=== PATIENT | female | born 1960 | race Caucasian/White ===

== ENCOUNTER → 2017-07-25 11:08 | Outpatient (REF) | payer BC, SELFPAY | LOC: LAB 11:08 | PROVIDERS: Visit Provider Nurse Practitioner Family | DX: D51.9 Vitamin B12 deficiency anemia, unspecified (principal) ==

== ENCOUNTER → 2020-02-16 17:00 | Outpatient (CLI) | payer BC, SELFPAY ==
[2020-02-16 18:50] LABS: Free T4 (Free Thyroxine) 1.03 ng/dl (0.78-2.19)
[2020-02-16 19:01] LABS: Thyroid Stimulating Hormone 4.18 uIU/mL (0.465-4.68)
== END ==
PROVIDERS: Visit Provider Physician Assistant
DX: E03.9 Hypothyroidism, unspecified (principal)
CPT/HCPCS: 84439; 84443

== ENCOUNTER 2023-04-16 18:53 | Emergency (ER) | payer BC, SELFPAY ==
[2023-04-16 19:42] VITALS: BP 129/77; PULSE 77; RESP 17; TEMP 36.8; O2SAT 93; BMI 45.1
--- OUTSIDE RECORDS SUMMARY | 2023-04-16 19:53 | XMS_ITS | Continuity of Care Document ---
Author Name Unknown Organization [facility] Address [address] [address] Phone Care Team Providers Care Freight Dispatcher Name Role Phone Jena Ferguson MD Unavailable Unavailable Allergies, Adverse Reactions, Alerts Substance Reaction Status Criticality PENICILLIN Active No Information Medications Medication Instructions Dosage Effective Dates (start - stop) Status Comments citalopram 40 mg tablet Take 1 tablet by mouth once daily - Active gabapentin 400 mg capsule take 1 capsule by oral route 3 times every day 400 MG - Active nabumetone 750 mg tablet take 2 tablet by oral route every day 1500 MG - Active methocarbamol 750 mg tablet TAKE 1 TO 2 TABLETS BY MOUTH THREE TIMES DAILY NEEDED MAY CAUSE DROWSINESS - Active Vitamin D3 5,000 unit tablet take 1 tablet once a day - Active Tirosint 75 mcg capsule take 1 capsule by oral route every day 75 MCG - Active buspirone 10 mg tablet 1 bid p
--- NOTE | 2023-04-16 20:29 | XR_ITS ---
PROCEDURE INFORMATION: Exam: XR Chest Exam date and time: 04/16/2023 8:59 PM Age: 62 years old Clinical indication: Prior surgery; Surgery date: 6+ months; Surgery type: Partial lung removal due to lung cancer per patient. Patient HX: Smoker, shortness of breath. ; Additional info: SOA TECHNIQUE: Imaging protocol: Radiologic exam of the chest. Views: 1 view. COMPARISON: CR CXR CHEST(2 VIEWS-NOT PORTABLE) 11/19/2016 4:19 PM FINDINGS: Tubes, catheters and devices: Left-sided chest port with tip terminating at the SVC. Lungs: Bibasilar opacities partially silhouette the diaphragm are favored to represent combination of atelectasis/pleural effusion/consolidation. Pleural spaces: See Lungs finding. Heart/Mediastinum: Unremarkable. No cardiomegaly. Bones/joints: Unremarkable. IMPRESSION: Bibasilar opacities partially silhouette the diaphragm are favored to represent combination of atelectasis/pleural effusion/consolidation.
[2023-04-16 20:36] LABS: Coronavirus 19, PCR Not Detected (NotDetected); Influenza A, PCR Not Detected (NotDetected); Influenza B, PCR Not Detected (NotDetected)
[2023-04-16 21:15] VITALS: BP 110/57; PULSE 69; O2SAT 94
[2023-04-16 21:27] LABS: Strep Scrn Group A (Rapid) Negative (Negative)
[2023-04-16 21:31] VITALS: BP 110/57; PULSE 72; RESP 18; O2SAT 94
--- NOTE | 2023-04-16 22:19 | PC.NURSE ---
rounded on pt, pt is asleep at this time
[2023-04-17 01:08] VITALS: BP 124/64; PULSE 81; RESP 20; TEMP 36.8; O2SAT 98
--- NOTE | 2023-04-17 15:56 | HMH.EDGENADL ---
Discharge Plan Disposition Patient Disposition: Home, Self-Care Prescriptions Prescriptions: No Action nabumetone 750 mg tablet 750 mg PO DAILY methocarbamol 750 mg tablet 750 mg PO Q6H oxaprozin 600 mg tablet 1,200 mg PO TID citalopram 40 mg tablet 40 mg PO QDAY gabapentin 300 mg capsule 300 mg PO TID levothyroxine 100 mcg tablet See Rx Instructions .ROUTE .COMPLEX Qty: 90 0RF Dose Instruction: Take 1 tablet by mouth once daily Rx Instructions: Take 1 tablet by mouth once daily Clinical Impressions Clinical Impression: PNA (pneumonia) Discharge ED Provider: Augstin Munoz General Adult HPI General Chief complaint: Weakness Stated complaint: weak, Time Seen by Provider: 04/16/23 19:17 Mode of Arrival: Family Vehicle Source of Information: Patient Limitations: No Limitations Description of Symptoms (Recalled from ER Triage Doc. by RN): 62 yo female presents with CC of sinus congestion, general malaise x 1 week . Patient is alert, oriented, denies angina, denies dyspnea. Said she stays nauseated and hasn't had alot of PO intake during the past 5 days. Last BM 3 days ago. Denies abd pain. Denies back pain. Denies covid contact. Patient is afebrile. Denies other sick contact. Takes monthly Contruda. History of Present Illness HPI narrative: The patient presents with a chief complaint of generalized weakness, fatigue, and congestion for the past four to five days. She reports feeling slightly short of breath and experiencing chills, but denies having a fever. The patient mentions coughing up a small amount of phlegm. The patient describes feeling weak all over her body and feeling out of it. She denies any specific medical problems or taking any medications for lung issues. She has a history of lung cancer but does not recall which side was affected. The patient denies any abdominal or chest pain and has not required breathing treatments or oxygen use in the past. The patient is currently responsible for taking care of her two grandsons and has been struggling to manage their daily routines due to her symptoms. She reports difficulty in getting them to school and expresses concern about the cold temperature in the examination room. Related Data Home Medications Medication Instructions Recorded Confirmed citalopram 40 mg tablet 40 mg PO QDAY 07/25/17 04/16/23 gabapentin 300 mg capsule 300 mg PO TID 07/25/17 04/16/23 methocarbamol 750 mg tablet 750 mg PO Q6H 07/25/17 04/16/23 oxaprozin 600 mg tablet 1,200 mg PO TID 07/25/17 04/16/23 nabumetone 750 mg tablet 750 mg PO DAILY 02/16/20 04/16/23 Previous Rx's Medication Instructions Recorded levothyroxine 100 mcg tablet See Rx Instructions .Route 06/22/21 .COMPLEX #90 tabs Allergies Allergy/AdvReac Type Severity Reaction Status Date / Time penicillin G [PENICILLIN G] Allergy Mild Verified 02/16/20 11:03 [facility] Disclaimer: The information contained in this section may have been updated after the patient was seen, as this information can be updated by other users. Social History Smoking Status: Current every day smoker tobacco type: cigarettes packs per day: 1 alcohol intake: never substance use type: denies use current occupational status: other Travel in the last 8 weeks: None housing: house ROS Obtained: Yes Systems reviewed as appropriate & no additional complaints except as documented Physical Exam General General appearance: alert and in no apparent distress Head Head exam: atraumatic and normocephalic Eye Eye exam: Present normal appearance Neck Neck exam: Present normal inspection Chest Chest inspection: Present normal inspection and symmetric chest wall rise Respiratory Respiratory exam: Present normal lung sounds bilaterally and other (Rales bilaterally); Absent respiratory distress Cardiovascular Cardiovascular exam: Present regular rate and normal rhythm Abdomina
== END 2023-04-17 01:15 | disposition home or self-care (01) ==
PROVIDERS: Emergency Provider Emergency Medicine
DX: J18.9 Pneumonia, unspecified organism (principal); R06.02 Shortness of breath; R53.1 Weakness; F17.210 Nicotine dependence, cigarettes, uncomplicated
CPT/HCPCS: 71045; 87430; 87636; 99283

== ENCOUNTER 2023-05-28 08:05 | Emergency (ER) | payer BC, SELFPAY ==
--- OUTSIDE RECORDS SUMMARY | 2023-05-28 08:11 | XMS_ITS | Continuity of Care Document ---
Author Name Unknown Organization [facility] Address [address] [address] Phone Care Team Providers Care Theatre Director Name Role Phone Jena Ferguson MD Unavailable [...]
[2023-05-28 08:20] VITALS: BP 142/92; PULSE 63; RESP 20; TEMP 36.8; O2SAT 93; BMI 49.0
--- NOTE | 2023-05-28 09:21 | EXP.UTC ---
Discharge Plan Disposition Patient Disposition: Home, Self-Care Condition: Good Prescriptions Prescriptions: New prednisone [prednisone] 20 mg tablet 20 mg PO BID Qty: 10 0RF No Action nabumetone 750 mg tablet 750 mg PO DAILY methocarbamol 750 mg tablet 750 mg PO Q6H oxaprozin 600 mg tablet 1,200 mg PO TID citalopram 40 mg tablet 40 mg PO QDAY levothyroxine 100 mcg tablet See Rx Instructions .ROUTE .COMPLEX Qty: 90 0RF Dose Instruction: Take 1 tablet by mouth once daily Rx Instructions: Take 1 tablet by mouth once daily ipratropium-albuterol 0.5 mg-3 mg(2.5 mg base)/3 mL solution for nebulization See Rx Instructions .ROUTE .COMPLEX Rx Instructions: . gabapentin 400 mg capsule 400 mg PO BID pantoprazole 40 mg tablet,delayed release (DR/EC) 40 mg PO DAILY midodrine 10 mg tablet 10 mg PO TID Referrals Follow up/Referrals: Julian Quiroga MD [Primary Care Provider] - See instructions Activity Restrictions/Add. Instructions Additional Instructions/Restrictions: Start antibiotic today. Be sure to complete entire prescription even if feeling better Tylenol and ibuprofen as needed for pain or fever Humidifier/vaporizer/hot steamy shower Follow-up with primary care tomorrow. Follow-up immediately in the ER of the [facility] for new or worsening symptoms or no noticeable improvement over the next 48-72 hours. Stop smoking Inhaler every 4-6 hours as needed. Should help open airways improved cough, wheezing, shortness of breath Start steroids today. Helps with inflammation therefore coughing and wheezing. Follow directions on package. Clinical Impressions Clinical Impression: COPD exacerbation Instructions Patient Instructions: Chronic Obstructive Pulmonary Disease, Acute Bronchitis Discharge ED Provider: Sheila ([facility])Toiyn [facility] HPI General Stated complaint: cough,congestion Mode of Arrival: Ambulatory Source of Information: Patient Limitations: No Limitations Time Seen by Provider: 05/28/23 09:22 Description of Symptoms (Recalled from Triage Doc. by RN): congestion and cough HEENT Symptoms (Recalled from RN notes): Yes Resp Symptoms (Recalled from RN notes): No Skin Symptoms (Recalled from RN notes): No MS Symptoms (Recalled from RN notes): No Functional Status (Recalled from RN notes): n/a History of Present Illness Provider Complaint: 62 yr old female presents for cough, wheezing, chest congestion and soa Related Data Home Medications Medication Instructions Recorded Confirmed citalopram 40 mg tablet 40 mg PO QDAY 07/25/17 05/28/23 methocarbamol 750 mg tablet 750 mg PO Q6H 07/25/17 04/16/23 oxaprozin 600 mg tablet 1,200 mg PO TID 07/25/17 04/16/23 nabumetone 750 mg tablet 750 mg PO DAILY 02/16/20 04/16/23 gabapentin 400 mg capsule 400 mg PO BID 05/28/23 05/28/23 ipratropium 0.5 mg-albuterol 3 mg See Rx Instructions .Route .COMPLEX 05/28/23 05/28/23 (2.5 mg base)/3 mL nebulization soln midodrine 10 mg tablet 10 mg PO TID 05/28/23 05/28/23 pantoprazole 40 mg tablet,delayed 40 mg PO DAILY 05/28/23 05/28/23 release Previous Rx's Medication Instructions Recorded levothyroxine 100 mcg tablet See Rx Instructions .Route 06/22/21 .COMPLEX #90 tabs prednisone 20 mg tablet 20 mg PO BID #10 tabs 05/28/23 Allergies Allergy/AdvReac Type Severity Reaction Status Date / Time penicillin G [PENICILLIN G] Allergy Mild Verified 05/28/23 08:57 Worker's Comp Is this a Worker's Comp case?: No Is this an [facility] Worker's Comp?: No [facility] Disclaimer: The information contained in this section may have been updated after the patient was seen, as this information can be updated by other users. 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
[2023-05-28 09:30] VITALS: BP 149/92; PULSE 63; RESP 18; TEMP 36.8; O2SAT 93
--- NOTE | 2023-05-28 09:31 | PC.NURSE ---
Pt states that her baseline o2 sat is between 90-93
== END 2023-05-28 09:30 | disposition home or self-care (01) ==
PROVIDERS: Emergency Provider Nurse Practitioner Family; PCP Family Medicine
DX: J44.1 Chronic obstructive pulmonary disease with (acute) exacerbation (principal); J20.9 Acute bronchitis, unspecified; R06.02 Shortness of breath; R05.9 Cough, unspecified; R09.89 Other specified symptoms and signs involving the circulatory and respiratory systems; R06.2 Wheezing; F17.210 Nicotine dependence, cigarettes, uncomplicated
CPT/HCPCS: 99204; 99212; G0463

== ENCOUNTER 2023-07-03 12:46 | Observation (INO) | payer BC, SELFPAY ==
[2023-07-03] VITALS (10 sets, daily range): BP systolic 79–131; BP diastolic 43–79; PULSE 62–75; RESP 17–20; TEMP 36.4–37.1; O2SAT 88–100; BMI 43.5; BMI 41.8
--- OUTSIDE RECORDS SUMMARY | 2023-07-03 13:06 | XMS_ITS | Continuity of Care Document ---
Author Name Unknown Organization [facility] Address [address] [address] Phone Care Team Providers Care Water Tanker Driver Name Role Phone Jena Ferguson MD Unavailable [...]
--- NOTE | 2023-07-03 13:16 | PC.NURSE ---
DR CRANE AT BEDSIDE
--- NOTE | 2023-07-03 13:17 | XR_ITS ---
FINAL REPORT CLINICAL HISTORY: Shortness of breath COMPARISON: 04/16/2023 FINDINGS: The heart size is mildly enlarged. Left chest port is present with the tip in the SVC. There is no focal infiltrate or edema. There are no pleural effusions. There is no pneumothorax. There is a healing right 7th rib fracture posteriorly. IMPRESSION: No acute cardiopulmonary process Reviewed, Interpreted and Dictated by Chin Camacho MD Transcribed by Shahnaz Dominguez Authenticated and [facility]
--- NOTE | 2023-07-03 13:17 | CT_ITS ---
FINAL REPORT TECHNIQUE: After the administration of oral and intravenous contrast, axial images were obtained through the abdomen and pelvis by computed tomography. The study was performed with techniques to keep radiation dose as low as reasonably achievable, (ALARA). Individual dose reduction techniques using automated exposure control or adjustment of mA and/or kV according to the patient's size were employed. CLINICAL HISTORY: n/v dec flatus/BM hypotension abd pain COMPARISON: None FINDINGS: Abdomen: There is chronic scarring at the lung bases. There is moderate fatty infiltration of the liver. There is scattered calcified granuloma throughout the liver. The gallbladder is distended. The spleen, pancreas, and adrenal appear unremarkable. There are benign-appearing cysts in the lower pole the right kidney measuring up to 1.2 cm. The aorta is normal in caliber. There is no free fluid or adenopathy. Pelvis: The appendix is not identified. The urinary bladder is incompletely distended. There is no free fluid or adenopathy. There are advanced changes of degenerative disc disease in the lower lumbar spine. IMPRESSION: Distended gallbladder. Benign-appearing right renal cysts. Fatty liver. Reviewed, Interpreted and Dictated by Chin Camacho MD Transcribed by Shahnaz Dominguez Authenticated and [facility]
--- NOTE | 2023-07-03 13:18 | HMH.EDGENADL ---
Discharge Plan Disposition Patient Disposition: Admitted Condition: Good Clinical Impressions Clinical Impression: Bilateral lower abdominal pain, Nausea & vomiting, Acute hypotension, Generalized weakness, Acute dehydration, SHAMA (acute kidney injury) Discharge ED Provider: Libertad Beaulieu General Adult HPI <Anshu Jensen MD - Last Filed: 07/03/23 15:02> General Chief complaint: Nausea/Vomiting/Diarrhea Stated complaint: weakness Time Seen by Provider: 07/03/23 13:10 Mode of Arrival: EMS Source of Information: Patient and EMS Limitations: No Limitations Description of Symptoms (Recalled from ER Triage Doc. by RN): PT REPORTS ONGOING N/V X 1 1/2 WEEKS. SEEN AT [facility] ON FRIDAY, STATES HER GALLBLADDER IS INFLAMMED. REMAINS UNABLE TO TOLERATE PO INTAKE. DENIES FEVER, NO DIARRHEA, NO PAIN History of Present Illness HPI narrative: Patient is a 62-year-old female with a history of lung cancer in remission status post lobectomy earlier this year who presents today with 1-1/2 weeks of nausea and vomiting decreased bowel movements and flatus and profound weakness and decreased urine output. Denies any fevers or chills does states she has a little bit worse of a cough than normal as well. States she went to [facility] emergency department where they did a CAT scan thought she may have some biliary disease told her that they wanted her to do an outpatient ultrasound but she felt too weak to get this accomplished. States that on the CAT scan did not tell her anything about a bowel obstruction etc. Related Data Home Medications Medication Instructions Recorded Confirmed citalopram 40 mg tablet 40 mg PO QDAY 07/25/17 07/03/23 methocarbamol 750 mg tablet 750 mg PO Q6H 07/25/17 07/03/23 oxaprozin 600 mg tablet 1,200 mg PO TID 07/25/17 07/03/23 nabumetone 750 mg tablet 750 mg PO DAILY 02/16/20 07/03/23 gabapentin 400 mg capsule 400 mg PO BID 05/28/23 07/03/23 ipratropium 0.5 mg-albuterol 3 mg See Rx Instructions .Route .COMPLEX 05/28/23 07/03/23 (2.5 mg base)/3 mL nebulization soln midodrine 10 mg tablet 10 mg PO TID 11/15/23 12/21/23 pantoprazole 40 mg tablet,delayed 40 mg PO DAILY 05/28/23 07/03/23 release Previous Rx's Medication Instructions Recorded levothyroxine 100 mcg tablet See Rx Instructions .Route 06/22/21 .COMPLEX #90 tabs Allergies Allergy/AdvReac Type Severity Reaction Status Date / Time penicillin G [PENICILLIN G] Allergy Mild Verified 05/28/23 08:57 [facility] <Anshu Jensen MD - Last Filed: 07/03/23 15:02> [facility] Disclaimer: The information contained in this section may have been updated after the patient was seen, as this information can be updated by other users. Medical History (Updated 07/03/23 @ 17:33 by PAIGE Sharp) COPD (chronic obstructive pulmonary disease) Hypothyroid Knee fracture Lung cancer Wrist fracture, right Surgical History (Updated 07/03/23 @ 17:33 by PAIGE Sharp) History of carpal tunnel surgery History of section History of hysterectomy History of lobectomy of lung Family History (Updated 07/03/23 @ 17:33 by PAIGE Sharp) Other Family history of cancer Social History (Updated 07/03/23 @ 17:33 by PAIGE Sharp) Smoking Status: Current every day smoker tobacco type: cigarettes packs per day: 1 alcohol intake: never substance use type: denies use current occupational status: disabled and other Travel in the last 8 weeks: None housing: house <Anshu Jensen MD - Last Filed: 07/03/23 15:02> ROS Obtained: Yes All systems reviewed & no additional complaints except as documented Physical Exam <Anshu Jensen MD - Last Filed: 07/03/23 15:02> General General appearance: other (Ill-appearing) Respiratory Respiratory exam: Present other (Oxygen saturations 88% on room air on my initial evaluation normal and good waveform) Cardiovascular Cardiovascular exam: Present other (Cool extremities hyp
[2023-07-03 13:28] LABS: Basophils % 0.5 % (0.1-2.0); Chloride 92 mmol/L (98-107); Eosinophils # 0.7 K/mm3 (0.0-0.4); Eosinophils % 9.6 % (0.1-12.0); Hemoglobin 15.4 g/dL (12.2-16.2); Lymphocytes # 1.6 K/mm3 (0.7-4.5); Lymphocytes % 22.1 % (10-50); Mean Corpuscular HGB Conc 32.7 g/dL (31.8-35.4); Mean Corpuscular Hemoglobin 32.1 pg (27.0-31.2); Mean Corpuscular Volume 98.2 fl (81-99); Mean Platelet Volume 8.4 fl (7.4-10.4); Monocytes # 0.6 K/mm3 (0.1-1.0); Monocytes % 7.9 % (1.7-9.3); Neutrophils # 4.4 K/mm3 (1.8-7.8); Platelet Count 384 K/mm3 (142-424); Red Blood Count 4.79 M/mm3 (4.20-5.40); Red Cell Distribution Width 14.9 % (11.5-17.5); White Blood Count 7.4 K/mm3 (4.8-10.8)
[2023-07-03 13:29] LABS: Potassium 3.8 mmoL/L (3.5-5.1); Sodium 130 mmol/L (136-145)
[2023-07-03 13:31] LABS: Alanine Aminotransferase 15 U/L (12-78); Alkaline Phosphatase 69 U/L (38-126); Aspartate Amino Transferase 34 U/L (14-36); Bilirubin,Total 0.6 mg/dl (0.2-1.3); Blood Urea Nitrogen 6 mg/dl (7-17); Creatinine Clearance Estimated 51 mL/min (50-200); Estimated Glomerular Filt Rate 51 ml/min (>60); GFR (African American) 61 ML/MIN (>60)
[2023-07-03 13:32] LABS: Albumin Level 4.5 g/dl (3.5-5.0); Albumin/Globulin Ratio 1.4 (1.1-1.8); Anion Gap 22.8 mEq/L (5-15); Calcium 9.7 mg/dl (8.4-10.2); Carbon Dioxide 19 mmol/L (22.0-30.0); Globulin 3.3 g/dL (1.3-3.2); Glucose 52 mg/dl (74-100); Lipase 35 U/L (23-300); Magnesium 1.5 mg/dl (1.6-2.3); Phosphorous 5.1 mg/dl (2.5-4.5); Total Protein,Serum 7.8 g/dl (6.3-8.2)
--- NOTE | 2023-07-03 13:32 | PC.NURSE ---
!st set of blood cultures drawn from right wrist and sent to lab
--- NOTE | 2023-07-03 13:38 | PC.NURSE ---
Allergy bracelet placed on left wrist; as well as blue band for having cultures drawn
[2023-07-03 13:44] LABS: Coronavirus 19, PCR Not Detected (NotDetected); Influenza A, PCR Not Detected (NotDetected); Influenza B, PCR Not Detected (NotDetected)
[2023-07-03 13:44] LABS: Troponin I 0.02 ng/ml (0.00-0.034)
--- NOTE | 2023-07-03 13:47 | PC.NURSE ---
placed patient on 2L via nasal cannula, pt oxygen saturation has been running 89-90% while patient is sleeping
[2023-07-03 13:57] LABS: Lactic Acid 1.6 mmol/L (0.7-2.1)
--- NOTE | 2023-07-03 16:10 | PC.NURSE ---
Dr. Beaulieu speaking with Dr. Andrew who is covering for Dr. Quiroga
--- NOTE | 2023-07-03 16:11 | PC.NURSE ---
DR DIAMOND SPEAKING WITH HOSPITALIST FOR ADMISSION
--- NOTE | 2023-07-03 16:16 | PC.NURSE ---
BAG CHECKER NOTIFIED OF ADMISSION
--- OUTSIDE RECORDS SUMMARY | 2023-07-03 16:39 | XMS_ITS | Continuity of Care Document ---
Author Name Unknown Organization [facility] Address [address] [address] Phone Care Team Providers Care Mini Lab Operator Name Role Phone Jena Ferguson MD Unavailable Unavailable Allergies, Adverse Reactions, Alerts Substance Reaction Status Criticality PENICILLIN Active No Information Medications Medication Instructions Dosage Effective Dates (start - stop) Status Comments methocarbamol 750 mg tablet TAKE 1 TO 2 TABLETS BY MOUTH THREE TIMES DAILY NEEDED MAY CAUSE DROWSINESS - Active nabumetone 750 mg tablet take 2 tablet by oral route every day 1500 MG - Active gabapentin 400 mg capsule take 1 capsule by oral route 3 times every day 400 MG - Active citalopram 40 mg tablet Take 1 tablet by mouth once daily - Active Vitamin D3 5,000 unit tablet take 1 tablet once a day - Active Tirosint 75 mcg capsule take 1 capsule by oral route every day 75 MCG - Active buspirone 10 mg tablet 1 bid
[2023-07-03 16:42] LABS: Free T4 (Free Thyroxine) 0.34 ng/dl (0.78-2.19)
--- NOTE | 2023-07-03 16:47 | PC.NURSE ---
REPORT GIVEN TO KENY CARMONA
--- NOTE | 2023-07-03 17:04 | PC.NURSE ---
arrived by stretcher from ED
[2023-07-03 17:18] LABS: Troponin I 0.02 ng/ml (0.00-0.034)
[2023-07-03 20:18] LABS: Troponin I 0.02 ng/ml (0.00-0.034)
[2023-07-04 00:10] LABS: Microscopic, Urine URINE MICROSCOPIC (MICROSCOPIC)
[2023-07-04 00:13] LABS: Appearance,Urine CLEAR (Clear); Bilirubin,Urine Negative (Negative); Blood, Urine Negative (Negative); Color,Urine YELLOW (Yellow); Glucose,Urine (UA) Negative (Negative); Ketones,Urine 3+ (Negative); Leukocyte Esterase,Urine Negative (Negative); Nitrate,Urine Negative (Negative); Protein,Urine Negative (Negative); Urobilinogen,Urine 0.2 EU/dl (0.2)
[2023-07-04 00:24] LABS: Squamous Epithelial Cell,Urine Occasional #/hpf (0-5)
[2023-07-04 04:00] VITALS: BP 126/80; PULSE 85; RESP 20; TEMP 36.4; O2SAT 96; BMI 42.0
--- NOTE | 2023-07-04 04:00 | PC.NURSE ---
Pt is alert and oriented x4, Pt is currently on RA and sating at 92% with a Hx of COPD. Pt has provided the needed urine sample but has yet to provide stool sample. Pt is tolerating fluids well and seems to be resting at times with no C/O pain or discomfort at this time.
[2023-07-04 06:07] LABS: Chloride 97 mmol/L (98-107); Potassium 4.1 mmoL/L (3.5-5.1); Sodium 133 mmol/L (136-145)
[2023-07-04 06:10] LABS: Anion Gap 16.1 mEq/L (5-15); Basophils % 0.4 % (0.1-2.0); Blood Urea Nitrogen 7 mg/dl (7-17); Carbon Dioxide 24 mmol/L (22.0-30.0); Creatinine Clearance Estimated 51 mL/min (50-200); Eosinophils # 0.2 K/mm3 (0.0-0.4); Eosinophils % 2.9 % (0.1-12.0); Estimated Glomerular Filt Rate 51 ml/min (>60); GFR (African American) 61 ML/MIN (>60); Hematocrit 41.4 % (37.0-47.0); Lymphocytes % 16.2 % (10-50); Mean Corpuscular HGB Conc 32.3 g/dL (31.8-35.4); Mean Corpuscular Hemoglobin 31.3 pg (27.0-31.2); Mean Platelet Volume 7.7 fl (7.4-10.4); Monocytes # 0.4 K/mm3 (0.1-1.0); Monocytes % 6.1 % (1.7-9.3); Neutrophils # 4.6 K/mm3 (1.8-7.8); Neutrophils % 74.4 % (37.0-80.0); Platelet Count 344 K/mm3 (142-424); Red Blood Count 4.27 M/mm3 (4.20-5.40); Red Cell Distribution Width 14.7 % (11.5-17.5); White Blood Count 6.2 K/mm3 (4.8-10.8)
[2023-07-04 06:11] LABS: Calcium 8.6 mg/dl (8.4-10.2); Glucose 130 mg/dl (74-100); Hemoglobin 13.4 g/dL (12.2-16.2)
[2023-07-04 08:00] VITALS: BP 119/52; PULSE 68; RESP 16; TEMP 36.9; O2SAT 93
--- NOTE | 2023-07-04 08:56 | EXP.HP ---
History of Present Illness *Admission Date: 07/04/23 *Reason for visit:: Nausea and vomiting *History of present illness: 62 year old female patient of [facility] with about a 10 day history of nausea and vomiting. Emesis consisted of mainly ingested food, no blood. She was seen in the ER at [facility] a few days ago and was told her gallbladder was abnormal. They arranged an outpatient ultrasound for her but her symptoms worsened so she came the the ER here for further evaluation. [facility] Disclaimer: The information contained in this section may have been updated after the patient was seen, as this information can be updated by other users. Medical History (Updated 07/04/23 @ 13:04 by Julian Quiroga MD) CAP (community acquired pneumonia) COPD (chronic obstructive pulmonary disease) Fibromyalgia GERD (gastroesophageal reflux disease) Hypothyroid Knee fracture Lung cancer Osteoarthritis Urinary incontinence Wrist fracture, right Surgical History (Updated 07/04/23 @ 13:04 by Julian Quiroga MD) History of carpal tunnel surgery History of section History of colonoscopy History of hysterectomy History of lobectomy of lung Family History (Updated 07/03/23 @ 17:33 by PAIGE Sharp) Family history of cancer Social History (Updated 07/03/23 @ 17:33 by PAIGE Sharp) Smoking Status: Current every day smoker tobacco type: cigarettes packs per day: 1 alcohol intake: never substance use type: denies use current occupational status: disabled and other Travel in the last 8 weeks: None housing: house Review of Systems Constitutional Constitutional: Denies chills and Denies fever(s) ENT Ears, Nose, Mouth, and Throat: Denies bleeding gums and Denies dizziness *Cardiovascular Cardiovascular: Denies chest pain and Denies dyspnea *Respiratory Respiratory: Denies dyspnea *Gastrointestinal Gastrointestinal: Reports as per HPI *Genitourinary Genitourinary: Denies difficulty voiding *Musculoskeletal Musculoskeletal: Denies arthralgias Integumentary/Breasts Skin/Breast: Denies rash *Neurologic Neurologic: Denies dizziness Meds Home Medications and Allergies Home Medications Medication Instructions Recorded Confirmed Type citalopram 40 mg tablet 40 mg PO DAILY MOOD 07/25/17 07/04/23 History gabapentin 400 mg capsule 400 mg PO BID NERVE PAIN 05/28/23 07/03/23 History ipratropium 0.5 mg-albuterol 3 mg 3 ml inhalation Q6HP PRN Shortness 05/28/23 07/04/23 History (2.5 mg base)/3 mL nebulization Of Breath Or Wheezing soln midodrine 10 mg tablet 10 mg PO TID LOW BLOOD PRESSURE 05/28/23 07/03/23 History pantoprazole 40 mg tablet,delayed 40 mg PO DAILY Acid Reflux 05/28/23 07/03/23 History release levothyroxine 100 mcg tablet 100 mcg PO DAILYDM THYROID 07/04/23 07/04/23 History New Prescriptions to Start Prescriptions: Allergies Allergy/AdvReac Type Severity Reaction Status Date / Time penicillin G [PENICILLIN G] Allergy Mild Verified 05/28/23 08:57 Exam Data for Last 24 hours Vital signs and Labs for Last 24 Hours: Temp Pulse Resp BP Pulse Ox O2 Del Method O2 Flow Rate 98.4 F 68 16 119/52 L 93 L Room Air 2 07/04/23 08:00 07/04/23 08:00 07/04/23 08:00 07/04/23 08:00 07/04/23 08:00 07/04/23 08:00 07/04/23 01:00 Laboratory Results - last 24 hr 07/03/23 12:45: WBC 7.4, RBC 4.79, Hgb 15.4, Hct 47.0, MCV 98.2, MCH 32.1 H, MCHC 32.7, RDW 14.9, Plt Count 384, MPV 8.4, Neut % (Auto) 60.0, Lymph % (Auto) 22.1, [place] % (Auto) 7.9, Eos % (Auto) 9.6, Baso % (Auto) 0.5, Neut # (Auto) 4.4, Lymph # (Auto) 1.6, [place] # (Auto) 0.6, Eos # (Auto) 0.7 H, Baso # (Auto) 0.0, Sodium 130 L, Potassium 3.8, Chloride 92 L, Carbon Dioxide 19 L, Anion Gap 22.8 H, BUN 6 L, Creatinine 1.10 H, Estimated Creat Clear 51, Estimated GFR 51 L, Est GFR ( Amer) 61, Glucose 52 L, Calcium 9.7, Phosphorus 5.1 H, Magnesium 1.5 L, Total Bilirubin 0.6, AST 34, ALT 15, Al
--- NOTE | 2023-07-04 08:58 | HMH.PHAINT1 ---
Pharmacy Intervention Comments: MEDICATION RECONCILIATION COMPLETE USING LIST FROM MD OFFICE AND EXTERNAL PHARMACY FILL HISTORY.
--- NOTE | 2023-07-04 09:00 | US_ITS ---
FINAL REPORT CLINICAL HISTORY: N/V, RUQ abd pain, abnormal CT scan COMPARISON: CT abdomen pelvis dated 07/03/2023 FINDINGS: ULTRASOUND RIGHT UPPER QUADRANT Sonographic imaging of the right upper quadrant was obtained. Limited images of the pancreas are without acute abnormality. The liver fatty infiltrated. The gallbladder is distended and contains a small amount of sludge. There is no gallbladder wall thickening. The common duct is normal at 3 mm. There is a cyst in the right kidney measuring 1.6 cm in greatest dimension. IMPRESSION: Small amount of sludge in a distended gallbladder. Fatty liver. Right renal cyst Reviewed, Interpreted and Dictated by Chin Camacho MD Transcribed by Cuortney Miller Authenticated and [facility] [place]
[2023-07-04 13:26] LABS: Alanine Aminotransferase 14 U/L (12-78); Albumin Level 3.7 g/dl (3.5-5.0); Alkaline Phosphatase 56 U/L (38-126); Aspartate Amino Transferase 27 U/L (14-36); Bilirubin,Direct 0.4 mg/dl (0.0-0.4); Bilirubin,Indirect 0.1 mg/dL (0.0-0.9); Bilirubin,Total 0.5 mg/dl (0.2-1.3); Bilirubin,Unconjugated 0.1 mg/dL (0.0-1.1); Total Protein,Serum 6.2 g/dl (6.3-8.2)
[2023-07-04 16:00] VITALS: BP 128/71; PULSE 74; RESP 18; TEMP 36.6; O2SAT 92
--- NOTE | 2023-07-04 18:49 | PC.NURSE ---
Patient continuing to get fluids IV. Patient VSS, A&Ox4 and tolerating a regular diet
[2023-07-04 20:00] VITALS: BP 112/62; PULSE 86; RESP 16; TEMP 36.8; O2SAT 92
[2023-07-05 04:00] VITALS: BP 101/66; PULSE 77; RESP 17; TEMP 36.6; O2SAT 98; BMI 42.4
--- NOTE | 2023-07-05 06:27 | PC.NURSE ---
HAS NOT USED HER 02 THIS SHIFT. 02 SATS 92% ON ROOM AIR. NO N/V/D THIS SHIFT. AMBULATORY TO BR WITH SBA DUE TO IV POLE. TOLERATES ACTIVITY WELL.
[2023-07-05 07:35] VITALS: BP 108/56; PULSE 71; RESP 18; TEMP 36.9; O2SAT 90
--- NOTE | 2023-07-05 08:23 | EXP.ACUTE.PN ---
Subjective *Date: 07/05/23 *Time: 08:23 Interval history: Patient feels much better today, wants to go home. Medical Exam Vital signs and Labs for Last 24 Hours: Vital Signs Temp Pulse Resp BP Pulse Ox O2 Del Method 07/05/23 07:35 98.5 F 71 18 018/56 L 90 L Room Air 07/05/23 06:29 Room Air 07/05/23 04:59 Room Air 07/05/23 04:00 97.9 F 77 17 101/66 L 98 Room Air 07/05/23 03:00 Room Air 07/05/23 01:00 Room Air 07/04/23 23:00 Room Air 07/04/23 21:00 Room Air 07/04/23 20:00 92 L Room Air 07/04/23 20:00 98.2 F 86 16 112/62 92 L Room Air 07/04/23 16:00 97.8 F 74 18 128/71 92 L Room Air Intake and Output 07/04/23 07/05/23 07/05/23 23:59 07:59 15:59 Intake Total 822 / 2102 1394 / 1394 Output Total 100 / 400 0 / 0 Balance 722 / 1702 1394 / 1394 Intake: Intake, Oral Amount 240 / 1520 670 / 670 Intake, Total IV Amount 582 / 582 724 / 724 0.9 % Sodium Chloride 1000ML 1, 582 / 582 724 / 724 000 ml @ 150 mls/hr IV .[id number] [facility] Rx#:[id number] Output: Output, Urine Amount 100 / 400 0 / 0 Other: Number of Unmeasured Voids 1 Weight 264 lb 3.337 oz Patient Weight 07/05/23 23:59 Weight 264 lb 3.337 oz Laboratory Results - last 24 hr 07/04/23 05:36: Total Bilirubin 0.5, Direct Bilirubin 0.4, Conjugated Bilirubin 0.0, Indirect Bilirubin 0.1, Unconjugated Bilirubin 0.1, AST 27, ALT 14, Alkaline Phosphatase 56, Total Protein 6.2 L, Albumin 3.7 D I & O for Labs for Last 24 Hours: Intake & Output 07/02/23 07/03/23 07/04/23 07/05/23 23:59 23:59 23:59 23:59 Intake Total 50 / 410 1902 / 2102 1394 / 1394 Output Total 0 / 0 400 / 400 0 / 0 Balance 50 / 410 1502 / 1702 1394 / 1394 Weight 259 lb 8 oz 262 lb 264 lb 3.337 oz Constitutional: Present no acute distress Respiratory: Present normal respiratory effort Cardiac: Present Reg Rate and Rhythm GI: Present normal bowel sounds; Absent tenderness Extremities: Present normal inspection and full ROM Skin: Present intact; Absent erythema Neuro: Present Grossly Intact and moves all extremities Assessment and Plan *Assessment and plan (1) Nausea & vomiting: Status: Acute Category: Medical Code(s): R11.2 - Nausea with vomiting, unspecified (2) Abdominal pain: Status: Acute Category: Medical Code(s): R10.9 - Unspecified abdominal pain (3) Acute hypotension: Status: Acute Category: Medical Code(s): I95.9 - Hypotension, unspecified (4) Acute dehydration: Status: Acute Category: Medical Code(s): E86.0 - Dehydration (5) SHAMA (acute kidney injury): Status: Acute Category: Medical Code(s): N17.9 - Acute kidney failure, unspecified (6) Gallbladder sludge: Status: Acute Category: Medical Code(s): K82.8 - Other specified diseases of gallbladder Plan OK to discharge home today, bland diet, dehydration precautions discussed, will need outpatient HIDA scan
--- NOTE | 2023-07-08 13:43 | SW/DCPLANNER ---
Follow up phone call w/ this patient: patient stated that she is not feeling well at home but will make her a follow up appointment w/ Dr Quiroga. I did offer to make appointment and patient stated she will make it. Patient did not have any further questions/needs at this time.
--- NOTE | 2023-07-08 15:37 | EXP.DC.SUM ---
General Admission date:: 07/03/23 Discharge date: 07/05/23 HPI HPI HPI: 62 year old female patient of [facility] with about a 10 day history of nausea and vomiting. Emesis consisted of mainly ingested food, no blood. She was seen in the ER at [facility] a few days ago and was told her gallbladder was abnormal. They arranged an outpatient ultrasound for her but her symptoms worsened so she came the the ER here for further evaluation. Hospital Course Hospital Course Hospital Course: The patient was admitted for dehydration and abdominal pain. A right upper quadrant ultrasound was ordered and LFTs were ordered as well. By 07/05/2023, she was feeling much better and wanted to go home. Her right upper quadrant ultrasound showed a small amount of sludge and a distended gallbladder as well as fatty liver. Her liver tests were normal. She was stable to be discharged home with a bland diet and will need an outpatient HIDA scan. Exam Data for Last 24 hours Vital signs and Labs for Last 24 Hours: Temp Pulse Resp BP Pulse Ox O2 Del Method O2 Flow Rate 98.5 F 71 18 108/56 L 90 L Room Air 2 07/05/23 07:35 07/05/23 07:35 07/05/23 07:35 07/05/23 07:35 07/05/23 07:35 07/05/23 07:35 07/04/23 01:00 Narrative: Constitutional Constitutional: no acute distress *Routine HEENT Exam Head: Present normocephalic Eye: Present EOMI and PERRL ENT: Present mucous membranes moist *Routine Neck Exam Neck: Present supple; Absent lymphadenopathy *Routine Respiratory Exam Respiratory: Present CTA bilaterally *Routine Cardiovascular Exam Cardiovascular: Present RRR *Routine Abdominal Exam Abdominal: Present soft, normoactive bowel sounds and tenderness (RUQ) *Routine Rectal Exam Rectal:: deferred *Routine Genitalia Exam Genitalia:: deferred *Routine Extremities Exam Extremities: Absent cyanosis, clubbing or edema *Routine Skin Exam Skin: Present warm; Absent rash *Routine Neurological Exam Neurological: Present alert and oriented X3 Results Data Completed and Pending Labs on day of discharge: Preliminary micro results at discharge 07/03/23 13:32 Blood Culture - Preliminary Blood 07/03/23 13:18 Blood Culture - Preliminary Blood DS: Diagnosis Discharge Diagnosis (1) Nausea & vomiting: Status: Acute Code(s): R11.2 - Nausea with vomiting, unspecified (2) Abdominal pain: Status: Acute Code(s): R10.9 - Unspecified abdominal pain (3) Acute hypotension: Status: Acute Code(s): I95.9 - Hypotension, unspecified (4) Acute dehydration: Status: Acute Code(s): E86.0 - Dehydration (5) SHAMA (acute kidney injury): Status: Acute Code(s): N17.9 - Acute kidney failure, unspecified (6) Gallbladder sludge: Status: Acute Code(s): K82.8 - Other specified diseases of gallbladder Meds Home Medications and Allergies Home Medications Medication Instructions Recorded Confirmed Type citalopram 40 mg tablet 40 mg PO DAILY MOOD 07/25/17 07/04/23 History gabapentin 400 mg capsule 400 mg PO BID NERVE PAIN 05/28/23 07/03/23 History ipratropium 0.5 mg-albuterol 3 mg 3 ml inhalation Q6HP PRN Shortness 05/28/23 07/04/23 History (2.5 mg base)/3 mL nebulization Of Breath Or Wheezing soln midodrine 10 mg tablet 10 mg PO TID LOW BLOOD PRESSURE 05/28/23 07/03/23 History pantoprazole 40 mg tablet,delayed 40 mg PO DAILY Acid Reflux 05/28/23 07/03/23 History release levothyroxine 100 mcg tablet 100 mcg PO DAILYDM THYROID 07/04/23 07/04/23 History ondansetron HCl 4 mg tablet 4 mg PO Q8H PRN nausea and 07/05/23 Rx vomiting #20 tabs New Prescriptions to Start Prescriptions: ondansetron HCl Willard,Julian Allergies Allergy/AdvReac Type Severity Reaction Status Date / Time penicillin G [PENICILLIN G] Allergy Mild Verified 05/28/23 08:57 Discharge Plan Disposition Patient Disposition: Home, Self-Care
== END 2023-07-05 10:06 | disposition home or self-care (01) ==
LOC: ER 16:14 → 2ND 16:57
PROVIDERS: Student in an Organized Health Care Education/Training Program; Admitting Provider Internal Medicine Adolescent Medicine; Emergency Provider Emergency Medicine; PCP Family Medicine; Visit Provider Family Medicine
DX: E86.0 Dehydration (principal); N17.9 Acute kidney failure, unspecified; I95.9 Hypotension, unspecified; R10.9 Unspecified abdominal pain; Z79.899 Other long term (current) drug therapy; F17.210 Nicotine dependence, cigarettes, uncomplicated; J44.9 Chronic obstructive pulmonary disease, unspecified; R11.2 Nausea with vomiting, unspecified
CPT/HCPCS: 36415; 71045; 74177; 76705; 80048; 80053; 80076; 81001; 82533; 83605; 83690; 83735; 84100; 84439; 84443; 84484; 85025; 87040; 87636; 99285; G0378; J2405; J3475; Q9967

== ENCOUNTER 2023-07-18 16:28 | Emergency (ER) | payer BC, SELFPAY ==
[2023-07-18] VITALS (10 sets, daily range): BP systolic 75–135; BP diastolic 51–73; PULSE 61–79; RESP 12–20; TEMP 36.6; O2SAT 88–100; BMI 43.5
--- OUTSIDE RECORDS SUMMARY | 2023-07-18 16:35 | XMS_ITS | Continuity of Care Document ---
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 Name Role Phone Jena Ferguson MD [...] Active buspirone 10 mg tablet 1 bid prn anxiety - No Longer Active methocarbamol 750 mg tablet TAKE 1 TO 2 TABLETS BY MOUTH THREE TIMES DAILY NEEDED MAY CAUSE DROWSINESS - No Longer Active buspirone 10 mg tablet 1 bid prn anxiety - No Longer Active Vitamin D2 1,250 mcg (50,000 unit) capsule take 1 capsule by oral route every week 33571 UNITS - No Longer Active citalopram 40 mg tablet Take 1 tablet by mouth once daily - No Longer Active gabapentin 400 mg capsule take 1 capsule by oral route 3 times every day 400 MG - No Longer Active nabumetone 750 mg tablet take 2 tablet by oral route every day 1500 MG - No Longer Active Procedures Procedure Date Office Visit Level IV Forms Office Visit Level IV Radiological Exam Knee 1-2 Views 2021 Radiological Exam Knee 1-2 Views 2021 Office Visit Level IV Office Visit Level IV Forms Office Visit Level IV Office Visit Level IV Office Visit Level IV Forms Office Visit Level IV Radiologic Exam Spine Cervical 2-3 Views Arthrocentesis Major Joint/Bursa 2018 Methylprednisolone Acetate 80mg 019 Office Visit Level IV Office Visit Level IV Radiological Exam Knee 1-2 Views 2017 Radiological Exam Knee 1-2 Views 2017 Office Visit Level IV Advance Directives Directive Yes / No Effective Date File Name No Information Encounters Encounter Description Practice Location Reason(s) For Visit Diagnoses Date Provider Providers Copied on Encounter Office Visit Level IV [facility] [address] [facility], [place], [place], [id number], [place] tel:[phone] [facility] Low back pain (chief complaint) Polycythemia Vitamin B12 deficiencyVi tamin D deficiencyAn xietyOA of kneeOsteoart hropathyChro yoseph Low Back PainMyalgiaP ain ManagementBo dy mass index (BMI) 40.0-44.9, adultNSAID Fpc Use 2 Marty Bella. [address], [id number]. tel:[phone] Referring Provider: José Jolley, [address] [place] [address], [id number]. tel:[phone] [facility] [address] [place] [address], [id number], [place] tel:[phone] [facility] No Information Mar- 2 Marty Bella. [address], [id number]. tel:[phone] [facility] [address] [place] [address], [id number], [place] tel:[phone] [facility] No Information 2 Marty Bella. [address] [place] [address], [id number]. tel:[phone] Referring Provider: José Jolley, [address] [place] [address], [id number]. tel:[phone] Office Visit Level IV [facility] [address] [place] [address], [id number], [place] tel:[phone] [facility] pain (chief complaint) Vitamin B12 deficiencyVi tamin D deficiencyOA of kneeOsteoart hropathyChro yoseph Low Back PainMyalgiaP ain ManagementBo dy mass index (BMI) 40.0-44.9, adultNSAID Slide Maker UsePolycythe miaAnxiety Dec- 2 Marty Bella. [address], [id number]. tel:[phone] Referring Provider: José Jolley, [address] [place] [address], [id number]. tel:[phone] Office Visit Level IV [facility] [address] [place] [address], [id number], tel:[phone] [facility] Low back pain (chief complaint) Vitamin B12 deficiencyVi tamin D deficiencyOA of kneeOsteoart hropathyChro yoseph Low Back PainMyalgiaP ain ManagementBo dy mass index (BMI) 40.0-44.9, adultNSAID Slide Maker Use Aug-0 2 2 Wells RUDOLPH Peña. [address], [id number], . tel:[phone] Referring Provider: Joés Jolley, [address] [place] [address], [id number]. tel:[phone] Office Visit Level IV [facility] [address] [place] [address], [id number], tel:[phone] [facility] Low back pain (chief complaint) Vitamin B12 deficiencyVi tamin D deficiencyOA of kneeOsteoart hropathyChro yoseph Low Back PainMyalgiaP ain ManagementNS AID Slide Maker UseBody mass index (BMI) 40.0-44.9, adult Curtis-0 1 Marty Bella. [address] [place] [address], [id number]. tel:[phone] Referring Provider: José Jolley, [address] [place] [address], [id number]. tel:[phone] [facility] [address] [place] [address], [id number], tel:[phone] [facility] No Information 0 1 Marty Bella. [address] [place] [address], [id number]. tel:[phone] Referring Provider: José Jolley, [address] [place] [address], [id number]. tel:[phone] Office Visit Level IV [facility] [address] [place] [address], [id number], tel:[phone] [facility] Low back pain (chief complaint) Hypothyroidi sm, unspecifiedV itamin B12 deficiencyVi tamin D deficiencyOS A on CPAPOA of kneeOsteoart hropathyChro yoseph Low Back PainMyalgiaP ain ManagementNS AID Fpc Use 0 Marty Bella. [address], [id number]. tel:[phone] Referring Provider: José Jolley, [address] [place] [address], [id number]. tel:[phone] Office Visit Level IV [facility], [address] [place] [id number], tel:[phone] [facility] Low back pain (chief complaint) Hypothyroidi sm, unspecifiedV itamin B12 deficiencyVi tamin D deficiencyOS A on CPAPOA of kneeOsteoart hropathyChro yoseph Low Back PainMyalgiaP ain ManagementNS AID Fpc Use 0 Marty Bella. [address], [id number]. tel:[phone] Referring Provider: José Jolley, [address] [place] [address], [id number]. tel:[phone] Office Visit Level IV [facility], [address] [place] [address], [id number], [place] tel:[phone] [facility] Joint Pain (chief complaint) NSAID Fpc UseHypothyro idism, unspecifiedV itamin B12 deficiencyVi tamin D deficiencyOA of kneeChronic Low Back PainMyalgiaP ain ManagementOS A on CPAPOsteoart hropathy 0 Marty Bella. [address], [id number]. tel:[phone] Referring Provider: José Jolley, [address] [place] [address], [id number]. tel:[phone] [facility] [address] [place] [address], [id number], tel:[phone] [facility] No Information 0 Marty Bella. [address], [id number]. tel:[phone] Referring Provider: José Jolley, [address] [place] [address], [id number]. tel:[phone] Office Visit Level IV [facility] [address] [place] [address], [id number], [place] tel:[phone] [facility] Joint Pain (chief complaint) Body mass index (BMI) 40.0-44.9, adultHypothy roidism, unspecifiedV itamin B12 deficiencyVi tamin D deficiencyOA of kneeChronic Low Back PainMyalgiaP ain ManagementNS AID Slide Maker UseOSA on CPAPOsteoart hropathy 9 Marty Bella. [address] [place] [address], [id number]. tel:[phone] Referring Provider: José Jolley, [address] [place] [address], [id number]. tel:[phone] [facility] [address] [place] [address], [id number], [place] tel:[phone] [facility] Osteoarthrit is (chief complaint) OA of knee 201 9 Gerry Humphries. [address], [id number]. tel:[phone] Referring Provider: José Jolley, [address] [place] [address], [id number]. tel:[phone] Office Visit Level IV [facility] [address], [id number], tel:[phone] [facility]. Joint Pain (chief complaint)Fa tigue (chief complaint) Pain ManagementVi tamin D deficiencyCh ronic Low Back PainOSA on CPAPMyalgiaN SAID Fpc UseHypothyro idism, unspecifiedV itamin B12 deficiencyCh est painJoint PainOA of knee 4-201 9 Gerry Humphries. 330 [facility] [address], [place], [id number]. tel:[phone] Referring Provider: José Jolley, [address] [place] [address], [id number]. tel:[phone] Office Visit Level IV [facility], [address] [place] [address], [id number], tel:[phone] [facility]. Joint Pain (chief complaint)Fa tigue (chief complaint) Vitamin D deficiencyHy pothyroidism , unspecifiedC hronic Low Back PainMyalgiaN SAID Slide Maker UseVitamin B12 deficiencyOS A on CPAPChest painJoint PainPain Management Curtis-0 8 8 Marty Bella. [address] [place], [address], [id number]. tel:[phone] Referring Provider: José Jolley, [address] [place] [address], [id number]. tel:[phone] Office Visit Level IV [facility] [address], [id number], tel:[phone] [facility]. Joint Pain (chief complaint)Fa tigue (chief complaint) Chronic Low Back PainDe Quervain tenosynoviti sMyalgiaFati gueNSAID Slide Maker UseVitamin D deficiencyVi tamin B12 deficiency anemiaHypoth yroidism, unspecified Dec-0 6-201 7 Marty Bella. [address], [place], [place], [id number]. tel:[phone] Referring Provider: José Jolley, [address] [place] [address], [id number]. tel:[phone] [facility] [address], [place], [place], [id number], tel:[phone] [facility] Chronic Low Back PainCounseli ngMyalgiaFat igueNSAID Fpc UseDe Quervain tenosynoviti s 7201 7 Marty Jena. [address] [facility], [facility], [place], [place], [id number]. tel:[phone] Family History Family Member Type Diagnosis Age At Onset No Information Immunizations Vaccine Date Status Comments SARS-COV-2 (COVID-19) vaccin e, vector non-replicating, recombinant spike protein-Ad26, preservative free, 0.5 mL (Guguchu) administered Source: Other Provid er Payers Payer name Insurance type Covered republican ID Authoriza tibruna(s) [facility] National Account 18259 BL [id number] Social History Type Description Quantity Date Captured Comments Alcohol Use Details No Caffeine Use Details Unknown Tobacco Use Status Smoking Status Unknown if ever smoked 24 Sex Female Vital Signs Date / Time: Height Weight BMI Pulse Rate Blood Pressure Temperature Respiratory Rate Body Surface Area Head Circumference Head Circ. Percentile Wt./Kd. Percentile BMI percentile Pulse Ox Inhaled Ox 8:34 AM 108.862 kg (240.00 lbs) Chief Complaint And Reason For Visit From encounter dated '06/19/2022 10:40'. Low back pain (chief complaint) Reason For Referral Reason For Referral No Information Plan Of Treatment Date Type Action Status Goal Lifestyle educat ion regarding diet completed Goal Lifestyle educat ion regarding diet completed Goal Lifestyle educat ion regarding diet completed Goal Lifestyle educat ion regarding diet completed Goal Tobacco cessation counseling completed Goal Lifestyle educat ion regarding diet completed Goal Dietary manageme nt education, guidance, and counseling completed Goal Tobacco cessation counseling completed Referral Ordered: Pulmonology (related to Fatigue) ordered Referral Ordered: Referrals: Pulmonology. Consult ordered Patient Education Knee: Exercises complet ed Future Order: Radiology Order Sarah mbar Spine MRI WITHOUT Contrast ([id number]), Ordered on: Ordered Future Order: Lab Order CBC With Differential/Platelet ([id number]), Ordered on: Ordered Future Order: Lab Order Comp. Me tabolic Panel (14) ([id number]), Ordered on: Ordered Future Order: Lab Order Vitamin D, 25-Hydroxy ([id number]), Ordered on: Ordered Future Order: Radiology Order Kn ee X-ray; Limited (1 or 2 views) ([id number]), Ordered on: Ordered Future Order: Lab Order CBC With Differential/Platelet ([id number]), Ordered on: Ordered Future Order: Lab Order Comp. Me tabolic Panel (14) ([id number]), Ordered on: Ordered Future Order: Lab Order Vitamin D, 25-Hydroxy ([id number]), Ordered on: Ordered Future Order: Lab Order CBC With Differential/Platelet ([id number]), Ordered on: Ordered Future Order: Lab Order Comp. Me tabolic Panel (14) ([id number]), Ordered on: Ordered Future Order: Lab Order Vitamin B12 and Folate ([id number]), Ordered on: Ordered Future Order: Lab Order Vitamin D, 25-Hydroxy ([id number]), Ordered on: Ordered Future Order: Lab Order CBC With Differential/Platelet ([id number]), Ordered on: Ordered Future Order: Lab Order Comp. Me tabolic Panel (14) ([id number]), Ordered on: Ordered Future Order: Lab Order Vitamin D, 25-Hydroxy ([id number]), Ordered on: Ordered Future Order: Lab Order Vitamin B12 and Folate ([id number]), Ordered on: Ordered Future Order: Lab Order TSH (004 259), Ordered on: Ordered Future Order: Radiology Order Sarah mbar Spine MRI WITHOUT Contrast ([id number]), Ordered on: Ordered Future Order: Lab Order CBC With Differential/Platelet ([id number]), Ordered on: Ordered Future Order: Lab Order Comp. Me tabolic Panel (14) ([id number]), Ordered on: Ordered Future Order: Lab Order Vitamin B12 and Folate ([id number]), Ordered on: Ordered Future Order: Lab Order Vitamin D, 25-Hydroxy ([id number]), Ordered on: Ordered Future Order: Lab Order TSH (004 259), Ordered on: Ordered Future Order: Radiology Order Sarah mbar Spine MRI WITHOUT Contrast ([id number]), Ordered on: Ordered Future Order: Lab Order CBC With Differential/Platelet ([id number]), Ordered on: Ordered Future Order: Lab Order Comp. Me tabolic Panel (14) ([id number]), Ordered on: Ordered Future Order: Radiology Order Ce rvical Spine X-ray (2 or 3 views) ([id number]), Ordered on: Ordered Future Order: Lab Order CBC With Differential/Platelet ([id number]), Ordered on: Ordered Future Order: Lab Order Comp. Me tabolic Panel (14) ([id number]), Ordered on: Ordered Future Order: Lab Order Vitamin D, 25-Hydroxy ([id number]), Ordered on: Ordered Future Order: Lab Order TSH (004 259), Ordered on: Ordered Future Order: Lab Order CBC With Differential/Platelet ([id number]), Ordered on: Ordered Future Order: Lab Order Comp. Me tabolic Panel (14) ([id number]), Ordered on: Ordered Future Order: Lab Order Vitamin D, 25-Hydroxy ([id number]), Ordered on: Ordered Future Order: Lab Order Vitamin B12 and Folate ([id number]), Ordered on: Ordered Future Order: Lab Order CBC With Differential/Platelet ([id number]), Ordered on: Ordered Future Order: Lab Order Comp. Me tabolic Panel (14) ([id number]), Ordered on: Ordered Future Order: Lab Order Vitamin D, 25-Hydroxy ([id number]), Ordered on: Ordered Future Order: Lab Order Vitamin B12 and Folate ([id number]), Ordered on: Ordered Future Order: Radiology Order Kn ee X-ray; Limited (1 or 2 views) ([id number]), Ordered on: Ordered Future Order: Lab Order CBC With Differential/Platelet ([id number]), Ordered on: Ordered Future Order: Lab Order Comp. Me tabolic Panel (14) ([id number]), Ordered on: Ordered Future Order: Lab Order C-Reacti ve Protein, Quant ([id number]), Ordered on: Ordered Future Order: Lab Order Sediment ation Rate-Westergren ([id number]), Ordered on: Ordered Future Order: Lab Order Thyroid Panel With TSH ([id number]), Ordered on: Ordered Future Order: Lab Order Vitamin D, 25-Hydroxy ([id number]), Ordered on: Ordered Future Order: Lab Order Vitamin B12 and Folate ([id number]), Ordered on: Ordered History Of Present Illness Encounter Date Complaint History Of Prese nt Illness Low back pain Low back pain Low back pain Low back pain Low back pain Low back pain Joint Pain Reference interv al of symptoms: since last visit. The severity of the problem is moderate. Pain scale: 4/10. The symptoms are constant. The problem has not changed. The primary symptoms reported include: pain and stiffness. The patient's assessment of treatment is: helping greatly. The patient is not experiencing side effects. The locations affected since last visit are neck, low back, bilateral hand, bilateral knee and bilateral foot. Associated symptoms include fatigue, AM stiffness (30 Minutes), inactivity gelling and changing cough. Pertinent negatives include fever, change in vision, skin lesion(s), chest pain, edema and abdominal pain. Additional information: She feels that the dorsum of her feet swell. Difficulty walking long distance secondary to back. Joint Pain The severity of the problem is moderate. Pain scale: 6/10. The symptoms are constant. The problem has not changed. The primary symptoms reported include: pain and stiffness. The patient's assessment of treatment is: helping greatly. The patient is not experiencing side effects. The locations affected since last visit are neck, low back, bilateral hand, bilateral knee and bilateral foot. Associated symptoms include fatigue, AM stiffness (30 Minutes), inactivity gelling and edema. Pertinent negatives include fever, change in vision, skin lesion(s), chest pain, changing cough and abdominal pain. Additional information: She feels that the dorsum of her feet swell. Difficulty walking long distance secondary to back. Osteoarthritis Joint Pain The severity of the problem is moderate. Pain scale: 7/10. The symptoms are constant. The problem has not changed. The primary symptoms reported include: pain. The locations affected since last visit are low back, bilateral wrist, bilateral hand and bilateral knee. Associated symptoms include fatigue and edema. Pertinent negatives include fever, AM stiffness, change in vision, skin lesion(s), chest pain, changing cough and abdominal pain. Fatigue Joint Pain Fatigue Joint Pain Fatigue Functional Status Date Functional Assessmen t Pain Score 5/10 Medications Administered Medication Instructions Dosage Effective Dates (start - stop) Status Comments buspirone 10 mg tablet 1 bid prn anxiety - No Longer Active Instructions Date Instruction Additional Infor mation Follow up with PCP f or further eval and treatment- need to see updated labs Related to Polycythemia Rec. OTC b12 supplement. Related to Vitamin B12 deficiency s/p Rx Vt D. Pt was supposed to be on 4,000iu daily ? recheck Related to Vitamin D deficiency continue citalopramb uspar prnif no better see pcp Related to Anxiety Continue gabapentin, citalopram, and start taking methocarbamol at bedtime.I would like her to try Tylenol [facility], 2 tabs at bedtime. Tylenol brand or [employer] generic.Heat or ice and needed.CBD lotion , Salon pas patches or roll on / Biofreeze to neck and shoulder muscles. Related to Myalgia Cbc,Cmp Q 6 months o n nsaid- 11/02Needs updates CBC, CMP Related to NSAID Fpc Use PT is an option but patient defers secondary to cost and time.Isometric quad sets discussed with patient.Weight loss - Weight watchers, Dash diet or 17 day diet.Continue Gabapentin and nsaidContinue nabumetone Patient defers injections Related to OA of knee Continue nabumetone. Continue exercise.Weight loss. Related to Osteoarthropathy Continue Gabapentin and Robaxin.Mt flexion exercises.She defers injections to the back.Defers NS eval at present . She prefers to wait.PT $$ . She defers.The TENS unit was not helpful.Defers medical management of pain with pain clinic.She will call if she wants to see PM or NS.She will need repeat MRI prior to seeing NS. Will schedule. Related to Chronic Low Back Pain Rec. OTC b12 supplement. Related to Vitamin B12 deficiency PT is an option but patient defers secondary to cost and time.Isometric quad sets-mail her an orderWeight loss - Weight watchers, Dash diet or 17 day diet.Continue Gabapentin and nsaidXR knees today.Patient defers injections because previous injections did not work. Xilretta might be an option.She is going to call if she is interested in long acting steroid injections.She is taking the Nabumetone and Naproxen together - I want her to stop the Naproxen. Related to OA of knee Continue nabumetone. Will XR knees when she rtc.Continue exercise.Weight loss. Related to Osteoarthropathy Continue gabapentin, citalopram, and start taking methocarbamol at bedtime.I would like her to try Tylenol [facility], 2 tabs at bedtime. Tylenol brand or [employer] generic.Heat or ice and needed.CBD lotion , Salon pas patches or roll on / Biofreeze to neck and shoulder muscles. Related to Myalgia She is currently on prescription Vitamin D for 3 months, I want her to start taking 4,000IU per day after rx is finished.Recheck in 2-3 months after she is on the daily Vitamin D. Related to Vitamin D deficiency Continue Gabapentin and Robaxin.Needs to restart Mt flexion exercises.She defers injections to the back.Defers NS eval at present . She prefers to wait.Does not have time for PT at present due to caring for her mother and grandchildren.The TENS unit was not helpful.Defers medical management of pain with pain clinic. Related to Chronic Low Back Pain Cbc,Cmp Q 6 months o n nsaid- op Naproxen and continue Nabumetone. Related to NSAID Slide Maker Use continue citalopramb uspar prnif no better see pcp Related to Anxiety Follow up with PCP f or further eval and treatment. Related to Polycythemia Lifestyle education regarding di et Related to Body mass index [BMI] 40.0-44.9, adult Continue nabumetone. Will XR knees when she rtc.Continue exercise.Weight loss. Related to Osteoarthropathy PT is an option but patient defers secondary to cost and time.Isometric quad sets-mail her an orderWeight loss - Weight watchers, Dash diet or 17 day diet.Continue Gabapentin and nsaidXR knees on RTC to [facility].Patient defers injections because previous injections did not work. Xilretta might be an option. Related to OA of knee Recheck. Order sent 08/13/21. Rel ated to Vitamin B12 deficiency Rec 2000IU per day.R echeck Order sent 08/13/21 Related to Vitamin D deficiency Continue Gabapentin and Robaxin.Continue Mt flexion exercises.She defers injections to the back.Defers NS eval at present . She prefers to wait.Does not have time for PT at present due to caring for her mother.The TENS unit was not helpful.Defers medical management of pain with pain clinic. Related to Chronic Low Back Pain Cbc,Cmp Q 6 months o n nsaid- Order mailed 08/13/21. One month refill given. No more refills until labs are received. Related to NSAID Slide Maker Use Continue gabapentin, citalopram, methocarbamol.Heat or ice and needed.CBD lotion , Salon pas patches or roll on / Biofreeze to neck and shoulder muscles.Bending back and raising up same time initially causes a pinched nerve feeling. This is intermittent. ? Thoracic outlet syndrome Related to Myalgia Lifestyle education regarding di et Related to Body mass index [BMI] 40.0-44.9, adult Rec 2000IU per day.Recheck Relat ed to Vitamin D deficiency Recheck Related to Vitam in B12 deficiency PT is an option but patient defers secondary to cost and time.Isometric quad sets- continue.Weight loss - Weight watchers, Dash diet or 17 day diet.Continue Gabapentin and nsaidXR knees on RTCPatient defers injections because previous injections did not work. Xilretta might be an option. Related to OA of knee Continue nabumetone. Will XR knees when she rtc.Continue exercise.Weight loss. Related to Osteoarthropathy Continue Gabapentin and Robaxin.Continue Mt flexion exercises.She defers injections to the back.Defers NS eval at present . She prefers to wait.Does not have time for PT at present due to caring for her mother.TENS unit may be an option for her. She would like to try.Defers medical management of pain with pain clinic. Related to Chronic Low Back Pain Continue gabapentin, citalopram, methocarbamol.Heat or ice and needed.CBD lotion , Salon pas patches or roll on / Biofreeze to neck and shoulder muscles.When she raises UE's overhead she feels numbness in her arms and makes her dizzy. If persist I rec further eval with pcp regarding neck/shoulder vessels and nerves ? Thoracic outlet syndrome Will refer to neurology. Related to Myalgia Cbc,Cmp Q 6 months o n nsaid- Order mailed- No labs received/ Overdue. Refill meds for one month . Pt needs labs prior to any other refill. Related to NSAID Fpc Use Lifestyle education regarding di et Related to Body mass index [BMI]40.0-44.9, adult Continue Gabapentin and Robaxin. Increase Gabapentin to 400mgContinue Mt flexion exercises.She defers injections to the back.Defers NS eval at present . She prefers to wait.Does not have time for PT at present.TENS unit may be an option for her. Related to Chronic Low Back Pain Continue nabumetone. Will XR knees when she rtc.Continue exercise.Weight loss. Related to Osteoarthropathy Since she cannot truman erate mask I rec weight loss. Related to JAYA on CPAP PT is an option but patient defers secondary to cost and time.Isometric quad sets- continue.Weight loss - Weight watchers, Dash diet or 17 day diet.Continue Gabapentin and nsaidXR knees on RTCPatient defers injections because previous injections did not work. Xilretta might be an option. Related to OA of knee Cbc,Cmp Q 6 months o n nsaid- Order mailed. Related to NSAID Slide Maker Use Continue gabapentin, citalopram, methocarbamol.Heat or ice and needed.CBD lotion , Salon pas patches or roll on / Biofreeze to neck and shoulder muscles.When she raises UE's overhead she feels numbness in her arms and makes her dizzy. If persist I rec further eval with pcp regarding neck/shoulder vessels and nerves ? Thoracic outlet syndrome Will refer to neurology. Related to Myalgia Recheck Related to Hypot hyroidism, unspecified Recheck Related to Vitam in B12 deficiency Rec 2000IU per day.Recheck Relat ed to Vitamin D deficiency Recheck Related to Vitam in B12 deficiency Rec 2000IU per day.Recheck Relat ed to Vitamin D deficiency Since she cannot truman erate mask I rec weight loss. Related to JAYA on CPAP Continue nabumetone. Will XR knees when she rtc.Continue exercise.Weight loss. Related to Osteoarthropathy Continue Gabapentin and Robaxin.Continue Mt flexion exercises.Spinal stenosis sx are worsening with regarding to standing and walking- Will reschedule MRI, Patient was unable to do secondary to pandemic. Related to Chronic Low Back Pain Continue gabapentin, citalopram, methocarbamol.Heat or ice and needed.Defers PT.CBD lotion , Salon pas patches or roll on / Biofreeze to neck and shoulder muscles.When she raises UE's overhead she feels numbness in her arms and makes her dizzy. If persist I rec further eval with pcp regarding neck/shoulder vessels and nerves ? Thoracic outlet syndrome Will refer to neurology. Related to Myalgia Cbc,Cmp Q 6 months on nsaid- / 020 Related to NSAID Slide Maker Use Recheck Related to Hypot hyroidism, unspecified PT is an option but patient defers secondary to cost.Isometric quad sets- continue.Weight loss - Weight watchers, Dash diet or 17 day diet.Continue Gabapentin and nsaidXR knees on RTCPatient defers injections because previous injections did not work. Xilretta might be an option. Related to OA of knee PT is an option but patient defers secondary to cost.Isometric quad sets shown to patient - use throw pillow- Patient forgot but will start.Weight loss - Weight watchers, Dash diet or 17 day diet.Continue Gabapentin.If knees worsen or severe I rec ortho eval.Can try [employer] biking.Quit smoking.Water aerobics or water walking.Continue Nabumetone. Related to OA of knee Continue Gabapentin and Robaxin.Continue Mt flexion exercises.In view of severe sx and inability to walk I rec repeat MRI of the lumbar spine. Related to Chronic Low Back Pain Since she cannot truman erate mask I rec weight loss. Related to JAYA on CPAP Continue gabapentin, citalopram, methocarbamol.Heat or ice and needed.PT ordered today.CBD lotion , Salon pas patches or roll on / Biofreeze to neck and shoulder muscles.When she raises UE's overhead she feels numbness in her arms and makes her dizzy. If persist I rec further eval with pcp regarding neck/shoulder vessels and nerves ? Thoracic outlet syndrome Patient may very well need neurology evaluation. Related to Myalgia Cbc,Cmp Q 6 months on nsaid- 01/11 9 Related to NSAID Slide Maker Use Pcp is getting ready to recheck. Related to Hypothyroidism, unspecified Rec 2000IU per day. Related to V itamin D deficiency Continue nabumetone. Related to Osteoarthropathy Lifestyle education regarding di et Related to Body mass index (BMI) 40.0-44.9, adult Stop Daypro and try nabumetone. Related to Osteoarthropathy If she can tolerate Mask it would help with weight loss, energy and fatigue. Related to JAYA on CPAP Needs F/u with pcp- Patient has not followed up on this .Recheck Tsh. Related to Hypothyroidism, unspecified Rec 2000IU per day.Recheck D. Re lated to Vitamin D deficiency Continue gabapentin, citalopram, methocarbamol.Heat or ice and needed.PT would be great for her - Patient will check on Cost.When she raises UE's overhead she feels numbness in her arms and makes her dizzy. If persist I rec further eval with pcp regarding neck/shoulder vessels and nerves ? Thoracic outlet syndrome Related to Myalgia PT is an option but patient defers secondary to cost.Isometric quad sets shown to patient - use throw pillow.Weight loss - Weight watchers, Dash diet or 17 day diet.Continue Gabapentin.If knees worsen or severe I rec ortho eval.Can try [employer] biking.Quit smoking.Water aerobics or water walking.Nsaid trials- Stop Daypro and try Nabumetone 750mg. Related to OA of knee Continue Gabapentin and Robaxin.Continue Mt flexion exercises. Related to Chronic Low Back Pain Cbc,Cmp Q 6 months on nsaid- 07/14 9. Related to NSAID Slide Maker Use Lifestyle education regarding di et Related to Body mass index (BMI) 40.0-44.9, adult Pt is here for left knee injection. See procedure note. She can schedule right knee in a week or 2 if needed. Related to OA of knee Was 600+ in December 8, but once she completed injections she didn't take anything else. Will check level again. Related to Vitamin B12 deficiency Offered injections, she can schedule. She didn't go to PT, can't afford it. Related to OA of knee Needs F/u with pcp. Related to H ypothyroidism, unspecified Cbc,Cmp Q 6 months on nsaid. Rel ated to NSAID Slide Maker Use Continue gabapentin, citalopram, methocarbamol.Heat or ice and needed. Related to Myalgia Continue Daypro, catie apentin, and robaxin. Related to Chronic Low Back Pain Level was 22 in December 2017. She has been taking 5000IU daily. Will recheck level today. Related to Vitamin D deficiency She hasn't been usin g CPAP, states she couldn't tolerate it. Related to JAYA on CPAP Suggest Stress test with pcp.It could be GI related- Esophageal/stomach inflammation. Related to Chest pain Xray of the knees.To pical creams.Can try salon pas patches.PT for strengthening/HEP.Consider nsaid change in the future. Related to Joint Pain Suggest Stress test with pcp.It could be GI related- Esophageal/stomach inflammation. Related to Chest pain Patient to discuss c hanges in her mask versus appliance with Dr. Arguello.Also had Hypoxemia that was thought to be secondary to smoking and COPD. Related to JAYA on CPAP Cbc,Cmp Q 6 months on nsaid. Rel ated to NSAID Slide Maker Use Recheck D. Related to Vitam in D deficiency Has taken a round of B12 injections and plans to finish them soon.Recheck B12. Related to Vitamin B12 deficiency Needs F/u with pcp. Related to H ypothyroidism, unspecified Continue Daypor,vidhi pentin and robaxin.Mt flexon exercises given and discussed.Weight loss.Dash siet, 17 day diet and weight watchers discussed. Related to Chronic Low Back Pain Continue gabapentin, citalopram, methocarbamol.Heat or ice and needed.Alcis cream / topicals discussed - biofreeze.Can try salon pas patches. Related to Myalgia Increased with recen t lack of treatment for several monthsRestart gabapentin, citalopram, methocarbamol Related to Myalgia Hasn't taken B compl ex or Vitamin D in some time. Didn't go for sleep eval. She didn't realize what all JAYA could contribute to. Will re-order sleep eval. Related to Fatigue Out of meds for elias ral monthsunable to afford PT or many other treatments. Raising her grandchildren which often causes her to miss appts, etc. Refill current meds. Related to Chronic Low Back Pain Dietary management e ducation, guidance, and counseling Related to Body mass index (BMI) 40.0-44.9, adult Rec anti inflammator y cream Topicals.Thumb splints recommendedNormally we would rec PT with iontophoresis but she defers at this point due to raising grandkids. 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 Related to Fatigue Patiet prefers not t o increase mm relaxer at this time.- Uses prn.Also has alot of tension that seems to goto neck and shoulder muscles.Rec weight loss if she can. Related to Myalgia : Patient has put in jections on hold at this time, Lost Tens Order.Low back exercises discussed and given to patient. Related to Chronic Low Back Pain Assessments Type Assessment Date impression Hgb 16 Hct 50.7She does smoke wh ich can increase this. assessment Polycythemia assessment Vitamin B12 deficiency impression 270 in 06/29.382 in in impression increased stress; kim[place]ley loredo ; raising grandkids and caring for mother impression 24.2 in 06/29S/p Pre scription D and now on 5000IU daily of OTC.08/01 29.832.2 in 01/1922.3 in 11/02 - on 2,000IU qds/p Rx Vt D assessment Anxiety assessment Vitamin D deficiency impression Hands, knees and feet. impression 12/29 x-rays mild OAS /p steroid injection to left knee November 2018 - no relief.Patient opted not to inject her R knee.Knees hurt when she is getting up from a seated position or with stairs.Unchanged.Knee films 12/2021- Mild degenerative arthritis assessment Osteoarthropathy assessment OA of knee impression Severe L5/S1 DDD wit h facet arthritis.Prolonged standing causes her back pain to worsen so patient has to pace herself.Cannot stand longer than 15 minutes.Doing mt flexion exercises.Denies numbness or pain down the legs.MRI lumbar spine - Advanced DDD L5/S1 with bulging disc, mild foraminal encroachment L4-5 on L and L5-S1 bilaterally. Slightly worse from prev study.Sx most consistent with spinal stenosis. unchanged.PT $$$. She has not been doing back exercises. assessment Chronic Low Back Pain impression Myofascial neck/shou lders- Traps are tender to touch.Stable- unchanged with medication.Cervical spine film 2012 showed facet arthritis at C5-6. Summer 2018 were unable to view mid to lower c spine secondary to arm position but upper disc space looks good.Seems to be worse since her daughter in 09/04, seems to be having trouble sleeping. assessment Myalgia assessment Body mass index (BMI) 40.0-44.9, adult assessment Pain Management impression Signed and discussed.Gabapentin- 400mg tid. impression S/p Daypro.On Nabume tone - has inadvertently been taking Naproxen with it.Pt was supposed to stop Naproxen and saty on nabumetone assessment NSAID Fpc Use Patient Care Teams Name Effective Dates (start - stop) Status Members No Information
--- NOTE | 2023-07-18 16:50 | ECG_ITS ---
APPROVED REPORT Exam: Resting ECG HR:78 bpm ECG Measurements Heart Rate 78 AXES MT 154 P 45 QRSd 97 QRS 16 QT 417 T 33 QTc 451 Conclusion SINUS RHYTHM LOW QRS VOLTAGE IN PRECORDIAL LEADS [QRS DEFLECTION < 1.0 mV IN CHEST LEADS] BORDERLINE ECG UNCONFIRMED REPORT Electronically signed by : Rolando Andrew MD 07/19/2023 10:06:16
[2023-07-18] MEDS: ONDANSETRON 4MG/2ML VIAL 4 MG IV ×2 (17:02→18:00)
[2023-07-18] MEDS: LACTATED RINGERS 1000ML 1,000 ML 999 ML IV (17:02)
[2023-07-18 17:13] LABS: Basophils # 0.1 K/mm3 (0-0.2); Basophils % 0.8 % (0.1-2.0); Eosinophils # 1.2 K/mm3 (0.0-0.4); Eosinophils % 18.7 % (0.1-12.0); Hematocrit 51.1 % (37.0-47.0); Hemoglobin 15.9 g/dL (12.2-16.2); Lymphocytes # 1.9 K/mm3 (0.7-4.5); Lymphocytes % 29.6 % (10-50); Mean Corpuscular HGB Conc 31.1 g/dL (31.8-35.4); Mean Corpuscular Hemoglobin 31.1 pg (27.0-31.2); Mean Platelet Volume 8.2 fl (7.4-10.4); Monocytes # 0.4 K/mm3 (0.1-1.0); Monocytes % 6.4 % (1.7-9.3); Neutrophils # 2.9 K/mm3 (1.8-7.8); Neutrophils % 44.6 % (37.0-80.0); Platelet Count 419 K/mm3 (142-424); Red Blood Count 5.11 M/mm3 (4.20-5.40); Red Cell Distribution Width 15.1 % (11.5-17.5); White Blood Count 6.4 K/mm3 (4.8-10.8)
[2023-07-18 17:14] LABS: Chloride 97 mmol/L (98-107); Potassium 3.7 mmoL/L (3.5-5.1); Sodium 133 mmol/L (136-145)
[2023-07-18 17:17] LABS: Anion Gap 22.7 mEq/L (5-15); Blood Urea Nitrogen 2 mg/dl (7-17); Calcium 9.7 mg/dl (8.4-10.2); Carbon Dioxide 17 mmol/L (22.0-30.0); Creatinine Clearance Estimated 62 mL/min (50-200); Estimated Glomerular Filt Rate 64 ml/min (>60); GFR (African American) 77 ML/MIN (>60); Glucose 65 mg/dl (74-100); Lipase 46 U/L (23-300)
[2023-07-18 17:30] LABS: Troponin I 0.04 ng/ml (0.00-0.034)
--- NOTE | 2023-07-18 17:37 | XR_ITS ---
PROCEDURE INFORMATION: Exam: XR Chest Exam date and time: 07/18/2023 6:19 PM Age: 62 years old Clinical indication: Shortness of breath; Additional info: SOA, nausea, vomiting TECHNIQUE: Imaging protocol: Radiologic exam of the chest. Views: 2 views. COMPARISON: CR XR CHEST PORTABLE 07/03/2023 1:31 PM FINDINGS: Tubes, catheters and devices: Left subclavian approach central venous port catheter in stable position. Lungs: No evidence of acute airspace consolidation. No pulmonary edema. Pleural spaces: Pleural thickening along the right lateral chest wall, unchanged. No large pleural effusion. No pneumothorax. Heart/Mediastinum: Cardiomediastinal silouhette is unchanged, noting prominent pericardial fat pad. Bones/joints: No evidence of acute osseous abnormality. IMPRESSION: No evidence of acute cardiopulmonary disease.
[2023-07-18 17:39] LABS: Coronavirus 19, PCR Not Detected (NotDetected); Influenza A, PCR Not Detected (NotDetected); Influenza B, PCR Not Detected (NotDetected)
--- NOTE | 2023-07-18 18:00 | PC.NURSE ---
PT VOMITING AGAIN NEW MED ORDERS GIVEN
--- NOTE | 2023-07-18 18:15 | [facility].EDGENADL ---
Discharge Plan Disposition Patient Disposition: Home, Self-Care Condition: Good Prescriptions Prescriptions: New omeprazole 20 mg capsule,delayed release(DR/EC) 20 mg PO DAILY 14 Days Qty: 14 0RF ondansetron 4 mg tablet,disintegrating 4 mg PO Q8H PRN (Reason: nausea and vomiting) 5 Days Qty: 10 0RF Discontinued pantoprazole 40 mg tablet,delayed release (DR/EC) 40 mg PO DAILY ondansetron HCl 4 mg tablet 4 mg PO Q8H PRN (Reason: nausea and vomiting) Qty: 20 0RF No Action citalopram 40 mg tablet 40 mg PO DAILY ipratropium-albuterol 0.5 mg-3 mg(2.5 mg base)/3 mL solution for nebulization 3 ml inhalation Q6HP PRN (Reason: Shortness Of Breath Or Wheezing) gabapentin 400 mg capsule 400 mg PO BID midodrine 10 mg tablet 10 mg PO TID levothyroxine 100 mcg tablet 100 mcg PO DAILYDM Referrals Follow up/Referrals: Pranay Ha MD [Referring] - See instructions Julian Quiroga MD [Primary Care Provider] - See instructions Activity Restrictions/Add. Instructions Additional Instructions/Restrictions: Please take the nausea medication and the acid blocker hand for your symptoms. Please follow-up with GI doctors. Please return with new or worsening symptoms. Clinical Impressions Clinical Impression: Travelers' diarrhea Instructions Patient Instructions: DI for Diarrhea and Traveler's Diarrhea -- Adult, DI for Diarrhea and Traveler's Diarrhea -- Child, DI for Nausea -- Adult, DI for Nausea -- Child Discharge ED Provider: Agustin Munoz General Adult HPI General Chief complaint: Nausea/Vomiting/Diarrhea Stated complaint: vomiting Time Seen by Provider: 07/18/23 17:26 Mode of Arrival: Wheelchair Source of Information: Patient Limitations: No Limitations Description of Symptoms (Recalled from ER Triage Doc. by RN): c/o vomiting since marion with 4 times within the last 24 hours, nausea, denies any abdominal pain, states she is able to keep water and jello down just not food. History of Present Illness HPI narrative: Patient describes isolated nausea and vomiting which has been going on since March. Initially did not describe any of this history to me and reported no chronic medical issues but on serial evaluations and various ways of questioning, describes history of lobectomy for lung cancer, reportedly intubated at outside hospital in March or April for respiratory failure. Unfortunately had no access to any of this medical record and patient is extremely poor historian. She initially stated to me that she has known medical issues and takes no medications daily. Per chart review does have known history of gallbladder sludge. She denies any abdominal pain. She is unable to describe, upon multiple ways of asking her and on several rounds of questioning any exacerbating or alleviating factors. I explicitly asked her about meals, time of day, she states neither of these have any bearing on her nausea. Associated symptoms include generalized weakness. She denies any chest pain or shortness of breath. She denies any recent travel. She denies any antibiotic use. Initially denied any PPI usage, per chart review she has been prescribed a PPI, she states she is not familiar with that medication. She states she has not trialed any medications for this nausea or vomiting. She has been able to tolerate p.o. intake. She states she has not seen a doctor for similar symptoms although later states that she had similar symptoms preceding her ICU stay where she was intubated. She denies any fevers. She denies any blood in her emesis. She denies any blood in her stool. She denies any sick contacts. She denies any diarrhea. She reports regular bowel movements. She denies for me any abdominal surgical history although it is hard to tell as she has limited recollection of her medical history. She mentions to me that she used to be on chemotherapeutic agent for history of lung cancer but has been off this medication for some time now. She has difficulty explaining why she discontinued that medication. She states she has never seen a GI doctor before. She denies any history of diabetes. Related Data Home Medications Medication Instructions Recorded Confirmed citalopram 40 mg tablet 40 mg PO DAILY MOOD 07/25/17 07/04/23 gabapentin 400 mg capsule 400 mg PO BID NERVE PAIN 05/28/23 07/03/23 ipratropium 0.5 mg-albuterol 3 mg 3 ml inhalation Q6HP PRN Shortness 05/28/23 07/04/23 (2.5 mg base)/3 mL nebulization Of Breath Or Wheezing soln midodrine 10 mg tablet 10 mg PO TID LOW BLOOD PRESSURE 05/28/23 07/03/23 levothyroxine 100 mcg tablet 100 mcg PO DAILYDM THYROID 07/04/23 07/04/23 Previous Rx's Medication Instructions Recorded omeprazole 20 mg capsule,delayed 20 mg PO DAILY 14 days #14 caps 07/18/23 release ondansetron 4 mg disintegrating 4 mg PO Q8H PRN nausea and 07/18/23 tablet vomiting 5 days #10 tabs Allergies Allergy/AdvReac Type Severity Reaction Status Date / Time penicillin G [PENICILLIN G] Allergy Mild Verified 05/28/23 08:57 [facility] Disclaimer: The information contained in this section may have been updated after the patient was seen, as this information can be updated by other users. Medical History (Updated 07/18/23 @ 21:58 by Madelyn Monique RN) Acute hypotension CAP (community acquired pneumonia) COPD (chronic obstructive pulmonary disease) COPD exacerbation Fibromyalgia GERD (gastroesophageal reflux disease) Hypothyroid Knee fracture Lung cancer Osteoarthritis PNA (pneumonia) Shingles Urinary incontinence Wrist fracture, right Surgical History (Updated 07/04/23 @ 13:04 by Julian Quiroga MD) History of carpal tunnel surgery History of section History of colonoscopy History of hysterectomy History of lobectomy of lung Family History (Updated 07/03/23 @ 17:33 by PAIGE Sharp) Other Family history of cancer Social History (Updated 07/03/23 @ 17:33 by PAIGE hSarp) Smoking Status: Current every day smoker tobacco type: cigarettes packs per day: 1 alcohol intake: never substance use type: denies use current occupational status: disabled and other Travel in the last 8 weeks: None housing: house ROS Obtained: Yes Systems reviewed as appropriate & no additional complaints except as documented As per HPI Physical Exam General General appearance: alert, in no apparent distress and other (Fatigued appearing) Head Head exam: atraumatic and normocephalic Eye Eye exam: Present normal appearance Neck Neck exam: Present normal inspection Chest Chest inspection: Present normal inspection and symmetric chest wall rise Respiratory Respiratory exam: Present normal lung sounds bilaterally; Absent respiratory distress Cardiovascular Cardiovascular exam: Present regular rate and normal rhythm Abdominal Exam Abdominal exam: Present soft; Absent distention or tenderness Neurological Exam Neurological exam: Present alert and oriented X3 Psychiatric Psychiatric exam: Present normal affect and normal mood Skin Skin exam: Present warm and dry Medical Decision Making Medical Records Medical records reviewed: Yes I reviewed the patient's medical records. Janes Inquiry Pt receiving controlled substance: No Vital Signs: 07/18/23 16:29 07/18/23 16:37 07/18/23 17:00 Temperature 97.8 F Temperature Source Oral Pulse Rate 79 65 Pulse Rate [Left Radial] 78 Respiratory Rate 16 20 18 Blood Pressure 90/53 L 75/51 L Blood Pressure [Right Arm] 90/53 L Blood Pressure Mean 65 56 Blood Pressure Mean [Right Arm] 65 Blood Pressure Source [Right Arm] Automatic Cuff Blood Pressure Position [Right Arm] Sitting 02 Sat by Pulse Oximetry 95 97 88 L Oxygen Delivery Method Room Air 07/18/23 19:32 07/18/23 19:30 07/18/23 20:00 Temperature Temperature Source Pulse Rate 67 66 69 Pulse Rate [Left Radial] Respiratory Rate 12 13 Blood Pressure 135/70 135/70 127/73 Blood Pressure [Right Arm] Blood Pressure Mean Blood Pressure Mean [Right Arm] Blood Pressure Source [Right Arm] Blood Pressure Position [Right Arm] 02 Sat by Pulse Oximetry 99 100 100 Oxygen Delivery Method 07/18/23 20:31 07/18/23 21:01 07/18/23 21:30 Temperature Temperature Source Pulse Rate 69 72 61 Pulse Rate [Left Radial] Respiratory Rate 17 15 Blood Pressure 119/73 109/67 L 105/53 L Blood Pressure [Right Arm] Blood Pressure Mean 77 Blood Pressure Mean [Right Arm] Blood Pressure Source [Right Arm] Blood Pressure Position [Right Arm] 02 Sat by Pulse Oximetry 100 98 94 L Oxygen Delivery Method Room Air 07/18/23 21:54 Temperature 97.8 F Temperature Source Oral Pulse Rate 61 Pulse Rate [Left Radial] Respiratory Rate 16 Blood Pressure 105/53 L Blood Pressure [Right Arm] Blood Pressure Mean Blood Pressure Mean [Right Arm] Blood Pressure Source [Right Arm] Blood Pressure Position [Right Arm] 02 Sat by Pulse Oximetry Oxygen Delivery Method Lab Data Lab Results 07/18/23 16:45: WBC 6.4, RBC 5.11, Hgb 15.9, Hct 51.1 H, MCV 100.0 H, MCH 31.1, MCHC 31.1 L, RDW 15.1, Plt Count 419, MPV 8.2, Neut % (Auto) 44.6, Lymph % (Auto) 29.6, [place] % (Auto) 6.4, Eos % (Auto) 18.7 H, Baso % (Auto) 0.8, Neut # (Auto) 2.9, Lymph # (Auto) 1.9, [place] # (Auto) 0.4, Eos # (Auto) 1.2 H, Baso # (Auto) 0.1, Sodium 133 L, Potassium 3.7, Chloride 97 L, Carbon Dioxide 17 L, Anion Gap 22.7 H, BUN 2 L, Creatinine 0.90, Estimated Creat Clear 62, Estimated GFR 64, Est GFR ( Amer) 77, Glucose 65 L, Calcium 9.7, Troponin I 0.04 H, Lipase 46 07/18/23 17:30: SARS-CoV-2 (PCR) Not detected, Influenza A Untype (PCR) Not detected, Influenza Type B (PCR) Not detected 07/18/23 20:06: Troponin I 0.04 H 07/18/23 16:45 07/18/23 16:45 Orders (Tests/Meds): ED MEDICATIONS Discontinued Medications Generic Name Dose Route Start Last Admin Trade Name Freq PRN Reason Stop Dose Admin Aspirin 325 mg 07/18/23 18:24 07/18/23 18:35 Aspirin 325mg Tablet PO 07/18/23 18:25 325 mg ONCE ONE Administration Lactated Ringer's 1,000 mls @ 999 mls/hr 07/18/23 16:58 07/18/23 17:02 Lactated Ringer's 1000 Ml Bag IV 07/18/23 17:58 999 mls/hr .Q1H1M ONE Administration Ondansetron HCl 4 mg 07/18/23 16:57 07/18/23 17:02 Ondansetron 4mg/2ml Vial IV 07/18/23 16:58 4 mg ONCE ONE Administration Ondansetron HCl 4 mg 07/18/23 17:59 07/18/23 18:00 Ondansetron 4mg/2ml Vial IV 07/18/23 18:00 4 mg ONCE ONE Administration Sodium Chloride 10 ml 07/18/23 16:58 Sodium Chloride 0.9% 10ml Flush Syringe IV 08/17/23 16:57 NEEDED PRN Maintain IV Site ORDERS Category Date Time Status XR chest 2V Stat Exams 07/18/23 17:37 Completed Basic Metabolic Panel Stat Lab 07/18/23 16:45 Completed Complete Blood Count Auto Diff Stat Lab 07/18/23 16:45 Completed Lipase Stat Lab 07/18/23 16:45 Completed Rapid PCR Covid and Flu A/B Stat Lab 07/18/23 17:30 Completed Troponin I Q3H Lab 07/18/23 20:06 Completed Troponin I Stat Lab 07/18/23 16:45 Completed ECG initial [place] Routine Y 07/18/23 16:50 Completed Medical Decision Narrative: Patient with history and exam per above presenting for evaluation of isolated nausea vomiting Differential diagnosis broad given paucity of exacerbating or alleviating factors and limited knowledge of patient's medical history for multiple reasons. Diagnoses considered include electrolyte abnormality, SHAMA, enteritis, gastroparesis, ACS, infectious precipitant, among others ED workup and treatment included: ED MEDICATIONS Discontinued Medications Generic Name Dose Route Start Last Admin Trade Name Freq PRN Reason Stop Dose Admin Aspirin 325 mg 07/18/23 18:24 07/18/23 18:35 Aspirin 325mg Tablet PO 07/18/23 18:25 325 mg ONCE ONE Administration Lactated Ringer's 1,000 mls @ 999 mls/hr 07/18/23 16:58 07/18/23 17:02 Lactated Ringer's 1000 Ml Bag IV 07/18/23 17:58 999 mls/hr .Q1H1M ONE Administration Ondansetron HCl 4 mg 07/18/23 16:57 07/18/23 17:02 Ondansetron 4mg/2ml Vial IV 07/18/23 16:58 4 mg ONCE ONE Administration Ondansetron HCl 4 mg 07/18/23 17:59 07/18/23 18:00 Ondansetron 4mg/2ml Vial IV 07/18/23 18:00 4 mg ONCE ONE Administration Sodium Chloride 10 ml 07/18/23 16:58 Sodium Chloride 0.9% 10ml Flush Syringe IV 08/17/23 16:57 NEEDED PRN Maintain IV Site ORDERS Category Date Time Status XR chest 2V Stat Exams 07/18/23 17:37 Completed Basic Metabolic Panel Stat Lab 07/18/23 16:45 Completed Complete Blood Count Auto Diff Stat Lab 07/18/23 16:45 Completed Lipase Stat Lab 07/18/23 16:45 Completed Rapid PCR Covid and Flu A/B Stat Lab 07/18/23 17:30 Completed Troponin I Q3H Lab 07/18/23 20:06 Completed Troponin I Stat Lab 07/18/23 16:45 Completed ECG initial [place] Routine Y 07/18/23 16:50 Completed Labs were independently interpreted by me, significant for COVID, flu, not detected, stable troponin at 0.04, no hyperglycemia, no leukocytosis, mild hyponatremia, and elevated anion gap in the setting of nausea and vomiting Imaging was independently visualized and interpreted by me, significant for no acute findings Patient reports some improvement of symptoms upon repeat evaluation. I again discussed at length with family member at bedside patient's medical history, HPI, after shared decision making will elect to treat with PPI, home antiemetic, and follow-up closely with primary care provider. I have low index suspicion for acute pathology requiring inpatient management. Patient and family member at bedside are in agreement with this plan. Return precautions given Critical Care Critical Care Time Critical Care Time: No
[2023-07-18] MEDS: ASPIRIN 325MG TABLET 325 MG PO (18:35)
[2023-07-18 20:34] LABS: Troponin I 0.04 ng/ml (0.00-0.034)
== END 2023-07-18 21:58 | disposition home or self-care (01) ==
PROVIDERS: Emergency Provider Emergency Medicine; PCP Family Medicine
DX: R11.2 Nausea with vomiting, unspecified (principal); R19.7 Diarrhea, unspecified; R53.1 Weakness; J44.9 Chronic obstructive pulmonary disease, unspecified; E03.9 Hypothyroidism, unspecified; Z85.118 Personal history of other malignant neoplasm of bronchus and lung; F17.210 Nicotine dependence, cigarettes, uncomplicated
CPT/HCPCS: 71046; 80048; 83690; 84484; 85025; 87636; 93005; 96361; 96374; 96376; 99285; J2405

== ENCOUNTER 2023-07-21 10:34 | Outpatient (CLI) | payer BC, SELFPAY ==
--- OUTSIDE RECORDS SUMMARY | 2023-07-21 10:36 | XMS_ITS | Continuity of Care Document ---
Author Name Unknown Organization [facility] Address [address] [address] Phone Care Team Providers Care Claims Agent Right Of Way Name Role Phone Jena Ferguson MD Unavailable [...] MAY CAUSE DROWSINESS - No Longer Active nabumetone 750 mg tablet take 2 tablet by oral route every day 1500 MG - No Longer Active gabapentin 400 mg capsule take 1 capsule by oral route 3 times every day 400 MG - No Longer Active citalopram 40 mg tablet Take 1 tablet by mouth once daily - No Longer Active Vitamin D2 1,250 mcg (50,000 unit) capsule take 1 capsule by oral route every week 06152 UNITS - No Longer Active buspirone 10 mg tablet 1 bid prn anxiety - No Longer Active Procedures Procedure Date [...] Office Visit Level IV [facility] [address] [facility], [place], [place], [id number], [place] tel:[phone] [facility] Low back pain (chief complaint) Polycythemia Vitamin B12 deficiencyVi tamin D deficiencyAn xietyOA of kneeOsteoart hropathyChro yoseph Low Back PainMyalgiaP ain ManagementBo dy mass index (BMI) 40.0-44.9, adultNSAID Long-Term Use 2 Marty Bella. [address], [id number]. tel:[phone] Referring Provider: José Jolley, [address] [place] [address], [id number]. tel:[phone] [facility] [address] [place] [address], [id number], [place] tel:[phone] [facility] No Information Mar- 2 Marty Bella. [address], [id number]. tel:[phone] [facility] [address] [place] [address], [id number], [place] tel:[phone] [facility] No Information 2 Marty Bella. [address] [place] [address], [id number]. tel:[phone] Referring Provider: José Jolley, [address] [place] [address], [id number]. tel:[phone] Office Visit Level IV [facility] [address] [place] [address], [id number], [place] tel:[phone] [facility] Low back pain (chief complaint) Vitamin B12 deficiencyVi tamin D deficiencyOA of kneeOsteoart hropathyChro yoseph Low Back PainMyalgiaP ain ManagementBo dy mass index (BMI) 40.0-44.9, adultNSAID Airline Hostess UsePolycythe miaAnxiety Dec- 2 Marty Bella. [address] [place] [address], [id number]. tel:[phone] Referring Provider: José Jolley, [address] [place] [address], [id number]. tel:[phone] Office Visit Level IV [facility] [address] [place] [address], [id number], tel:[phone] [facility] Low back pain (chief complaint) Vitamin B12 deficiencyVi tamin D deficiencyOA of kneeOsteoart hropathyChro yoseph Low Back PainMyalgiaP ain ManagementBo dy mass index (BMI) 40.0-44.9, adultNSAID Airline Hostess Use Aug-0 2 2 Wells RUDOLPH Peña. [address], [id number], . tel:[phone] Referring Provider: José Jolley, [address] [place] [address], [id number]. tel:[phone] Office Visit Level IV [facility], [address] [place] [address], [id number], tel:[phone] [facility] Low back pain (chief complaint) Vitamin B12 deficiencyVi tamin D deficiencyOA of kneeOsteoart hropathyChro yoseph Low Back PainMyalgiaP ain ManagementNS AID Airline Hostess UseBody mass index (BMI) 40.0-44.9, adult Curtis-0 1 Marty Bella. [address] [place] [address], [id number]. tel:[phone] Referring Provider: José Jolley, [address] [place] [address], [id number]. tel:[phone] [facility] [address] [place] [address], [id number], tel:[phone] [facility] No Information 0 1 Marty Bella. [address] [place] [address], [id number]. tel:[phone] Referring Provider: José Jolley, [address] [place] [address], [id number]. tel:[phone] Office Visit Level IV [facility], [address] [place] [address], [id number], tel:[phone] [facility] Low back pain (chief complaint) Hypothyroidi sm, unspecifiedV itamin B12 deficiencyVi tamin D deficiencyOS A on CPAPOA of kneeOsteoart hropathyChro yoseph Low Back PainMyalgiaP ain ManagementNS AID Long-Term Use 0 Marty Bella. [address], [id number]. tel:[phone] Referring Provider: José Jolley, [address] [place] [address], [id number]. tel:[phone] Office Visit Level IV [facility], [address] [place] [address], [id number], tel:[phone] [facility] Low back pain (chief complaint) Hypothyroidi sm, unspecifiedV itamin B12 deficiencyVi tamin D deficiencyOS A on CPAPOA of kneeOsteoart hropathyChro yoseph Low Back PainMyalgiaP ain ManagementNS AID Long-Term Use 0 Marty Bella. [address], [id number]. tel:[phone] Referring Provider: José Jolley, [address] [place] [address], [id number]. tel:[phone] Office Visit Level IV [facility], [address] [place] [address], [id number], [place] tel:[phone] [facility] Joint Pain (chief complaint) NSAID Long-Term UseHypothyro idism, unspecifiedV itamin B12 deficiencyVi tamin D deficiencyOA of kneeChronic Low Back PainMyalgiaP ain ManagementOS A on CPAPOsteoart hropathy 0 Marty Bella. [address], [id number]. tel:[phone] Referring Provider: José Jolley, [address] [place] [address], [id number]. tel:[phone] [facility] [address] [place] [address], [id number], tel:[phone] [facility] No Information 0 Mraty Bella. [address], [id number]. tel:[phone] Referring Provider: José Jolley, [address] [place] [address], [id number]. tel:[phone] Office Visit Level IV [facility] [address] [place] [address], [id number], [place] tel:[phone] [facility] Joint Pain (chief complaint) Body mass index (BMI) 40.0-44.9, adultHypothy roidism, unspecifiedV itamin B12 deficiencyVi tamin D deficiencyOA of kneeChronic Low Back PainMyalgiaP ain ManagementNS AID Airline Hostess UseOSA on CPAPOsteoart hropathy 9 Marty Bella. [address] [place] [address], [id number]. tel:[phone] Referring Provider: José Jolley, [address] [place] [address], [id number]. tel:[phone] [facility] [address] [place] [address], [id number], [place] tel:[phone] [facility] Osteoarthrit is (chief complaint) OA of knee 201 9 Gerry Humphries. [address], [id number]. tel:[phone] Referring Provider: José Jolley, [address] [place] [address], [id number]. tel:[phone] Office Visit Level IV [facility] [address], [id number], tel:[phone] [facility]. Joint Pain (chief complaint)Fa tigue (chief complaint) Pain ManagementVi tamin D deficiencyCh ronic Low Back PainOSA on CPAPMyalgiaN SAID Long-Term UseHypothyro idism, unspecifiedV itamin B12 deficiencyCh est painJoint PainOA of knee 4-201 9 Gerry Humphries. 330 [facility], [facility] [address], [place], [id number]. tel:[phone] Referring Provider: José Jolley, [address] [place] [address], [id number]. tel:[phone] Office Visit Level IV [facility], [address] [place] [address], [id number], tel:[phone] [facility]. Joint Pain (chief complaint)Fa tigue (chief complaint) Vitamin D deficiencyHy pothyroidism , unspecifiedC hronic Low Back PainMyalgiaN SAID Airline Hostess UseVitamin B12 deficiencyOS A on CPAPChest painJoint PainPain Management Curtis-0 8 8 Marty Bella. [address] [place], [address], [id number]. tel:[phone] Referring Provider: José Jolley, [address] [place] [address], [id number]. tel:[phone] Office Visit Level IV [facility] [address], [id number], tel:[phone] [facility]. Joint Pain (chief complaint)Fa tigue (chief complaint) Chronic Low Back PainDe Quervain tenosynoviti sMyalgiaFati gueNSAID Airline Hostess UseVitamin D deficiencyVi tamin B12 deficiency anemiaHypoth yroidism, unspecified Dec-0 6-201 7 Marty Bella. [address] [employer], [address], [place], [place], [id number]. tel:[phone] Referring Provider: José Jolley, [address] [place] [address], [id number]. tel:[phone] [facility] [address], [place], [place], [id number], tel:[phone] [facility] Chronic Low Back PainCounseli ngMyalgiaFat igueNSAID Long-Term UseDe Quervain tenosynoviti s 7201 7 Marty Jena. 330 [facility] 100, [place], [place], [id number]. tel:[phone] Family History Family Member Type Diagnosis Age At Onset No Information Immunizations Vaccine Date Status Comments SARS-COV-2 (COVID-19) vaccin e, vector non-replicating, recombinant spike protein-Ad26, preservative free, 0.5 mL (Xpliant) administered Source: Other Provid er Payers Payer name Insurance type Covered republican ID Authoriza tibruna(s) [facility] National Account [id number] BL [id number] Social History Type Description Quantity Date [...] completed Goal Tobacco cessation counseling completed Goal Dietary manageme nt education, guidance, and counseling completed Referral Ordered: Pulmonology (related to Fatigue) ordered Referral Ordered: Referrals: Pulmonology. Consult ordered Patient Education Knee: Exercises complet ed Future Order: Radiology Order Sarah mbar Spine MRI WITHOUT Contrast ([id number]), Ordered on: Ordered Future Order: Lab Order CBC With Differential/Platelet ([id number]), Ordered on: Ordered Future Order: Lab Order Comp. Me tabolic Panel (14) ([id number]), Ordered on: Ordered Future Order: Lab Order Vitamin D, 25-Hydroxy ([id number]), Ordered on: Ordered Future Order: Radiology Order Kn ee X-ray; Limited (1 or 2 views) ([id number]), Ordered on: Ordered Future Order: Lab Order CBC With Differential/Platelet ([id number]), Ordered on: Ordered Future Order: Lab Order Comp. Me tabolic Panel (14) ([id number]), Ordered on: Ordered Future Order: Lab Order Vitamin D, 25-Hydroxy ([id number]), Ordered on: Ordered Future Order: Lab Order CBC With Differential/Platelet ([id number]), Ordered on: Ordered Future Order: Lab Order Comp. Me tabolic Panel (14) ([id number]), Ordered on: Ordered Future Order: Lab Order Vitamin B12 and Folate ([id number]), Ordered on: Ordered Future Order: Lab Order Vitamin D, 25-Hydroxy ([id number]), Ordered on: Ordered Future Order: Lab Order CBC With Differential/Platelet ([id number]), Ordered on: Ordered Future Order: Lab Order Comp. Me tabolic Panel (14) ([id number]), Ordered on: Ordered Future Order: Lab Order Vitamin D, 25-Hydroxy ([id number]), Ordered on: Ordered Future Order: Lab Order Vitamin B12 and Folate ([id number]), Ordered on: Ordered Future Order: Lab Order TSH (004 259), Ordered on: Ordered Future Order: Radiology Order Sarah mbar Spine MRI WITHOUT Contrast ([id number]), Ordered on: Ordered Future Order: Lab Order CBC With Differential/Platelet ([id number]), Ordered on: Ordered Future Order: Lab Order Comp. Me tabolic Panel (14) ([id number]), Ordered on: Ordered Future Order: Lab Order Vitamin B12 and Folate ([id number]), Ordered on: Ordered Future Order: Lab Order Vitamin D, 25-Hydroxy ([id number]), Ordered on: Ordered Future Order: Lab Order TSH (004 259), Ordered on: Ordered Future Order: Radiology Order Sarah mbar Spine MRI WITHOUT Contrast ([id number]), Ordered on: Ordered Future Order: Lab Order CBC With Differential/Platelet ([id number]), Ordered on: Ordered Future Order: Lab Order Comp. Me tabolic Panel (14) ([id number]), Ordered on: Ordered Future Order: Radiology Order Ce rvical Spine X-ray (2 or 3 views) ([id number]), Ordered on: Ordered Future Order: Lab Order CBC With Differential/Platelet ([id number]), Ordered on: Ordered Future Order: Lab Order Comp. Me tabolic Panel (14) ([id number]), Ordered on: Ordered Future Order: Lab Order Vitamin D, 25-Hydroxy ([id number]), Ordered on: Ordered Future Order: Lab Order TSH (004 259), Ordered on: Ordered Future Order: Lab Order CBC With Differential/Platelet ([id number]), Ordered on: Ordered Future Order: Lab Order Comp. Me tabolic Panel (14) ([id number]), Ordered on: Ordered Future Order: Lab Order Vitamin D, 25-Hydroxy ([id number]), Ordered on: Ordered Future Order: Lab Order Vitamin B12 and Folate ([id number]), Ordered on: Ordered Future Order: Lab Order CBC With Differential/Platelet ([id number]), Ordered on: Ordered Future Order: Lab Order Comp. Me tabolic Panel (14) ([id number]), Ordered on: Ordered Future Order: Lab Order Vitamin D, 25-Hydroxy ([id number]), Ordered on: Ordered Future Order: Lab Order Vitamin B12 and Folate ([id number]), Ordered on: Ordered Future Order: Radiology Order Kn ee X-ray; Limited (1 or 2 views) ([id number]), Ordered on: Ordered Future Order: Lab Order CBC With Differential/Platelet ([id number]), Ordered on: Ordered Future Order: Lab Order Comp. Me tabolic Panel (14) ([id number]), Ordered on: Ordered Future Order: Lab Order C-Reacti ve Protein, Quant ([id number]), Ordered on: Ordered Future Order: Lab Order Sediment ation Rate-Westergren ([id number]), Ordered on: Ordered Future Order: Lab Order Thyroid Panel With TSH ([id number]), Ordered on: Ordered Future Order: Lab Order Vitamin D, 25-Hydroxy ([id number]), Ordered on: Ordered Future Order: Lab Order Vitamin B12 and Folate ([id number]), Ordered on: Ordered History Of Present Illness [...] to see updated labs Related to Polycythemia s/p Rx Vt D. Pt was supposed to be on 4,000iu daily ? recheck Related to Vitamin D deficiency PT is an option but patient defers secondary to cost and time.Isometric quad sets discussed with patient.Weight loss - Weight watchers, Dash diet or 17 day diet.Continue Gabapentin and nsaidContinue nabumetone Patient defers injections Related to OA of knee Continue nabumetone. Continue exercise.Weight loss. Related to Osteoarthropathy Continue gabapentin, [...] 11/02Needs updates CBC, CMP Related to NSAID Airline Hostess Use Continue Gabapentin and Robaxin.Mt flexion exercises.She defers injections to the back.Defers NS eval at present . She prefers to wait.PT $$ . She defers.The TENS unit was not helpful.Defers medical management of pain with pain clinic.She will call if she wants to see PM or NS.She will need repeat MRI prior to seeing NS. Will schedule. Related to Chronic Low Back Pain continue citalopramb uspar prnif no better see pcp Related to Anxiety Rec. OTC b12 supplement. Related to Vitamin B12 deficiency She is currently on prescription Vitamin D for 3 months, I want her to start taking 4,000IU per day after rx is finished.Recheck in 2-3 months after she is on the daily Vitamin D. Related to Vitamin D deficiency PT is an option but patient [...] Naproxen. Related to OA of knee Continue Gabapentin and Robaxin.Needs to restart Mt flexion exercises.She defers injections to the back.Defers NS eval at present . She prefers to wait.Does not have time for PT at present due to caring for her mother and grandchildren.The TENS unit was not helpful.Defers medical management of pain with pain clinic. Related to Chronic Low Back Pain Cbc,Cmp Q 6 months o n nsaid- 11/02Stop Naproxen and continue Nabumetone. Related to NSAID Long-Term Use Continue nabumetone. Will XR knees when she rtc.Continue exercise.Weight loss. Related to Osteoarthropathy Continue gabapentin, citalopram, and start taking methocarbamol at bedtime.I would like her to try Tylenol Ar[facility], 2 tabs at bedtime. Tylenol brand or [employer] generic.Heat or ice and needed.CBD lotion , Salon pas patches or roll on / Biofreeze to neck and shoulder muscles. Related to Myalgia Rec. OTC b12 supplement. Related to Vitamin B12 deficiency continue citalopramb uspar prnif no better see pcp Related to Anxiety Follow up with PCP f or further eval and treatment. Related to Polycythemia Lifestyle education regarding di et Related to Body mass index [BMI] 40.0-44.9, adult Recheck. Order sent 08/13/21. Rel ated to Vitamin B12 deficiency Rec 2000IU per day.R echeck Order sent 08/13/21 Related to Vitamin D deficiency PT is an option but patient defers secondary to cost and time.Isometric quad sets-mail her an orderWeight loss - Weight watchers, Dash diet or 17 day diet.Continue Gabapentin and nsaidXR knees on RTC to [facility].Patient defers injections because previous injections did not work. Xilretta might be an option. Related to OA of knee Continue nabumetone. Will XR knees when she rtc.Continue exercise.Weight loss. Related to Osteoarthropathy Continue gabapentin, citalopram, methocarbamol.Heat or ice and needed.CBD lotion , Salon pas patches or roll on / Biofreeze to neck and shoulder muscles.Bending back and raising up same time initially causes a pinched nerve feeling. This is intermittent. ? Thoracic outlet syndrome Related to Myalgia Cbc,Cmp Q 6 months o n nsaid- Order mailed 08/13/21. One month refill given. No more refills until labs are received. Related to NSAID Long-Term Use Continue Gabapentin and Robaxin.Continue Mt flexion exercises.She defers injections to the back.Defers NS eval at present . She prefers to wait.Does not have time for PT at present due to caring for her mother.The TENS unit was not helpful.Defers medical management of pain with pain clinic. Related to Chronic Low Back Pain Lifestyle education regarding di et Related to Body mass index [BMI] 40.0-44.9, adult Cbc,Cmp Q 6 months o n nsaid- Order mailed- No labs received/ Overdue. Refill meds for one month . Pt needs labs prior to any other refill. Related to NSAID Long-Term Use Continue gabapentin, citalopram, methocarbamol.Heat or ice and needed.CBD lotion , Salon pas patches or roll on / Biofreeze to neck and shoulder muscles.When she raises UE's overhead she feels numbness in her arms and makes her dizzy. If persist I rec further eval with pcp regarding neck/shoulder vessels and nerves ? Thoracic outlet syndrome Will refer to neurology. Related to Myalgia Continue Gabapentin and Robaxin.Continue Mt flexion exercises.She defers injections to the back.Defers NS eval at present . She prefers to wait.Does not have time for PT at present due to caring for her mother.TENS unit may be an option for her. She would like to try.Defers medical management of pain with pain clinic. Related to Chronic Low Back Pain PT is an option but patient defers secondary to cost and time.Isometric quad sets- continue.Weight loss - Weight watchers, Dash diet or 17 day diet.Continue Gabapentin and nsaidXR knees on RTCPatient defers injections because previous injections did not work. Xilretta might be an option. Related to OA of knee Continue nabumetone. Will XR knees when she rtc.Continue exercise.Weight loss. Related to Osteoarthropathy Recheck Related to Vitam in B12 deficiency Rec 2000IU per day.Recheck Relat ed to Vitamin D deficiency Lifestyle education regarding di et Related to Body mass index [BMI]40.0-44.9, adult Rec 2000IU per day.Recheck Relat ed to Vitamin D deficiency Since she cannot truman erate mask I rec weight loss. Related to JAYA on CPAP Continue nabumetone. Will XR knees when she rtc.Continue exercise.Weight loss. Related to Osteoarthropathy Continue gabapentin, citalopram, methocarbamol.Heat or ice and [...] Recheck Related to Vitam in B12 deficiency Cbc,Cmp Q 6 months o n nsaid- Order mailed. Related to NSAID Airline Hostess Use PT is an option but patient defers secondary to cost and time.Isometric quad sets- continue.Weight loss - Weight watchers, Dash diet or 17 day diet.Continue Gabapentin and nsaidXR knees on RTCPatient defers injections because previous injections did not work. Xilretta might be an option. Related to OA of knee Continue Gabapentin and Robaxin. Increase Gabapentin to 400mgContinue Tm flexion exercises.She defers injections to the back.Defers NS eval at present . She prefers to wait.Does not have time for PT at present.TENS unit may be an option for her. Related to Chronic Low Back Pain Recheck Related to Vitam in B12 deficiency Recheck Related to Hypot hyroidism, unspecified Rec 2000IU per day.Recheck Relat ed to Vitamin D deficiency Continue nabumetone. 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 Related to JAYA on CPAP Continue Gabapentin and Robaxin.Continue Mt flexion exercises.Spinal [...] Will refer to neurology. Related to Myalgia Continue nabumetone. Related to Osteoarthropathy Since she cannot truman [...] walking.Continue Nabumetone. Related to OA of knee Pcp is getting ready to recheck. Related to Hypothyroidism, unspecified Cbc,Cmp Q 6 months on nsaid- 01/11 9 Related to NSAID Long-Term Use Continue gabapentin, citalopram, methocarbamol.Heat or ice [...] well need neurology evaluation. Related to Myalgia Continue Gabapentin and Robaxin.Continue Mt flexion exercises.In view of severe sx and inability to walk I rec repeat MRI of the lumbar spine. Related to Chronic Low Back Pain Rec 2000IU per day. Related to V itamin D deficiency Lifestyle education regarding di et Related to Body mass index (BMI) 40.0-44.9, adult Stop Daypro and try nabumetone. Related to Osteoarthropathy If she can tolerate Mask it would help with weight loss, energy and fatigue. Related to JAYA on CPAP Rec 2000IU per day.Recheck D. Re lated [...] ? Thoracic outlet syndrome Related to Myalgia Cbc,Cmp Q 6 months on nsaid- 07/14 9. Related to NSAID Long-Term Use PT is an option but patient defers secondary to cost.Isometric quad sets shown to patient - use throw pillow.Weight loss - Weight watchers, Dash diet or 17 day diet.Continue Gabapentin.If knees worsen or severe I rec ortho eval.Can try [employer] biking.Quit smoking.Water aerobics or water walking.Nsaid trials- Stop Daypro and try Nabumetone 750mg. Related to OA of knee Needs F/u with pcp- Patient has not followed up on this .Recheck Tsh. Related to Hypothyroidism, unspecified Continue Gabapentin and Robaxin.Continue Mt flexion exercises. Related to Chronic Low Back Pain Lifestyle education regarding di et Related to [...] afford it. Related to OA of knee Suggest Stress test with pcp.It could be GI related- Esophageal/stomach inflammation. Related to Chest pain Cbc,Cmp Q 6 months on nsaid. Rel ated to NSAID Airline Hostess Use She hasn't been usin g CPAP, states she couldn't tolerate it. Related to JAYA on CPAP Level was 22 in December 2017. She has been taking 5000IU daily. Will recheck level today. Related to Vitamin D deficiency Needs F/u with pcp. Related to H ypothyroidism, unspecified Continue gabapentin, citalopram, methocarbamol.Heat or ice and needed. Related to Myalgia Continue Daypro, catie apentin, and robaxin. Related to Chronic Low Back Pain Xray of the knees.To pical creams.Can try salon pas patches.PT for strengthening/HEP.Consider nsaid change in the future. Related to Joint Pain Suggest Stress test with pcp.It could be GI related- Esophageal/stomach inflammation. Related to Chest pain Cbc,Cmp Q 6 months on nsaid. Rel ated to NSAID Airline Hostess Use Recheck D. Related to Vitam in D deficiency Patient to discuss c hanges in her mask versus appliance with Dr. Arguello.Also had Hypoxemia that was thought to be secondary to smoking and COPD. Related to JAYA on CPAP Has taken a round of B12 injections and plans to finish them soon.Recheck B12. Related to Vitamin B12 deficiency Needs F/u with pcp. Related to H ypothyroidism, unspecified Continue gabapentin, citalopram, methocarbamol.Heat or ice and needed.Alcis cream / topicals discussed - biofreeze.Can try salon pas patches. Related to Myalgia Continue Daypor,vidhi pentin and robaxin.Mt flexon exercises given and discussed.Weight loss.Dash siet, 17 day diet and weight watchers discussed. Related to Chronic Low Back Pain Increased with recen t lack of treatment [...] Low Back Pain Assessments Type Assessment Date assessment Polycythemia impression Hgb 16 Hct 50.7She does smoke wh ich can increase this. assessment Vitamin B12 deficiency impression 270 in 06/29.382 in in assessment Vitamin D deficiency impression 24.2 in 06/29S/p Pre scription D and now on 5000IU daily of OTC.08/01 29.832.2 in 01/1922.3 in 11/02 - on 2,000IU qds/p Rx Vt D assessment Anxiety impression increased stress; [place] ; raising grandkids and caring for mother assessment OA of knee impression 12/29 x-rays mild OAS /p steroid injection to left knee November 2018 - no relief.Patient opted not to inject her R knee.Knees hurt when she is getting up from a seated position or with stairs.Unchanged.Knee films 12/2021- Mild degenerative arthritis assessment Osteoarthropathy impression Hands, knees and feet. assessment Chronic Low Back Pain impression Severe L5/S1 DDD wit h facet [...] has not been doing back exercises. assessment Myalgia impression Myofascial neck/shou lders- Traps are tender to touch.Stable- unchanged with medication.Cervical spine film 2012 showed facet arthritis at C5-6. Summer 2018 were unable to view mid to lower c spine secondary to arm position but upper disc space looks good.Seems to be worse since her daughter in 09/04, seems to be having trouble sleeping. assessment Body mass index (BMI) 40.0-44.9, adult assessment Pain Management impression Signed and discussed.Gabapentin- 400mg tid. assessment NSAID Long-Term Use impression S/p Daypro.On Nabume tone - has inadvertently been taking Naproxen with it.Pt was supposed to stop Naproxen and saty on nabumetone Patient Care Teams Name Effective Dates (start - stop) Status Members No Information
--- NOTE | 2023-07-21 10:44 | NM_ITS ---
FINAL REPORT CLINICAL HISTORY: RUQ PAIN 10:55am 7.94 MCI TC CHOLETEC 2.5 MCG CCK PT VOMITED AT 45 MIN, CONTINUED ON WITH SCAN PER DR. REECE. PT WAS VERY NAUSEATED WITH CCK BUT DID NOT VOMIT AGAIN FINDINGS: Sequential anterior projection images of the abdomen were obtained after the intravenous injection of 7.94 mCi technetium 99m Choletec. There is normal uptake of radiotracer by the liver. The bile ducts and gallbladder are visualized by 15 minutes. Bowel activity is not noted by 60 minutes. After 1 hour, 2.5 ?g of CCK was injected intravenously for calculation of gallbladder ejection fraction. There is prompt visualization of the bowel. The gallbladder ejection fraction is 53 %, which is within normal limits. IMPRESSION: No evidence of cystic duct or bile duct obstruction. Normal gallbladder ejection fraction of 53 %. Reviewed, Interpreted and Dictated by Chandu Reece III, MD Transcribed by Shahnaz Dominguez Authenticated and [facility]
--- NOTE | 2023-07-21 11:10 | HMH.ITSHM ---
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 []odansetron omeprazole midodrine levothyroxine albuterol gabapentin citalopram
[2023-07-21] MEDS: ISOTOPE CHOLETECH;1 DOSE (UP TO 15 MCI) IV (12:43)
[2023-07-21] MEDS: SINCALIDE 2.5 MCG in 0.9 % SODIUM CHLORIDE 50 ML 100 MCG IV (12:43)
[2023-07-21] MEDS: SODIUM CHLORIDE 0.9% 10ML SYR (RAD ONLY) 10 ML IV (12:43)
== END 2023-07-21 23:59 ==
LOC: RAD 10:35
PROVIDERS: PCP Family Medicine; Visit Provider Family Medicine
DX: R10.11 Right upper quadrant pain (principal)
CPT/HCPCS: 78227; A9537; J2805

== ENCOUNTER 2023-08-09 11:10 | Inpatient (IN) | payer BC, MEDICARE, SELFPAY ==
[2023-08-09] VITALS (10 sets, daily range): BP systolic 78–106; BP diastolic 42–75; PULSE 62–77; RESP 16–22; TEMP 36.4–36.9; O2SAT 93–100; BMI 43.5; BMI 38.6
--- NOTE | 2023-08-09 11:11 | PC.NURSE ---
pt drinking a water at time of triage. pt instructed to hold off on anything to eat or drink where she is c/o n/v and certain test that maybe ordered. pt given mouth swabs.
--- OUTSIDE RECORDS SUMMARY | 2023-08-09 11:19 | XMS_ITS | Continuity of Care Document ---
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 Low back pain (chief complaint) Polycythemia Vitamin B12 deficiencyVi tamin D deficiencyAn xietyOA of kneeOsteoart hropathyChro yoseph Low Back PainMyalgiaP ain ManagementBo dy mass index (BMI) 40.0-44.9, adultNSAID Care Home Use 2 Marty Bella. [address], [id number]. tel:[phone] Referring Provider: José Jolley, [address] [place] [address], [id number]. tel:[phone] [facility] [address] [place] [address], [id number], [place] tel:[phone] [facility] No Information Mar- 2 Maryt Bella. [address], [id number]. tel:[phone] [facility] [address] [place] [address], [id number], [place] tel:[phone] [facility] No Information 2 Marty Bella. [address] [place] [address], [id number]. tel:[phone] Referring Provider: José Jolley, [address] [place] [address], [id number]. tel:[phone] Office Visit Level IV [facility] [address] [place] [address], [id number], [place] tel:[phone] [facility] pain (chief complaint) Vitamin B12 deficiencyVi tamin D deficiencyOA of kneeOsteoart hropathyChro yoseph Low Back PainMyalgiaP ain ManagementBo dy mass index (BMI) 40.0-44.9, adultNSAID Care Home UsePolycythe miaAnxiety Dec- 2 Marty Bella. [address], [id number]. tel:[phone] Referring Provider: José Jolley, [address] [place] [address], [id number]. tel:[phone] Office Visit Level IV [facility] [address] [place] [address], [id number], tel:[phone] [facility] Low back pain (chief complaint) Vitamin B12 deficiencyVi tamin D deficiencyOA of kneeOsteoart hropathyChro yoseph Low Back PainMyalgiaP ain ManagementBo dy mass index (BMI) 40.0-44.9, adultNSAID Care Home Use Aug-0 2 2 Wells RUDOLPH Peña. [address], [id number], . tel:[phone] Referring Provider: José Jolley, [address] [place] [address], [id number]. tel:[phone] Office Visit Level IV [facility] [address] [place] [address], [id number], tel:[phone] [facility] Low back pain (chief complaint) Vitamin B12 deficiencyVi tamin D deficiencyOA of kneeOsteoart hropathyChro yoseph Low Back PainMyalgiaP ain ManagementNS AID Supervisor Tumblers UseBody mass index (BMI) 40.0-44.9, adult Curtis-0 1 Marty Bella. [address] [place] [address], [id number]. tel:[phone] Referring Provider: José Jolley, [address] [place] [address], [id number]. tel:[phone] [facility] [address] [place] [address], [id number], tel:[phone] [facility] No Information 0 1 Marty Bella. [address] [place] [address], [id number]. tel:[phone] Referring Provider: José Jolley, [address] [place] [address], [id number]. tel:[phone] Office Visit Level IV [facility], [address] [place] [address], [id number], tel:[phone] [facility] Low back pain (chief complaint) Hypothyroidi sm, unspecifiedV itamin B12 deficiencyVi tamin D deficiencyOS A on CPAPOA of kneeOsteoart hropathyChro yoseph Low Back PainMyalgiaP ain ManagementNS AID Supervisor Tumblers Use 0 Marty Bella. [address], [id number]. tel:[phone] Referring Provider: José Jolley, [address] [place] [address], [id number]. tel:[phone] Office Visit Level IV [facility], [address] [place] [address], [id number], tel:[phone] [facility] Low back pain (chief complaint) Hypothyroidi sm, unspecifiedV itamin B12 deficiencyVi tamin D deficiencyOS A on CPAPOA of kneeOsteoart hropathyChro yoseph Low Back PainMyalgiaP ain ManagementNS AID Supervisor Tumblers Use 0 Marty Bella. [address], [id number]. tel:[phone] Referring Provider: José Jolley, [address] [place] [address], [id number]. tel:[phone] Office Visit Level IV [facility], [address] [place] [address], [id number], [place] tel:[phone] [facility] Joint Pain (chief complaint) NSAID Care Home UseHypothyro idism, unspecifiedV itamin B12 deficiencyVi tamin D deficiencyOA of kneeChronic Low Back PainMyalgiaP ain ManagementOS A on CPAPOsteoart hropathy 0 Marty Bella. [address], [id number]. tel:[phone] Referring Provider: José Jolley, [address] [place] [address], [id number]. tel:[phone] [facility] [address] [place] [address], [id number], tel:[phone] [facility] No Information 0 Marty Bella. [address], [id number]. tel:[phone] Referring Provider: José Jolley, [address] [place] [address], [id number]. tel:[phone] Office Visit Level IV [facility] [address] [place] [address], [id number], [place] tel:[phone] [facility] Joint Pain (chief complaint) Body mass index (BMI) 40.0-44.9, adultHypothy roidism, unspecifiedV itamin B12 deficiencyVi tamin D deficiencyOA of kneeChronic Low Back PainMyalgiaP ain ManagementNS AID Care Home UseOSA on CPAPOsteoart hropathy 9 Marty Bella. [address] [place] [address], [id number]. tel:[phone] Referring Provider: José Jolley, [address] [place] [address], [id number]. tel:[phone] [facility] [address] [place] [address], [id number], [place] tel:[phone] [facility] Osteoarthrit is (chief complaint) OA of knee 201 9 Gerry Humphries. [address], [id number]. tel:[phone] Referring Provider: José Jolley, [address] [place] [address], [id number]. tel:[phone] Office Visit Level IV [facility] [address], [id number], tel:[phone] [facility]. Joint Pain (chief complaint)Fa tigue (chief complaint) Pain ManagementVi tamin D deficiencyCh ronic Low Back PainOSA on CPAPMyalgiaN SAID Supervisor Tumblers UseHypothyro idism, unspecifiedV itamin B12 deficiencyCh est painJoint PainOA of knee 4-201 9 Gerry Humphries. 330 [facility], [facility] [address], [place], [id number]. tel:[phone] Referring Provider: José Jolley, [address] [place] [address], [id number]. tel:[phone] Office Visit Level IV [facility], [address] [place] [address], [id number], tel:[phone] [facility]. Joint Pain (chief complaint)Fa tigue (chief complaint) Vitamin D deficiencyHy pothyroidism , unspecifiedC hronic Low Back PainMyalgiaN SAID Supervisor Tumblers UseVitamin B12 deficiencyOS A on CPAPChest painJoint PainPain Management Curtis-0 8 8 Marty Bella. 330 [employer], [address], [id number]. tel:[phone] Referring Provider: José oJlley, [address] [place] [address], [id number]. tel:[phone] Office Visit Level IV [facility] [address], [id number], tel:[phone] [facility]. Joint Pain (chief complaint)Fa tigue (chief complaint) Chronic Low Back PainDe Quervain tenosynoviti sMyalgiaFati gueNSAID Care Home UseVitamin D deficiencyVi tamin B12 deficiency anemiaHypoth yroidism, unspecified Dec-0 6-201 7 Marty Bella. [address] [employer] [address] [employer], [place], [place], [id number]. tel:[phone] Referring Provider: José Jolley, [address] [place] [address], [id number]. tel:[phone] [facility] [address], [place], [place], [id number], tel:[phone] [facility] Chronic Low Back PainCounseli ngMyalgiaFat igueNSAID Care Home UseDe Quervain tenosynoviti s 7201 7 Marty Jena. [address] [facility], [facility], [place], [place], [id number]. tel:[phone] Family History Family Member Type Diagnosis Age At Onset No Information Immunizations Vaccine Date Status Comments SARS-COV-2 (COVID-19) vaccin e, vector non-replicating, recombinant spike protein-Ad26, preservative free, 0.5 mL ([employer]) administered Source: Other Provid er Payers Payer name Insurance type Covered constitution party ID Authoriza tibruna(s) [facility] National Account [id number] BL [id number] 01 Social History Type Description Quantity Date [...] Order Sarah mbar Spine MRI WITHOUT Contrast (15485), Ordered on: Ordered Future Order: Lab Order CBC With Differential/Platelet ([id number]), Ordered on: Ordered Future Order: Lab Order Comp. Me tabolic Panel (14) ([id number]), Ordered on: Ordered Future Order: Lab Order Vitamin D, 25-Hydroxy ([id number]), Ordered on: Ordered Future Order: Radiology Order Kn ee X-ray; Limited (1 or 2 views) ([id number]), Ordered on: Ordered Future Order: Lab Order CBC With Differential/Platelet ([id number]), Ordered on: Ordered Future Order: Lab Order Comp. Me tabolic Panel (14) ([id number]), Ordered on: Ordered Future Order: Lab Order Vitamin D, 25-Hydroxy ([id number]), Ordered on: Ordered Future Order: Lab Order CBC With Differential/Platelet ([id number]), Ordered on: Ordered Future Order: Lab Order Comp. Me tabolic Panel (14) ([id number]), Ordered on: Ordered Future Order: Lab Order Vitamin B12 and Folate ([id number]), Ordered on: Ordered Future Order: Lab Order Vitamin D, 25-Hydroxy ([id number]), Ordered on: Ordered Future Order: Lab Order CBC With Differential/Platelet ([id number]), Ordered on: Ordered Future Order: Lab Order Comp. Me tabolic Panel (14) ([id number]), Ordered on: Ordered Future Order: Lab Order Vitamin D, 25-Hydroxy ([id number]), Ordered on: Ordered Future Order: Lab Order Vitamin B12 and Folate ([id number]), Ordered on: Ordered Future Order: Lab Order TSH (004 259), Ordered on: Ordered Future Order: Radiology Order Sarah mbar Spine MRI WITHOUT Contrast (14077), Ordered on: Ordered Future Order: Lab Order CBC With Differential/Platelet (427380), Ordered on: Ordered Future Order: Lab Order Comp. Me tabolic Panel (14) ([id number]), Ordered on: Ordered Future Order: Lab Order Vitamin B12 and Folate ([id number]), Ordered on: Ordered Future Order: Lab Order Vitamin D, 25-Hydroxy ([id number]), Ordered on: Ordered Future Order: Lab Order TSH (004 259), Ordered on: Ordered Future Order: Radiology Order Sarah mbar Spine MRI WITHOUT Contrast ([id number]), Ordered on: Ordered Future Order: Lab Order CBC With Differential/Platelet ([id number]), Ordered on: Ordered Future Order: Lab Order Comp. Me tabolic Panel (14) ([id number]), Ordered on: Ordered Future Order: Radiology Order Ce rvical Spine X-ray (2 or 3 views) (53029), Ordered on: Ordered Future Order: Lab Order CBC With Differential/Platelet ([id number]), Ordered on: Ordered Future Order: Lab Order Comp. Me tabolic Panel (14) ([id number]), Ordered on: Ordered Future Order: Lab Order Vitamin D, 25-Hydroxy (408267), Ordered on: Ordered Future Order: Lab Order TSH (004 259), Ordered on: Ordered Future Order: Lab Order CBC With Differential/Platelet (252574), Ordered on: Ordered Future Order: Lab Order Comp. Me tabolic Panel (14) ([id number]), Ordered on: Ordered Future Order: Lab Order Vitamin D, 25-Hydroxy ([id number]), Ordered on: Ordered Future Order: Lab Order Vitamin B12 and Folate (703306), Ordered on: Ordered Future Order: Lab Order CBC With Differential/Platelet ([id number]), Ordered on: Ordered Future Order: Lab Order Comp. Me tabolic Panel (14) ([id number]), Ordered on: Ordered Future Order: Lab Order Vitamin D, 25-Hydroxy ([id number]), Ordered on: Ordered Future Order: Lab Order Vitamin B12 and Folate ([id number]), Ordered on: Ordered Future Order: Radiology Order Kn ee X-ray; Limited (1 or 2 views) ([id number]), Ordered on: Ordered Future Order: Lab Order CBC With Differential/Platelet ([id number]), Ordered on: Ordered Future Order: Lab Order Comp. Me tabolic Panel (14) ([id number]), Ordered on: Ordered Future Order: Lab Order C-Reacti ve Protein, Quant ([id number]), Ordered on: Ordered Future Order: Lab Order Sediment ation Rate-Westergren ([id number]), Ordered on: Ordered Future Order: Lab Order Thyroid Panel With TSH ([id number]), Ordered on: Ordered Future Order: Lab Order Vitamin D, 25-Hydroxy ([id number]), Ordered on: Ordered Future Order: Lab Order Vitamin B12 and Folate ([id number]), Ordered on: Ordered History Of Present Illness [...] Active Instructions Date Instruction Additional Infor mation s/p Rx Vt D. Pt was supposed to be on 4,000iu daily ? recheck Related to Vitamin D deficiency Follow up with PCP f or further [...] neck and shoulder muscles. Related to Myalgia PT is an option [...] schedule. Related to Chronic Low Back Pain Cbc,Cmp Q 6 months o n nsaid- 11/02Needs updates CBC, CMP Related to NSAID Care Home Use Continue Gabapentin and Robaxin.Needs to restart Mt flexion exercises.She defers injections to the back.Defers NS eval at present . She prefers to wait.Does not have time for PT at present due to caring for her mother and grandchildren.The TENS unit was not helpful.Defers medical management of pain with pain clinic. Related to Chronic Low Back Pain Continue gabapentin, citalopram, and start taking methocarbamol [...] Vitamin D. Related to Vitamin D deficiency Rec. OTC b12 supplement. Related to Vitamin B12 deficiency PT is an option but patient defers secondary to cost and time.Isometric quad sets-mail her an orderWeight loss - Weight watchers, Dash diet or 17 day diet.Continue Gabapentin and nsaidXR knees today.Patient defers injections because previous injections did not work. Xigarettetta might be an option.She is going to call if she is interested in long acting steroid injections.She is taking the Nabumetone and Naproxen together - I want her to stop the Naproxen. Related to OA of knee Continue nabumetone. Will XR knees when she rtc.Continue exercise.Weight loss. Related to Osteoarthropathy Cbc,Cmp Q 6 months o n nsaid- 11/02Stop Naproxen and continue Nabumetone. Related to NSAID Care Home Use continue citalopramb uspar prnif no better see pcp Related to Anxiety Follow up with PCP f or further eval and treatment. Related to Polycythemia Lifestyle education regarding di et Related to Body mass index [BMI] 40.0-44.9, adult Continue Gabapentin and Robaxin.Continue Mt flexion exercises.She [...] ? Thoracic outlet syndrome Related to Myalgia Recheck. Order sent 08/13/21. Rel ated to Vitamin B12 deficiency Rec 2000IU per day.R echeck Order sent 08/13/21 Related to Vitamin D deficiency PT is an option but patient defers secondary to cost and time.Isometric quad sets-mail her an orderWeight loss - Weight watchers, Dash diet or 17 day diet.Continue Gabapentin and nsaidXR knees on RTC to [facility].Patient defers injections because previous injections did not work. Xilretta might be an option. Related to OA of knee Cbc,Cmp Q 6 months o n nsaid- Order mailed 08/13/21. One month refill given. No more refills until labs are received. Related to NSAID Supervisor Tumblers Use Continue nabumetone. Will XR knees when she rtc.Continue exercise.Weight loss. Related to Osteoarthropathy Lifestyle education regarding di et Related to Body mass index [BMI] 40.0-44.9, adult PT is an option but patient defers [...] to any other refill. Related to NSAID Care Home Use Continue gabapentin, citalopram, methocarbamol.Heat or ice [...] to neurology. Related to Myalgia Continue nabumetone. Will XR knees when she rtc.Continue exercise.Weight loss. Related to Osteoarthropathy Recheck Related to Vitam in B12 deficiency Rec 2000IU per day.Recheck Relat ed to Vitamin D deficiency Continue Gabapentin and [...] Related to Body mass index [BMI]40.0-44.9, adult PT is an option but patient defers secondary to cost and time.Isometric quad sets- continue.Weight loss - Weight watchers, Dash diet or 17 day diet.Continue Gabapentin and nsaidXR knees on RTCPatient defers injections because previous injections did not work. Xilretta might be an option. Related to OA of knee Recheck Related to Hypot hyroidism, unspecified Since she cannot truman erate mask I rec weight loss. Related to JAYA on CPAP Continue nabumetone. Will XR knees when she rtc.Continue exercise.Weight loss. Related to Osteoarthropathy Continue Gabapentin and Robaxin. Increase Gabapentin to 400mgContinue Mt flexion exercises.She defers injections to the back.Defers NS eval at present . She prefers to wait.Does not have time for PT at present.TENS unit may be an option for her. Related to Chronic Low Back Pain Recheck Related to Vitam in B12 deficiency Rec 2000IU per day.Recheck Relat ed to Vitamin D deficiency Cbc,Cmp Q 6 months o n nsaid- Order mailed. Related to NSAID Supervisor Tumblers Use Continue gabapentin, citalopram, methocarbamol.Heat or ice [...] neurology. Related to Myalgia Recheck Related to Vitam in B12 deficiency Continue Gabapentin and Robaxin.Continue Mt flexion exercises.Spinal [...] Will refer to neurology. Related to Myalgia PT is an option but patient defers secondary to cost.Isometric quad sets- continue.Weight loss - Weight watchers, Dash diet or 17 day diet.Continue Gabapentin and nsaidXR knees on RTCPatient defers injections because previous injections did not work. Xilretta might be an option. Related to OA of knee Continue nabumetone. Will XR knees when she rtc.Continue exercise.Weight loss. Related to Osteoarthropathy Cbc,Cmp Q 6 months on nsaid- / 020 Related to NSAID Care Home Use Recheck Related to Hypot hyroidism, unspecified Rec [...] well need neurology evaluation. Related to Myalgia Rec 2000IU per day. Related to V itamin D deficiency Cbc,Cmp Q 6 months on nsaid- 01/11 9 Related to NSAID Supervisor Tumblers Use Continue Gabapentin and Robaxin.Continue Mt flexion exercises.In [...] ready to recheck. Related to Hypothyroidism, unspecified Continue nabumetone. Related to Osteoarthropathy Lifestyle education regarding di et Related to Body mass index (BMI) 40.0-44.9, adult Stop Daypro and try nabumetone. Related to Osteoarthropathy If she can tolerate Mask it would help with weight loss, energy and fatigue. Related to JAYA on CPAP Continue gabapentin, [...] on nsaid- 07/14 9. Related to NSAID Care Home Use Needs F/u with pcp- Patient has not followed up on this .Recheck Tsh. Related to Hypothyroidism, unspecified Continue Gabapentin and Robaxin.Continue Mt flexion exercises. Related to Chronic Low Back Pain PT [...] Nabumetone 750mg. Related to OA of knee Rec 2000IU per day.Recheck D. Re lated to Vitamin D deficiency Lifestyle education regarding [...] afford it. Related to OA of knee Cbc,Cmp Q 6 months on nsaid. Rel ated to NSAID Supervisor Tumblers Use She hasn't been usin g CPAP, states she couldn't tolerate it. Related to JAYA on CPAP Continue Daypro, catie apentin, and robaxin. Related to Chronic Low Back Pain Needs F/u with pcp. Related to H ypothyroidism, unspecified Continue gabapentin, citalopram, methocarbamol.Heat or ice and needed. Related to Myalgia Level was 22 in December 2017. She has been taking 5000IU daily. Will recheck level today. Related to Vitamin D deficiency Suggest Stress test with pcp.It could be GI related- Esophageal/stomach inflammation. Related to Chest pain Xray of the knees.To pical creams.Can try salon pas patches.PT for strengthening/HEP.Consider nsaid change in the future. Related to Joint Pain Suggest Stress test with pcp.It could be GI related- Esophageal/stomach inflammation. Related to Chest pain Recheck D. Related to Vitam in D deficiency Cbc,Cmp Q 6 months on nsaid. Rel ated to NSAID Supervisor Tumblers Use Patient to discuss c hanges in her [...] Related to Myalgia Continue Daypor,vidhi pentin and robaxin.Tm flexon exercises given and discussed.Weight loss.Dash siet, 17 day diet and weight watchers discussed. Related to Chronic Low Back Pain Out of meds for elias buchanan monthsunable to afford PT or many other treatments. Raising her grandchildren which often causes her to miss appts, etc. Refill current meds. Related to Chronic Low Back Pain Increased with recen t lack of treatment for several monthsRestart gabapentin, citalopram, methocarbamol Related to Myalgia Hasn't taken B compl ex or Vitamin D in some time. Didn't go for sleep eval. She didn't realize what all JAYA could contribute to. Will re-order sleep eval. Related to Fatigue Dietary management e ducation, guidance, and counseling [...] Signed and discussed.Gabapentin- 400mg tid. assessment NSAID Supervisor Tumblers Use impression S/p Daypro.On Nabume tone - has inadvertently been taking Naproxen with it.Pt was supposed to stop Naproxen and saty on nabumetone Patient Care Teams Name Effective Dates (start - stop) Status Members No Information
--- NOTE | 2023-08-09 11:22 | ECG_ITS ---
APPROVED REPORT Exam: Resting ECG HR:74 bpm ECG Measurements Heart Rate 74 AXES MN 160 P 48 QRSd 106 QRS 18 QT 417 T 49 QTc 445 Conclusion SINUS RHYTHM NONSPECIFIC ST & T-WAVE ABNORMALITY BORDERLINE ECG UNCONFIRMED REPORT Electronically signed by : Rolando Andrew MD 08/12/2023 16:50:58
--- NOTE | 2023-08-09 11:33 | CT_ITS ---
PROCEDURE INFORMATION: Exam: CT Abdomen And Pelvis With Contrast Exam date and time: 08/09/2023 12:24 PM Age: 62 years old Clinical indication: Nausea and vomiting; Additional info: Nausea/vomiting TECHNIQUE: Imaging protocol: Computed tomography of the abdomen and pelvis with contrast. Radiation optimization: All CT scans at this facility use at least one of these dose optimization techniques: automated exposure control; mA and/or kV adjustment per patient size (includes targeted exams where dose is matched to clinical indication); or iterative reconstruction. Contrast material: ISOVUE; Contrast volume: 75 ml; Contrast route: IV; COMPARISON: CT ABDOMEN PELVIS W CON 07/03/2023 2:23 PM FINDINGS: Lungs: Subpleural atelectasis or fibrosis is noted along the right lower lobe convexity. Diaphragm: There is a tiny hiatal hernia. Liver: The liver is diffusely low in density compatible with fatty infiltration. Innumerable calcified granulomas are noted throughout the liver. Gallbladder and bile ducts: The gallbladder is moderately distended. Pancreas: Pancreatic calcifications are noted which may be due to chronic pancreatitis or prior granulomatous disease. Spleen: Numerous calcific granulomas are noted in the spleen. Adrenal glands: Normal. No mass. Kidneys and ureters: The kidneys enhance symmetrically and there is no hydronephrosis. Renal cortical hypodense lesions statistically most likely represent cysts, largest in the lateral right lower midportion measuring 19 x 17 mm. Stomach and bowel: There is no evidence of small bowel obstruction. Scattered colonic diverticula are noted. Appendix: No evidence of appendicitis. Intraperitoneal space: Unremarkable. No free air. No significant fluid collection. Vasculature: The abdominal aorta is normal in course and caliber with atheromatous plaque and calcification. Lymph nodes: Unremarkable. No enlarged lymph nodes. Urinary bladder: The urinary bladder is contracted. Reproductive: The patient appears to be post hysterectomy. Bones/joints: Degenerative changes are noted of the bones. There is a chronic fracture of the right 7th and 8th ribs. Soft tissues: Unremarkable. IMPRESSION: Fatty liver. Granulomatous disease. Query chronic pancreatitis. Tiny hiatal hernia. Diverticulosis. Renal cysts for which no further imaging follow-up is necessary. COMMENTS: Consistent with the [employer] [place] [employer]'s Incidental Findings Committee white paper (J Am Elías Radiol 2018): Any incidental renal lesion less than 1 cm or classified as too small to characterize, or any incidental cystic renal lesion characterized as simple-appearing, is likely benign. No follow-up imaging is recommended for these lesions per consensus recommendations based on imaging criteria.
--- NOTE | 2023-08-09 11:34 | ED_ITS ---
Discharge Plan Disposition Patient Disposition: Admitted Condition: Fair Chief Complaint: Nausea/Vomiting/Diarrhea Clinical Impressions Clinical Impression: Acute hyponatremia, Kidney dysfunction Nausea & vomiting Qualifiers: Vomiting type: unspecified Qualified Code(s): R11.2 - Nausea with vomiting, unspecified Discharge ED Provider: Araceli Rubio General Adult HPI General Chief complaint: Nausea/Vomiting/Diarrhea Stated complaint: N/V Time Seen by Provider: 08/09/23 11:29 Mode of Arrival: Ambulatory Source of Information: Patient Limitations: No Limitations Description of Symptoms (Recalled from ER Triage Doc. by RN): pt presents to ED c/o intermittent n/v x 3 weeks. pt denies fever, abdominal pain or diarrhea. pt denies burning with urination. History of Present Illness HPI narrative: This 62-year-old female with a history of lung cancer that is reportedly in rem ission for the last 8 months presents to the ER with concerns of intractable nausea and vomiting. Patient states she has been evaluated for previously and she was sent home with nausea medications but she continues to be unable to tolerate oral intake. She states she is vomiting most days including every day for the last 3 days. Nonbloody, nonbilious. She is breathing heavily but states she is not short of breath, she just feels sick to her stomach. She is a smoker and has a history of recent gallbladder evaluation which she says was normal.She denies any abdominal pain at this time. She denies diarrhea. She denies dysuria. She denies fevers. Patient states she did take her nausea m edication this morning. Related Data Home Medications Medication Instructions Recorded Confirmed citalopram 40 mg tablet 40 mg PO DAILY MOOD 07/25/17 07/04/23 gabapentin 400 mg capsule 400 mg PO BID NERVE PAIN 05/28/23 07/03/23 ipratropium 0.5 mg-albuterol 3 mg 3 ml inhalation Q6HP PRN Shortness 05/28/23 07/04/23 (2.5 mg base)/3 mL nebulization Of Breath Or Wheezing soln midodrine 10 mg tablet 10 mg PO TID LOW BLOOD PRESSURE 05/28/23 07/03/23 levothyroxine 100 mcg tablet 100 mcg PO DAILYDM THYROID 07/04/23 07/04/23 Previous Rx's Medication Instructions Recorded omeprazole 20 mg capsule,delayed 20 mg PO DAILY 14 days #14 caps 07/18/23 release ondansetron 4 mg disintegrating 4 mg PO Q8H PRN nausea and 07/18/23 tablet vomiting 5 days #10 tabs Allergies Allergy/AdvReac Type Severity Reaction Status Date / Time penicillin G [PENICILLIN G] Allergy Mild Verified 05/28/23 08:57 [facility] Disclaimer: The information contained in this section may have been updated after the patient was seen, as this information can be updated by other users. Medical History (Updated 08/09/23 @ 13:25 by Araceli Rubio MD) Acute hypotension CAP (community acquired pneumonia) COPD (chronic obstructive pulmonary disease) COPD exacerbation Fibromyalgia GERD (gastroesophageal reflux disease) Hypothyroid Knee fracture Lung cancer Osteoarthritis PNA (pneumonia) Shingles Urinary incontinence Wrist fracture, right Surgical History History of carpal tunnel surgery History of section History of colonoscopy History of hysterectomy History of lobectomy of lung Family History Other Family history of cancer Social History (Updated 08/09/23 @ 13:16 by Maria Elena Sanchez RN) Smoking Status: Current every day smoker tobacco type: cigarettes packs per day: 1 alcohol intake: never substance use type: denies use current occupational status: disabled and other Travel in the last 8 weeks: None housing: house ROS Obtained: Yes All systems reviewed & no additional complaints except as documented Constitutional Constitutional: Denies chills, Denies fever(s), Denies headache(s) and Denies weakness Eyes Eyes: Denies change in vision ENT Ears, Nose, Mouth, and Throat: Denies dizziness, Denies headache(s), Denies nasal congestion and Denies sore throat Cardiovascular Cardiovascular: Denies chest pain, Denies dyspnea and Denies leg edema Respiratory Respiratory: Denies cough and Denies dyspnea Gastrointestinal Gastrointestingal: Reports nausea and vomiting; Denies constipation or diarrhea Genitourinary Female Genitourinary: Denies dysuria Musculoskeletal Musculoskeletal: Denies arthralgias, Denies myalgias, Denies numbness and Denies tingling Integumentary/Breasts Skin/Breast: Denies change in pigmentation Neurologic Neurologic: Denies dizziness, Denies headache(s), Denies numbness, Denies tingling and Denies weakness Physical Exam General General appearance: alert, in no apparent distress and other (Ill-appearing but nontoxic) Head Head exam: atraumatic and normocephalic Eye Eye exam: Present PERRL and EOMI ENT ENT exam: Present mucous membranes moist Neck Neck exam: Present normal inspection and full ROM Chest Chest inspection: Present symmetric chest wall rise Respiratory Respiratory exam: Present normal lung sounds bilaterally; Absent respiratory distress, wheezes or stridor Cardiovascular Cardiovascular exam: Present regular rate and normal rhythm Abdominal Exam Abdominal exam: Present soft; Absent distention, tenderness, guarding or rebound Extremities Exam Extremities exam: Present full ROM Neurological Exam Neurological exam: Present alert and oriented X3; Absent motor sensory deficit Psychiatric Psychiatric exam: Present normal affect and normal mood Skin Skin exam: Present warm and dry Medical Decision Making Janes Inquiry Pt receiving controlled substance: No Vital Signs: 08/09/23 11:11 08/09/23 11:57 08/09/23 11:24 Temperature 97.6 F Temperature Source Oral Pulse Rate 66 74 Pulse Rate [Right Radial] 77 Respiratory Rate 18 18 18 Blood Pressure 94/59 L 97/75 L Blood Pressure [Right Arm] 97/75 L Blood Pressure Mean 80 Blood Pressure Mean [Right Arm] 82 Blood Pressure Source Automatic Cuff Blood Pressure Source [Right Arm] Automatic Cuff Blood Pressure Position Sitting Blood Pressure Position [Right Arm] Sitting 02 Sat by Pulse Oximetry 100 100 100 Oxygen Delivery Method Room Air Room Air 08/09/23 11:57 08/09/23 12:03 08/09/23 12:39 Temperature Temperature Source Pulse Rate 66 62 66 Pulse Rate [Right Radial] Respiratory Rate 18 20 20 Blood Pressure 94/59 L 97/64 L 93/59 L Blood Pressure [Right Arm] Blood Pressure Mean 65 73 70 Blood Pressure Mean [Right Arm] Blood Pressure Source Blood Pressure Source [Right Arm] Blood Pressure Position Blood Pressure Position [Right Arm] 02 Sat by Pulse Oximetry 100 100 98 Oxygen Delivery Method 08/09/23 13:00 Temperature Temperature Source Pulse Rate 67 Pulse Rate [Right Radial] Respiratory Rate 18 Blood Pressure 91/64 L Blood Pressure [Right Arm] Blood Pressure Mean 69 Blood Pressure Mean [Right Arm] Blood Pressure Source Blood Pressure Source [Right Arm] Blood Pressure Position Blood Pressure Position [Right Arm] 02 Sat by Pulse Oximetry 99 Oxygen Delivery Method Lab Data Lab Results 08/09/23 11:14: Urine Color Yellow, Urine Appearance Clear, Urine pH 6.0, Ur Specific [place] 1.020, Urine Protein Trace, Urine Glucose (UA) Negative, Urine Ketones 2+, Urine Blood Negative, Urine Nitrate Negative, Urine Bilirubin 2+ A, Urine Urobilinogen 1.0, Ur Leukocyte Esterase Negative, Urine RBC None, Urine WBC 3-5, Ur Squamous Epith Cells 3-5, Urine Bacteria 3+, Urine Opiates Screen Negative, Urine Methadone Screen Negative, Ur Barbituates Screen Negative, Ur Phencyclidine Scrn Negative, Ur Amphetamines Screen Negative, U Benzodiazepines Scrn Negative, Urine Cocaine Screen Negative, U Marijuana (THC) Screen Negative 08/09/23 11:25: WBC 5.0, RBC 5.25, Hgb 16.1, Hct 48.7 H, MCV 92.7, MCH 30.7, MCHC 33.2, RDW 15.3, Plt Count 258, MPV 8.3, Neut % (Auto) 37.9, Lymph % (Auto) 37.8, [place] % (Auto) 10.6 H, Eos % (Auto) 12.2 H, Baso % (Auto) 1.5, Neut # (Auto) 1.9, Lymph # (Auto) 1.9, [place] # (Auto) 0.5, Eos # (Auto) 0.6 H, Baso # (Auto) 0.1, Sodium 126 L, Potassium 3.5, Chloride 86 L, Carbon Dioxide 23, Anion Gap 20.5 H, BUN 5 L, Creatinine 1.30 H, Estimated Creat Clear 43, Estimated GFR 42 L, Est GFR ( Amer) 51 L, Glucose 70 L, Lactate 1.6, Calcium 10.4 H, Total Bilirubin 1.0, AST 48 H, ALT 12, Alkaline Phosphatase 77, Troponin I 0.04 H, Total Protein 7.5, Albumin 4.2, Globulin 3.3 H, Albumin/Globulin Ratio 1.3, Lipase 75 08/09/23 11:25 08/09/23 11:25 Orders (Tests/Meds): ED MEDICATIONS Generic Name Dose Route Start Last Admin Trade Name Freq PRN Reason Stop Dose Admin Potassium Chloride/Dextrose/Sod Cl 1,000 mls @ 125 mls/hr 08/09/23 13:10 Kcl 20 Meq In D5w-Ns IV 09/08/23 13:09 .Q8H LEENA Ondansetron HCl 4 mg 08/09/23 13:10 Ondansetron 4mg/2ml Vial IV 09/08/23 13:09 ONCE PRN nausea Promethazine HCl 12.5 mg 08/09/23 13:10 Promethazine Hcl 25mg/Ml 1ml Vial IV 09/08/23 13:09 ONCE PRN nausea Sodium Chloride 10 ml 08/09/23 13:10 Sodium Chloride 0.9% 10ml Flush Syringe IV 09/08/23 11:26 NEEDED PRN Maintain IV Site Discontinued Medications Generic Name Dose Route Start Last Admin Trade Name Freq PRN Reason Stop Dose Admin Lactated Ringer's 1,000 mls @ 999 mls/hr 08/09/23 11:33 08/09/23 11:38 Lactated Ringer's 1000 Ml Bag IV 08/09/23 12:33 999 mls/hr .Q1H1M ONE Administration Iopamidol 75 ml 08/09/23 12:33 08/09/23 12:34 Iopamidol-370 (76%);100ml Bottle IV 08/09/23 12:34 75 ml ONCE ONE Administration Ondansetron HCl 4 mg 08/09/23 11:32 08/09/23 11:37 Ondansetron 4mg/2ml Vial IV 08/09/23 11:33 4 mg ONCE ONE Administration Sodium Chloride 10 ml 08/09/23 11:27 Sodium Chloride 0.9% 10ml Flush Syringe IV 09/08/23 11:26 NEEDED PRN Maintain IV Site Sodium Chloride 10 ml 08/09/23 12:33 08/09/23 12:34 Sodium Chloride 0.9% 10ml Syr (Rad Only) IV 08/09/23 12:34 10 ml ONCE ONE Administration Sodium Chloride 25 ml 08/09/23 13:10 Sodium Chloride 0.9% 25ml Bag IV 08/09/23 13:11 ONCE ONE ORDERS Category Date Time Status CT abdomen pelvis w con Stat Cat Scan 08/09/23 11:33 Completed Chest XR -- portable [XR chest portable] Stat Exams 08/09/23 11:35 Completed Complete Blood Count Auto Diff Stat Lab 08/09/23 11:25 Completed Comprehensive Metabolic Panel Stat Lab 08/09/23 11:25 Completed Lactic Acid Stat Lab 08/09/23 11:25 Completed Lipase Stat Lab 08/09/23 11:25 Completed Troponin I Q3H Lab 08/09/23 14:30 Ordered Troponin I Q3H Lab 08/09/23 17:30 Ordered Troponin I Stat Lab 08/09/23 11:25 Completed UDS [Drug Screen,Urine] Stat Lab 08/09/23 11:14 Completed Urinalysis and Microscopic Stat Lab 08/09/23 11:14 Completed Urine Culture Stat Micro 08/09/23 11:14 Received Medical Decision Narrative: In summary, this 62year old female presents to the emergency department today with nausea and vomiting. On initial evaluation patient is hemodynamically stable though borderline hypotensive, not tachycardic, she does not meet SIRS or sepsis criteria but is ill-appearing, abdominal exam benign and nonfocal, cardiopulmonary exam reassuring. Differential diagnosis includes but is not limited to viral syndrome however patient's symptoms have been protracted enough that I do not believe this is the ongoing problem, enteritis, colitis, electroly te abnormality, dehydration, also considered ACS, toxic ingestion, malignancy, bowel obstruction. Based on these concerns, I ordered electrolyte studies, cardiac workup, CT abdomen pelvis. Patient has history of lung cancer which is a comorbidity of current condition and increases her overall morbidity. ECG personally interpreted demonstrates normal sinus rhythm, rate 74, no interval abnormality, no STEMI, normal axis.. Patient received IV Zofran, IV fluids for treatment. Labs personally reviewed demonstrate no leukocytosis, WBC normal at 5.0, no anemia, hemoglobin 16.1, sodium newly hyponatremic at 126, patient is also hypochloremic, elevated anion gap at 20.5, normal bilirubin, first troponin elevated at 0.04 however this is consistent with prior based off my review of recent labs, lipase normal at 75, lactate normal at 1.6. XR personally interpreted demonstrates no acute intrathoracic abnormality such as lobar infiltrate or pneumothorax. See radiology read for final interpretat ion CT imaging personally interpreted demonstrate no findings of bowel obstruction or mass. See radiology read for final interpretation which did not demonstrate anything acute or surgically actionable at this time. Patient remains stable, she continues to have borderline hypotension but does have a history of needing midodrine for hypotension at baseline and admits to being noncompliant with her medications. I had an interactive discussion with Dr. Quiroag regarding patient's new laboratory abnormalities, intractable symptoms. He is in agreement with the plan for admission. He recommended D5 normal saline with 20 mill equivalents of potassium to be run at a rate of 125 mL/h as well as a as needed order for Zofran and Phenergan if needed for nausea. These orders have been placed. Patient will be admitted to the hospital for continued management. Critical Care Critical Care Time Critical Care Time: No
--- NOTE | 2023-08-09 11:35 | XR_ITS ---
PROCEDURE INFORMATION: Exam: XR Chest Exam date and time: 08/09/2023 11:36 AM Age: 62 years old Clinical indication: Shortness of breath; Additional info: HX of lung cancer TECHNIQUE: Imaging protocol: Radiologic exam of the chest. Views: 1 view. COMPARISON: CR XR CHEST 2V 07/18/2023 6:19 PM FINDINGS: Tubes, catheters and devices: A Port-A-Cath overlies and obscures the left mid chest with the catheter tip projects over the expected course of the superior vena cava. Lungs: Unremarkable. No consolidation. Pleural spaces: Unremarkable. No pleural effusion. No pneumothorax. Heart/Mediastinum: Unremarkable. No cardiomegaly. Bones/joints: Unremarkable. Other findings: Pleural-based opacity along the lower right convexity is not significantly changed from the recent prior examination. IMPRESSION: No significant change from the prior study.
[2023-08-09 11:37] LABS: Basophils # 0.1 K/mm3 (0-0.2); Basophils % 1.5 % (0.1-2.0); Eosinophils # 0.6 K/mm3 (0.0-0.4); Eosinophils % 12.2 % (0.1-12.0); Hematocrit 48.7 % (37.0-47.0); Hemoglobin 16.1 g/dL (12.2-16.2); Lymphocytes # 1.9 K/mm3 (0.7-4.5); Lymphocytes % 37.8 % (10-50); Mean Corpuscular HGB Conc 33.2 g/dL (31.8-35.4); Mean Corpuscular Hemoglobin 30.7 pg (27.0-31.2); Mean Corpuscular Volume 92.7 fl (81-99); Mean Platelet Volume 8.3 fl (7.4-10.4); Monocytes # 0.5 K/mm3 (0.1-1.0); Monocytes % 10.6 % (1.7-9.3); Neutrophils # 1.9 K/mm3 (1.8-7.8); Neutrophils % 37.9 % (37.0-80.0); Platelet Count 258 K/mm3 (142-424); Red Blood Count 5.25 M/mm3 (4.20-5.40); Red Cell Distribution Width 15.3 % (11.5-17.5)
[2023-08-09] MEDS: ONDANSETRON 4MG/2ML VIAL 4 MG IV (11:37)
[2023-08-09] MEDS: LACTATED RINGERS 1000ML 1,000 ML 999 ML IV (11:38)
--- NOTE | 2023-08-09 11:38 | PC.NURSE ---
radiology at bedside.
[2023-08-09 11:50] LABS: Chloride 86 mmol/L (98-107)
[2023-08-09 11:51] LABS: Potassium 3.5 mmoL/L (3.5-5.1); Sodium 126 mmol/L (136-145)
[2023-08-09 11:53] LABS: Alanine Aminotransferase 12 U/L (12-78); Aspartate Amino Transferase 48 U/L (14-36); Blood Urea Nitrogen 5 mg/dl (7-17); Creatinine Clearance Estimated 43 mL/min (50-200); Estimated Glomerular Filt Rate 42 ml/min (>60); GFR (African American) 51 ML/MIN (>60); Lactic Acid 1.6 mmol/L (0.7-2.1)
[2023-08-09 11:54] LABS: Albumin Level 4.2 g/dl (3.5-5.0); Albumin/Globulin Ratio 1.3 (1.1-1.8); Alkaline Phosphatase 77 U/L (38-126); Anion Gap 20.5 mEq/L (5-15); Calcium 10.4 mg/dl (8.4-10.2); Carbon Dioxide 23 mmol/L (22.0-30.0); Globulin 3.3 g/dL (1.3-3.2); Glucose 70 mg/dl (74-100); Lipase 75 U/L (23-300); Total Protein,Serum 7.5 g/dl (6.3-8.2)
[2023-08-09 12:06] LABS: Troponin I 0.04 ng/ml (0.00-0.034)
--- NOTE | 2023-08-09 12:18 | PC.NURSE ---
pt going to ct scan
[2023-08-09 12:33] LABS: Microscopic, Urine URINE MICROSCOPIC (MICROSCOPIC)
[2023-08-09] MEDS: SODIUM CHLORIDE 0.9% 10ML SYR (RAD ONLY) 10 ML IV (12:34)
[2023-08-09] MEDS: IOPAMIDOL-370 (76%);100ML BOTTLE 75 ML IV (12:34)
[2023-08-09 12:35] LABS: Appearance,Urine CLEAR (Clear); Blood, Urine Negative (Negative); Color,Urine YELLOW (Yellow); Glucose,Urine (UA) Negative (Negative); Ketones,Urine 2+ (Negative); Leukocyte Esterase,Urine Negative (Negative); Nitrate,Urine Negative (Negative); Protein,Urine TRACE (Negative)
--- NOTE | 2023-08-09 12:35 | PC.NURSE ---
pt returned from Ct scan.
[2023-08-09 12:37] LABS: Bilirubin,Urine 2+ (Negative)
--- NOTE | 2023-08-09 12:38 | PC.NURSE ---
attempted to obtain current medication list, pt molly historian.
[2023-08-09 12:47] LABS: Bacteria,Urine 3+ /lpf
[2023-08-09 12:54] LABS: Amphetamine/Metha Screen,Urine Negative ng/ml (<1000); Benzodiazepines Screen,Urine Negative ng/ml (<200)
--- NOTE | 2023-08-09 12:54 | PC.NURSE ---
Dr. Quiroga paged at this time.
[2023-08-09 12:55] LABS: Barbiturates Screen,Urine Negative ng/ml (<200)
[2023-08-09 12:56] LABS: Cannabinoid Screen,Urine Negative ng/ml (<50); Cocaine Screen,Urine Negative ng/ml (<300)
--- NOTE | 2023-08-09 12:56 | PC.NURSE ---
DR VILLANUEVA SPEAKING WITH DR ROBERT
[2023-08-09 12:57] LABS: Methadone Screen,Urine Negative ng/ml (<300); Opiate Screen,Urine Negative ng/ml (<300)
[2023-08-09 12:58] LABS: Phencyclidine Screen,Urine Negative ng/ml (<25)
--- NOTE | 2023-08-09 13:00 | PC.NURSE ---
ICE MAKER NOTIFIED OF ADMISSION
--- OUTSIDE RECORDS SUMMARY | 2023-08-09 13:06 | XMS_ITS | Continuity of Care Document ---
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 Low back pain (chief complaint) Polycythemia Vitamin B12 deficiencyVi tamin D deficiencyAn xietyOA of kneeOsteoart hropathyChro yoseph Low Back PainMyalgiaP ain ManagementBo dy mass index (BMI) 40.0-44.9, adultNSAID Longterm Use 2 Marty Bella. [address], [id number]. tel:[phone] Referring Provider: José Jolley, [address] [place] [address], [id number]. tel:[phone] [facility] [address] [place] [address], [id number], [place] tel:[phone] [facility] No Information Mar- 2 Marty Bella. [address], [id number]. tel:[phone] [facility] [address] [place] [address], [id number], [place] tel:[phone] [facility] No Information 2 Marty Bella. [address] [place] [address], [id number]. tel:[phone] Referring Provider: José Jolley, [address] [place] [address], [id number]. tel:[phone] Office Visit Level IV [facility] [address] [place] [address], [id number], [place] tel:[phone] [facility] Low [facility] pain (chief complaint) Vitamin B12 deficiencyVi tamin D deficiencyOA of kneeOsteoart hropathyChro yoseph Low Back PainMyalgiaP ain ManagementBo dy mass index (BMI) 40.0-44.9, adultNSAID Longterm UsePolycythe miaAnxiety Dec- 2 Marty Bella. [address], [id number]. tel:[phone] Referring Provider: José Jolley, [address] [place] [address], [id number]. tel:[phone] Office Visit Level IV [facility] [address] [place] [address], [id number], tel:[phone] [facility] Low back pain (chief complaint) Vitamin B12 deficiencyVi tamin D deficiencyOA of kneeOsteoart hropathyChro yoseph Low Back PainMyalgiaP ain ManagementBo dy mass index (BMI) 40.0-44.9, adultNSAID Longterm Use Aug-0 2 2 Wells RUDOLPH Peña. [address], [id number], . tel:[phone] Referring Provider: José Jolley, [address] [place] [address], [id number]. tel:[phone] Office Visit Level IV [facility], [address] [place] [address], [id number], tel:[phone] [facility] Low back pain (chief complaint) Vitamin B12 deficiencyVi tamin D deficiencyOA of kneeOsteoart hropathyChro yoseph Low Back PainMyalgiaP ain ManagementNS AID Speed Reading Teacher UseBody mass index (BMI) 40.0-44.9, adult Curtis-0 1 Marty Bella. [address] [place] [address], [id number]. tel:[phone] Referring Provider: José Jolley, [address] [place] [address], [id number]. tel:[phone] [facility] [address] [place] [address], [id number], tel:[phone] [facility] No Information 0 1 Marty Bella. [address] [place] [address], [id number]. tel:[phone] Referring Provider: José Jolley, [address] [place] [address], [id number]. tel:[phone] Office Visit Level IV [facility], [address] [place] [address], [id number], tel:[phone] [facility] Low back pain (chief complaint) Hypothyroidi sm, unspecifiedV itamin B12 deficiencyVi tamin D deficiencyOS A on CPAPOA of kneeOsteoart hropathyChro yoseph Low Back PainMyalgiaP ain ManagementNS AID Speed Reading Teacher Use 0 Marty Bella. [address], [id number]. tel:[phone] Referring Provider: José Jolley, [address] [place] [address], [id number]. tel:[phone] Office Visit Level IV [facility], [address] [place] [address], [id number], tel:[phone] [facility] Low back pain (chief complaint) Hypothyroidi sm, unspecifiedV itamin B12 deficiencyVi tamin D deficiencyOS A on CPAPOA of kneeOsteoart hropathyChro yoseph Low Back PainMyalgiaP ain ManagementNS AID Speed Reading Teacher Use 0 Marty Bella. [address], [id number]. tel:[phone] Referring Provider: José Jolley, [address] [place] [address], [id number]. tel:[phone] Office Visit Level IV [facility], [address] [place] [address], [id number], [place] tel:[phone] [facility] Joint Pain (chief complaint) NSAID Longterm UseHypothyro idism, unspecifiedV itamin B12 deficiencyVi tamin D deficiencyOA of kneeChronic Low Back PainMyalgiaP ain ManagementOS A on CPAPOsteoart hropathy 0 Marty Bella. [address], [id number]. tel:[phone] Referring Provider: José Jolley, [address] [place] [address], [id number]. tel:[phone] [facility] [address] [place] [address], [id number], tel:[phone] [facility] No Information 0 Marty Bella. [address], [id number]. tel:[phone] Referring Provider: José Jolley, [address] [place] [address], [id number]. tel:[phone] Office Visit Level IV [facility] [address] [place] [address], [id number], [place] tel:[phone] [facility] Joint Pain (chief complaint) Body mass index (BMI) 40.0-44.9, adultHypothy roidism, unspecifiedV itamin B12 deficiencyVi tamin D deficiencyOA of kneeChronic Low Back PainMyalgiaP ain ManagementNS AID Longterm UseOSA on CPAPOsteoart hropathy 9 Marty Bella. [address] [place] [address], [id number]. tel:[phone] Referring Provider: José Jolley, [address] [place] [address], [id number]. tel:[phone] [facility] [address] [place] [address], [id number], [place] tel:[phone] [facility] Osteoarthrit is (chief complaint) OA of knee 201 9 Gerry Humphries. [address], [id number]. tel:[phone] Referring Provider: José Jolley, [address] [place] [address], [id number]. tel:[phone] Office Visit Level IV [facility] [address], [id number], tel:[phone] [facility]. Joint Pain (chief complaint)Fa tigue (chief complaint) Pain ManagementVi tamin D deficiencyCh ronic Low Back PainOSA on CPAPMyalgiaN SAID Speed Reading Teacher UseHypothyro idism, unspecifiedV itamin B12 deficiencyCh est painJoint PainOA of knee 4-201 9 Gerry Humphries. 330 [facility], [facility] [address], [place], [id number]. tel:[phone] Referring Provider: José Jolley, [address] [place] [address], [id number]. tel:[phone] Office Visit Level IV [facility], [address] [place] [address], [id number], tel:[phone] [facility]. Joint Pain (chief complaint)Fa tigue (chief complaint) Vitamin D deficiencyHy pothyroidism , unspecifiedC hronic Low Back PainMyalgiaN SAID Speed Reading Teacher UseVitamin B12 deficiencyOS A on CPAPChest painJoint PainPain Management Curtis-0 8 8 Marty Bella. 330 [place], [address], [id number]. tel:[phone] Referring Provider: José Jolley, [address] [place] [address], [id number]. tel:[phone] Office Visit Level IV [facility] [address], [id number], tel:[phone] [facility]. Joint Pain (chief complaint)Fa tigue (chief complaint) Chronic Low Back PainDe Quervain tenosynoviti sMyalgiaFati gueNSAID Longterm UseVitamin D deficiencyVi tamin B12 deficiency anemiaHypoth yroidism, unspecified Dec-0 6-201 7 Marty Bella. [address], [place], [place], [id number]. tel:[phone] Referring Provider: José Jolley, [address] [place] [address], [id number]. tel:[phone] [facility] [address], [place], [place], [id number], tel:[phone] [facility] Chronic Low Back PainCounseli ngMyalgiaFat igueNSAID Longterm UseDe Quervain tenosynoviti s 7201 7 Marty Jena. [address] [facility], [facility], [place], [place], [id number]. tel:[phone] Family History Family Member Type Diagnosis Age At Onset No Information Immunizations Vaccine Date Status Comments SARS-COV-2 (COVID-19) vaccin e, vector non-replicating, recombinant spike protein-Ad26, preservative free, 0.5 mL ([employer]) administered Source: Other Provid er Payers Payer name Insurance type Covered green party ID Authoriza tibruna(s) [facility] National Account [id number] BL [id number] Social History Type Description Quantity Date [...] Order Sarah mbar Spine MRI WITHOUT Contrast ([id number]), Ordered on: Ordered Future Order: Lab Order CBC With Differential/Platelet ([id number]), Ordered on: Ordered Future Order: Lab Order Comp. Me tabolic Panel (14) ([id number]), Ordered on: Ordered Future Order: Lab Order Vitamin D, 25-Hydroxy ([id number]), Ordered on: Ordered Future Order: Radiology Order Kn ee X-ray; Limited (1 or 2 views) ([id number]), Ordered on: Ordered Future Order: Lab Order CBC With Differential/Platelet ([id number]), Ordered on: Ordered Future Order: Lab Order Comp. Me tabolic Panel (14) ([id number]), Ordered on: Ordered Future Order: Lab Order Vitamin D, 25-Hydroxy ([id number]), Ordered on: Ordered Future Order: Lab Order CBC With Differential/Platelet (241413), Ordered on: Ordered Future Order: Lab Order Comp. Me tabolic Panel (14) ([id number]), Ordered on: Ordered Future Order: Lab Order Vitamin B12 and Folate ([id number]), Ordered on: Ordered Future Order: Lab Order Vitamin D, 25-Hydroxy ([id number]), Ordered on: Ordered Future Order: Lab Order CBC With Differential/Platelet ([id number]), Ordered on: Ordered Future Order: Lab Order Comp. Me tabolic Panel (14) ([id number]), Ordered on: Ordered Future Order: Lab Order Vitamin D, 25-Hydroxy ([id number]), Ordered on: Ordered Future Order: Lab Order Vitamin B12 and Folate ([id number]), Ordered on: Ordered Future Order: Lab Order TSH (004 259), Ordered on: Ordered Future Order: Radiology Order Sarah mbar Spine MRI WITHOUT Contrast ([id number]), Ordered on: Ordered Future Order: Lab Order CBC With Differential/Platelet ([id number]), Ordered on: Ordered Future Order: Lab Order Comp. Me tabolic Panel (14) ([id number]), Ordered on: Ordered Future Order: Lab Order Vitamin B12 and Folate ([id number]), Ordered on: Ordered Future Order: Lab Order Vitamin D, 25-Hydroxy ([id number]), Ordered on: Ordered Future Order: Lab Order TSH (004 259), Ordered on: Ordered Future Order: Radiology Order Sarah mbar Spine MRI WITHOUT Contrast ([id number]), Ordered on: Ordered Future Order: Lab Order CBC With Differential/Platelet ([id number]), Ordered on: Ordered Future Order: Lab Order Comp. Me tabolic Panel (14) ([id number]), Ordered on: Ordered Future Order: Radiology Order Ce rvical Spine X-ray (2 or 3 views) ([id number]), Ordered on: Ordered Future Order: Lab Order CBC With Differential/Platelet ([id number]), Ordered on: Ordered Future Order: Lab Order Comp. Me tabolic Panel (14) ([id number]), Ordered on: Ordered Future Order: Lab Order Vitamin D, 25-Hydroxy ([id number]), Ordered on: Ordered Future Order: Lab Order TSH (004 259), Ordered on: Ordered Future Order: Lab Order CBC With Differential/Platelet ([id number]), Ordered on: Ordered Future Order: Lab Order Comp. Me tabolic Panel (14) ([id number]), Ordered on: Ordered Future Order: Lab Order Vitamin D, 25-Hydroxy ([id number]), Ordered on: Ordered Future Order: Lab Order Vitamin B12 and Folate (978036), Ordered on: Ordered Future Order: Lab Order CBC With Differential/Platelet (000361), Ordered on: Ordered Future Order: Lab Order Comp. Me tabolic Panel (14) ([id number]), Ordered on: Ordered Future Order: Lab Order Vitamin D, 25-Hydroxy ([id number]), Ordered on: Ordered Future Order: Lab Order Vitamin B12 and Folate ([id number]), Ordered on: Ordered Future Order: Radiology Order Kn ee X-ray; Limited (1 or 2 views) ([id number]), Ordered on: Ordered Future Order: Lab Order CBC With Differential/Platelet (692878), Ordered on: Ordered Future Order: Lab Order Comp. Me tabolic Panel (14) (875483), Ordered on: Ordered Future Order: Lab Order C-Reacti ve Protein, Quant ([id number]), Ordered on: Ordered Future Order: Lab Order Sediment ation Rate-Westergren ([id number]), Ordered on: Ordered Future Order: Lab Order Thyroid Panel With TSH ([id number]), Ordered on: Ordered Future Order: Lab Order Vitamin D, 25-Hydroxy (875280), Ordered on: Ordered Future Order: Lab Order Vitamin B12 and Folate ([id number]), Ordered on: Ordered History Of Present Illness [...] no better see pcp Related to Anxiety PT is an option but patient defers [...] schedule. Related to Chronic Low Back Pain Continue [...] 11/02Needs updates CBC, CMP Related to NSAID Longterm Use Rec. OTC b12 supplement. Related to Vitamin [...] loss. Related to Osteoarthropathy Continue Gabapentin and Robaxin.Needs to restart Mt [...] Naproxen and continue Nabumetone. Related to NSAID Longterm Use continue citalopramb uspar prnif no better [...] Gabapentin and nsaidXR knees on RTC to [facility].Patient defers injections because previous injections did [...] until labs are received. 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 Related to NSAID Speed Reading Teacher Use Recheck Related to Vitam in B12 deficiency [...] Myalgia Cbc,Cmp Q 6 months on nsaid- 07/15 020 Related to NSAID Longterm Use Cbc,Cmp Q 6 months on nsaid- 01/11 9 Related to NSAID Longterm Use Pcp is getting ready to recheck. Related to Hypothyroidism, unspecified Rec 2000IU per day. Related to V itamin D deficiency PT is an option but [...] spine. Related to Chronic Low Back Pain Continue [...] well need neurology evaluation. Related to Myalgia Since she cannot truman erate mask I rec weight loss. Related to JAYA on CPAP Continue nabumetone. Related to Osteoarthropathy Lifestyle education [...] D. Re lated to Vitamin D deficiency PT is an [...] exercises. Related to Chronic Low Back Pain Continue [...] on nsaid- 07/14 9. Related to NSAID Longterm Use Lifestyle education regarding di et Related [...] afford it. Related to OA of knee Level was 22 in December 2017. She has been taking 5000IU daily. Will recheck level today. Related to Vitamin D deficiency Continue Daypro, catie apentin, and robaxin. Related to Chronic Low Back Pain She hasn't been usin g CPAP, states she couldn't tolerate it. Related to JAYA on CPAP Continue gabapentin, citalopram, methocarbamol.Heat or ice and needed. Related to Myalgia Cbc,Cmp Q 6 months on nsaid. Rel ated to NSAID Longterm Use Needs F/u with pcp. Related to H ypothyroidism, unspecified Suggest Stress test with pcp.It could be [...] months on nsaid. Rel ated to NSAID Speed Reading Teacher Use Patient to discuss c hanges in [...] try salon pas patches. Related to Myalgia Out of meds for elias buchanan monthsunable [...] Signed and discussed.Gabapentin- 400mg tid. assessment NSAID Speed Reading Teacher Use impression S/p Daypro.On Nabume tone - has inadvertently been taking Naproxen with it.Pt was supposed to stop Naproxen and saty on nabumetone Patient Care Teams Name Effective Dates (start - stop) Status Members No Information
[2023-08-09 15:20] LABS: Troponin I 0.03 ng/ml (0.00-0.034)
[2023-08-09 17:40] LABS: Troponin I 0.03 ng/ml (0.00-0.034)
[2023-08-09] MEDS: D5W/0.9% NaCl w/20mEq KCL 1,000 ML 125 ML IV ×2 (18:30→21:33)
[2023-08-09] MEDS: PROMETHAZINE HCL 25MG/ML 1ML VIAL 12.5 MG IV (19:47)
--- NOTE | 2023-08-10 02:45 | PC.NURSE ---
Pt ia A&O x4 and is currently on RA. Pt has C/O nausea once this shift and has been treated per MAR. Pt is tolerating D5W w/20 meq fluids well. pt has rested well and no needs noted at this time.
[2023-08-10 04:00] VITALS: BMI 38.5
[2023-08-10 05:00] VITALS: BP 91/53; PULSE 68; RESP 18; TEMP 36.7; O2SAT 100
[2023-08-10] MEDS: D5W/0.9% NaCl w/20mEq KCL 1,000 ML 125 ML IV ×3 (06:24→21:11)
[2023-08-10 08:00] VITALS: BP 93/42; PULSE 73; RESP 16; TEMP 36.6; O2SAT 97
[2023-08-10] MEDS: ONDANSETRON 4MG/2ML VIAL 4 MG IV ×2 (08:37→23:45)
--- NOTE | 2023-08-10 10:21 | EXP.HP ---
History of Present Illness *Admission Date: 08/09/23 *Reason for visit:: Nausea and Vomiting *History of present illness: Ms. Juárez is a 62 year old female who presented to [facility] ER yesterday complaining of persistent nausea and vomiting. She states the emesis mainly consists of liquid, she denies bloody emesis. She has been unable to eat much at all for the last few weeks. She has been having symptoms for about the past 6 weeks. She has already had 2 hospital admissions, once at [facility] and once at [facility] for this problem. RUQ ultrasound showed a distended gallbladder with sludge, HIDA scan was normal. Protonix has not helped her at all. Patient was diagnosed with lung cancer about a year ago and underwent a lobectomy and chemotherapy. In April of 2023 she had a significant pneumonia and had to intubated x 4 days during treatment at [facility] Disclaimer: The information contained in this section may have been updated after the patient was seen, as this information can be updated by other users. Medical History (Updated 08/10/23 @ 10:29 by Julian Quiroga MD) Acute hypotension CAP (community acquired pneumonia) COPD (chronic obstructive pulmonary disease) COPD exacerbation Fibromyalgia GERD (gastroesophageal reflux disease) Hypothyroid Knee fracture Lung cancer Osteoarthritis PNA (pneumonia) Shingles Urinary incontinence Wrist fracture, right Surgical History History of carpal tunnel surgery History of section History of colonoscopy History of hysterectomy History of lobectomy of lung Family History Family history of cancer Social History Smoking Status: Current every day smoker tobacco type: cigarettes packs per day: 1 alcohol intake: never substance use type: denies use current occupational status: disabled and other Travel in the last 8 weeks: None housing: house Review of Systems Constitutional Constitutional: Denies chills, Denies fever(s), Denies headache(s) and Denies weakness ENT Ears, Nose, Mouth, and Throat: Denies dizziness and Denies headache(s) *Cardiovascular Cardiovascular: Denies chest pain and Denies dyspnea *Respiratory Respiratory: Denies dyspnea *Gastrointestinal Gastrointestinal: Reports as per HPI and Denies change in stool character *Genitourinary Genitourinary: Denies difficulty voiding *Musculoskeletal Musculoskeletal: Denies numbness and Denies tingling *Neurologic Neurologic: Denies dizziness, Denies headache(s), Denies numbness, Denies tingling and Denies weakness Meds Home Medications and Allergies Home Medications Medication Instructions Recorded Confirmed Type citalopram 40 mg tablet 40 mg PO DAILY MOOD 07/25/17 08/09/23 History gabapentin 400 mg capsule 400 mg PO BID NEUROPATHY 05/28/23 08/09/23 History ipratropium 0.5 mg-albuterol 3 mg 3 ml inhalation Q6HP PRN Shortness 05/28/23 08/09/23 History (2.5 mg base)/3 mL nebulization Of Breath Or Wheezing soln midodrine 10 mg tablet 10 mg PO TID LOW BLOOD PRESSURE 05/28/23 08/09/23 History levothyroxine 100 mcg tablet 100 mcg PO DAILYDM THYROID 07/04/23 08/09/23 History omeprazole 20 mg capsule,delayed 20 mg PO DAILY GERD 08/09/23 08/09/23 History release New Prescriptions to Start Prescriptions: Allergies Allergy/AdvReac Type Severity Reaction Status Date / Time penicillin G [PENICILLIN G] Allergy Mild Verified 05/28/23 08:57 Exam Data for Last 24 hours Vital signs and Labs for Last 24 Hours: Temp Pulse Resp BP Pulse Ox O2 Del Method 97.8 F 73 16 93/42 L 97 Room Air 08/10/23 08:00 08/10/23 08:00 08/10/23 08:00 08/10/23 08:00 08/10/23 08:00 08/10/23 08:56 Laboratory Results - last 24 hr 08/09/23 11:14: Urine Color Yellow, Urine Appearance Clear, Urine pH 6.0, Ur Specific [place] 1.020, Urine Protein Trace, Urine Glucose (UA) Negative, Urine Ketones 2+, Urine Blood Negative, Urine Nitrate Negative, Urine Bilirubin 2+ A, Urine Urobilinogen 1.0, Ur Leukocyte Esterase Negative, Urine RBC None, Urine WBC 3-5, Ur Squamous Epith Cells 3-5, Urine Bacteria 3+, Urine Opiates Screen Negative, Urine Methadone Screen Negative, Ur Barbituates Screen Negative, Ur Phencyclidine Scrn Negative, Ur Amphetamines Screen Negative, U Benzodiazepines Scrn Negative, Urine Cocaine Screen Negative, U Marijuana (THC) Screen Negative 08/09/23 11:25: WBC 5.0, RBC 5.25, Hgb 16.1, Hct 48.7 H, MCV 92.7, MCH 30.7, MCHC 33.2, RDW 15.3, Plt Count 258, MPV 8.3, Neut % (Auto) 37.9, Lymph % (Auto) 37.8, [place] % (Auto) 10.6 H, Eos % (Auto) 12.2 H, Baso % (Auto) 1.5, Neut # (Auto) 1.9, Lymph # (Auto) 1.9, [place] # (Auto) 0.5, Eos # (Auto) 0.6 H, Baso # (Auto) 0.1, Sodium 126 L, Potassium 3.5, Chloride 86 L, Carbon Dioxide 23, Anion Gap 20.5 H, BUN 5 L, Creatinine 1.30 H, Estimated Creat Clear 43, Estimated GFR 42 L, Est GFR ( Amer) 51 L, Glucose 70 L, Lactate 1.6, Calcium 10.4 H, Total Bilirubin 1.0, AST 48 H, ALT 12, Alkaline Phosphatase 77, Troponin I 0.04 H, Total Protein 7.5, Albumin 4.2, Globulin 3.3 H, Albumin/Globulin Ratio 1.3, Lipase 75 08/09/23 14:45: Troponin I 0.03 08/09/23 17:15: Troponin I 0.03 I & O for Last 24 hours: Intake & Output 08/07/23 08/08/23 08/09/23 08/10/23 23:59 23:59 23:59 23:59 Intake Total 555 / 615 60 / 60 Output Total 0 / 0 0 / 0 Balance 555 / 615 60 / 60 Weight 239 lb 9 oz 239 lb 9 oz Constitutional Constitutional: no acute distress Comments: appears not to feel well *Routine HEENT Exam Head: Present normocephalic Eye: Present EOMI and PERRL ENT: Present mucous membranes moist *Routine Neck Exam Neck: Present supple; Absent lymphadenopathy *Routine Respiratory Exam Respiratory: Present CTA bilaterally *Routine Cardiovascular Exam Cardiovascular: Present RRR *Routine Abdominal Exam Abdominal: Present soft and normoactive bowel sounds; Absent tenderness *Routine Rectal Exam Rectal:: deferred *Routine Genitalia Exam Genitalia:: deferred *Routine Extremities Exam Extremities: Absent cyanosis, clubbing or edema *Routine Skin Exam Skin: Present warm; Absent rash *Routine Neurological Exam Neurological: Present alert and oriented X3 Assessment and Plan *Assessment and plan (1) Nausea & vomiting: Status: Acute Qualifiers: Vomiting type: unspecified Qualified Code(s): R11.2 - Nausea with vomiting, unspecified Category: Medical Code(s): R11.2 - Nausea with vomiting, unspecified (2) Acute hyponatremia: Status: Acute Category: Medical Code(s): E87.1 - Hypo-osmolality and hyponatremia (3) Kidney dysfunction: Status: Acute Category: Medical Code(s): N28.9 - Disorder of kidney and ureter, unspecified (4) Hypothyroid: Status: Acute Qualifiers: Hypothyroidism type: unspecified Qualified Code(s): E03.9 - Hypothyroidism, unspecified Category: Medical Code(s): E03.9 - Hypothyroidism, unspecified (5) GERD (gastroesophageal reflux disease): Status: Acute Qualifiers: Esophagitis presence: esophagitis presence not specified Qualified Code(s): K21.9 - Gastro-esophageal reflux disease without esophagitis Category: Medical Code(s): K21.9 - Gastro-esophageal reflux disease without esophagitis (6) COPD (chronic obstructive pulmonary disease): Status: Acute Qualifiers: COPD type: unspecified COPD Qualified Code(s): J44.9 - Chronic obstructive pulmonary disease, unspecified Category: Medical Code(s): J44.9 - Chronic obstructive pulmonary disease, unspecified Plan Patient admitted for further evaluation and management, plan consult for EGD, monitor electrolytes, treat symptoms.
[2023-08-10] MEDS: ENOXAPARIN 40MG/0.4ML SYRINGE 40 MG SQ (11:31)
[2023-08-10] MEDS: PROMETHAZINE HCL 25MG/ML 1ML VIAL 12.5 MG IV (13:30)
[2023-08-10 15:34] VITALS: BP 102/60; PULSE 71; RESP 17; TEMP 36.9; O2SAT 90
--- NOTE | 2023-08-10 17:54 | PC.NURSE ---
NO AUTE CHANGES SINCE PREVIOUS ASSESSMENT. PT HAS SLEPT FOR MOST OF THE SHIFT. MEDICATED WITH PRN ZOFRAN X1 AND PRN PROMETHAZINE X1 WITH GOOD EFFECTIVENESS. SURGERY CONSULT IN AM, NPO AT MIDNIGHT ORDER ENTERED.
[2023-08-10 20:00] VITALS: BP 92/47; PULSE 79; RESP 18; TEMP 36.8; O2SAT 92
[2023-08-10] MEDS: PANTOPRAZOLE 40MG TABLET 40 MG PO (20:19)
[2023-08-11] VITALS (17 sets, daily range): BP systolic 55–105; BP diastolic 25–56; PULSE 70–80; RESP 16–18; TEMP 36.4–37.1; O2SAT 90–99; BMI 40.1
--- NOTE | 2023-08-11 04:39 | PC.NURSE ---
Pt is alert and oriented x4. Pt has C/O nausea this shift and has been treated per MAR. Pt IV began to leak and would no longer flush properly. New IV started in L forearm, Pt tolerated well. Pt continues to receive D5W w/20 meq Potassium @ 125 HR. Pt has tolerated fluids well. Pt is aware she has a consult this morning for possible surgery. Pt has been NPO precious NEGRETE. Pt denies pain and needs at this time.
[2023-08-11] MEDS: D5W/0.9% NaCl w/20mEq KCL 1,000 ML 125 ML IV ×2 (06:23→23:08)
[2023-08-11] MEDS: LEVOTHYROXINE 100MCG (0.1MG) TAB 100 MCG PO (06:24)
[2023-08-11 06:25] LABS: Basophils % 0.2 % (0.1-2.0); Eosinophils # 0.3 K/mm3 (0.0-0.4); Eosinophils % 10.5 % (0.1-12.0); Hematocrit 41.1 % (37.0-47.0); Hemoglobin 13.2 g/dL (12.2-16.2); Lymphocytes # 0.9 K/mm3 (0.7-4.5); Lymphocytes % 31.4 % (10-50); Mean Corpuscular HGB Conc 32.2 g/dL (31.8-35.4); Mean Corpuscular Hemoglobin 30.7 pg (27.0-31.2); Mean Corpuscular Volume 95.2 fl (81-99); Mean Platelet Volume 8.4 fl (7.4-10.4); Monocytes # 0.4 K/mm3 (0.1-1.0); Monocytes % 13.9 % (1.7-9.3); Neutrophils # 1.3 K/mm3 (1.8-7.8); Neutrophils % 44.1 % (37.0-80.0); Platelet Count 209 K/mm3 (142-424); Red Blood Count 4.31 M/mm3 (4.20-5.40); Red Cell Distribution Width 15.5 % (11.5-17.5); White Blood Count 2.9 K/mm3 (4.8-10.8)
[2023-08-11 06:41] LABS: Anion Gap 9.7 mEq/L (5-15); Blood Urea Nitrogen 3 mg/dl (7-17); Carbon Dioxide 26 mmol/L (22.0-30.0); Chloride 102 mmol/L (98-107); Creatinine Clearance Estimated 107 mL/min (50-200); Estimated Glomerular Filt Rate 57 ml/min (>60); GFR (African American) 68 ML/MIN (>60); Glucose 101 mg/dl (74-100); Potassium 3.7 mmoL/L (3.5-5.1); Sodium 134 mmol/L (136-145)
--- NOTE | 2023-08-11 08:25 | P.PN_ITS ---
Subjective *Date: 08/11/23 *Time: 08:25 Interval history: Patient still reports a lot of nausea, was able to drink some water, no vomiting. Medical Exam Vital signs and Labs for Last 24 Hours: Vital Signs Temp Pulse Resp BP Pulse Ox O2 Del Method 08/11/23 07:37 98.0 F 80 18 105/50 L 92 L Room Air 08/11/23 06:32 Room Air 08/11/23 04:38 Room Air 08/11/23 04:00 98.7 F 73 18 90/45 L 95 Room Air 08/11/23 03:00 Room Air 08/11/23 00:39 Room Air 08/10/23 23:00 Room Air 08/10/23 20:00 98.2 F 79 18 92/47 L 92 L Room Air 08/10/23 20:43 Room Air 08/10/23 20:00 Room Air 08/10/23 19:00 Room Air 08/10/23 17:00 Room Air 08/10/23 15:00 Room Air 08/10/23 15:34 98.4 F 71 17 102/60 L 90 L Room Air 08/10/23 13:00 Room Air 08/10/23 11:00 Room Air 08/10/23 08:56 Room Air Intake and Output 08/10/23 08/11/23 08/11/23 23:59 07:59 15:59 Intake Total 2632 / 3192 500 / 500 Output Total 0 / 0 0 / 0 Balance 2632 / 3192 500 / 500 Intake: Intake, Oral Amount 120 / 180 0 / 0 Intake, Total IV Amount 500 / 500 D5W/0.9% NaCl w/20mEq KCL 1,000 500 / 500 ml @ 125 mls/hr IV .Q8H LEENA Rx #:[id number] Infusion Intake 2512 / 2512 D5W/0.9% NaCl w/20mEq KCL 1,000 2512 / 2512 ml @ 125 mls/hr IV .Q8H LEENA Rx #:[id number] Output: Output, Urine Amount 0 / 0 0 / 0 Other: Number of Unmeasured Voids 1 1 Weight 250 lb 2 oz Patient Weight 08/11/23 23:59 Weight 250 lb 2 oz Laboratory Results - last 24 hr 08/11/23 05:24: WBC 2.9 L D, RBC 4.31, Hgb 13.2, Hct 41.1, MCV 95.2, MCH 30.7, MCHC 32.2, RDW 15.5, Plt Count 209, MPV 8.4, Neut % (Auto) 44.1, Lymph % (Auto) 31.4, [place] % (Auto) 13.9 H, Eos % (Auto) 10.5, Baso % (Auto) 0.2, Neut # (Auto) 1.3 L, Lymph # (Auto) 0.9, [place] # (Auto) 0.4, Eos # (Auto) 0.3, Baso # (Auto) 0.0, Sodium 134 L, Potassium 3.7, Chloride 102, Carbon Dioxide 26, Anion Gap 9.7, BUN 3 L D, Creatinine 1.00 D, Estimated Creat Clear 107, Estimated GFR 57 L, Est GFR ( Amer) 68 D, Glucose 101 H, Calcium 9.0 I & O for Labs for Last 24 Hours: Intake & Output 08/08/23 08/09/23 08/10/23 08/11/23 23:59 23:59 23:59 23:59 Intake Total 555 / 615 2692 / 3192 500 / 500 Output Total 0 / 0 0 / 0 0 / 0 Balance 555 / 615 2692 / 3192 500 / 500 Weight 239 lb 9 oz 239 lb 9 oz 250 lb 2 oz Constitutional: Present no acute distress Respiratory: Present normal respiratory effort Cardiac: Present Reg Rate and Rhythm GI: Present normal bowel sounds; Absent tenderness Extremities: Present normal inspection and full ROM Skin: Present intact; Absent erythema Neuro: Present Grossly Intact and moves all extremities Assessment and Plan *Assessment and plan (1) Nausea & vomiting: Status: Acute Qualifiers: Vomiting type: unspecified Qualified Code(s): R11.2 - Nausea with vomiting, unspecified Category: Medical Code(s): R11.2 - Nausea with vomiting, unspecified (2) Acute hyponatremia: Status: Acute Category: Medical Code(s): E87.1 - Hypo-osmolality and hyponatremia (3) Kidney dysfunction: Status: Acute Category: Medical Code(s): N28.9 - Disorder of kidney and ureter, unspecified (4) Hypothyroid: Status: Acute Qualifiers: Hypothyroidism type: unspecified Qualified Code(s): E03.9 - Hypothy roidism, unspecified Category: Medical Code(s): E03.9 - Hypothyroidism, unspecified (5) GERD (gastroesophageal reflux disease): Status: Acute Qualifiers: Esophagitis presence: esophagitis presence not specified Qualified Code(s): K21.9 - Gastro-esophageal reflux disease without esophagitis Category: Medical Code(s): K21.9 - Gastro-esophageal reflux disease without esophagitis (6) COPD (chronic obstructive pulmonary disease): Status: Acute Qualifiers: COPD type: unspecified COPD Qualified Code(s): J44.9 - Chronic ob structive pulmonary disease, unspecified Category: Medical Code(s): J44.9 - Chronic obstructive pulmonary disease, unspecified Plan Labs have improved, consult today for possible EGD.
--- NOTE | 2023-08-11 09:55 | P.CONS_ITS ---
History of Present Illness *Admission Date: 08/09/23 *Reason for visit:: Vomiting, Evaluate for EGD *History of present illness: Patient is a 62-year-old female with history of GERD, COPD, tobacco abuse, hypothyroidism. She has had several recent hospitalizations at [facility] as well and has [place]. She had an admission 07/03/2023 at which time she had presented with a 10-day history of nausea and vomiting. Prior to that she had an admission at [facility] and was reportedly told she had an abnormal gallbladder. Patient has had gallblad fadia ultrasound and HIDA scan done recently which were unremarkable. Her symptoms have been refractory to Protonix. Of note, the patient was diagnosed with lung cancer about a year ago and has had lobectomy and chemotherapy. Patient had presented to the emergency department at this facility on 07/19/2020 for stating that she had nausea and vomiting ongoing since March 2023. Of note, she did have pneumonia and required intubation at [facility] during hospitalization and March. She was managed as an outpatient at that time. She presented to the emergency department a couple of days ago once again complaining of intermittent nausea and vomiting for several weeks. No evidence of any diarrhea. At that time she has some mild hyponatremia. She was admitted for inpatient management. She has continued to have nausea without vomiting. Surgical consultation was obtained today for EGD. She describes nausea with liquid vomiting. Denies abdominal pain. Denies diarrhea. [facility] Disclaimer: The information contained in this section may have been updated after the patient was seen, as this information can be updated by other users. Medical History (Updated 08/10/23 @ 10:29 by Julian Quiroga MD) Acute hypotension CAP (community acquired pneumonia) COPD (chronic obstructive pulmonary disease) COPD exacerbation Fibromyalgia GERD (gastroesophageal reflux disease) Hypothyroid Knee fracture Lung cancer Osteoarthritis PNA (pneumonia) Shingles Urinary incontinence Wrist fracture, right Surgical History History of carpal tunnel surgery History of section History of colonoscopy History of hysterectomy History of lobectomy of lung Family History Family history of cancer Social History Smoking Status: Current every day smoker tobacco type: cigarettes packs per day: 1 alcohol intake: never substance use type: denies use current occupational status: disabled and other Travel in the last 8 weeks: None housing: house Review of Systems Review of Systems Review of systems:: pertinent systems reviewed and negative unless documented below Constitutional Constitutional: Denies headache(s) and Denies weakness ENT Ears, Nose, Mouth, and Throat: Denies dizziness and Denies headache(s) *Musculoskeletal Musculoskeletal: Denies numbness and Denies tingling *Neurologic Neurologic: Denies dizziness, Denies headache(s), Denies numbness, Denies tingling and Denies weakness Meds Home Medications and Allergies Home Medications Medication Instructions Recorded Confirmed Type citalopram 40 mg tablet 40 mg PO DAILY MOOD 07/25/17 08/09/23 History gabapentin 400 mg capsule 400 mg PO BID NEUROPATHY 05/28/23 08/09/23 History ipratropium 0.5 mg-albuterol 3 mg 3 ml inhalation Q6HP PRN Shortness 05/28/23 08/09/23 History (2.5 mg base)/3 mL nebulization Of Breath Or Wheezing soln midodrine 10 mg tablet 10 mg PO TID LOW BLOOD PRESSURE 05/28/23 08/09/23 History levothyroxine 100 mcg tablet 100 mcg PO DAILYDM THYROID 07/04/23 08/09/23 Hi story omeprazole 20 mg capsule,delayed 20 mg PO DAILY GERD 08/09/23 08/09/23 History release New Prescriptions to Start Prescriptions: Allergies Allergy/AdvReac Type Severity Reaction Status Date / Time penicillin G [PENICILLIN G] Allergy Mild Verified 05/28/23 08:57 Exam (Inpt) Vital signs and Labs for Last 24 Hours: Temp Pulse Resp BP Pulse Ox O2 Del Method 98.0 F 80 18 105/50 L 92 L Room Air 08/11/23 07:37 08/11/23 07:37 08/11/23 07:37 08/11/23 07:37 08/11/23 07:37 08/11/23 09:00 Laboratory Results - last 24 hr 08/11/23 05:24: WBC 2.9 L D, RBC 4.31, Hgb 13.2, Hct 41.1, MCV 95.2, MCH 30.7, MCHC 32.2, RDW 15.5, Plt Count 209, MPV 8.4, Neut % (Auto) 44.1, Lymph % (Auto) 31.4, [place] % (Auto) 13.9 H, Eos % (Auto) 10.5, Baso % (Auto) 0.2, Neut # (Auto) 1.3 L, Lymph # (Auto) 0.9, [place] # (Auto) 0.4, Eos # (Auto) 0.3, Baso # (Auto) 0.0, Sodium 134 L, Potassium 3.7, Chloride 102, Carbon Dioxide 26, Anion Gap 9.7, BUN 3 L D, Creatinine 1.00 D, Estimated Creat Clear 107, Estimated GFR 57 L, Est GFR ( Amer) 68 D, Glucose 101 H, Calcium 9.0 I & O for Labs for Last 24 Hours: Intake & Output 08/08/23 08/09/23 08/10/23 08/11/23 11:59 11:59 11:59 11:59 Intake Total 5 / [address] [place] [address] / [facility] Output Total 0 / 0 0 / 0 Balance [facility] / [address] [place] [address] / [facility] Weight 270 lb 239 lb 9 oz 250 lb 2 oz Constitutional: no acute distress Respiratory: Present decreased breath sounds Results Labs 08/11/23 05:24 08/11/23 05:24 Labs: Laboratory Results - last 24 hr 08/11/23 05:24: WBC 2.9 L D, RBC 4.31, Hgb 13.2, Hct 41.1, MCV 95.2, MCH 30.7, MCHC 32.2, RDW 15.5, Plt Count 209, MPV 8.4, Neut % (Auto) 44.1, Lymph % (Auto) 31.4, [place] % (Auto) 13.9 H, Eos % (Auto) 10.5, Baso % (Auto) 0.2, Neut # (Auto) 1.3 L, Lymph # (Auto) 0.9, [place] # (Auto) 0.4, Eos # (Auto) 0.3, Baso # (Auto) 0.0, Sodium 134 L, Potassium 3.7, Chloride 102, Carbon Dioxide 26, Anion Gap 9.7, BUN 3 L D, Creatinine 1.00 D, Estimated Creat Clear 107, Estimated GFR 57 L, Est GFR ( Amer) 68 D, Glucose 101 H, Calcium 9.0 Assessment and Plan *Assessment and plan (1) Nausea & vomiting: Status: Acute Qualifiers: Vomiting type: unspecified Qualified Code(s): R11.2 - Nausea with vomiting, unspecified Category: Medical Code(s): R11.2 - Nausea with vomiting, unspecified Plan Plan will be to proceed with upper endoscopy to evaluate mechanical etiology for nausea and vomiting.
[2023-08-11] MEDS: ONDANSETRON 4MG/2ML VIAL 4 MG IV (10:34)
--- NOTE | 2023-08-11 11:45 | PC.NURSE ---
PT TAKEN DOWN FOR SCOPE
--- NOTE | 2023-08-11 12:22 | [facility].SCOPE ---
Procedure: Date: 08/11/23 Patient Date of :: 1960 Procedure Performed:: Esophagogastroduodenoscopy with biopsies Indications:: Patient is a 62-year-old female who has had intermittent nausea and vomiting without clear etiology for several months. Performing Provider:: Chandu Zee MD Referring Provider:: Julian Quiroga MD Sedation:: MAC sedation Procedure:: Patient history was obtained and appropriate physical examination was performed. Patient's medications and allergies were reviewed. Informed consent was obtained after explaining the benefits, alternatives, and risks of the procedure including, but not limited to, bleeding, perforation, missed lesions, and adverse reaction to anesthesia medications. Patient was transported to endoscopy procedure room. Patient was connected to monitoring devices. Throughout the procedure the patient's blood pressure, pulse, and oxygen saturations were monitored continuously. Patient identification and planned procedure were verified by the staff. Patient was positioned in lateral decubitus position. Olympus endoscope was inserted via the oropharynx. Esophagus was cannulated. It was advanced. There was some minor tortuosity to the esophagus consistent with mild to moderate esophageal dysmotility. Gastroesophageal junction was encountered at 39 cm. There was no evidence of any obvious appreciable stricture. Stomach was cannulated and insufflated. Retroflexion revealed small, approximately 3 to 4 cm, sliding hiatal hernia. There was some diffuse mild to moderate nonerosive gastritis. Pylorus was traversed. Within the duodenal bulb there was some nonerosive duodenitis. Distal duodenum appeared unremarkable without obstruction. Biopsy was obtained within the duodenal bulb. Hemoclip was deployed for assurance of hemostasis. Endoscope was withdrawn into the stomach. Gastric antral biopsy was obtained. Stomach was desufflated and the endoscope was withdrawn. . Findings:: Findings suggestive of mild esophageal dysmotility Gastroesophageal junction at 39 cm Small 3 to 4 cm sliding hiatal hernia Mild diffuse nonerosive gastropathy/gastritis Mild to moderate nonerosive duodenitis within the duodenal bulb Distal duodenum unremarkable Recommendations:: No findings on endoscopy that would suggest mechanical etiology for her ongoing nausea. I will go ahead and start a clear liquid diet which may be advanced as tolerated. Complications:: None immediately apparent Estimated blood obtained (mL): 3 Colonoscopy Component Colonoscopy Component Was a colonoscopy performed during today's procedure?: No
[2023-08-11 15:58] LABS: Hematocrit 30.9 % (37.0-47.0)
--- NOTE | 2023-08-11 17:30 | PC.NURSE ---
pt has been resting since well since egd. b/p's have been soft but otherwise v/s stable. 1515 b/p dropped to 55/30 manual, pt A&O x4 only complaint from pt is feeling tired , pt appears pale. notified, VO to bolus 1l ns and obtain H&H stat. new iv started in lt ac. 1620-finished bolus b/p now 103/56, no new complaints from pt. updated mulberry of pts current condition and hgb is now 10 compared to 13 on morning labs. per mulberrys request, notify allran. 1625-notified allran about pts h&h and b/ps, no new orders at this time. 1655, pts b/p manual 55/25, paged contracts analyst. waiting contracts analyst back 1735 b/p- 88/46 hr 70. still waiting on a call back from contracts analyst
--- OUTSIDE RECORDS SUMMARY | 2023-08-11 18:00 | XMS_ITS | Continuity of Care Document ---
Author Name Unknown Organization 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 Low back pain (chief complaint) Polycythemia Vitamin B12 deficiencyVi tamin D deficiencyAn xietyOA of kneeOsteoart hropathyChro yoseph Low Back PainMyalgiaP ain ManagementBo dy mass index (BMI) 40.0-44.9, adultNSAID Prison Use 2 Marty Bella. [address], [id number]. tel:[phone] Referring Provider: José Jolley, [address] [place] [address], [id number]. tel:[phone] [address] [place] [address], [id number], [place] tel:[phone] [facility] No Information Mar- 2 Marty Bella. [address], [id number]. tel:[phone] [facility] [address] [place] [address], [id number], [place] tel:[phone] [facility] No Information 2 Marty Bella. [address] [place] [address], [id number]. tel:[phone] Referring Provider: José Jolley, [address] [place] [address], [id number]. tel:[phone] Office Visit Level IV [facility] [address] [place] [address], [id number], [place] tel:[phone] [facility] Low [facility] pain (chief complaint) Vitamin B12 deficiencyVi tamin D deficiencyOA of kneeOsteoart hropathyChro yoseph Low Back PainMyalgiaP ain ManagementBo dy mass index (BMI) 40.0-44.9, adultNSAID Prison UsePolycythe miaAnxiety Dec- 2 Marty Bella. [address] [place] [address], [id number]. tel:[phone] Referring Provider: José Jolley, [address] [place] [address], [id number]. tel:[phone] Office Visit Level [facility] [address] [place] [address], [id number], tel:[phone] [facility] Low back pain (chief complaint) Vitamin B12 deficiencyVi tamin D deficiencyOA of kneeOsteoart hropathyChro yoseph Low Back PainMyalgiaP ain ManagementBo dy mass index (BMI) 40.0-44.9, adultNSAID Prison Use Aug-0 2 2 Wells RUDOLPH Peña. [address], [id number], . tel:[phone] Referring Provider: José Jolley, [address] [place] [address], [id number]. tel:[phone] Office Visit Level IV [facility] [address] [place] [address], [id number], tel:[phone] [facility] Low back pain (chief complaint) Vitamin B12 deficiencyVi tamin D deficiencyOA of kneeOsteoart hropathyChro yoseph Low Back PainMyalgiaP ain ManagementNS AID Cashier Supervisor UseBody mass index (BMI) 40.0-44.9, adult Curits-0 1 Marty Bella. [address] [place] [address], [id number]. tel:[phone] Referring Provider: José Jolley, [address] [place] [address], [id number]. tel:[phone] [facility] [address] [place] [address], [id number], tel:[phone] [facility] No Information 0 1 Marty Bella. [address] [place] [address], [id number]. tel:[phone] Referring Provider: José Jolley, [address] [place] [address], [id number]. tel:[phone] Office Visit Level IV [facility], [address] [place] [address], [id number], tel:[phone] [facility] 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 [address], [id number]. tel:[phone] Referring Provider: José Jolley, [address] [place] [address], [id number]. tel:[phone] Office Visit Level [facility], [address] [place] [address], [id number], tel:[phone] [facility] 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 [address], [id number]. tel:[phone] Referring Provider: José Jolley, [address] [place] [address], [id number]. tel:[phone] Office Visit Level [facility], [address] [place] [address], [id number], [place] tel:[phone] [facility] Joint Pain (chief complaint) NSAID Prison UseHypothyro idism, unspecifiedV itamin B12 deficiencyVi tamin D deficiencyOA of kneeChronic Low Back PainMyalgiaP ain ManagementOS A on CPAPOsteoart hropathy 0 Marty Bella. [address], [id number]. tel:[phone] Referring Provider: José Jolley, [address] [place] [address], [id number]. tel:[phone] [facility] [address] [place] [address], [id number], tel:[phone] [facility] No Information 0 Marty Bella. [address], [id number]. tel:[phone] Referring Provider: José Jolley, [address] [place] [address], [id number]. tel:[phone] Office Visit Level IV [facility] [address] [place] [address], [id number], [place] tel:[phone] [facility] Joint Pain (chief complaint) Body mass index (BMI) 40.0-44.9, adultHypothy roidism, unspecifiedV itamin B12 deficiencyVi tamin D deficiencyOA of kneeChronic Low Back PainMyalgiaP ain ManagementNS AID Prison UseOSA on CPAPOsteoart hropathy 9 Marty Bella. [address] [place] [address], [id number]. tel:[phone] Referring Provider: José Jolley, [address] [place] [address], [id number]. tel:[phone] [facility] [address] [place] [address], [id number], [place] tel:[phone] [facility] Osteoarthrit is (chief complaint) OA of knee 201 9 Gerry Humphries. [address], [id number]. tel:[phone] Referring Provider: José Jolley, [address] [place] [address], [id number]. tel:[phone] Office Visit Level IV [facility] [address], [id number], tel:[phone] [facility]. Joint Pain (chief complaint)Fa tigue (chief complaint) Pain ManagementVi tamin D deficiencyCh ronic Low Back PainOSA on CPAPMyalgiaN SAID Cashier Supervisor UseHypothyro idism, unspecifiedV itamin B12 deficiencyCh est painJoint PainOA of knee 4-201 9 Gerry Humphries. [address] [facility] [address], [place], [id number]. tel:[phone] Referring Provider: José Jolley, [address] [place] [address], [id number]. tel:[phone] Office Visit Level IV [facility], [address] [place] [address], [id number], tel:[phone] [facility]. Joint Pain (chief complaint)Fa tigue (chief complaint) Vitamin D deficiencyHy pothyroidism , unspecifiedC hronic Low Back PainMyalgiaN SAID Cashier Supervisor UseVitamin B12 deficiencyOS A on CPAPChest painJoint PainPain Management Curtis-0 8 8 Marty Bella. 330 [employer], [address], [id number]. tel:[phone] Referring Provider: José Jolley, [address] [place] [address], [id number]. tel:[phone] Office Visit Level IV [facility] [address], [id number], tel:[phone] [facility]. Joint Pain (chief complaint)Fa tigue (chief complaint) Chronic Low Back PainDe Quervain tenosynoviti sMyalgiaFati gueNSAID Prison UseVitamin D deficiencyVi tamin B12 deficiency anemiaHypoth yroidism, unspecified Dec-0 6-201 7 Marty Bella. [address], [place], [place], [id number]. tel:[phone] Referring Provider: José Jolley, [address] [place] [address], [address]. tel:[phone] [facility] [address], [place], [place], [id number], tel:[phone] [facility] Chronic Low Back PainCounseli ngMyalgiaFat igueNSAID Prison UseDe Quervain tenosynoviti s 7201 7 Marty Jena. [address] [facility], [place], [place], [id number]. tel:[phone] Family History Family Member Type Diagnosis Age At Onset No Information Immunizations Vaccine Date Status Comments SARS-COV-2 (COVID-19) vaccin e, vector non-replicating, recombinant spike protein-Ad26, preservative free, 0.5 mL ([employer]) administered Source: Other Provid er Payers Payer name Insurance type Covered republican ID Authoriza tibruna(s) [facility] National Account 17727 BL [id number] 01 Social History Type Description Quantity Date [...] Order Sarah mbar Spine MRI WITHOUT Contrast (77936), Ordered on: Ordered Future Order: Lab Order CBC With Differential/Platelet ([id number]), Ordered on: Ordered Future Order: Lab Order Comp. Me tabolic Panel (14) ([id number]), Ordered on: Ordered Future Order: Lab Order Vitamin D, 25-Hydroxy (127836), Ordered on: Ordered Future Order: Radiology Order Kn ee X-ray; Limited (1 or 2 views) ([id number]), Ordered on: Ordered Future Order: Lab Order CBC With Differential/Platelet ([id number]), Ordered on: Ordered Future Order: Lab Order Comp. Me tabolic Panel (14) ([id number]), Ordered on: Ordered Future Order: Lab Order Vitamin D, 25-Hydroxy ([id number]), Ordered on: Ordered Future Order: Lab Order CBC With Differential/Platelet ([id number]), Ordered on: Ordered Future Order: Lab Order Comp. Me tabolic Panel (14) ([id number]), Ordered on: Ordered Future Order: Lab Order Vitamin B12 and Folate (908238), Ordered on: Ordered Future Order: Lab Order Vitamin D, 25-Hydroxy (506879), Ordered on: Ordered Future Order: Lab Order CBC With Differential/Platelet (950532), Ordered on: Ordered Future Order: Lab Order Comp. Me tabolic Panel (14) ([id number]), Ordered on: Ordered Future Order: Lab Order Vitamin D, 25-Hydroxy (001261), Ordered on: Ordered Future Order: Lab Order Vitamin B12 and Folate ([id number]), Ordered on: Ordered Future Order: Lab Order TSH (004 259), Ordered on: Ordered Future Order: Radiology Order Sarah mbar Spine MRI WITHOUT Contrast ([id number]), Ordered on: Ordered Future Order: Lab Order CBC With Differential/Platelet (015946), Ordered on: Ordered Future Order: Lab Order Comp. Me tabolic Panel (14) ([id number]), Ordered on: Ordered Future Order: Lab Order Vitamin B12 and Folate (389032), Ordered on: Ordered Future Order: Lab Order Vitamin D, 25-Hydroxy (231903), Ordered on: Ordered Future Order: Lab Order TSH (004 259), Ordered on: Ordered Future Order: Radiology Order Sarah mbar Spine MRI WITHOUT Contrast ([id number]), Ordered on: Ordered Future Order: Lab Order CBC With Differential/Platelet (247304), Ordered on: Ordered Future Order: Lab Order Comp. Me tabolic Panel (14) ([id number]), Ordered on: Ordered Future Order: Radiology Order Ce rvical Spine X-ray (2 or 3 views) (11499), Ordered on: Ordered Future Order: Lab Order CBC With Differential/Platelet (258231), Ordered on: Ordered Future Order: Lab Order Comp. Me tabolic Panel (14) (246365), Ordered on: Ordered Future Order: Lab Order Vitamin D, 25-Hydroxy (645873), Ordered on: Ordered Future Order: Lab Order TSH (004 259), Ordered on: Ordered Future Order: Lab Order CBC With Differential/Platelet (621517), Ordered on: Ordered Future Order: Lab Order Comp. Me tabolic Panel (14) (608325), Ordered on: Ordered Future Order: Lab Order Vitamin D, 25-Hydroxy ([id number]), Ordered on: Ordered Future Order: Lab Order Vitamin B12 and Folate (154029), Ordered on: Ordered Future Order: Lab Order CBC With Differential/Platelet ([id number]), Ordered on: Ordered Future Order: Lab Order Comp. Me tabolic Panel (14) (064068), Ordered on: Ordered Future Order: Lab Order Vitamin D, 25-Hydroxy ([id number]), Ordered on: Ordered Future Order: Lab Order Vitamin B12 and Folate (466863), Ordered on: Ordered Future Order: Radiology Order Kn ee X-ray; Limited (1 or 2 views) (16961), Ordered on: Ordered Future Order: Lab Order CBC With Differential/Platelet (954834), Ordered on: Ordered Future Order: Lab Order Comp. Me tabolic Panel (14) ([id number]), Ordered on: Ordered Future Order: Lab Order C-Reacti ve Protein, Quant ([id number]), Ordered on: Ordered Future Order: Lab Order Sediment ation Rate-Westergren (581572), Ordered on: Ordered Future Order: Lab Order Thyroid Panel With TSH ([id number]), Ordered on: Ordered Future Order: Lab Order Vitamin D, 25-Hydroxy (397712), Ordered on: Ordered Future Order: Lab Order Vitamin B12 and Folate ([id number]), Ordered on: Ordered History Of Present Illness [...] Active Instructions Date Instruction Additional Infor mation Rec. OTC b12 supplement. Related to Vitamin B12 deficiency s/p Rx Vt D. Pt was supposed to be on 4,000iu daily ? recheck Related to Vitamin D deficiency continue citalopramb uspar prnif no better see pcp Related to Anxiety Continue nabumetone. Continue exercise.Weight loss. Related to Osteoarthropathy Continue gabapentin, citalopram, and start taking methocarbamol at bedtime.I would like her to try Tylenol Arthritis, 2 tabs at bedtime. Tylenol brand or [employer] generic.Heat or ice and needed.CBD lotion , Salon pas patches or roll on / Biofreeze to neck and shoulder muscles. Related to Myalgia Follow up with PCP f or further eval and treatment- need to see updated labs Related to Polycythemia PT is an option but patient defers secondary to cost and time.Isometric quad sets discussed with patient.Weight loss - Weight watchers, Dash diet or 17 day diet.Continue Gabapentin and nsaidContinue nabumetone Patient defers injections Related to OA of knee Continue Gabapentin and Robaxin.Mt flexion exercises.She defers [...] 11/02Needs updates CBC, CMP Related to NSAID Prison Use Rec. OTC b12 supplement. Related to [...] Vitamin D. Related to Vitamin D deficiency Cbc,Cmp Q 6 months o n nsaid- 11/02Stop Naproxen and continue Nabumetone. Related to NSAID Prison Use continue citalopramb uspar prnif no better see pcp Related to Anxiety Follow up with PCP f or further eval and treatment. Related to Polycythemia Lifestyle education regarding di et Related to Body mass index [BMI] 40.0-44.9, adult Recheck. Order sent 08/13/21. Rel ated to Vitamin B12 deficiency Continue gabapentin, citalopram, methocarbamol.Heat or ice [...] until labs are received. 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 Will XR knees when she rtc.Continue exercise.Weight loss. Related to Osteoarthropathy Rec 2000IU per day.R echeck Order sent [...] Gabapentin and nsaidXR knees on RTC to [facility].Patient defers injections because previous injections did not work. Xilretta might be an option. Related to OA of knee Lifestyle education regarding di et Related to [...] to any other refill. Related to NSAID Cashier Supervisor Use Recheck Related to Vitam in B12 [...] Chronic Low Back Pain Recheck Related to Hypot hyroidism, unspecified Continue gabapentin, citalopram, methocarbamol.Heat or ice [...] n nsaid- Order mailed. Related to NSAID Prison Use PT is an option but patient defers secondary to cost and time.Isometric quad sets- continue.Weight loss - Weight watchers, Dash diet or 17 day diet.Continue Gabapentin and nsaidXR knees on RTCPatient defers injections because previous injections did not work. Xilretta might be an option. Related to OA of knee Since she cannot truman erate mask I rec weight loss. Related to JAYA on CPAP Recheck Related to Vitam in B12 deficiency Recheck Related to Vitam in B12 deficiency PT is an option but patient defers secondary to cost.Isometric quad sets- continue.Weight loss - Weight watchers, Dash diet or 17 day diet.Continue Gabapentin and nsaidXR knees on RTCPatient defers injections because previous injections did not work. Xilretta might be an option. Related to OA of knee Continue Gabapentin and Robaxin.Continue Mt flexion exercises.Spinal [...] Will refer to neurology. Related to Myalgia Since she cannot truman erate mask I rec weight loss. Related to JAYA on CPAP Cbc,Cmp Q 6 months on nsaid- / 020 Related to NSAID Prison Use Recheck Related to Hypot hyroidism, unspecified Continue nabumetone. Will XR knees when she rtc.Continue exercise.Weight loss. Related to Osteoarthropathy Rec 2000IU per day.Recheck Relat ed to Vitamin D deficiency Rec 2000IU per day. Related to V itamin D deficiency Continue gabapentin, citalopram, methocarbamol.Heat or [...] spine. Related to Chronic Low Back Pain Cbc,Cmp Q 6 months on nsaid- 01/11 9 Related to NSAID Prison Use Continue nabumetone. Related to Osteoarthropathy Pcp is getting ready to recheck. Related to Hypothyroidism, unspecified Since she cannot truman erate mask [...] walking.Continue Nabumetone. Related to OA of knee Lifestyle education regarding di et Related to [...] on nsaid- 07/14 9. Related to NSAID Prison Use PT is an option but patient defers secondary to cost.Isometric quad sets shown to patient - use throw pillow.Weight loss - Weight watchers, Dash diet or 17 day diet.Continue Gabapentin.If knees worsen or severe I rec ortho eval.Can try [employer] biking.Quit smoking.Water aerobics or water walking.Nsaid trials- Stop Daypro and try Nabumetone 750mg. Related to OA of knee Continue gabapentin, citalopram, methocarbamol.Heat or ice and needed.PT would be great for her - Patient will check on Cost.When she raises UE's overhead she feels numbness in her arms and makes her dizzy. If persist I rec further eval with pcp regarding neck/shoulder vessels and nerves ? Thoracic outlet syndrome Related to Myalgia Rec 2000IU per day.Jakeeck Presley Obrien lated to Vitamin D deficiency Lifestyle education [...] months on nsaid. 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 Related to JAYA on CPAP Continue gabapentin, citalopram, methocarbamol.Heat or ice and needed. Related to Myalgia Suggest Stress test with pcp.It could be GI related- Esophageal/stomach inflammation. Related to Chest pain Continue Daypro, catie apentin, and robaxin. Related to Chronic Low Back Pain Needs F/u with pcp. Related to H ypothyroidism, unspecified Level was 22 in December 2017. She has been taking 5000IU daily. Will recheck level today. Related to Vitamin D deficiency Xray of the knees.To pical creams.Can try [...] months on nsaid. Rel ated to NSAID Prison Use Has taken a round of B12 injections [...] monthsRestart gabapentin, citalopram, methocarbamol Related to Myalgia Out of meds for elias buchanan monthsunable to afford PT or many other treatments. Raising her grandchildren which often causes her to miss appts, etc. Refill current meds. Related to Chronic Low Back Pain Hasn't taken B compl ex or Vitamin [...] Vt D assessment Anxiety impression increased stress; kimbreley loredo ; raising grandkids and caring for [...] Signed and discussed.Gabapentin- 400mg tid. assessment NSAID Cashier Supervisor Use impression S/p Daypro.On Nabume tone - has inadvertently been taking Naproxen with it.Pt was supposed to stop Naproxen and saty on nabumetone Patient Care Teams Name Effective Dates (start - stop) Status Members No Information
--- NOTE | 2023-08-11 18:12 | PC.NURSE ---
1800 demolition specialist paged again. 1811 call back from gissel, no new orders, gissel stated he will talk to an. 1819 an at bs
--- NOTE | 2023-08-11 18:29 | EXP.ACUTE.PN ---
Subjective *Date: 08/11/23 *Time: 18:29 Interval history: Patient had EGD today, see report, biopsy was taken. BP has been low since procedure. Patient reports she has not taken her Midodrine in several days. Medical Exam Vital signs and Labs for Last 24 Hours: Vital Signs Temp Pulse Resp BP Pulse Ox O2 Del Method O2 Flow Rate 08/11/23 16:55 55/25 L 08/11/23 16:25 97.9 F 72 16 103/56 L 99 Nasal Cannula 2 08/11/23 16:15 97.9 F 72 16 94/43 L 99 Nasal Cannula 2 08/11/23 15:40 74 87/55 L 08/11/23 15:15 97.7 F 75 16 55/30 L 91 L Room Air 08/11/23 15:00 97.9 F 75 16 72/44 L 90 L Room Air 08/11/23 14:30 97.9 F 72 16 92/45 L 93 L Room Air 08/11/23 14:00 97.9 F 76 16 90/48 L 92 L Room Air 08/11/23 13:45 98.1 F 75 16 90/50 L 95 Room Air 08/11/23 13:30 98.0 F 70 16 73/53 L 97 Room Air 08/11/23 17:00 Room Air 08/11/23 15:00 Room Air 08/11/23 13:00 Room Air 08/11/23 12:43 98 F 73 16 83/45 L 97 Room Air 08/11/23 12:35 98.4 F 74 16 83/40 L 97 Room Air 08/11/23 12:25 97.6 F 77 16 102/46 L 95 Room Air 08/11/23 12:08 Nasal Cannula 4 08/11/23 11:00 Room Air 08/11/23 09:00 Room Air 08/11/23 08:00 Room Air 08/11/23 07:37 98.0 F 80 18 105/50 L 92 L Room Air 08/11/23 06:32 Room Air 08/11/23 04:38 Room Air 08/11/23 04:00 98.7 F 73 18 90/45 L 95 Room Air 08/11/23 03:00 Room Air 08/11/23 00:39 Room Air 08/10/23 23:00 Room Air 08/10/23 20:00 98.2 F 79 18 92/47 L 92 L Room Air 08/10/23 20:43 Room Air 08/10/23 20:00 Room Air 08/10/23 19:00 Room Air Intake and Output 08/11/23 08/11/23 08/11/23 07:59 15:59 23:59 Intake Total 500 / 740 240 / 740 Output Total 0 / 0 0 / 0 Balance 500 / 740 0 / 740 240 / 740 Intake: Intake, Oral Amount 0 / 240 240 / 240 Intake, Total IV Amount 500 / 500 D5W/0.9% NaCl w/20mEq KCL 1,000 500 / 500 ml @ 125 mls/hr IV .Q8H [facility] Rx #:[id number] Output: Output, Urine Amount 0 / 0 0 / 0 Other: Number of Unmeasured Voids 1 1 Number of Bowel Movements 1 Weight 250 lb 2 oz 250 lb 0.067 oz Patient Weight 08/11/23 23:59 Weight 250 lb 0.067 oz Laboratory Results - last 24 hr 08/11/23 05:24: WBC 2.9 L D, RBC 4.31, Hgb 13.2, Hct 41.1, MCV 95.2, MCH 30.7, MCHC 32.2, RDW 15.5, Plt Count 209, MPV 8.4, Neut % (Auto) 44.1, Lymph % (Auto) 31.4, [place] % (Auto) 13.9 H, Eos % (Auto) 10.5, Baso % (Auto) 0.2, Neut # (Auto) 1.3 L, Lymph # (Auto) 0.9, [place] # (Auto) 0.4, Eos # (Auto) 0.3, Baso # (Auto) 0.0, Sodium 134 L, Potassium 3.7, Chloride 102, Carbon Dioxide 26, Anion Gap 9.7, BUN 3 L D, Creatinine 1.00 D, Estimated Creat Clear 107, Estimated GFR 57 L, Est GFR ( Amer) 68 D, Glucose 101 H, Calcium 9.0 08/11/23 15:36: Hgb 10.0 L D, Hct 30.9 L I & O for Labs for Last 24 Hours: Intake & Output 08/08/23 08/09/23 08/10/23 08/11/23 23:59 23:59 23:59 23:59 Intake Total 555 / 615 2692 / 3192 740 / 740 Output Total 0 / 0 0 / 0 0 / 0 Balance 555 / 615 2692 / 3192 740 / 740 Weight 239 lb 9 oz 239 lb 9 oz 250 lb 0.067 oz Constitutional: Present no acute distress Respiratory: Present normal respiratory effort Cardiac: Present Reg Rate and Rhythm GI: Present normal bowel sounds; Absent tenderness Extremities: Present normal inspection and full ROM Skin: Present intact; Absent erythema Neuro: Present Grossly Intact, alert, oriented x 3 and moves all extremities Assessment and Plan *Assessment and plan (1) Nausea & vomiting: Status: Acute Qualifiers: Vomiting type: unspecified Qualified Code(s): R11.2 - Nausea with vomiting, unspecified Category: Medical Code(s): R11.2 - Nausea with vomiting, unspecified (2) Acute hyponatremia: Status: Acute Category: Medical Code(s): E87.1 - Hypo-osmolality and hyponatremia (3) Kidney dysfunction: Status: Acute Category: Medical Code(s): N28.9 - Disorder of kidney and ureter, unspecified (4) Hypothyroid: Status: Acute Qualifiers: Hypothyroidism type: unspecified Qualified Code(s): E03.9 - Hypothyroidism, unspecified Category: Medical Code(s): E03.9 - Hypothyroidism, unspecified (5) GERD (gastroesophageal reflux disease): Status: Acute Qualifiers: Esophagitis presence: esophagitis presence not specified Qualified Code(s): K21.9 - Gastro-esophageal reflux disease without esophagitis Category: Medical Code(s): K21.9 - Gastro-esophageal reflux disease without esophagitis (6) COPD (chronic obstructive pulmonary disease): Status: Acute Qualifiers: COPD type: unspecified COPD Qualified Code(s): J44.9 - Chronic obstructive pulmonary disease, unspecified Category: Medical Code(s): J44.9 - Chronic obstructive pulmonary disease, unspecified (7) Hypotension: Status: Acute Category: Medical Code(s): I95.9 - Hypotension, unspecified (8) Anemia: Status: Acute Category: Medical Code(s): D64.9 - Anemia, unspecified Plan H/H after procedure show a 3 point Hg drop, IVF bolus given and BP improved, will recheck H/H now. Patient has not vomited or had a bowel movement since procedure.
[2023-08-11] MEDS: 0.9 % SODIUM CHLORIDE 1000ML 2,000 ML 999 ML IV (18:44)
[2023-08-11 19:12] LABS: Hematocrit 36.4 % (37.0-47.0)
[2023-08-11 19:22] LABS: Hemoglobin 12.1 g/dL (12.2-16.2)
[2023-08-11] MEDS: MIDODRINE 10 MG 10 EACH PO (20:03)
[2023-08-11] MEDS: ENOXAPARIN 40MG/0.4ML SYRINGE 40 MG SQ (20:03)
[2023-08-11] MEDS: PANTOPRAZOLE 40MG TABLET 40 MG PO (20:03)
[2023-08-12] VITALS (7 sets, daily range): BP systolic 70–98; BP diastolic 38–60; PULSE 66–83; RESP 16–20; TEMP 36.3–36.9; O2SAT 88–94; BMI 42.1
[2023-08-12] MEDS: 0.9 % SODIUM CHLORIDE 1000ML 1,000 ML 999 ML IV (00:46)
[2023-08-12 06:41] LABS: Basophils % 0.5 % (0.1-2.0); Eosinophils # 0.3 K/mm3 (0.0-0.4); Eosinophils % 8.1 % (0.1-12.0); Hematocrit 37.4 % (37.0-47.0); Hemoglobin 12.1 g/dL (12.2-16.2); Mean Corpuscular HGB Conc 32.2 g/dL (31.8-35.4); Mean Corpuscular Hemoglobin 30.8 pg (27.0-31.2); Mean Corpuscular Volume 95.5 fl (81-99); Mean Platelet Volume 8.5 fl (7.4-10.4); Monocytes # 0.4 K/mm3 (0.1-1.0); Neutrophils # 1.7 K/mm3 (1.8-7.8); Neutrophils % 49.4 % (37.0-80.0); Platelet Count 215 K/mm3 (142-424); Red Blood Count 3.92 M/mm3 (4.20-5.40); Red Cell Distribution Width 15.8 % (11.5-17.5); White Blood Count 3.4 K/mm3 (4.8-10.8)
[2023-08-12 06:45] LABS: Anion Gap 6.8 mEq/L (5-15); Blood Urea Nitrogen 2 mg/dl (7-17); Calcium 8.1 mg/dl (8.4-10.2); Carbon Dioxide 22 mmol/L (22.0-30.0); Chloride 108 mmol/L (98-107); Creatinine Clearance Estimated 56 mL/min (50-200); Estimated Glomerular Filt Rate 57 ml/min (>60); GFR (African American) 68 ML/MIN (>60); Glucose 111 mg/dl (74-100); Potassium 3.8 mmoL/L (3.5-5.1); Sodium 133 mmol/L (136-145)
--- NOTE | 2023-08-12 07:32 | P.PN_ITS ---
Subjective Narrative: Patient underwent upper endoscopy yesterday after consultation due to several month history of nausea. Upper endoscopy relatively unremarkable for mechanical etiology for nausea revealing some nonerosive duodenitis and nonerosive gastropathy/gastritis with a small hiatal hernia. Later after the procedure patient had some hypotension. She did undergo H&H which revealed hemoglobin of 10 which was down from 13 earlier in the morning. She has remained alert and oriented. Her hemoglobin today is 12.1. She has been on a clear liquid diet. She continues to complain of nausea. She does state that she had some vomiting. Exam Data for Last 24 hours Vital signs and Labs for Last 24 Hours: Temp Pulse Resp BP Pulse Ox O2 Del Method O2 Flow Rate 98.0 F 72 16 98/38 L 94 L Nasal Cannula 2 08/12/23 04:00 08/12/23 04:00 08/12/23 04:00 08/12/23 04:00 08/12/23 04:00 08/12/23 06:17 08/12/23 06:17 Laboratory Results - last 24 hr 08/11/23 15:36: Hgb 10.0 L D, Hct 30.9 L 08/11/23 19:00: Hgb 12.1 L D, Hct 36.4 L 08/12/23 05:30: WBC 3.4 L, RBC 3.92 L, Hgb 12.1 L, Hct 37.4, MCV 95.5, MCH 30.8, MCHC 32.2, RDW 15.8, Plt Count 215, MPV 8.5, Neut % (Auto) 49.4, Lymph % (Auto) 31.0, [place] % (Auto) 11.0 H, Eos % (Auto) 8.1, Baso % (Auto) 0.5, Neut # (Auto) 1.7 L, Lymph # (Auto) 1.0, [place] # (Auto) 0.4, Eos # (Auto) 0.3, Baso # (Auto) 0.0, Sodium 133 L, Potassium 3.8, Chloride 108 H, Carbon Dioxide 22, Anion Gap 6.8, BUN 2 L D, Creatinine 1.00, Estimated Creat Clear 56, Estimated GFR 57 L, Est GFR ( Amer) 68, Glucose 111 H, Calcium 8.1 L I & O for Last 24 hours: Intake & Output 08/09/23 08/10/23 08/11/23 08/12/23 11:59 11:59 11:59 11:59 Intake Total 615 / 615 3131 Output Total 0 / 0 0 / 0 0 / 0 Balance 615 / 615 3131 / 3131 Weight 270 lb 239 lb 9 oz 250 lb 0.067 oz 262 lb 6.4 oz Microbiology Reports for the Last 24 Hours: Microbiology 08/09/23 11:14 Urine,Clean Catch Urine Culture - Final Constitutional Constitutional: no acute distress *Routine Abdominal Exam Abdominal: Present soft Progress Note: A&P Assessment and plan (1) Nausea & vomiting: Status: Acute Assessment and plan: No etiology to explain nausea noted on upper endoscopy. Possible medical/functional etiology. May benefit from gastroenterology evaluation. (2) Acute hyponatremia: Status: Acute (3) Kidney dysfunction: Status: Acute (4) Hypothyroid: Status: Acute (5) GERD (gastroesophageal reflux disease): Status: Acute (6) COPD (chronic obstructive pulmonary disease): Status: Acute (7) Hypotension: Status: Acute (8) Anemia: Status: Acute
--- NOTE | 2023-08-12 08:25 | P.PN_ITS ---
Subjective *Date: 08/12/23 *Time: 08:56 Interval history: Patient is nauseated. Meds help. She has not vomited. She denies abdominal pain, chest pain, and shortness of breath. Labs this morning show hemoglobin of 12.1 hematocrit of 37.4. Blood chemistry showed sodium of 133 and potassium of 3.8, BUN of 2 and creatinine of 1. Urine culture from 08/09/2023 shows mixed urogenital yonatan with colony count 50- 100,000. Medical Exam Vital signs and Labs for Last 24 Hours: Vital Signs Temp Pulse Resp BP Pulse Ox O2 Del Method O2 Flow Rate 08/12/23 07:32 98.4 F 67 16 80/42 L 90 L Room Air 08/12/23 06:17 Nasal Cannula 2 08/12/23 05:00 Nasal Cannula 2 08/12/23 04:00 98.0 F 72 16 98/38 L 94 L Nasal Cannula 08/12/23 03:00 Nasal Cannula 2 08/12/23 01:00 Nasal Cannula 2 08/11/23 23:00 Nasal Cannula 2 08/12/23 00:42 98.3 F 71 16 76/42 L 88 L 08/11/23 21:00 Room Air 08/11/23 19:50 98.3 F 72 16 90/31 L 90 L Room Air 08/11/23 19:43 Room Air 08/11/23 18:47 Room Air 08/11/23 16:55 55/25 L 08/11/23 16:25 97.9 F 72 16 103/56 L 99 Nasal Cannula 2 08/11/23 16:15 97.9 F 72 16 94/43 L 99 Nasal Cannula 2 08/11/23 15:40 74 87/55 L 08/11/23 15:15 97.7 F 75 16 55/30 L 91 L Room Air 08/11/23 15:00 97.9 F 75 16 72/44 L 90 L Room Air 08/11/23 14:30 97.9 F 72 16 92/45 L 93 L Room Air 08/11/23 14:00 97.9 F 76 16 90/48 L 92 L Room Air 08/11/23 13:45 98.1 F 75 16 90/50 L 95 Room Air 08/11/23 13:30 98.0 F 70 16 73/53 L 97 Room Air 08/11/23 17:00 Room Air 08/11/23 15:00 Room Air 08/11/23 13:00 Room Air 08/11/23 12:43 98 F 73 16 83/45 L 97 Room Air 08/11/23 12:35 98.4 F 74 16 83/40 L 97 Room Air 08/11/23 12:25 97.6 F 77 16 102/46 L 95 Room Air 08/11/23 12:08 Nasal Cannula 4 08/11/23 11:00 Room Air 08/11/23 09:00 Room Air Intake and Output 08/11/23 08/12/23 08/12/23 19:59 03:59 11:59 Intake Total 240 / 240 1869 / 2109 120 / 2229 Output Total 0 / 0 Balance 240 / 240 1869 / 2109 120 / 2229 Intake: Intake, Oral Amount 240 / 240 120 / 360 120 / 480 Intake, Total IV Amount 1749 / 1749 0.9 % Sodium Chloride 1000ML 1, 999 / 999 000 ml @ 999 mls/hr IV .Q1H1M [facility] Rx#:[id number] D5W/0.9% NaCl w/20mEq KCL 1,000 750 / 750 ml @ 125 mls/hr IV .Q8H [facility] Rx #:[id number] Output: Output, Urine Amount 0 / 0 Other: Number of Unmeasured Voids 1 Weight 262 lb 6.4 oz Patient Weight 08/12/23 11:59 Weight 262 lb 6.4 oz Laboratory Results - last 24 hr 08/11/23 15:36: Hgb 10.0 L D, Hct 30.9 L 08/11/23 19:00: Hgb 12.1 L D, Hct 36.4 L 08/12/23 05:30: WBC 3.4 L, RBC 3.92 L, Hgb 12.1 L, Hct 37.4, MCV 95.5, MCH 30.8, MCHC 32.2, RDW 15.8, Plt Count 215, MPV 8.5, Neut % (Auto) 49.4, Lymph % (Auto) 31.0, [place] % (Auto) 11.0 H, Eos % (Auto) 8.1, Baso % (Auto) 0.5, Neut # (Auto) 1.7 L, Lymph # (Auto) 1.0, [place] # (Auto) 0.4, Eos # (Auto) 0.3, Baso # (Auto) 0.0, Sodium 133 L, Potassium 3.8, Chloride 108 H, Carbon Dioxide 22, Anion Gap 6.8, BUN 2 L D, Creatinine 1.00, Estimated Creat Clear 56, Estimated GFR 57 L, Est GFR ( Amer) 68, Glucose 111 H, Calcium 8.1 L I & O for Labs for Last 24 Hours: Intake & Output 08/09/23 08/10/23 08/11/23 08/12/23 11:59 11:59 11:59 11:59 Intake Total 615 / 615 3132 / 3132 2228 / 2228 Output Total 0 / 0 0 / 0 0 / 0 Balance 615 / 615 3132 / 3131 2228 / 2228 Weight 270 lb 239 lb 9 oz 250 lb 0.067 oz 262 lb 6.4 oz Microbiology Reports for the Last 24 Hours: Microbiology 08/09/23 11:14 Urine,Clean Catch Urine Culture - Final Constitutional: Present no acute distress Comment:: Lying on her side and appears quite comfortable. Respiratory: Present CTA bilaterally (Anteriorly and posteriorly) Cardiac: Present Reg Rate and Rhythm GI: Present soft and normal bowel sounds; Absent tenderness Extremities: Absent tenderness or edema Skin: Present dry (And warm) Neuro: Present alert and oriented x 3 Assessment and Plan *Assessment and plan (1) Nausea & vomiting: Status: Acute Qualifiers: Vomiting type: unspecified Qualified Code(s): R11.2 - Nausea with vomiting, unspecified Category: Medical Code(s): R11.2 - Nausea with vomiting, unspecified (2) Acute hyponatremia: Status: Acute Category: Medical Code(s): E87.1 - Hypo-osmolality and hyponatremia (3) Kidney dysfunction: Status: Acute Category: Medical Code(s): N28.9 - Disorder of kidney and ureter, unspecified (4) Hypothyroid: Status: Acute Qualifiers: Hypothyroidism type: unspecified Qualified Code(s): E03.9 - Hypothyroidism, unspecified Category: Medical Code(s): E03.9 - Hypothyroidism, unspecified (5) GERD (gastroesophageal reflux disease): Status: Acute Qualifiers: Esophagitis presence: esophagitis presence not specified Qualified Code(s): K21.9 - Gastro-esophageal reflux disease without esophagitis Category: Medical Code(s): K21.9 - Gastro-esophageal reflux disease without esophagitis (6) COPD (chronic obstructive pulmonary disease): Status: Acute Qualifiers: COPD type: unspecified COPD Qualified Code(s): J44.9 - Chronic obstructive pulmonary disease, unspecified Category: Medical Code(s): J44.9 - Chronic obstructive pulmonary disease, unspecified (7) Hypotension: Status: Acute Category: Medical Code(s): I95.9 - Hypotension, unspecified (8) Anemia: Status: Acute Category: Medical Code(s): D64.9 - Anemia, unspecified Plan H&H is stable. Continue with IV fluids. Antiemetics as needed. continue with mododirine is being followed by Dr. Zee as well. Dr. Quiroga entry - Saw patient, agree with above note. She is likely going to need GI evaluation at some point.
[2023-08-12] MEDS: LEVOTHYROXINE 100MCG (0.1MG) TAB 100 MCG PO (08:41)
[2023-08-12] MEDS: ENOXAPARIN 40MG/0.4ML SYRINGE 40 MG SQ ×2 (08:41→20:35)
[2023-08-12] MEDS: MIDODRINE HCL 5 MG TABLET 10 MG PO ×3 (08:41→20:35)
[2023-08-12] MEDS: D5W/0.9% NaCl w/20mEq KCL 1,000 ML 125 ML IV (08:43)
[2023-08-12] MEDS: ONDANSETRON 4MG/2ML VIAL 4 MG IV (08:43)
[2023-08-12] MEDS: PROCHLORPERAZINE 10MG TABLET 10 MG PO (15:35)
[2023-08-12] MEDS: 0.9 % SODIUM CHLORIDE 1000ML 1,000 ML 150 ML IV ×2 (17:22→22:35)
--- NOTE | 2023-08-12 19:18 | PC.NURSE ---
Patient has hypotension. MD aware. Fluids increased from 125 ml/hr to 150 ml/hr. No new orders. Patient a&ox4.
[2023-08-12] MEDS: PANTOPRAZOLE 40MG TABLET 40 MG PO (20:35)
[2023-08-13 04:00] VITALS: BP 86/54; PULSE 78; RESP 16; TEMP 36.6; O2SAT 98; BMI 43.5
[2023-08-13] MEDS: 0.9 % SODIUM CHLORIDE 1000ML 1,000 ML 150 ML IV ×2 (04:57→12:36)
[2023-08-13] MEDS: LEVOTHYROXINE 100MCG (0.1MG) TAB 100 MCG PO (06:09)
[2023-08-13 07:36] VITALS: BP 90/52; PULSE 85; RESP 18; TEMP 36.8; O2SAT 94
[2023-08-13] MEDS: MIDODRINE HCL 5 MG TABLET 10 MG PO ×3 (08:24→20:22)
[2023-08-13] MEDS: CITALOPRAM 40MG TABLET 40 MG PO (08:24)
[2023-08-13] MEDS: ENOXAPARIN 40MG/0.4ML SYRINGE 40 MG SQ ×2 (08:25→20:22)
--- NOTE | 2023-08-13 08:26 | P.PN_ITS ---
Subjective *Date: 08/13/23 *Time: 10:50 Interval history: Patient denies any pain today. She has not had any vomiting. She denies any nausea this morning. When asked if she would like to try and advance diet, she said she was not sure she could tolerate it. She did rest well last night. Medical Exam Vital signs and Labs for Last 24 Hours: Vital Signs Temp Pulse Resp BP Pulse Ox O2 Del Method O2 Flow Rate 08/13/23 07:36 98.2 F 85 18 90/52 L 94 L Room Air 08/13/23 06:32 Nasal Cannula 2 08/13/23 04:45 Nasal Cannula 2 08/13/23 03:00 Nasal Cannula 2 08/13/23 04:00 98 F 78 16 86/54 L 98 08/13/23 01:00 Nasal Cannula 2 08/12/23 23:53 97.9 F 76 17 90/60 L 93 L 08/12/23 23:00 Nasal Cannula 2 08/12/23 21:00 Room Air 08/12/23 20:00 97.8 F 79 17 81/53 L 93 L Room Air 08/12/23 19:53 Room Air, Nasal Cannula 2 08/12/23 15:59 97.4 F L 83 18 70/40 L 92 L Room Air 08/12/23 11:37 98.2 F 66 20 74/42 L 92 L Room Air Intake and Output 08/12/23 08/13/23 08/13/23 19:59 03:59 11:59 Intake Total 170 / 2570 920 / 2570 1480 / 2570 Output Total 0 / 250 250 / 250 Balance 170 / 2320 670 / 2320 1480 / 2320 Intake: Intake, Oral Amount 170 / 870 120 / 870 580 / 870 Intake, Total IV Amount 800 / 1700 900 / 1700 0.9 % Sodium Chloride 1000ML 1, 800 / 1700 900 / 1700 000 ml @ 999 mls/hr IV .Q1H1M [facility] Rx#:[id number] Output: Output, Urine Amount 0 / 250 250 / 250 Other: Number of Unmeasured Voids 1 1 Number of Bowel Movements 1 Weight 271 lb 3.2 oz Patient Weight 08/13/23 11:59 Weight 271 lb 3.2 oz I & O for Labs for Last 24 Hours: Intake & Output 0108/11/23 08/12/23 08/13/23 11:59 11:59 11:59 11:59 Intake Total 615 / 615 3131 / 3131 2228 / 2228 2570 / 2570 Output Total 0 / 0 0 / 0 0 / 0 250 / 250 Balance 615 / 615 3131 / 3131 2228 / 2228 2320 / 2320 Weight 239 lb 9 oz 250 lb 0.067 oz 262 lb 6.4 oz 271 lb 3.2 oz Microbiology Reports for the Last 24 Hours: Microbiology 08/09/23 11:14 Urine,Clean Catch Urine Culture - Final Constitutional: Present no acute distress Respiratory: Present CTA bilaterally (Anteriorly and posteriorly) Cardiac: Present Reg Rate and Rhythm GI: Present soft and normal bowel sounds; Absent tenderness Extremities: Absent tenderness or edema Skin: Present dry (And warm) Neuro: Present alert and oriented x 3 Assessment and Plan *Assessment and plan (1) Nausea & vomiting: Status: Acute Qualifiers: Vomiting type: unspecified Qualified Code(s): R11.2 - Nausea with v omiting, unspecified Category: Medical Code(s): R11.2 - Nausea with vomiting, unspecified (2) Acute hyponatremia: Status: Acute Category: Medical Code(s): E87.1 - Hypo-osmolality and hyponatremia (3) Kidney dysfunction: Status: Acute Category: Medical Code(s): N28.9 - Disorder of kidney and ureter, unspecified (4) Hypothyroid: Status: Acute Qualifiers: Hypothyroidism type: unspecified Qualified Code(s): E03.9 - Hypothyroidism, unspecified Category: Medical Code(s): E03.9 - Hypothyroidism, unspecified (5) GERD (gastroesophageal reflux disease): Status: Acute Qualifiers: Esophagitis presence: esophagitis presence not specified Qualified Code(s): K21.9 - Gastro-esophageal reflux disease without esophagitis Category: Medical Code(s): K21.9 - Gastro-esophageal reflux disease without esophagitis (6) COPD (chronic obstructive pulmonary disease): Status: Acute Qualifiers: COPD type: unspecified COPD Qualified Code(s): J44.9 - Chronic obstructive pulmonary disease, unspecified Category: Medical Code(s): J44.9 - Chronic obstructive pulmonary disease, unspecified (7) Hypotension: Status: Acute Category: Medical Code(s): I95.9 - Hypotension, unspecified (8) Anemia: Status: Acute Category: Medical Code(s): D64.9 - Anemia, unspecified Plan Patient will likely need GI evaluation in the future. Will discuss advancing diet with Dr. Quiroga. Dr. Quiroga entry - Saw patient, agree with above note. Patient seems a little better with Compazine.
[2023-08-13 10:16] VITALS: BP 149/59; PULSE 86; O2SAT 92
[2023-08-13 10:38] LABS: Adenovirus F 40/41, stool Not Detected (NotDetected); Astrovirus Not Detected (NotDetected); Campylobacter Not Detected (NotDetected); Clostridium Difficile A/B, PCR Not Detected (NotDetected); Cryptosporidium Not Detected (NotDetected); Cyclospora Cayetanesis Not Detected (NotDetected); Entamoeba histolytica Not Detected (NotDetected); Enteroaggregative E coli Not Detected (NotDetected); Enteropathogenic E coli Not Detected (NotDetected); Enterotoxigenic E coli Not Detected (NotDetected); Giardia lamblia Not Detected (NotDetected); Norovirus Not Detected (NotDetected); Plesimonas Shigalloides, PCR Not Detected (NotDetected); Rotavirus A Not Detected (NotDetected); Salmonella, PCR Not Detected (NotDetected); Sapovirus Not Detected (NotDetected); Shiga-like toxin E coli Not Detected (NotDetected); Shigella Enterovasive E coli Not Detected (NotDetected); Vibrio Cholerae Not Detected (NotDetected); Vibrio, PCR Not Detected (NotDetected); Yersinia Entercolitica, PCR Not Detected (NotDetected)
[2023-08-13] MEDS: PROCHLORPERAZINE 10MG TABLET 10 MG PO ×2 (10:55→16:57)
[2023-08-13 11:48] VITALS: BP 79/41; PULSE 76; RESP 18; TEMP 36.4; O2SAT 100
--- NOTE | 2023-08-13 12:39 | PC.NURSE ---
pt refused to get up to chair for lunch. pt is lying in bed with bed alarm on and call light within reach. pt appears to be sleeping.
[2023-08-13 15:54] VITALS: BP 83/42; PULSE 73; RESP 18; TEMP 36.7; O2SAT 93
--- NOTE | 2023-08-13 17:05 | PC.NURSE ---
Patient has slept most of day, easy to arouse, appetite is poor. Will drink water. Complains of nausea, PRN given, desired effects met. Denies any pain or discomfort at this time. Alert and oriented x4.
[2023-08-13 20:00] VITALS: BP 80/46; PULSE 74; RESP 18; TEMP 36.6; O2SAT 94
[2023-08-13] MEDS: PROMETHAZINE HCL 25MG/ML 1ML VIAL 12.5 MG IV (20:22)
[2023-08-13] MEDS: PANTOPRAZOLE 40MG TABLET 40 MG PO (20:22)
[2023-08-14] VITALS: BP 92/49; PULSE 64; RESP 18; TEMP 36.7; O2SAT 91
[2023-08-14 04:00] VITALS: BP 82/46; PULSE 79; RESP 18; TEMP 36.6; O2SAT 91; BMI 44.9
[2023-08-14] MEDS: ONDANSETRON 4MG/2ML VIAL 4 MG IV (06:24)
--- NOTE | 2023-08-14 06:28 | PC.NURSE ---
pt has remained hypotensive t/o shift. 0620 pt feels weak, nonpitting 1+ edema to BUE noted (new since beginning of shift), scant vomiting visualized - zofran administered
[2023-08-14 07:14] LABS: Basophils % 0.8 % (0.1-2.0); Eosinophils # 0.3 K/mm3 (0.0-0.4); Eosinophils % 6.4 % (0.1-12.0); Hematocrit 37.2 % (37.0-47.0); Hemoglobin 11.8 g/dL (12.2-16.2); Lymphocytes # 1.3 K/mm3 (0.7-4.5); Lymphocytes % 29.4 % (10-50); Mean Corpuscular HGB Conc 31.7 g/dL (31.8-35.4); Mean Corpuscular Hemoglobin 30.9 pg (27.0-31.2); Mean Corpuscular Volume 97.5 fl (81-99); Monocytes # 0.5 K/mm3 (0.1-1.0); Monocytes % 11.4 % (1.7-9.3); Neutrophils # 2.2 K/mm3 (1.8-7.8); Neutrophils % 51.9 % (37.0-80.0); Platelet Count 269 K/mm3 (142-424); Red Blood Count 3.81 M/mm3 (4.20-5.40); Red Cell Distribution Width 15.9 % (11.5-17.5); White Blood Count 4.2 K/mm3 (4.8-10.8)
[2023-08-14 07:17] LABS: Chloride 106 mmol/L (98-107); Potassium 3.7 mmoL/L (3.5-5.1); Sodium 130 mmol/L (136-145)
[2023-08-14 07:20] LABS: Anion Gap 9.7 mEq/L (5-15); Calcium 8.3 mg/dl (8.4-10.2); Carbon Dioxide 18 mmol/L (22.0-30.0); Creatinine Clearance Estimated 56 mL/min (50-200); Estimated Glomerular Filt Rate 57 ml/min (>60); GFR (African American) 68 ML/MIN (>60); Glucose 82 mg/dl (74-100)
[2023-08-14 07:23] LABS: Blood Urea Nitrogen < 2 mg/dl (7-17)
[2023-08-14 08:00] VITALS: BP 73/34; PULSE 77; RESP 18; TEMP 36.6; O2SAT 90; O2SAT 95
--- NOTE | 2023-08-14 08:02 | EXP.SURG.PN ---
Subjective Narrative: Patient has been limited to clear liquid diet. Reportedly nausea and vomiting overnight. Exam Data for Last 24 hours Vital signs and Labs for Last 24 Hours: Temp Pulse Resp BP Pulse Ox O2 Del Method O2 Flow Rate 97.9 F 77 18 73/34 L 90 L Nasal Cannula 2 08/14/23 08:00 08/14/23 08:00 08/14/23 08:00 08/14/23 08:00 08/14/23 08:00 08/14/23 08:00 08/14/23 08:00 Laboratory Results - last 24 hr 08/14/23 06:43: WBC 4.2 L, RBC 3.81 L, Hgb 11.8 L, Hct 37.2, MCV 97.5, MCH 30.9, MCHC 31.7 L, RDW 15.9, Plt Count 269 D, MPV 8.0, Neut % (Auto) 51.9, Lymph % (Auto) 29.4, [place] % (Auto) 11.4 H, Eos % (Auto) 6.4, Baso % (Auto) 0.8, Neut # (Auto) 2.2, Lymph # (Auto) 1.3, [place] # (Auto) 0.5, Eos # (Auto) 0.3, Baso # (Auto) 0.0, Sodium 130 L, Potassium 3.7, Chloride 106, Carbon Dioxide 18 L, Anion Gap 9.7, BUN < 2 L, Creatinine 1.00, Estimated Creat Clear 56, Estimated GFR 57 L, Est GFR ( Amer) 68, Glucose 82, Calcium 8.3 L I & O for Last 24 hours: Intake & Output 08/11/23 08/12/23 08/13/23 08/14/23 11:59 11:59 11:59 11:59 Intake Total 3131 / 3131 2228 / 2228 2570 / 2570 295 / 295 Output Total 0 / 0 0 / 0 250 / 250 0 / 0 Balance 3131 / 3131 2228 / 2228 2320 / 2320 295 / 295 Weight 250 lb 0.067 oz 262 lb 6.4 oz 271 lb 3.2 oz 279 lb 9 oz Progress Note: A&P Assessment and plan (1) Nausea & vomiting: Status: Acute Assessment and plan: No mechanical etiology noted on EGD for nausea and vomiting. May consider upper GI small bowel follow-through. (2) Acute hyponatremia: Status: Acute (3) Kidney dysfunction: Status: Acute (4) Hypothyroid: Status: Acute (5) GERD (gastroesophageal reflux disease): Status: Acute (6) COPD (chronic obstructive pulmonary disease): Status: Acute (7) Hypotension: Status: Acute (8) Anemia: Status: Acute
[2023-08-14] MEDS: ENOXAPARIN 40MG/0.4ML SYRINGE 40 MG SQ ×2 (08:07→21:25)
[2023-08-14] MEDS: LEVOTHYROXINE 100MCG (0.1MG) TAB 100 MCG PO (08:07)
[2023-08-14] MEDS: CITALOPRAM 40MG TABLET 40 MG PO (08:07)
[2023-08-14] MEDS: MIDODRINE HCL 5 MG TABLET 10 MG PO ×3 (08:07→21:25)
[2023-08-14] MEDS: PROCHLORPERAZINE 10MG TABLET 10 MG PO (08:12)
--- NOTE | 2023-08-14 08:24 | EXP.ACUTE.PN ---
Subjective *Date: 08/14/23 *Time: 09:09 Interval history: Patient states she had some vomiting this morning and is nauseated. She cannot eat breakfast and is only had water. Her blood pressure is low this morning. She denies any pain. She states she did not rest well last night. Medical Exam Vital signs and Labs for Last 24 Hours: Vital Signs Temp Pulse Resp BP Pulse Ox O2 Del Method O2 Flow Rate 08/14/23 08:00 97.9 F 77 18 73/34 L 90 L Nasal Cannula 2 08/14/23 06:14 Room Air 08/14/23 04:00 97.9 F 79 18 82/46 L 91 L Room Air 08/14/23 05:00 Room Air 08/14/23 02:44 Room Air 08/14/23 01:00 Room Air 08/14/23 00:00 98.0 F 64 18 92/49 L 91 L Room Air 08/13/23 22:36 Room Air 08/13/23 20:00 97.9 F 74 18 80/46 L 94 L Room Air 08/13/23 20:00 Room Air 08/13/23 18:27 Room Air 08/13/23 17:00 Room Air 08/13/23 15:54 98.1 F 73 18 83/42 L 93 L Room Air 08/13/23 15:00 Room Air 08/13/23 13:00 Room Air 08/13/23 11:48 97.6 F 76 18 79/41 L 100 Room Air 08/13/23 11:00 Room Air 08/13/23 10:16 86 149/59 H 92 L Room Air 08/13/23 09:00 Room Air Intake and Output 08/13/23 08/14/23 08/14/23 19:59 03:59 11:59 Intake Total 295 / 295 Output Total 0 / 0 0 / 0 Balance 0 / 295 295 / 295 Intake: Intake, Oral Amount 240 / 240 Intake, Other Amount 25 / 25 Intake, Total IV Amount 30 / 30 0.9 % Sodium Chloride 1000ML 1, 30 / 30 000 ml @ 150 mls/hr IV .[id number] [facility] Rx#:[id number] Output: Output, Urine Amount 0 / 0 0 / 0 Other: Intake, Other Source Saline Solution Number of Unmeasured Voids 1 1 Number of Bowel Movements 1 Weight 279 lb 9 oz Patient Weight 08/14/23 11:59 Weight 279 lb 9 oz Laboratory Results - last 24 hr 08/14/23 06:43: WBC 4.2 L, RBC 3.81 L, Hgb 11.8 L, Hct 37.2, MCV 97.5, MCH 30.9, MCHC 31.7 L, RDW 15.9, Plt Count 269 D, MPV 8.0, Neut % (Auto) 51.9, Lymph % (Auto) 29.4, Hamblen % (Auto) 11.4 H, Eos % (Auto) 6.4, Baso % (Auto) 0.8, Neut # (Auto) 2.2, Lymph # (Auto) 1.3, Hamblen # (Auto) 0.5, Eos # (Auto) 0.3, Baso # (Auto) 0.0, Sodium 130 L, Potassium 3.7, Chloride 106, Carbon Dioxide 18 L, Anion Gap 9.7, BUN < 2 L, Creatinine 1.00, Estimated Creat Clear 56, Estimated GFR 57 L, Est GFR ( Amer) 68, Glucose 82, Calcium 8.3 L I & O for Labs for Last 24 Hours: Intake & Output 08/11/23 08/12/23 08/13/23 08/14/23 11:59 11:59 11:59 11:59 Intake Total 3132 / 3132 2229 / 2229 2570 / 2570 295 / 295 Output Total 0 / 0 0 / 0 250 / 250 0 / 0 Balance 3132 / 3132 2229 / 2229 2320 / 2320 295 / 295 Weight 250 lb 0.067 oz 262 lb 6.4 oz 271 lb 3.2 oz 279 lb 9 oz Constitutional: Present no acute distress ENT: Present mucous membranes dry Respiratory: Present CTA bilaterally (Anteriorly and posteriorly) Cardiac: Present Reg Rate and Rhythm GI: Present soft and normal bowel sounds; Absent tenderness Extremities: Present edema (Trace bilateral lower extremities); Absent tenderness Skin: Present dry (And warm) Neuro: Present alert and oriented x 3 Assessment and Plan *Assessment and plan (1) Nausea & vomiting: Status: Acute Qualifiers: Vomiting type: unspecified Qualified Code(s): R11.2 - Nausea with vomiting, unspecified Category: Medical Code(s): R11.2 - Nausea with vomiting, unspecified (2) Acute hyponatremia: Status: Acute Category: Medical Code(s): E87.1 - Hypo-osmolality and hyponatremia (3) Kidney dysfunction: Status: Acute Category: Medical Code(s): N28.9 - Disorder of kidney and ureter, unspecified (4) Hypothyroid: Status: Acute Qualifiers: Hypothyroidism type: unspecified Qualified Code(s): E03.9 - Hypothyroidism, unspecified Category: Medical Code(s): E03.9 - Hypothyroidism, unspecified (5) GERD (gastroesophageal reflux disease): Status: Acute Qualifiers: Esophagitis presence: esophagitis presence not specified Qualified Code(s): K21.9 - Gastro-esophageal reflux disease without esophagitis Category: Medical Code(s): K21.9 - Gastro-esophageal reflux disease without esophagitis (6) COPD (chronic obstructive pulmonary disease): Status: Acute Qualifiers: COPD type: unspecified COPD Qualified Code(s): J44.9 - Chronic obstructive pulmonary disease, unspecified Category: Medical Code(s): J44.9 - Chronic obstructive pulmonary disease, unspecified (7) Hypotension: Status: Acute Category: Medical Code(s): I95.9 - Hypotension, unspecified (8) Anemia: Status: Acute Category: Medical Code(s): D64.9 - Anemia, unspecified Plan Sodium is still low. I have spoken with her nurse and they will go ahead and give the midodrine as her blood pressure is low. Patient is unable to eat or drink anything but water. Will discuss with Dr. Quiroga. Dr. Quiroga entry - Saw patient, agree with above note. She has not improved, stool sample is pending, plan to check MRI of brain due to history of lung cancer. Will give 1 liter of NS today.
--- NOTE | 2023-08-14 08:47 | PC.NURSE ---
PRN given for nausea, patient with c/o SOB while ambulating to the restroom. Continues with 1L NC while in bed, denies any pain or discomfort. Educated on using the call light and not ambulating alone
--- NOTE | 2023-08-14 10:02 | MR_ITS ---
FINAL REPORT TECHNIQUE: Multiplanar MR, without and with gadolinium enhancement CLINICAL HISTORY: Nausea/vomiting, h/o lung cancer FINDINGS: Moderate motion artifact is noted. Diffusion sequences show no signal abnormality to indicate acute infarct. No mass, hemorrhage or edema is seen. Ventricles are normal. Major vascular flow voids are intact. Following contrast administration, no mass or abnormal enhancement is seen. IMPRESSION: Grossly unremarkable MR evaluation of the brain. Reviewed, Interpreted and Dictated by Pedrito Felix MD Transcribed by Alka Jean-Baptiste Authenticated and [facility]
[2023-08-14] MEDS: 0.9 % SODIUM CHLORIDE 1000ML 1,000 ML 250 ML IV (10:11)
[2023-08-14] MEDS: GADOTERIDOL INJ 17ML SYRINGE 20 ML IV (11:32)
[2023-08-14 11:43] VITALS: BP 115/44; PULSE 77; RESP 18; TEMP 36.4; O2SAT 92
--- NOTE | 2023-08-14 15:51 | DIET.NUTRFU ---
Addendum entered by Adenike Javed RD, LD 08/14/23 16:21: RD reviewed hospital records and patient was in ER 07/18 for nausea also +COVID and was sent home with medication mgt. It was also indicated in the chart she has had multiple hospital admits since March last year, intubated and had received chemo also. Reviewed wt hx: prior to this admit wt had been stable 118-122kg, upon admit was 108kg and now is up to 126kg. She has IV bolus tx on 08/11-08/14. Urine out is not being monitored, no cardiac hx on file. Will continue to monitor diet tolerance. Original Note: RD saw patient today to review meal intake. She has been refusing multiple meals. She continues to report nausea, zofran ordered. Nursing reported she only requested it once at 6am and none on 08/13. This RD suggested to take some prior to dinner coming so it may help increase her meal intake. Reviewed plan with nursing. RD reviewed clear liquids choices with patient and she does not want to try anything, she claims she dislikes broth and did not want gingerale. She claims she has not eaten anything but liquids since July 06, suggested to start supplement when diet is tolerated. reported some diarrhea yesterday, nothing today. will continue to monitor meal intake
[2023-08-14 16:00] VITALS: BP 97/54; PULSE 78; RESP 18; TEMP 36.6; O2SAT 97
--- NOTE | 2023-08-14 17:14 | PC.NURSE ---
Patient is alert and oriented. Has slept some this shift, was awake more than yesterday watching TV. Refuses everything on her meal trays. Will drink water but states she does not like broth. No episodes of vomiting or diarrhea. Will get up and use the toilet with help.
[2023-08-14 20:00] VITALS: BP 90/41; PULSE 75; RESP 18; TEMP 36.5; O2SAT 92
[2023-08-14] MEDS: PANTOPRAZOLE 40MG TABLET 40 MG PO (21:26)
[2023-08-15] VITALS (10 sets, daily range): BP systolic 81–106; BP diastolic 47–61; PULSE 72–78; RESP 18–22; TEMP 36.5–36.9; O2SAT 90–99; BMI 44.9
[2023-08-15] MEDS: IPRATROPIUM/ALBUTEROL 3 ML NEB IH ×4 (01:24→19:12)
--- NOTE | 2023-08-15 05:24 | PC.NURSE ---
PATIENT WEAK. GAIT UNSTEADY. REQUIRED 2 ASSIST TO BR. NO C/O NAUSEA OR VOMITING. 02 SATS ON ROOM AIR AT MN WAS 83%. PLACED ON 2LNC. SAT WENT UP TO 96%.
[2023-08-15] MEDS: LEVOTHYROXINE 100MCG (0.1MG) TAB 100 MCG PO (06:10)
[2023-08-15] MEDS: MIDODRINE HCL 5 MG TABLET 10 MG PO ×3 (07:41→20:36)
[2023-08-15] MEDS: CITALOPRAM 40MG TABLET 40 MG PO (07:41)
[2023-08-15] MEDS: ENOXAPARIN 40MG/0.4ML SYRINGE 40 MG SQ ×2 (07:41→20:36)
--- NOTE | 2023-08-15 08:57 | EXP.ACUTE.PN ---
Subjective *Date: 08/15/23 *Time: 09:14 Interval history: Patient states she still feels poorly today. She cannot eat or drink. She has vomited this am. Had diarrhea yesterday. Now is wheezing. She states she got a breathing treatment and it helped slightly. Medical Exam Vital signs and Labs for Last 24 Hours: Vital Signs Temp Pulse Resp BP Pulse Ox O2 Del Method O2 Flow Rate 08/15/23 08:00 98.2 F 78 22 88/47 L 95 Nasal Cannula 2 08/15/23 07:45 Nasal Cannula 2 08/15/23 07:34 Nasal Cannula 2 08/15/23 04:00 97.7 F 76 18 106/53 L 99 Nasal Cannula 2 08/15/23 06:26 Nasal Cannula 2 08/15/23 04:41 Nasal Cannula 2 08/15/23 03:00 Nasal Cannula 2 08/14/23 23:55 Nasal Cannula 2 08/15/23 01:00 Nasal Cannula 2 08/15/23 00:00 98.0 F 75 18 81/61 L 94 L Nasal Cannula 2 08/14/23 23:00 Room Air 08/14/23 21:00 Room Air 08/14/23 20:00 92 L Room Air 08/14/23 20:00 97.7 F 75 18 90/41 L 92 L Room Air 08/14/23 19:00 Nasal Cannula 2 08/14/23 17:00 Nasal Cannula 2 08/14/23 16:00 97.9 F 78 18 97/54 L 97 Nasal Cannula 2 08/14/23 14:05 Room Air 08/14/23 13:00 Room Air 08/14/23 11:43 97.5 F L 77 18 115/44 L 92 L Nasal Cannula 2 08/14/23 10:58 Nasal Cannula 08/14/23 09:00 Nasal Cannula 1 Intake and Output 08/14/23 08/15/23 08/15/23 19:59 03:59 11:59 Intake Total 30 / 270 240 / 270 Output Total 0 2 Balance 268 239 / 268 - Intake: Intake, Oral Amount 30 / 270 240 / 270 Output: Output, Urine Amount 0 2 2 Other: Number of Unmeasured Voids 2 1 1 Weight 279 lb 8.985 oz Patient Weight 08/15/23 11:59 Weight 279 lb 8.985 oz I & O for Labs for Last 24 Hours: Intake & Output 08/12/23 08/13/23 08/14/23 08/15/23 11:59 11:59 11:59 11:59 Intake Total 2229 / 2229 2570 / 2570 295 / 295 270 / 270 Output Total 0 / 0 250 / 250 0 / 0 2 / 2 Balance 2229 / 2229 2320 / 2320 295 / 295 268 / 268 Weight 262 lb 6.4 oz 271 lb 3.2 oz 279 lb 9 oz 279 lb 8.985 oz Constitutional: Present no acute distress ENT: Present mucous membranes dry Respiratory: Present rhonchi and wheezes (throughout) Cardiac: Present Reg Rate and Rhythm GI: Present soft and normal bowel sounds; Absent tenderness Extremities: Present edema (Trace bilateral lower extremities); Absent tenderness Skin: Present dry (And warm) Neuro: Present alert and oriented x 3 Assessment and Plan *Assessment and plan (1) Nausea & vomiting: Status: Acute Qualifiers: Vomiting type: unspecified Qualified Code(s): R11.2 - Nausea with vomiting, unspecified Category: Medical Code(s): R11.2 - Nausea with vomiting, unspecified (2) Acute hyponatremia: Status: Acute Category: Medical Code(s): E87.1 - Hypo-osmolality and hyponatremia (3) Kidney dysfunction: Status: Acute Category: Medical Code(s): N28.9 - Disorder of kidney and ureter, unspecified (4) Hypothyroid: Status: Acute Qualifiers: Hypothyroidism type: unspecified Qualified Code(s): E03.9 - Hypothyroidism, unspecified Category: Medical Code(s): E03.9 - Hypothyroidism, unspecified (5) GERD (gastroesophageal reflux disease): Status: Acute Qualifiers: Esophagitis presence: esophagitis presence not specified Qualified Code(s): K21.9 - Gastro-esophageal reflux disease without esophagitis Category: Medical Code(s): K21.9 - Gastro-esophageal reflux disease without esophagitis (6) COPD (chronic obstructive pulmonary disease): Status: Acute Qualifiers: COPD type: unspecified COPD Qualified Code(s): J44.9 - Chronic obstructive pulmonary disease, unspecified Category: Medical Code(s): J44.9 - Chronic obstructive pulmonary disease, unspecified (7) Hypotension: Status: Acute Category: Medical Code(s): I95.9 - Hypotension, unspecified (8) Anemia: Status: Acute Category: Medical Code(s): D64.9 - Anemia, unspecified Plan Will get labs this am. Stool panel pending. Patient is wheezing this am and is more swollen. Will get a CXR and schedule her nebs. She is still not eating and drinking. Will likely need GI input. Dr. Quiroga entry - Saw patient, agree with above note. Schedule Zofran, have PT/OT see patient.
--- NOTE | 2023-08-15 09:06 | XR_ITS ---
FINAL REPORT TECHNIQUE: Single view chest CLINICAL HISTORY: wheezing, SOA COMPARISON: 08/09/2023 FINDINGS: A single view of the chest was obtained. The heart and mediastinum are within normal limits. There is mild increased density at the right lung base likely due to atelectasis and scarring. There is no definite pneumonia. Left chest port is stable. There is no pneumothorax. Osseous structures are unremarkable. IMPRESSION: Mild right base scarring and presumed worsening atelectasis. Reviewed, Interpreted and Dictated by Pedrito Felix MD Transcribed by Melissa Bay Authenticated and [facility]
--- NOTE | 2023-08-15 09:26 | DIET.NUTRFU ---
RD reviewed poor po intake with provider during rounds. She continues to refuse clear liquid diet reports nausea and can only tolerate water. She is weak and nutritionally depleted. She has not been requesting the zofran even though she reports that the only thing that works. Provider scheduled zofran. Wt continues to increase at 126kg, possibly d/t IVF, provider noted increased swelling today, chest X-ray ordered. Labs also reordered, Na was down to 130 yesterday. Diarrhea noted on 08/13, waiting for diarrhea panel. Will continue to follow, increased risk for PCM due poor po intake for extended length of time.
[2023-08-15] MEDS: ONDANSETRON 4MG/2ML VIAL 4 MG IV ×2 (09:32→16:57)
[2023-08-15 09:42] LABS: Eosinophils # 0.3 K/mm3 (0.0-0.4); Eosinophils % 6.8 % (0.1-12.0); Hematocrit 36.5 % (37.0-47.0); Hemoglobin 11.5 g/dL (12.2-16.2); Lymphocytes % 22.7 % (10-50); Mean Corpuscular HGB Conc 31.4 g/dL (31.8-35.4); Mean Corpuscular Hemoglobin 30.6 pg (27.0-31.2); Mean Corpuscular Volume 97.5 fl (81-99); Mean Platelet Volume 7.7 fl (7.4-10.4); Monocytes # 0.4 K/mm3 (0.1-1.0); Monocytes % 8.6 % (1.7-9.3); Neutrophils # 2.8 K/mm3 (1.8-7.8); Neutrophils % 60.9 % (37.0-80.0); Platelet Count 300 K/mm3 (142-424); Red Blood Count 3.75 M/mm3 (4.20-5.40); Red Cell Distribution Width 16.2 % (11.5-17.5); White Blood Count 4.6 K/mm3 (4.8-10.8)
[2023-08-15 09:50] LABS: Chloride 104 mmol/L (98-107); Potassium 3.8 mmoL/L (3.5-5.1); Sodium 129 mmol/L (136-145)
[2023-08-15 09:53] LABS: Alanine Aminotransferase 24 U/L (12-78); Albumin Level 2.5 g/dl (3.5-5.0); Alkaline Phosphatase 114 U/L (38-126); Anion Gap 10.8 mEq/L (5-15); Aspartate Amino Transferase 78 U/L (14-36); Calcium 8.6 mg/dl (8.4-10.2); Carbon Dioxide 18 mmol/L (22.0-30.0); Creatinine Clearance Estimated 56 mL/min (50-200); Estimated Glomerular Filt Rate 57 ml/min (>60); GFR (African American) 68 ML/MIN (>60); Globulin 2.5 g/dL (1.3-3.2); Glucose 87 mg/dl (74-100)
--- NOTE | 2023-08-15 09:53 | HMH.PTEV ---
Physical Therapy Evaluation Rehab PT IP Evaluation Start: 08/15/23 09:14 Freq: ONCE Status: Active Protocol: Document 08/15/23 09:43 JOHN (Rec: 08/15/23 09:53 JOHN [email or web address]) Subjective/History History History Per H&P: Ms. Juárez is a 62 year old female who presented to [facility] ER yesterday complaining of persistent nausea and vomiting . She states the emesis mainly consists of liquid, she denies bloody emesis. She has been unable to eat much at all for the last few weeks. She has been having symptoms for about the past 6 weeks. She has already had 2 hospital admissions, once at [facility] and once at [facility] for this problem. RUQ ultrasound showed a distended gallbladder with sludge, HIDA scan was normal. Protonix has not helped her at all. Patient was diagnosed with lung cancer about a year ago and underwent a lobectomy and chemotherapy. In April of 2023 she had a significant pneumonia and had to intubated x 4 days during treatment at [facility]. Subjective Subjective Pt reports she lives with her son in a single-story home. Pt reports she was IND with ADLs and functional mobility prior to admission. Pt denies use of AD for ambulation and reports she was not driving. New diagnosis of cancer in past 12 No months? Rehab PT IP Eval Objective Appearance Patient Behavior Appropriate Patient Orientation Person,Place,Birthday Speech Pattern Clear Ambulation Patient Able to Ambulate No Transfers Sit to Stand Bed Transfer Ability Maximum x 2 (75% assist) Rehab PT IP prob,goals,plan Problems Date of Evaluation: 08/15/23 PT IP Problems Bed Mobility,Transfers,Gait, Balance,Self care,Safety Rehab Potential Rehab Potential Good Equipment Needs Assistive Devices Rolling / Wheeled Walker Plan PT Intervention Plan Bed Mobility,Transfers,Gait, Balance,Self care,Safety, Therapeutic Exercise Other Intervention Plan 1-2 times PT Plan Frequency Daily Duration LOS Discharge Goals Sit to Stand Chair Transfer Ability Maximum x 1 (75% assist) Ambulation Assistive Device Rolling Walker Ambulation Distance (feet) 5 Discharge Plan PT Discharge Plan Pt not safe to return home d/t current level of functional mobility. PT recommending placement in short-term rehabilitation upon d/c when deemed medically necessary. Pt would benefit from skilled PT while at [facility] to address deficits and prevent further functional decline. Eval Complexity Eval Charge Codes 62413 - High Complexity PHYSICIAN CERTIFICATION: I certify the specified therapy services for Susana Susan Juárez are required, authorized, and reviewed every 30 days.
[2023-08-15 10:03] LABS: Blood Urea Nitrogen < 2 mg/dl (7-17)
--- NOTE | 2023-08-15 10:25 | HMH.OTEV ---
OT Inpatient Evaluation Rehab OT IP Evaluation Start: 08/15/23 09:15 Freq: ONCE Status: Active Protocol: Document 08/15/23 10:21 ARSLAKE TOMAHAWK (Rec: 08/15/23 10:25 [facility] [id number]) Rehab OT IP Assessment Subjective History Pt oriented x 3 on arrival and agreeable to engage in therapy evaluation. Pt admitted on 08/09/23 due to Hyponatremia Per H&P: Ms. Juárez is a 62 year old female who presented to [facility] ER yesterday complaining of persistent nausea and vomiting . She states the emesis mainly consists of liquid, she denies bloody emesis. She has been unable to eat much at all for the last few weeks. She has been having symptoms for about the past 6 weeks. She has already had 2 hospital admissions, once at [place] [facility] and once at [facility] for this problem. RUQ ultrasound showed a distended gallbladder with sludge, HIDA scan was normal. Protonix has not helped her at all. Patient was diagnosed with lung cancer about a year ago and underwent a lobectomy and chemotherapy. In April of 2023 she had a significant pneumonia and had to intubated x 4 days during treatment at [place] [facility]. Subjective Pt reports she lives with her son in a single-story home. Pt reports she was IND with ADLs and functional mobility prior to admission. Pt also claims to be independent with all IADLS such as cleaning, cooking, laundry, etc. Pt denies use of AD for ambulation and reports she was not driving. Objective Patient Orientation Person,Place,Birthday Right Upper Extremity Gross ROM Mod Limitation 50% Left Upper Extremity Gross ROM Mod Limitation 50% Shoulder ROM Limitations Muscle Weakness Elbow ROM Limitations Muscle Weakness Wrist Limitations of Range of Motion Muscle Weakness Transfer Training Sit/Stand Transfer Assist Level Maximum x 2 (75% assist) Rehab OT IP prob,goals,plan Problems Date of Evaluation: 08/15/23 OT IP Problems Bed Mobility,Transfers,Balance ,Self care,Safety Rehab Potential Rehab Potential Good Equipment Needs Assistive Devices Rolling / Wheeled Walker Plan OT intervention Plan Bed Mobility,Transfers,Balance ,Self care,Safety,Therapeutic Exercise OT Plan Frequency BID Duration LOS Discharge Goals Bed Mobility Ability Assistance x1 Sit to Stand Chair Transfer Ability Moderate x 2 (50% assist) Chair Transfer Ability Moderate x 2 (50% assist) Chair Transfer Technique Sit to/from Ambulatory Chair Transfer Assistive Devices Rolling Walker Feeding Ability Assist with Tray Set Up Lower Body Dressing Ability Moderate Assistance Upper Body Dressing Ability Minimal Assistance Bathing Ability Moderate Assistance Performing Toilet Hygiene Ability Moderate Assistance Overall Commode/Toilet Transfer Ability Moderate Assistance Commode/Toilet Transfer Technique Sit to/from Ambulatory Commode/Toilet Transfer Assistive Raised Toilet Seat,Grab Bars Devices Oral Care Assist Minimal Assistance Decrease in Endurance Yes Discharge Plan OT Discharge Plan Pt will continue to be seen for OT services while at [facility]. Pt would benefit most from short term rehab at SNF following discharge from [facility]. Continued skilled therapy is important in order for patient to improve strength, safety, endurance, ADL independence, and functional transfers to reach PLOF. Eval Complexity Eval Charge Codes 28519 - Moderate Complexity PHYSICIAN CERTIFICATION: I certify the specified therapy services for Susana Juárez are required, authorized, and reviewed every 30 days.
--- NOTE | 2023-08-15 11:23 | CARE MANAGER ---
Addendum entered by [facility] 08/22/23 16:06: Discharge fax number is [phone] Room [id number] Addendum entered by [facility] 08/22/23 16:05: Per Yamilka jolley/ [facility] this patient is approved SNF level of care once medically stable for discharge. I have relayed information to nursing staff. Addendum entered by [facility] 08/22/23 09:32: Patient/family are agreeable for information to be faxed to [facility] in [facility] (fax [phone]). Information will be faxed today and [facility] stated that precert is still pending at this time. Addendum entered by [facility] 08/21/23 09:46: I have updated patient that precert is still pending at this time. Abimael is still agreeable to placement at [facility]. Addendum entered by [facility] 08/19/23 14:52[facility]. Addendum entered by [facility] 08/19/23 11:23: [facility] has now denied this patient due to insurance. Patient is agreeable for information to be faxed to [facility]. Addendum entered by [facility] 08/18/23 07:34: Updated patient information has been faxed to [facility] w/ [facility] this AM. Precert is still pending at this time. Addendum entered by [facility] 08/15/23 14:14: [facility] stated that she can start precert for this patient: patient is agreeable. I have updated other facilities. Addendum entered by [facility] 08/15/23 13:04: [facility] is unable to meet patient's needs. The following facilities are reviewing information: [facility], [facility] and [facility]. Original Note: Per PT/OT evals this morning, patient will benefit from skilled therapy following discharge. I spoke with patient at bedside and she is agreeable for discharge to a SNF. Patient Choice has been signed for [facility] and [facility] is faxing information to those facilities and will continue to follow.
--- NOTE | 2023-08-15 15:45 | PC.NURSE ---
pt is weak and unsteady. assist times 2 to the restroom. no complaints of nausea or pain. on nc sats in the 90's.
[2023-08-15] MEDS: PANTOPRAZOLE 40MG TABLET 40 MG PO (20:36)
--- NOTE | 2023-08-15 22:29 | PC.NURSE ---
rounded on pt at 1999. pt refused bath. no other needs at that time
[2023-08-16] VITALS (11 sets, daily range): BP systolic 83–106; BP diastolic 42–57; PULSE 71–79; RESP 16–20; TEMP 36.3–36.9; O2SAT 90–100; BMI 44.4
--- NOTE | 2023-08-16 00:17 | PC.NURSE ---
HELP PT TO BATHROOM AT THIS TIME
--- NOTE | 2023-08-16 02:45 | PC.NURSE ---
IV ZOFRAN HELD AT 0100 PATIENT RESTING WELL. VERY WEAK. AMBULATES TO BR WITH ROLLING WALKER AND ASSIST X 2. PLACED BACK ON 02 2LNC WHEN RETURNED TO BED. WHEEZING AND SOB. NO REPORTS OF N/V. NO C/O PAIN.
[2023-08-16] MEDS: IPRATROPIUM/ALBUTEROL 3 ML NEB IH ×4 (06:05→20:04)
[2023-08-16] MEDS: LEVOTHYROXINE 100MCG (0.1MG) TAB 100 MCG PO (06:07)
--- NOTE | 2023-08-16 09:26 | EXP.ACUTE.PN ---
Subjective *Date: 08/16/23 *Time: 09:26 Interval history: Patient states she feels a little better this morning, no vomiting over night. Medical Exam Vital signs and Labs for Last 24 Hours: Vital Signs Temp Pulse Pulse Resp BP Pulse Ox O2 Del Method 08/16/23 08:00 97.4 F L 78 18 100/42 L 91 L Room Air 08/16/23 06:42 Nasal Cannula 08/16/23 06:05 75 08/16/23 06:05 72 08/16/23 06:05 100 Nasal Cannula 08/16/23 05:00 Nasal Cannula 08/16/23 04:00 97.4 F L 75 20 106/57 L 100 Nasal Cannula 08/16/23 03:00 Room Air 08/16/23 01:00 Nasal Cannula 08/16/23 00:00 98.4 F 76 18 94/55 L 90 L Nasal Cannula 08/15/23 23:00 Nasal Cannula 08/15/23 21:00 Room Air 08/15/23 20:00 90 L Room Air 08/15/23 19:58 98.3 F 75 18 92/51 L 90 L Room Air 08/15/23 19:13 77 08/15/23 19:13 77 08/15/23 16:00 Room Air 08/15/23 18:57 Nasal Cannula 08/15/23 16:00 98.2 F 78 20 104/54 L 92 L Room Air 08/15/23 16:28 Nasal Cannula 08/15/23 14:04 Nasal Cannula 08/15/23 13:19 74 08/15/23 13:19 75 08/15/23 12:01 Nasal Cannula 08/15/23 11:47 98.5 F 76 20 93/51 L 92 L Room Air 08/15/23 10:25 72 08/15/23 10:25 76 08/15/23 09:47 Nasal Cannula O2 Flow Rate 08/16/23 08:00 08/16/23 06:42 2 08/16/23 06:05 08/16/23 06:05 08/16/23 06:05 2 08/16/23 05:00 2 08/16/23 04:00 2 08/16/23 03:00 08/16/23 01:00 2 08/16/23 00:00 2 08/15/23 23:00 2 08/15/23 21:00 08/15/23 20:00 08/15/23 19:58 08/15/23 19:13 08/15/23 19:13 08/15/23 16:00 08/15/23 18:57 2 08/15/23 16:00 08/15/23 16:28 2 08/15/23 14:04 2 08/15/23 13:19 08/15/23 13:19 08/15/23 12:01 2 08/15/23 11:47 08/15/23 10:25 08/15/23 10:25 08/15/23 09:47 2 Intake and Output 08/15/23 08/16/23 08/16/23 23:59 07:59 15:59 Intake Total 180 / 780 240 / 240 Output Total 1 / 3 0 / 0 Balance 179 / 777 240 / 240 Intake: Intake, Oral Amount 180 / 780 240 / 240 Output: Output, Urine Amount 1 / 3 0 / 0 Other: Number of Unmeasured Voids 1 1 Number of Bowel Movements 1 1 Weight 276 lb 4.8 oz Patient Weight 08/16/23 23:59 Weight 276 lb 4.8 oz Laboratory Results - last 24 hr 08/13/23 10:34: Stl Aeromonas (PCR) Not detected, Stl C. cayetanensis PCR Not detected, Stool Rotavirus (PCR) Not detected, Stl Adenov F 40/41 PCR Not detected, Stool Astrovirus (PCR) Not detected, Stool Campylobacter PCR Not detected, Stl C.difficile Tox PCR Not detected, Stool Cryptosporidium PCR Not detected, Stl E.coli Shiga Tox PCR Not detected, Stool E coli O157 PCR TNP, Stl Enterotoxigenic E PCR Not detected, Stool EPEC (PCR) Not detected, Stool EAEC (PCR) Not detected, Stl E. histolytica PCR Not detected, Stool Giardia Lamblia PCR Not detected, Stool Salmonella PCR Not detected, Stool Sapovirus (PCR) Not detected, Stl P. shigelloides PCR Not detected, Stl Shigella/EIEC PCR Not detected, St Y.enterocolitica PCR Not detected, Stool Vibrio (PCR) Not detected, Stl Vibrio cholerae PCR Not detected, Stl Norovirus GI/GII PCR Not detected 08/15/23 09:28: WBC 4.6 L, RBC 3.75 L, Hgb 11.5 L, Hct 36.5 L, MCV 97.5, MCH 30.6, MCHC 31.4 L, RDW 16.2, Plt Count 300, MPV 7.7, Neut % (Auto) 60.9, Lymph % (Auto) 22.7, [place] % (Auto) 8.6, Eos % (Auto) 6.8, Baso % (Auto) 1.0, Neut # (Auto) 2.8, Lymph # (Auto) 1.0, [place] # (Auto) 0.4, Eos # (Auto) 0.3, Baso # (Auto) 0.0, Sodium 129 L, Potassium 3.8, Chloride 104, Carbon Dioxide 18 L, Anion Gap 10.8, BUN < 2 L, Creatinine 1.00, Estimated Creat Clear 56, Estimated GFR 57 L, Est GFR ( Amer) 68, Glucose 87, Calcium 8.6, Total Bilirubin 1.0, AST 78 H, ALT 24, Alkaline Phosphatase 114, Total Protein 5.0 L D, Albumin 2.5 L, Globulin 2.5, Albumin/Globulin Ratio 1.0 L I & O for Labs for Last 24 Hours: Intake & Output 08/13/23 08/14/23 08/15/23 08/16/23 23:59 23:59 23:59 23:59 Intake Total 1775 / 1775 30 / 270 540 / 780 240 / 240 Output Total 0 / 0 0 / 0 3 / 3 0 / 0 Balance 1775 / 1775 30 / 270 537 / 777 240 / 240 Weight 271 lb 3.2 oz 279 lb 9 oz 279 lb 8.985 oz 276 lb 4.8 oz Constitutional: Present no acute distress ENT: Present mucous membranes dry Respiratory: Present rhonchi and wheezes (few) Cardiac: Present Reg Rate and Rhythm GI: Present soft and normal bowel sounds; Absent tenderness Extremities: Present edema (Trace bilateral lower extremities); Absent tenderness Skin: Present dry (And warm) Neuro: Present alert and oriented x 3 Assessment and Plan *Assessment and plan (1) Nausea & vomiting: Status: Acute Qualifiers: Vomiting type: unspecified Qualified Code(s): R11.2 - Nausea with vomiting, unspecified Category: Medical Code(s): R11.2 - Nausea with vomiting, unspecified (2) Acute hyponatremia: Status: Acute Category: Medical Code(s): E87.1 - Hypo-osmolality and hyponatremia (3) Kidney dysfunction: Status: Acute Category: Medical Code(s): N28.9 - Disorder of kidney and ureter, unspecified (4) Hypothyroid: Status: Acute Qualifiers: Hypothyroidism type: unspecified Qualified Code(s): E03.9 - Hypothyroidism, unspecified Category: Medical Code(s): E03.9 - Hypothyroidism, unspecified (5) GERD (gastroesophageal reflux disease): Status: Acute Qualifiers: Esophagitis presence: esophagitis presence not specified Qualified Code(s): K21.9 - Gastro-esophageal reflux disease without esophagitis Category: Medical Code(s): K21.9 - Gastro-esophageal reflux disease without esophagitis (6) COPD (chronic obstructive pulmonary disease): Status: Acute Qualifiers: COPD type: unspecified COPD Qualified Code(s): J44.9 - Chronic obstructive pulmonary disease, unspecified Category: Medical Code(s): J44.9 - Chronic obstructive pulmonary disease, unspecified (7) Hypotension: Status: Acute Category: Medical Code(s): I95.9 - Hypotension, unspecified (8) Anemia: Status: Acute Category: Medical Code(s): D64.9 - Anemia, unspecified Plan It appears as if patient is going to need short term placement due to her current weakness and difficulty ambulating. Care management has been consulted, continue Zofran every 8 hours.
[2023-08-16] MEDS: CITALOPRAM 40MG TABLET 40 MG PO (09:31)
[2023-08-16] MEDS: MIDODRINE HCL 5 MG TABLET 10 MG PO ×3 (09:31→21:34)
[2023-08-16] MEDS: ENOXAPARIN 40MG/0.4ML SYRINGE 40 MG SQ ×2 (09:31→21:34)
[2023-08-16] MEDS: ONDANSETRON 4MG/2ML VIAL 4 MG IV ×2 (09:31→17:22)
--- NOTE | 2023-08-16 18:17 | PC.NURSE ---
patient a&ox4. Patient got up to bed side commode with staff assistamce. Patient continues to have decreased blood pressures yet is asymptomatic. Patient has no c/o pain
[2023-08-16] MEDS: PANTOPRAZOLE 40MG TABLET 40 MG PO (21:34)
[2023-08-17] VITALS (11 sets, daily range): BP systolic 101–123; BP diastolic 45–60; PULSE 71–89; RESP 16–22; TEMP 36.4–36.8; O2SAT 89–99; BMI 44.3
[2023-08-17] MEDS: ONDANSETRON 4MG/2ML VIAL 4 MG IV (02:13)
[2023-08-17] MEDS: IPRATROPIUM/ALBUTEROL 3 ML NEB IH ×4 (06:10→20:43)
[2023-08-17] MEDS: LEVOTHYROXINE 100MCG (0.1MG) TAB 100 MCG PO (06:47)
--- NOTE | 2023-08-17 08:17 | EXP.ACUTE.PN ---
Subjective *Date: 08/17/23 *Time: 08:17 Interval history: Patient feels a little better today, does have some sore throat today. Medical Exam Vital signs and Labs for Last 24 Hours: Vital Signs Temp Pulse Pulse Resp BP Pulse Ox O2 Del Method 08/17/23 07:58 98.3 F 72 20 102/57 L 96 Nasal Cannula 08/17/23 06:10 72 08/17/23 06:10 75 08/17/23 06:10 90 L Nasal Cannula 08/17/23 05:00 Nasal Cannula 08/17/23 04:00 97.6 F 76 18 103/55 L 98 Nasal Cannula 08/17/23 03:00 Nasal Cannula 08/17/23 01:00 Nasal Cannula 08/17/23 00:00 99 Nasal Cannula 08/16/23 23:00 Nasal Cannula 08/16/23 21:00 Room Air 08/17/23 00:00 97.7 F 76 22 106/50 L 96 Nasal Cannula 08/16/23 20:00 97.7 F 76 20 101/48 L 91 L Room Air 08/16/23 20:05 72 08/16/23 20:04 71 08/16/23 15:41 98.4 F 79 16 85/54 L 91 L Room Air 08/16/23 14:03 75 08/16/23 14:03 71 08/16/23 11:51 97.6 F 74 16 83/55 L 91 L Room Air 08/16/23 10:10 74 08/16/23 10:10 71 08/16/23 10:10 96 Room Air O2 Flow Rate 08/17/23 07:58 2 08/17/23 06:10 08/17/23 06:10 08/17/23 06:10 2 08/17/23 05:00 2 08/17/23 04:00 08/17/23 03:00 2 08/17/23 01:00 2 08/17/23 00:00 2 08/16/23 23:00 2 08/16/23 21:00 08/17/23 00:00 08/16/23 20:00 08/16/23 20:05 08/16/23 20:04 08/16/23 15:41 08/16/23 14:03 08/16/23 14:03 08/16/23 11:51 08/16/23 10:10 08/16/23 10:10 08/16/23 10:10 Intake and Output 08/16/23 08/17/23 08/17/23 23:59 07:59 15:59 Intake Total 0 / 940 220 / 390 170 / 390 Output Total 0 / 50 0 / 0 Balance 0 / 890 220 / 390 170 / 390 Intake: Intake, Oral Amount 0 / 940 220 / 390 170 / 390 Output: Output, Urine Amount 0 / 50 0 / 0 Other: Number of Unmeasured Voids 1 1 Number of Bowel Movements 1 Weight 276 lb Patient Weight 08/17/23 23:59 Weight 276 lb I & O for Labs for Last 24 Hours: Intake & Output 08/14/23 08/15/23 08/16/23 08/17/23 23:59 23:59 23:59 23:59 Intake Total 30 270 540 / 780 720 / 940 390 / 390 Output Total 0 / 0 3 / 3 50 / 50 0 / 0 Balance 30 270 537 / 777 670 / 890 390 / 390 Weight 279 lb 9 oz 279 lb 8.985 oz 276 lb 4.8 oz 276 lb Constitutional: Present no acute distress ENT: Present mucous membranes dry Comment:: post redness in the posterior oropharynx Respiratory: Present rhonchi Cardiac: Present Reg Rate and Rhythm GI: Present soft and normal bowel sounds; Absent tenderness Extremities: Present edema (Trace bilateral lower extremities); Absent tenderness Skin: Present dry (And warm) Neuro: Present alert and oriented x 3 Assessment and Plan *Assessment and plan (1) Nausea & vomiting: Status: Acute Qualifiers: Vomiting type: unspecified Qualified Code(s): R11.2 - Nausea with vomiting, unspecified Category: Medical Code(s): R11.2 - Nausea with vomiting, unspecified (2) Acute hyponatremia: Status: Acute Category: Medical Code(s): E87.1 - Hypo-osmolality and hyponatremia (3) Kidney dysfunction: Status: Acute Category: Medical Code(s): N28.9 - Disorder of kidney and ureter, unspecified (4) Hypothyroid: Status: Acute Qualifiers: Hypothyroidism type: unspecified Qualified Code(s): E03.9 - Hypothyroidism, unspecified Category: Medical Code(s): E03.9 - Hypothyroidism, unspecified (5) GERD (gastroesophageal reflux disease): Status: Acute Qualifiers: Esophagitis presence: esophagitis presence not specified Qualified Code(s): K21.9 - Gastro-esophageal reflux disease without esophagitis Category: Medical Code(s): K21.9 - Gastro-esophageal reflux disease without esophagitis (6) COPD (chronic obstructive pulmonary disease): Status: Acute Qualifiers: COPD type: unspecified COPD Qualified Code(s): J44.9 - Chronic obstructive pulmonary disease, unspecified Category: Medical Code(s): J44.9 - Chronic obstructive pulmonary disease, unspecified (7) Hypotension: Status: Acute Category: Medical Code(s): I95.9 - Hypotension, unspecified (8) Anemia: Status: Acute Category: Medical Code(s): D64.9 - Anemia, unspecified Plan Slowly improving, add medication for throat pain.
[2023-08-17] MEDS: CITALOPRAM 40MG TABLET 40 MG PO (10:00)
[2023-08-17] MEDS: MIDODRINE HCL 5 MG TABLET 10 MG PO ×3 (10:00→21:30)
[2023-08-17] MEDS: PHENOL THROAT SPRAY 177 ML BOTTLE MM ×2 (10:00→22:10)
[2023-08-17] MEDS: ENOXAPARIN 40MG/0.4ML SYRINGE 40 MG SQ ×2 (10:00→21:30)
--- NOTE | 2023-08-17 18:37 | PC.NURSE ---
Patient a&ox4 and vss. Patient's BP continuig to run slightly hypotensive, yet is continuing to take midodrine and continuing to improve. Patient continues to refuse to walk with staff or get up
[2023-08-17] MEDS: PANTOPRAZOLE 40MG TABLET 40 MG PO (21:30)
[2023-08-18] VITALS (11 sets, daily range): BP systolic 78–106; BP diastolic 40–56; PULSE 69–88; RESP 16–20; TEMP 36.5–36.8; O2SAT 90–99; BMI 44.4
[2023-08-18] MEDS: PHENOL THROAT SPRAY 177 ML BOTTLE MM (05:43)
[2023-08-18 06:03] LABS: Basophils % 0.5 % (0.1-2.0); Eosinophils # 0.1 K/mm3 (0.0-0.4); Eosinophils % 3.8 % (0.1-12.0); Lymphocytes # 0.9 K/mm3 (0.7-4.5); Lymphocytes % 25.9 % (10-50); Mean Corpuscular HGB Conc 32.2 g/dL (31.8-35.4); Mean Corpuscular Volume 96.3 fl (81-99); Mean Platelet Volume 7.8 fl (7.4-10.4); Monocytes # 0.4 K/mm3 (0.1-1.0); Monocytes % 10.1 % (1.7-9.3); Neutrophils # 2.2 K/mm3 (1.8-7.8); Neutrophils % 59.6 % (37.0-80.0); Platelet Count 194 K/mm3 (142-424); Red Blood Count 3.53 M/mm3 (4.20-5.40); Red Cell Distribution Width 16.1 % (11.5-17.5); White Blood Count 3.6 K/mm3 (4.8-10.8)
[2023-08-18 06:08] LABS: Chloride 104 mmol/L (98-107); Sodium 129 mmol/L (136-145)
[2023-08-18 06:09] LABS: Potassium 3.4 mmoL/L (3.5-5.1)
[2023-08-18 06:11] LABS: Creatinine Clearance Estimated 70 mL/min (50-200); Estimated Glomerular Filt Rate 73 ml/min (>60); GFR (African American) 89 ML/MIN (>60)
[2023-08-18 06:12] LABS: Anion Gap 6.4 mEq/L (5-15); Calcium 8.7 mg/dl (8.4-10.2); Carbon Dioxide 22 mmol/L (22.0-30.0)
[2023-08-18 06:15] LABS: Blood Urea Nitrogen < 2 mg/dl (7-17)
[2023-08-18 06:16] LABS: Glucose 50 mg/dl (74-100)
[2023-08-18] MEDS: IPRATROPIUM/ALBUTEROL 3 ML NEB IH ×4 (06:16→19:08)
--- NOTE | 2023-08-18 06:22 | PC.NURSE ---
Advertising Executive received a call from Lab in r/t a Critic lab value. Glucose is 50. Patient awake when narrative writer entered patient's room. Patient voiced that she feels fine. D50 IV push given at this time per protocol.
[2023-08-18] MEDS: LEVOTHYROXINE 100MCG (0.1MG) TAB 100 MCG PO (06:27)
[2023-08-18] MEDS: DEXTROSE 50% 50ML SYRINGE (CRASH CART) 50 ML IV (06:30)
--- NOTE | 2023-08-18 06:49 | PC.NURSE ---
Addendum entered by Alexandrea Dyer RN 08/18/23 07:16: Fruit Raiser administered the remaining 25mL of D50 via IV at 0650. Patient is laying in bed with eyes open, verbalizes appropriately when asked a question. Skin is pink, warm and dry. Original Note: FSBS 72 at this time.
[2023-08-18 07:00] LABS: POC Glucose,Bedside 72 (70-110)
[2023-08-18] MEDS: CITALOPRAM 40MG TABLET 40 MG PO (08:12)
[2023-08-18] MEDS: ENOXAPARIN 40MG/0.4ML SYRINGE 40 MG SQ ×2 (08:12→21:19)
[2023-08-18] MEDS: MIDODRINE HCL 5 MG TABLET 10 MG PO ×3 (08:12→21:19)
[2023-08-18] MEDS: ONDANSETRON 4MG/2ML VIAL 4 MG IV ×2 (08:20→16:07)
--- NOTE | 2023-08-18 08:38 | P.PN_ITS ---
Subjective *Date: 08/18/23 *Time: 08:54 Interval history: Patient states she slept a little. She denies nausea this morning and does not recall vomiting yesterday. She is still not able to eat but drinks fluids. She is up on the bedside commode and bowels are trying to move. She states her bowels last moved 2 to 3 days ago. She denies chest pain and shortness of breath. Labs this morning indicate a hemoglobin of 11 with a hematocrit of 34. White blood cell count of 3600. Potassium is slightly low at 3.4 with a sodium of 129. Renal function is not elevated. Medical Exam Vital signs and Labs for Last 24 Hours: Vital Signs Temp Pulse Pulse Resp BP Pulse Ox O2 Del Method 08/18/23 06:17 83 08/18/23 06:17 88 08/18/23 06:17 90 L Nasal Cannula 08/18/23 05:00 Nasal Cannula 08/18/23 03:00 Nasal Cannula 08/18/23 04:00 97.7 F 81 20 102/46 L 90 L Room Air 08/18/23 01:00 Nasal Cannula 08/18/23 00:00 Nasal Cannula 08/18/23 00:00 98.0 F 85 18 90/51 L 90 L Nasal Cannula 08/17/23 23:00 Nasal Cannula 08/17/23 21:00 Nasal Cannula 08/17/23 20:00 98.1 F 89 20 101/60 L 90 L Nasal Cannula 08/17/23 20:44 77 08/17/23 20:43 72 08/17/23 15:42 97.9 F 79 16 123/50 L 91 L Room Air 08/17/23 13:29 79 08/17/23 13:29 73 08/17/23 13:29 89 L Room Air 08/17/23 11:42 97.6 F 78 18 115/45 L 90 L Room Air 08/17/23 10:17 74 08/17/23 10:17 71 08/17/23 10:17 96 Nasal Cannula O2 Flow Rate 08/18/23 06:17 08/18/23 06:17 08/18/23 06:17 2 08/18/23 05:00 2 08/18/23 03:00 2 08/18/23 04:00 08/18/23 01:00 2 08/18/23 00:00 2 08/18/23 00:00 08/17/23 23:00 2 08/17/23 21:00 2 08/17/23 20:00 08/17/23 20:44 08/17/23 20:43 08/17/23 15:42 08/17/23 13:29 08/17/23 13:29 08/17/23 13:29 08/17/23 11:42 08/17/23 10:17 08/17/23 10:17 08/17/23 10:17 2 Intake and Output 08/17/23 08/18/23 08/18/23 19:59 03:59 11:59 Intake Total 60 / 60 120 / 180 Output Total 0 / 0 Balance 60 / 60 120 / 180 Intake: Intake, Oral Amount 60 / 60 120 / 180 Output: Output, Urine Amount 0 / 0 Other: Number of Unmeasured Voids 1 Number of Bowel Movements 1 Weight 276 lb 4.8 oz Patient Weight 08/18/23 11:59 Weight 276 lb 4.8 oz Laboratory Results - last 24 hr 08/18/23 05:40: WBC 3.6 L, RBC 3.53 L, Hgb 11.0 L, Hct 34.0 L, MCV 96.3, MCH 31.0, MCHC 32.2, RDW 16.1, Plt Count 194 D, MPV 7.8, Neut % (Auto) 59.6, Lymph % (Auto) 25.9, [place] % (Auto) 10.1 H, Eos % (Auto) 3.8, Baso % (Auto) 0.5, Neut # (Auto) 2.2, Lymph # (Auto) 0.9, [place] # (Auto) 0.4, Eos # (Auto) 0.1, Baso # (Auto) 0.0, Sodium 129 L, Potassium 3.4 L, Chloride 104, Carbon Dioxide 22, Anion Gap 6.4, BUN < 2 L, Creatinine 0.80, Estimated Creat Clear 70, Estimated GFR 73, Est GFR ( Amer) 89 D, Glucose 50 L, Calcium 8.7 08/18/23 06:47: POC Glucose 72 I & O for Labs for Last 24 Hours: Intake & Output 08/15/23 08/16/23 08/17/23 08/18/23 11:59 11:59 11:59 11:59 Intake Total 270 / 270 1020 / 1020 390 / 390 180 / 180 Output Total 2 / 2 / 50 / 50 0 / 0 Balance 268 / 268 1019 / 1019 340 / 340 180 / 180 Weight 279 lb 8.985 oz 276 lb 4.8 oz 276 lb 276 lb 4.8 oz Constitutional: Present no acute distress Comment:: Sitting up on the bedside commode. Appears stable. Respiratory: Present wheezes (Bilateral bases) and crackles (Bilateral bases) Cardiac: Present Reg Rate and Rhythm GI: Present soft and normal bowel sounds; Absent tenderness or guarding Comments:: Obese Oropharyngeal without erythema Extremities: Present edema (Trace) Comment:: Mottled lower extremities while sitting on bedside commode Skin: Present dry Comment:: Grayish in color Neuro: Present alert and awake Assessment and Plan *Assessment and plan (1) Nausea & vomiting: Status: Acute Qualifiers: Vomiting type: unspecified Qualified Code(s): R11.2 - Nausea with vomiting, unspecified Category: Medical Code(s): R11.2 - Nausea with vomiting, unspecified (2) Acute hyponatremia: Status: Acute Category: Medical Code(s): E87.1 - Hypo-osmolality and hyponatremia (3) Kidney dysfunction: Status: Acute Category: Medical Code(s): N28.9 - Disorder of kidney and ureter, unspecified (4) Hypothyroid: Status: Acute Qualifiers: Hypothyroidism type: unspecified Qualified Code(s): E03.9 - Hypothyroi dism, unspecified Category: Medical Code(s): E03.9 - Hypothyroidism, unspecified (5) GERD (gastroesophageal reflux disease): Status: Acute Qualifiers: Esophagitis presence: esophagitis presence not specified Qualified Code(s): K21.9 - Gastro-esophageal reflux disease without esophagitis Category: Medical Code(s): K21.9 - Gastro-esophageal reflux disease without esophagitis (6) COPD (chronic obstructive pulmonary disease): Status: Acute Qualifiers: COPD type: unspecified COPD Qualified Code(s): J44.9 - Chronic obstr uctive pulmonary disease, unspecified Category: Medical Code(s): J44.9 - Chronic obstructive pulmonary disease, unspecified (7) Hypotension: Status: Acute Category: Medical Code(s): I95.9 - Hypotension, unspecified (8) Anemia: Status: Acute Category: Medical Code(s): D64.9 - Anemia, unspecified Plan Throat continues to hurt. Will add nystatin. Patient needs continued motivation for out of bed activity and physical therapy. Will add potassium for hypokalemia. Dr. Quiroga entry - Saw patient, agree with above note. GI symptoms are pretty well controlled with Zofran. She is weak and will need rehab at time of dis charge.
[2023-08-18] MEDS: NYSTATIN SUSP 500,000 UNITS/5ML UDC 500000 UNIT PO ×3 (09:55→16:06)
[2023-08-18] MEDS: POTASSIUM CHLORIDE 20MEQ TAB 20 MEQ PO (09:55)
[2023-08-18 11:34] LABS: ABG Oxygen Saturation 95 % (90-100); ABG PCO2 43.1 mmhg (35.0-45.0); ABG PH 7.26 mmol/L (7.35-7.45); ABG TCO2 20.3 mmhg (23-27)
--- NOTE | 2023-08-18 17:57 | PC.NURSE ---
A&OX4. TOLERATING 2LNC WELL T/O SHIFT. PT HAS BEEN UP TO CHAIR ONCE TODAY, TOLERATED WELL. PT IS A X2 ASSIST, UNABLE TO TRANSFER HERSELF SUCCESSFULLY. HAS BEEN GETTING UP TO BEDSIDE COMMODE. PT HAS OTHERWISE SLEPT T/O SHIFT. HAS HAD NO C/O OF N/V, OR PAIN. STATES THAT SHE IS JUST TIRED, AND DOESN'T FEEL GOOD. HAS EATEN SMALL AMOUNT TODAY. SPOKE WITH PT SISTER WHO STATES SHE IS CONCERNED FOR PT AND PLANS TO COME TOMORROW MORNING. PT DOES HAVE SLURRED SPEECH AT TIMES AND IS SOMETIMES DELAYED IN ANSWERING. NO CHANGE SINCE PREVIOUS SHIFTS. 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 NO OTHER NEEDS OR C/O NOTED AT THIS TIME. B/P HAS CONTINUED TO BE SOFT. VSS.
[2023-08-18] MEDS: PANTOPRAZOLE 40MG TABLET 40 MG PO (21:20)
[2023-08-18] MEDS: PROMETHAZINE HCL 25MG/ML 1ML VIAL 12.5 MG IV (21:29)
[2023-08-18] MEDS: DEXTROSE 50% 50ML SYRINGE (CRASH CART) 50 ML IVP (23:16)
[2023-08-18] MEDS: Dex 5% in 0.45% NaCl 1,000 ML 100 ML IV (23:17)
--- NOTE | 2023-08-18 23:18 | PC.NURSE ---
Pt disoriented and hard to understand, checked pt glucose level, result of 46. Gave PT 1 amp of D50 per protocol. Contacted MD for further instruction. Orders given for D5 0.45 NS @ 100 hr. Recheck glucose level again, 116 @1115. will recheck at 0015.
[2023-08-18 23:26] LABS: POC Glucose,Bedside 116 (70-110)
[2023-08-19] VITALS (10 sets, daily range): BP systolic 97–119; BP diastolic 48–68; PULSE 69–87; RESP 18–24; TEMP 36.1–36.9; O2SAT 91–98; BMI 45.0
[2023-08-19] MEDS: ONDANSETRON 4MG/2ML VIAL 4 MG IV ×3 (00:18→17:06)
--- NOTE | 2023-08-19 00:38 | PC.NURSE ---
Pt glucose level checked @ 1215, result 55. Gave Pt apple juice with peanut butter and apple juice. Pt seems more oriented and cooperative. will recheck glucose
--- NOTE | 2023-08-19 01:21 | PC.NURSE ---
Pt glucose level @ 70 at this time.
[2023-08-19 02:23] LABS: POC Glucose,Bedside 70 (70-110)
[2023-08-19 02:23] LABS: POC Glucose,Bedside 55 (70-110)
[2023-08-19 02:23] LABS: POC Glucose,Bedside 80 (70-110)
[2023-08-19 02:23] LABS: POC Glucose,Bedside 56 (70-110)
--- NOTE | 2023-08-19 03:10 | PC.NURSE ---
Pt glucose 80 @ 3150
--- NOTE | 2023-08-19 03:23 | PC.NURSE ---
Pt is alert and oriented x4 with moments of disorientation. Pt had trouble with low blood sugar this shift and continues to trend upward with most recent result 80. Pt is currently on 2L of O2 and sating 95. Pt denies pain and other needs at this time.
[2023-08-19 04:16] LABS: POC Glucose,Bedside 82 (70-110)
[2023-08-19] MEDS: IPRATROPIUM/ALBUTEROL 3 ML NEB IH ×4 (05:59→19:12)
[2023-08-19] MEDS: LEVOTHYROXINE 100MCG (0.1MG) TAB 100 MCG PO (06:03)
[2023-08-19] MEDS: NYSTATIN SUSP 500,000 UNITS/5ML UDC 500000 UNIT PO ×3 (08:15→17:06)
[2023-08-19] MEDS: CITALOPRAM 40MG TABLET 40 MG PO (08:15)
[2023-08-19] MEDS: ENOXAPARIN 40MG/0.4ML SYRINGE 40 MG SQ ×2 (08:15→20:23)
[2023-08-19] MEDS: POTASSIUM CHLORIDE 20MEQ TAB 20 MEQ PO (08:15)
[2023-08-19] MEDS: MIDODRINE HCL 5 MG TABLET 10 MG PO ×3 (08:15→20:22)
[2023-08-19] MEDS: Dex 5% in 0.45% NaCl 1,000 ML 100 ML IV (08:16)
[2023-08-19] MEDS: PHENOL THROAT SPRAY 177 ML BOTTLE MM (08:30)
--- NOTE | 2023-08-19 08:42 | P.PN_ITS ---
Subjective *Date: 08/19/23 *Time: 12:39 Interval history: She statesPatient has no specific complaints today. She slept in almost 2 nursing checks. She does recall physical therapy working with her yesterday. She is not interested in eating although she does not have any nausea at prese nt. She has not vomited. She feels like her bowels moved yesterday. She states her mouth and her throat is still very sore and it hurts to eat. She did work with physical therapy. She was out of bed to a chair with multiple assist. She was unable to walk. Also she had a episode of low blood sugars last night for which she received D50 W. Her sister Natividad is with her this a.m. She is concerned that she is not at her baseline with decreased in mobility and slurred speech. She has many questions. Medical Exam Vital signs and Labs for Last 24 Hours: Vital Signs Temp Pulse Pulse Resp BP Pulse Ox O2 Del Method 08/19/23 06:36 Nasal Cannula 08/19/23 04:00 97.8 F 77 18 112/59 L 96 Nasal Cannula 08/19/23 05:59 74 08/19/23 05:59 78 08/19/23 05:59 91 L Room Air 08/19/23 04:52 Nasal Cannula 08/19/23 02:59 Nasal Cannula 08/19/23 00:00 97.7 F 77 18 105/48 L 94 L Nasal Cannula 08/18/23 20:00 98.2 F 77 20 106/42 L Nasal Cannula 08/19/23 00:51 Nasal Cannula 08/19/23 00:00 96 Nasal Cannula 08/18/23 23:00 Nasal Cannula 08/18/23 21:00 Nasal Cannula 08/18/23 20:00 96 Nasal Cannula 08/18/23 19:08 69 08/18/23 19:08 69 08/18/23 19:08 94 L Nasal Cannula 08/18/23 18:39 Nasal Cannula 08/18/23 16:00 92 L Nasal Cannula 08/18/23 16:00 98.1 F 79 16 78/40 L 92 L Nasal Cannula 08/18/23 16:42 Nasal Cannula 08/18/23 14:43 Nasal Cannula 08/18/23 14:20 73 08/18/23 14:20 76 08/18/23 12:00 98.3 F 69 18 99/56 L 99 Nasal Cannula 08/18/23 12:33 Nasal Cannula 08/18/23 10:32 Nasal Cannula 08/18/23 09:54 94 L Nasal Cannula 08/18/23 09:00 Nasal Cannula 08/18/23 09:15 71 08/18/23 09:15 76 08/18/23 09:15 91 L Nasal Cannula O2 Flow Rate 08/19/23 06:36 2 08/19/23 04:00 2 08/19/23 05:59 08/19/23 05:59 08/19/23 05:59 2 08/19/23 04:52 2 08/19/23 02:59 2 08/19/23 00:00 2 08/18/23 20:00 2 08/19/23 00:51 2 08/19/23 00:00 2 08/18/23 23:00 3 08/18/23 21:00 3 08/18/23 20:00 08/18/23 19:08 08/18/23 19:08 08/18/23 19:08 2 08/18/23 18:39 2 08/18/23 16:00 2 08/18/23 16:00 3 08/18/23 16:42 2 08/18/23 14:43 2 08/18/23 14:20 08/18/23 14:20 08/18/23 12:00 2 08/18/23 12:33 2 08/18/23 10:32 2 08/18/23 09:54 2 08/18/23 09:00 2 08/18/23 09:15 08/18/23 09:15 08/18/23 09:15 2 Intake and Output 08/18/23 08/19/23 08/19/23 19:59 03:59 11:59 Intake Total 170 / 170 120 / 290 Output Total 0 / 0 0 / 0 Balance 170 / 170 120 / 290 0 / 290 Intake: Intake, Oral Amount 170 / 170 120 / 290 Output: Output, Urine Amount 0 / 0 0 / 0 Other: Number of Unmeasured Voids 1 1 Number of Bowel Movements 1 Weight 280 lb 2 oz Patient Weight 08/19/23 11:59 Weight 280 lb 2 oz Laboratory Results - last 24 hr 08/18/23 09:49: ABG pH 7.26 L, ABG pCO2 43.1, ABG pO2 79.0 L, ABG HCO3 19.0 L, ABG Total CO2 20.3 L, ABG O2 Saturation 95, ABG Base Excess -8.0 L 08/18/23 23:14: POC Glucose 116 H 08/19/23 00:11: POC Glucose 55 L 08/19/23 00:54: POC Glucose 56 L 08/19/23 01:20: POC Glucose 70 08/19/23 02:15: POC Glucose 80 08/19/23 04:07: POC Glucose 82 I & O for Labs for Last 24 Hours: Intake & Output 08/16/23 08/17/23 08/18/23 08/19/23 11:59 11:59 11:59 11:59 Intake Total 1020 / 1020 390 / 390 180 / 180 290 / 290 Output Total 50 / 50 0 / 0 0 / 0 Balance 1019 / 1019 340 / 340 180 / 180 290 / 290 Weight 276 lb 4.8 oz 276 lb 276 lb 4.8 oz 280 lb 2 oz Constitutional: Present no acute distress Comment:: Sitting up in the bed trying to eat her breakfast. She is more alert and focuses on conversation. She does answer all questions appropriately although her's speech is slow. ENT: Present mucous membranes moist Comment:: Poor dentition Respiratory: Present CTA bilaterally Cardiac: Present Reg Rate and Rhythm GI: Present soft, normal bowel sounds and other (Obese); Absent distention or tenderness Extremities: Present edema (Bilateral lower leg) Neuro: Present Weakness, alert, awake, oriented x 3 and moves all extremities Comment:: Cognition seems to be good. Assessment and Plan *Assessment and plan (1) Nausea & vomiting: Status: Acute Qualifiers: Vomiting type: unspecified Qualified Code(s): R11.2 - Nausea with vomiting, unspecified Category: Medical Code(s): R11.2 - Nausea with vomiting, unspecified (2) Acute hyponatremia: Status: Acute Category: Medical Code(s): E87.1 - Hypo-osmolality and hyponatremia (3) Kidney dysfunction: Status: Acute Category: Medical Code(s): N28.9 - Disorder of kidney and ureter, unspecified (4) Hypothyroid: Status: Acute Qualifiers: Hypothyroidism type: unspecified Qualified Code(s): E03.9 - Hypothyroidism, unspecified Category: Medical Code(s): E03.9 - Hypothyroidism, unspecified (5) GERD (gastroesophageal reflux disease): Status: Acute Qualifiers: Esophagitis presence: esophagitis presence not specified Qualified Code(s): K21.9 - Gastro-esophageal reflux disease without esophagitis Category: Medical Code(s): K21.9 - Gastro-esophageal reflux disease without esophagitis (6) COPD (chronic obstructive pulmonary disease): Status: Acute Qualifiers: COPD type: unspecified COPD Qualified Code(s): J44.9 - Chronic obstructive pulmonary disease, unspecified Category: Medical Code(s): J44.9 - Chronic obstructive pulmonary disease, unspecified (7) Hypotension: Status: Acute Category: Medical Code(s): I95.9 - Hypotension, unspecified (8) Anemia: Status: Acute Category: Medical Code(s): D64.9 - Anemia, unspecified Plan For now continue with physical therapy. Nutritional evaluation. Patient has difficulty with solid foods. Did offer pt supplements, milk shakes, and yogart; she could not think of anythi ng she would like to eat/drink Dr. Quiroga entry - Saw patient, agree with above note, she is up in a chair today, looks to feel better.
--- NOTE | 2023-08-19 10:05 | DIET.NUTRFU ---
RD consulted secondary to persistent poor appetite. Diet was advanced to bland and now changed to MSOFT chopped secondary to weakness and lethargy. She also has sore throat and was started on Nystatin. Upon interview she was very lethargic, she was slurring her words very hard to understand. 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 Therapy is recommending placement due to weakness for extended hospital stay. This morning she ate oatmeal, couple bites. Taking zofran routinely, but still complains of nausea. LBM 2/5. Wt is up 127kg, has been receiving dextrose IV d/t poor intake and low BP/BS. BS was down to 55 this morning. Na still depleted at 129. Patient agreed to drink ensure vanilla throughout the day, will order it on all trays. She needs lot of encouragement during meals. Staff offered assistance this morning and she refused. Updated meal ticket
--- NOTE | 2023-08-19 18:24 | PC.NURSE ---
PT HAS REMAINED A&O ENOUGH TO ANSWER QUESTIONS, HOWEVER SEEMS VERY CONFUSED AND UNABLE TO FIND HER WORDS AT TIMES. IS VERY WEAK AND X2-3 ASSIST IN ROOM. HAS GOTTEN UP FOR BRIEF PERIODS TODAY, BUT HAS SPENT MAJORITY OF TIME IN BED ASLEEP. HAS HAD NO C/O OTHER THAN A SORE THROAT-TX PER SEP, EFFECTIVENESS NOTED. PT HAS NOT EATEN MUCH TODAY. ENCOURAGED PT TO GET OOB MUCH POSSIBLE. NO OTHER NEEDS NOTED AT THIS TIME. BED SAFETY IN PLACE. VSS.
[2023-08-19 19:32] LABS: POC Glucose,Bedside 84 (70-110)
[2023-08-19] MEDS: PANTOPRAZOLE 40MG TABLET 40 MG PO (20:22)
[2023-08-20] VITALS (8 sets, daily range): BP systolic 89–120; BP diastolic 44–61; PULSE 67–82; RESP 20–24; TEMP 36.4–37; O2SAT 91–100; BMI 45.3
[2023-08-20] MEDS: Dex 5% in 0.45% NaCl 1,000 ML 100 ML IV (00:09)
--- NOTE | 2023-08-20 00:34 | PC.NURSE ---
Addendum entered by Jayne Stephens RN 08/20/23 06:05: Patient has not voided in 6ht. Bladder scanned, highest volume 159ml. Original Note: Patient had been up to the bedside twice stated she had to void. Once on the bedside the patient tried for a few min and each time patient was unable to void. RN then bladder scanned patient and found 371ml in the bladder. Per Protocol RN straight cathed patient and got 450ml, deborah in color, strong in odor urine out. RN will rebladder scan if unable to void by 6am.
--- NOTE | 2023-08-20 00:36 | PC.NURSE ---
Pt has had fluids going all day D5 1/2NS at 100ml/hr. RN checked surgar when she got on shift to make sure we were not low as the patient has been dealing with sugar issues for a couple days. We were 83 BS. Those fluids were d/c'd when RN came on shift at 1945. RN turned fluids off around 2200. After RN straight cathed patient, RN noticed that the patient words were more slurred than earlier in the shift. RN rechecked BS and we were at 73. RN Tried to get patient to drink a juice and or sugar water but patient refused. RN notified Dr. Andrew iron assorter at 2346 of the situation and at 234 he responded and restarted her fluids at the pervious rate. RN will recheck sugar.
[2023-08-20 01:58] LABS: POC Glucose,Bedside 73 (70-110)
[2023-08-20 02:05] LABS: POC Glucose,Bedside 79 (70-110)
[2023-08-20] MEDS: ONDANSETRON 4MG/2ML VIAL 4 MG IV ×3 (03:14→17:02)
--- NOTE | 2023-08-20 05:21 | PC.NURSE ---
Patient has been able to sleep off an on this shift. See pervious nurses notes for events during the shift. On recheck of sugar at 2am it was 79. Will recheck with morning lab draw. it is of note that when RN was straight cathing patient last night, RN saw an ulceration on the anterior right labia wall, as well as other on outer part of the labia. will pass along to dayshift to tell doctor on morning rounds. no other issues this shift
[2023-08-20] MEDS: IPRATROPIUM/ALBUTEROL 3 ML NEB IH ×4 (06:06→20:05)
[2023-08-20 06:27] LABS: Basophils % 0.5 % (0.1-2.0); Eosinophils # 0.1 K/mm3 (0.0-0.4); Eosinophils % 6.1 % (0.1-12.0); Hematocrit 30.7 % (37.0-47.0); Hemoglobin 9.8 g/dL (12.2-16.2); Lymphocytes % 43.2 % (10-50); Mean Corpuscular HGB Conc 31.9 g/dL (31.8-35.4); Mean Corpuscular Hemoglobin 30.7 pg (27.0-31.2); Mean Corpuscular Volume 96.3 fl (81-99); Mean Platelet Volume 7.9 fl (7.4-10.4); Monocytes # 0.2 K/mm3 (0.1-1.0); Monocytes % 6.6 % (1.7-9.3); Neutrophils % 43.6 % (37.0-80.0); Platelet Count 118 K/mm3 (142-424); Red Blood Count 3.18 M/mm3 (4.20-5.40); Red Cell Distribution Width 16.3 % (11.5-17.5); White Blood Count 2.3 K/mm3 (4.8-10.8)
[2023-08-20 06:31] LABS: Chloride 103 mmol/L (98-107)
[2023-08-20 06:32] LABS: Potassium 3.4 mmoL/L (3.5-5.1); Sodium 128 mmol/L (136-145)
[2023-08-20 06:34] LABS: Blood Urea Nitrogen 3 mg/dl (7-17); Creatinine Clearance Estimated 70 mL/min (50-200); Estimated Glomerular Filt Rate 73 ml/min (>60); GFR (African American) 89 ML/MIN (>60)
[2023-08-20 06:35] LABS: Anion Gap 6.4 mEq/L (5-15); Calcium 8.2 mg/dl (8.4-10.2); Carbon Dioxide 22 mmol/L (22.0-30.0); Glucose 89 mg/dl (74-100)
[2023-08-20] MEDS: MIDODRINE HCL 5 MG TABLET 10 MG PO ×3 (08:09→20:44)
[2023-08-20] MEDS: CITALOPRAM 40MG TABLET 40 MG PO (08:09)
[2023-08-20] MEDS: POTASSIUM CHLORIDE 20MEQ TAB 20 MEQ PO (08:09)
[2023-08-20] MEDS: NYSTATIN SUSP 500,000 UNITS/5ML UDC 500000 UNIT PO ×4 (08:09→20:44)
[2023-08-20] MEDS: ENOXAPARIN 40MG/0.4ML SYRINGE 40 MG SQ ×2 (08:10→20:44)
[2023-08-20] MEDS: LEVOTHYROXINE 100MCG (0.1MG) TAB 100 MCG PO (08:10)
--- NOTE | 2023-08-20 08:13 | XR_ITS ---
FINAL REPORT CLINICAL HISTORY: hypoxia COMPARISON: 08/15/2023 FINDINGS: SINGLE-VIEW CHEST There is cardiomegaly. Left subclavian chest port is present. The mediastinum is normal. There are worsening bilateral pulmonary opacities, may represent pneumonia or edema. There is no pneumothorax. IMPRESSION: Bilateral pneumonia versus edema. Reviewed, Interpreted and Dictated by Chandu Baer III, MD Transcribed by Alka Jean-Baptiste Authenticated and [facility]
--- NOTE | 2023-08-20 08:25 | EXP.ACUTE.PN ---
Subjective *Date: 08/20/23 *Time: 08:34 Interval history: Patient states she is not feeling well this morning. She denies any abdominal pain or nausea but states she cannot eat. She says she is very tired and her speech is slightly slurred. Her lips are swollen. Nursing staff states she had some ulceration around the labia. Medical Exam Vital signs and Labs for Last 24 Hours: Vital Signs Temp Pulse Pulse Resp BP Pulse Ox O2 Del Method 08/20/23 06:49 Nasal Cannula 08/20/23 06:06 79 08/20/23 06:06 82 08/20/23 06:06 93 L Nasal Cannula 08/20/23 05:00 Nasal Cannula 08/20/23 03:52 97.6 F 73 20 109/51 L 98 Nasal Cannula 08/20/23 03:00 Nasal Cannula 08/20/23 01:00 Nasal Cannula 08/20/23 00:00 97.8 F 71 22 104/51 L 97 Nasal Cannula 08/19/23 23:00 Nasal Cannula 08/19/23 20:00 97 F L 76 24 116/63 97 Nasal Cannula 08/19/23 21:00 Nasal Cannula 08/19/23 20:00 Nasal Cannula 08/19/23 19:12 74 08/19/23 19:12 74 08/19/23 19:12 95 Nasal Cannula 08/19/23 16:00 97.8 F 76 24 119/68 98 Nasal Cannula 08/19/23 12:00 98.4 F 75 20 97/68 L 98 Nasal Cannula 08/19/23 18:34 Nasal Cannula 08/19/23 17:00 Nasal Cannula 08/19/23 14:53 Nasal Cannula 08/19/23 13:00 Nasal Cannula 08/19/23 13:47 79 08/19/23 13:47 78 08/19/23 11:26 86 08/19/23 11:26 87 08/19/23 10:55 Nasal Cannula 08/19/23 09:00 Nasal Cannula O2 Flow Rate 08/20/23 06:49 3 08/20/23 06:06 08/20/23 06:06 08/20/23 06:06 3 08/20/23 05:00 3 08/20/23 03:52 3 08/20/23 03:00 3 08/20/23 01:00 3 08/20/23 00:00 3 08/19/23 23:00 3 08/19/23 20:00 2 08/19/23 21:00 2 08/19/23 20:00 2 08/19/23 19:12 08/19/23 19:12 08/19/23 19:12 2 08/19/23 16:00 2 08/19/23 12:00 08/19/23 18:34 2 08/19/23 17:00 2 08/19/23 14:53 2 08/19/23 13:00 2 08/19/23 13:47 08/19/23 13:47 08/19/23 11:26 08/19/23 11:26 08/19/23 10:55 2 08/19/23 09:00 2 Intake and Output 08/19/23 08/20/23 08/20/23 19:59 03:59 11:59 Intake Total 480 / 480 0 / 480 Output Total 450 / 450 Balance 480 / 30 -450 / 30 Intake: Intake, Oral Amount 480 / 480 0 / 480 Output: Output, Urine Amount 450 / 450 Other: Number of Unmeasured Voids 2 Number of Bowel Movements 1 Weight 281 lb 12.8 oz Patient Weight 08/20/23 11:59 Weight 281 lb 12.8 oz Laboratory Results - last 24 hr 08/19/23 19:21: POC Glucose 84 08/19/23 23:34: POC Glucose 73 08/20/23 01:57: POC Glucose 79 08/20/23 05:59: WBC 2.3 L D, RBC 3.18 L, Hgb 9.8 L, Hct 30.7 L, MCV 96.3, MCH 30.7, MCHC 31.9, RDW 16.3, Plt Count 118 L D, MPV 7.9, Neut % (Auto) 43.6, Lymph % (Auto) 43.2, [place] % (Auto) 6.6, Eos % (Auto) 6.1, Baso % (Auto) 0.5, Neut # (Auto) 1.0 L, Lymph # (Auto) 1.0, [place] # (Auto) 0.2, Eos # (Auto) 0.1, Baso # (Auto) 0.0, Sodium 128 L, Potassium 3.4 L, Chloride 103, Carbon Dioxide 22, Anion Gap 6.4, BUN 3 L D, Creatinine 0.80, Estimated Creat Clear 70, Estimated GFR 73, Est GFR ( Amer) 89, Glucose 89, Calcium 8.2 L I & O for Labs for Last 24 Hours: Intake & Output 08/17/23 08/18/23 08/19/23 08/20/23 11:59 11:59 11:59 11:59 Intake Total 390 / 390 180 / 180 560 / 560 480 / 480 Output Total 50 / 50 0 / 0 0 / 0 450 / 450 Balance 340 / 340 180 / 180 560 / 560 30 / 30 Weight 276 lb 276 lb 4.8 oz 280 lb 2 oz 281 lb 12.8 oz Constitutional: Present no acute distress Comment:: Less alert today. More lethargic. Speech is slow but she does answer questions. ENT: Present mucous membranes dry and other (Lips are swollen) Comment:: Poor dentition Respiratory: Present wheezes Cardiac: Present Reg Rate and Rhythm GI: Present soft, normal bowel sounds and other (Obese); Absent distention or tenderness Extremities: Present edema (Bilateral lower leg) Skin: Present intact Neuro: Present Weakness, awake, oriented x 3 and moves all extremities Comment:: More lethargic today. Assessment and Plan *Assessment and plan (1) Nausea & vomiting: Status: Acute Qualifiers: Vomiting type: unspecified Qualified Code(s): R11.2 - Nausea with vomiting, unspecified Category: Medical Code(s): R11.2 - Nausea with vomiting, unspecified (2) Acute hyponatremia: Status: Acute Category: Medical Code(s): E87.1 - Hypo-osmolality and hyponatremia (3) Kidney dysfunction: Status: Acute Category: Medical Code(s): N28.9 - Disorder of kidney and ureter, unspecified (4) Hypothyroid: Status: Acute Qualifiers: Hypothyroidism type: unspecified Qualified Code(s): E03.9 - Hypothyroidism, unspecified Category: Medical Code(s): E03.9 - Hypothyroidism, unspecified (5) GERD (gastroesophageal reflux disease): Status: Acute Qualifiers: Esophagitis presence: esophagitis presence not specified Qualified Code(s): K21.9 - Gastro-esophageal reflux disease without esophagitis Category: Medical Code(s): K21.9 - Gastro-esophageal reflux disease without esophagitis (6) COPD (chronic obstructive pulmonary disease): Status: Acute Qualifiers: COPD type: unspecified COPD Qualified Code(s): J44.9 - Chronic obstructive pulmonary disease, unspecified Category: Medical Code(s): J44.9 - Chronic obstructive pulmonary disease, unspecified (7) Hypotension: Status: Acute Category: Medical Code(s): I95.9 - Hypotension, unspecified (8) Anemia: Status: Acute Category: Medical Code(s): D64.9 - Anemia, unspecified Plan White blood cell count is low today and hemoglobin is down to 9.8. Platelet count is also low at 118. Sodium also continues to decrease and is 128 this morning. Potassium has remained at 3.4. Patient is still not able to eat or drink. Lips are swollen this morning. Will discuss further care with Dr. Quiroga. Dr. Quiroga entry - Saw patient, agree with above note. Changed IVF to D5NS with potassium, check CXR, will need to assess labial lesions when nursing staff can be present.
[2023-08-20] MEDS: D5W/0.9% NaCl w/20mEq KCL 1,000 ML 75 ML IV ×2 (08:28→22:37)
[2023-08-20] MEDS: ACYCLOVIR SODIUM IV ×2 (09:58→17:03)
[2023-08-20] MEDS: SODIUM CHLORIDE 0.9% IV ×2 (09:58→17:03)
--- NOTE | 2023-08-20 11:37 | PC.NURSE ---
Addendum entered by Ryan Costello RN 08/20/23 12:01: patients lips and face are still swollen Original Note: patient was assisted to the chair by physical therapy, patient is being encouraged to stay up in the chair at least until lunch time. Gynecology consult has been ordered to further assess labial lesions.
--- NOTE | 2023-08-20 12:38 | P.CONS_ITS ---
History of Present Illness *Admission Date: 08/09/23 *Reason for visit:: Consult for vulvar lesion *History of present illness: Ms Susana Juárez is a 62 yo female with history of GERD, COPD, tobacco abuse, hypothyroidism. She has had several recent hospitalizations at [facility] as well and has [place]. She had an admission 07/03/2023 at which time she had presented with a 10-day history of nausea and vomiting. Prior to that she had an admission at [facility] and was reportedly told she had an abnormal gallbladder. Patient has had gallbladder ultrasound and HIDA scan done recently which were unremarkable. Her symptoms have been refractory to Protonix. Of note, the patient was diagnosed with lung cancer about a year ago and has had lobectomy and chemotherapy. Patient had presented to the emergency department at this facility on 07/19/2020 for stating that she had nausea and vomiting ongoing since March 2023. Of note, she did have pneumonia and required intubation at [place] during hospitalization and March. She was managed as an outpatient at that time. She presented to the emergency department a couple of days ago once again complaining of intermittent nausea and vomiting for several weeks. No evidence of any diarrhea. At that time she has some mild hyponatremia. She was admitted for inpatient management. She has continued to have nausea and vomiting. Surgical history significant for hysterectomy. She denies vulvar and vaginal pain. Upon questioning she did not answer many questions. She made eye contact but did not offer much verbal interaction. Per nursing staff she has declined since admission. She was ambulating on admission but now needs assistance with ambulation and transition from bed to chair and back. Last night nursing staff performed straigh cath and noticed a lesion on right labia majora. [facility] Disclaimer: The information contained in this section may have been updated after the patient was seen, as this information can be updated by other users. Medical History (Updated 08/20/23 @ 13:07 by Yahaira Mccracken DO) Acute hypotension CAP (community acquired pneumonia) COPD (chronic obstructive pulmonary disease) COPD exacerbation Fibromyalgia GERD (gastroesophageal reflux disease) Hypothyroid Knee fracture Lung cancer Osteoarthritis PNA (pneumonia) Shingles Urinary incontinence Vulvar lesion Wrist fracture, right Surgical History History of carpal tunnel surgery History of section History of colonoscopy History of hysterectomy History of lobectomy of lung Family History Family history of cancer Social History Smoking Status: Current every day smoker tobacco type: cigarettes packs per day: 1 alcohol intake: never substance use type: denies use current occupational status: disabled and other Travel in the last 8 weeks: None housing: house Review of Systems Constitutional Constitutional: Denies headache(s) and Denies weakness ENT Ears, Nose, Mouth, and Throat: Denies dizziness and Denies headache(s) *Gastrointestinal Gastrointestinal: Reports nausea and Reports vomiting *Musculoskeletal Musculoskeletal: Denies numbness and Denies tingling *Neurologic Neurologic: Denies dizziness, Denies headache(s), Denies numbness, Denies tingling and Denies weakness Meds Home Medications and Allergies Home Medications Medication Instructions Recorded Confirmed Type citalopram 40 mg tablet 40 mg PO DAILY MOOD 07/25/17 08/09/23 History gabapentin 400 mg capsule 400 mg PO BID NEUROPATHY 05/28/23 08/09/23 History ipratropium 0.5 mg-albuterol 3 mg 3 ml inhalation Q6HP PRN Shortness 05/28/23 08/09/23 History (2.5 mg base)/3 mL nebulization Of Breath Or Wheezing soln midodrine 10 mg tablet 10 mg PO TID LOW BLOOD PRESSURE 05/28/23 08/09/23 History levothyroxine 100 mcg tablet 100 mcg PO DAILYDM THYROID 07/04/23 08/09/23 History omeprazole 20 mg capsule,delayed 20 mg PO DAILY GERD 08/09/23 08/09/23 History release New Prescriptions to Start Prescriptions: Allergies Allergy/AdvReac Type Severity Reaction Status Date / Time penicillin G [PENICILLIN G] Allergy Mild Verified 05/28/23 08:57 Exam (Inpt) Vital signs and Labs for Last 24 Hours: Temp Pulse Resp BP Pulse Ox O2 Del Method O2 Flow Rate 98.6 F 79 24 101/44 L 98 Nasal Cannula 2 08/20/23 11:43 08/20/23 11:43 08/20/23 11:43 08/20/23 11:43 08/20/23 11:43 08/20/23 11:43 08/20/23 11:43 Laboratory Results - last 24 hr 08/19/23 19:21: POC Glucose 84 08/19/23 23:34: POC Glucose 73 08/20/23 01:57: POC Glucose 79 08/20/23 05:59: WBC 2.3 L D, RBC 3.18 L, Hgb 9.8 L, Hct 30.7 L, MCV 96.3, MCH 30.7, MCHC 31.9, RDW 16.3, Plt Count 118 L D, MPV 7.9, Neut % (Auto) 43.6, Lymph % (Auto) 43.2, [place] % (Auto) 6.6, Eos % (Auto) 6.1, Baso % (Auto) 0.5, Neut # (Auto) 1.0 L, Lymph # (Auto) 1.0, [place] # (Auto) 0.2, Eos # (Auto) 0.1, Baso # (Auto) 0.0, Sodium 128 L, Potassium 3.4 L, Chloride 103, Carbon Dioxide 22, Anion Gap 6.4, BUN 3 L D, Creatinine 0.80, Estimated Creat Clear 70, Estimated GFR 73, Est GFR ( Amer) 89, Glucose 89, Calcium 8.2 L I & O for Labs for Last 24 Hours: Intake & Output 08/17/23 08/18/23 08/19/23 08/20/23 23:59 23:59 23:59 23:59 Intake Total 450 / 570 290 / 410 870 / 870 2714 / 2714 Output Total 0 / 0 0 / 0 0 / 450 450 / 450 Balance 450 / 570 290 / 410 870 / 420 2264 / 2264 Weight 276 lb 276 lb 4.8 oz 280 lb 2 oz 281 lb 12.8 oz Comment:: + lethargic HEENT Head: Present normocephalic ENT: Present other (mouth appears dry, lips swollen) Respiratory: Present wheezes and normal respiratory effort Cardiac: Present Reg Rate and Rhythm GI: Present soft and tenderness (generalized tenderness with mild palpation); Absent distention, guarding or rebound Comments:: + 5 mm firm, round, raised, painless lesion with erythematous border, white in the middle, multiple epidermal inclusion cysts of various sizes noted on bilateral labia majora and labia minor. Urethra appeared normal. Attempted speculum exam but patient unable to tolerate Rectal (female): Present deferred Extremities: Present edema (bilateral lower extremity edema) Neuro: Present awake Comment:: made eye contact with questioning but verbal interaction was minimal. She answered questions with moving her head. Assessment and Plan *Assessment and plan (1) Vulvar lesion: Status: Acute Category: Medical Code(s): N90.89 - Other specified noninflammatory disorders of vulva and perineum Plan Does not appear like classic HSV. Single lesion is firm, round, raised and painless to touch per patient Vaginal ID - PCR collected and sent okay to continue acyclovir RPR ordered
--- NOTE | 2023-08-20 15:24 | PC.NURSE ---
AT 1230 PT STILL HAD NOT VOIDED. PT WAS STRAIGHT CATHED. 350 ML'S DARK UOP. STATED IT WOULD BE OKAY TO INSERT VICTOR CATHETER IF PT IN UNABLE TO VOID.
--- NOTE | 2023-08-20 17:45 | PC.NURSE ---
Patient has redness and various sized raw-appearing lesions in the mouth that are causing her pain when she tries to eat or drink. Patient tolerated PO meds being crushed and mixed in applesauce, she was able to eat 3/4 of a yogurt at dinner but refused to eat or drink anything else due to pain in her mouth and throat. Pt has only complained of pain while attempting to eat and has slept for most of this shift.
--- NOTE | 2023-08-20 18:49 | PC.NURSE ---
AT 1830 BLADDER SCANNER SHOWED PT HAD 259 ML'S UOP. PT DID GET UP TO THE BSC WITH 2 ASSIST. PT WAS UNABLE TO VOID. NOTIFIED AND HE STATED IF PT HAS NOT VOIDED BY 0000 TO BLADDER SCAN AGAIN AND IF BLADDER SCAN SHOWS >600 ML'S THEN TO INSERT VICTOR CATHETER.
[2023-08-20] MEDS: PANTOPRAZOLE 40MG TABLET 40 MG PO (20:44)
[2023-08-20] MEDS: PHENOL THROAT SPRAY 177 ML BOTTLE MM (20:44)
[2023-08-20 21:00] LABS: POC Glucose,Bedside 83 (70-110)
[2023-08-21] VITALS (10 sets, daily range): BP systolic 90–136; BP diastolic 45–86; PULSE 66–89; RESP 16–20; TEMP 36.5–36.8; O2SAT 91–99; BMI 44.8
[2023-08-21] MEDS: ACYCLOVIR SODIUM IV ×3 (00:19→16:07)
[2023-08-21] MEDS: ONDANSETRON 4MG/2ML VIAL 4 MG IV ×2 (00:19→10:24)
[2023-08-21] MEDS: SODIUM CHLORIDE 0.9% IV ×3 (00:19→16:07)
--- NOTE | 2023-08-21 03:10 | PC.NURSE ---
UNABLE TO BLADDER SCAN DUE TP PATIENT UNABLE TO COOPERATE . IN/OUT CATHED 350.
--- NOTE | 2023-08-21 05:25 | PC.NURSE ---
PATIENT LAYS IN BED AND DOES NOT CONTRIBUTE MUCH TO HER CARE. WILL NOT TECHNICAL ADJUSTER A CUP OF WATER TO TAKE MEDS. NURSE HAS TO HOLD THE WATER FOR HER. BLOOD SUGAR THIS AM IS 61.
[2023-08-21] MEDS: LEVOTHYROXINE 100MCG (0.1MG) TAB 100 MCG PO (06:06)
[2023-08-21] MEDS: IPRATROPIUM/ALBUTEROL 3 ML NEB IH ×4 (06:31→18:52)
[2023-08-21 07:17] LABS: Basophils % 0.3 % (0.1-2.0); Eosinophils # 0.1 K/mm3 (0.0-0.4); Eosinophils % 4.8 % (0.1-12.0); Hematocrit 30.5 % (37.0-47.0); Hemoglobin 9.4 g/dL (12.2-16.2); Lymphocytes # 1.2 K/mm3 (0.7-4.5); Lymphocytes % 53.9 % (10-50); Mean Corpuscular HGB Conc 30.7 g/dL (31.8-35.4); Mean Corpuscular Volume 97.6 fl (81-99); Mean Platelet Volume 7.6 fl (7.4-10.4); Monocytes # 0.1 K/mm3 (0.1-1.0); Monocytes % 4.2 % (1.7-9.3); Neutrophils # 0.8 K/mm3 (1.8-7.8); Neutrophils % 36.8 % (37.0-80.0); Platelet Count 73 K/mm3 (142-424); Red Blood Count 3.13 M/mm3 (4.20-5.40); Red Cell Distribution Width 16.2 % (11.5-17.5); White Blood Count 2.2 K/mm3 (4.8-10.8)
[2023-08-21 07:18] LABS: Chloride 107 mmol/L (98-107); Sodium 131 mmol/L (136-145)
[2023-08-21 07:19] LABS: Potassium 3.4 mmoL/L (3.5-5.1)
[2023-08-21 07:20] LABS: MANUAL DIFFERENTIAL MANUAL DIFFERENTIAL (MANUAL DIFF)
[2023-08-21 07:21] LABS: Blood Urea Nitrogen 2 mg/dl (7-17); Creatinine Clearance Estimated 70 mL/min (50-200); Estimated Glomerular Filt Rate 73 ml/min (>60); GFR (African American) 89 ML/MIN (>60)
[2023-08-21 07:22] LABS: Anion Gap 5.4 mEq/L (5-15); Calcium 8.2 mg/dl (8.4-10.2); Carbon Dioxide 22 mmol/L (22.0-30.0); Glucose 73 mg/dl (74-100)
--- NOTE | 2023-08-21 08:38 | P.PN_ITS ---
Subjective *Date: 08/21/23 *Time: 08:57 Interval history: Patient is about the same today. Her lips remain swollen and her speech is hard to understand. She is awake and tries to answer questions. She is unable to walk on her own and it takes two people to get her up. She is starting to have some jerking movements with her arms and legs. Her ex- says her mother had something very similar happen and she was in and out of hospitals but no one ever figured out what was wrong with her. He knows of no other family history. She denies any pain today. Medical Exam Vital signs and Labs for Last 24 Hours: Vital Signs Temp Pulse Resp BP Pulse Ox O2 Del Method O2 Flow Rate 08/21/23 06:36 Nasal Cannula 2 08/21/23 06:31 92 L Nasal Cannula 2 08/21/23 04:50 Nasal Cannula 2 08/21/23 04:00 97.9 F 74 20 90/48 L 94 L Nasal Cannula 08/21/23 03:00 Nasal Cannula 2 08/21/23 01:00 Nasal Cannula 2 08/20/23 23:00 Nasal Cannula 2 08/21/23 00:00 97.7 F 74 18 103/55 L 95 Nasal Cannula 08/20/23 21:00 Nasal Cannula 2 08/20/23 20:00 100 Nasal Cannula 2 08/20/23 20:00 97.7 F 76 20 111/61 100 Nasal Cannula 3 08/20/23 20:05 93 L Nasal Cannula 2 08/20/23 16:00 Nasal Cannula 2 08/20/23 18:24 Nasal Cannula 2 08/20/23 16:00 98.5 F 67 22 120/57 L 97 Nasal Cannula 2 08/20/23 14:46 Nasal Cannula 2 08/20/23 12:42 Nasal Cannula 08/20/23 11:43 98.6 F 79 24 101/44 L 98 Nasal Cannula 2 08/20/23 11:00 Nasal Cannula 2 08/20/23 09:00 Nasal Cannula 2 Intake and Output 08/20/23 08/21/23 08/21/23 19:59 03:59 11:59 Intake Total 1276 / 1526 250 / 1526 Output Total 350 / 703 353 / 703 Balance 926 / 823 -103 / 823 Intake: Intake, Oral Amount 360 / 360 Intake, Total IV Amount 916 / 1166 250 / 1166 Acyclovir Sodium 400 mg In 0.9 250 / 250 % Sodium Chloride 250 ml @ 250 mls/hr IV Q8H [facility] Rx#:[id number] Dextrose 5 % and 0.9 % NaCl 1, 916 / 916 000 ml @ 75 mls/hr IV .[id number] [facility] Rx#:[id number] Output: Output, Urine Amount 3 / 3 Output, Urine Amount (Catheter) 350 / 700 350 / 700 Straight 350 / 700 350 / 700 Other: Number of Unmeasured Voids 1 1 Number of Bowel Movements 1 Weight 278 lb 14.4 oz Patient Weight 08/21/23 11:59 Weight 278 lb 14.4 oz Laboratory Results - last 24 hr 08/20/23 20:38: POC Glucose 83 08/21/23 06:05: WBC 2.2 L, RBC 3.13 L, Hgb 9.4 L, Hct 30.5 L, MCV 97.6, MCH 30.0 , MCHC 30.7 L, RDW 16.2, Plt Count 73 L D, MPV 7.6, Neut % (Auto) 36.8 L, Lymph % (Auto) 53.9 H, [place] % (Auto) 4.2, Eos % (Auto) 4.8, Baso % (Auto) 0.3, Neut # (Auto) 0.8 L*, Lymph # (Auto) 1.2, [place] # (Auto) 0.1, Eos # (Auto) 0.1, Baso # (Auto) 0.0, Sodium 131 L, Potassium 3.4 L, Chloride 107, Carbon Dioxide 22, Anion Gap 5.4, BUN 2 L D, Creatinine 0.80, Estimated Creat Clear 70, Estimated GFR 73, Est GFR ( Amer) 89, Glucose 73 L, Calcium 8.2 L I & O for Labs for Last 24 Hours: Intake & Output 08/18/23 08/19/23 08/20/23 08/21/23 11:59 11:59 11:59 11:59 Intake Total 180 / 180 560 / 560 3194 / 3194 1526 / 1526 Output Total 0 / 0 0 / 0 450 / 450 703 / 703 Balance 180 / 180 560 / 560 2744 / 2744 823 / 823 Weight 276 lb 4.8 oz 280 lb 2 oz 281 lb 12.8 oz 278 lb 14.4 oz Constitutional: Present no acute distress Comment:: Less alert today. More lethargic. Speech is slow but she does answer questions. ENT: Present mucous membranes dry and other (Lips are swollen) Comment:: Poor dentition Respiratory: Present wheezes Cardiac: Present Reg Rate and Rhythm GI: Present soft, normal bowel sounds and other (Obese); Absent distention or tenderness Extremities: Present edema (Bilateral lower legs) Skin: Present rash (right lower leg) Neuro: Present Weakness, awake (tries to answer questions but difficult to understand) and moves all extremities (some jerking movements of arms and legs) Comment:: More lethargic today. Assessment and Plan *Assessment and plan (1) Nausea & vomiting: Status: Acute Qualifiers: Vomiting type: unspecified Qualified Code(s): R11.2 - Nausea with vomiting, unspecified Category: Medical Code(s): R11.2 - Nausea with vomiting, unspecified (2) Acute hyponatremia: Status: Acute Category: Medical Code(s): E87.1 - Hypo-osmolality and hyponatremia (3) Kidney dysfunction: Status: Acute Category: Medical Code(s): N28.9 - Disorder of kidney and ureter, unspecified (4) Hypothyroid: Status: Acute Qualifiers: Hypothyroidism type: unspecified Qualified Code(s): E03.9 - Hypothyroidism, unspecified Category: Medical Code(s): E03.9 - Hypothyroidism, unspecified (5) GERD (gastroesophageal reflux disease): Status: Acute Qualifiers: Esophagitis presence: esophagitis presence not specified Qualified Code(s): K21.9 - Gastro-esophageal reflux disease without esophagitis Category: Medical Code(s): K21.9 - Gastro-esophageal reflux disease without esophagitis (6) COPD (chronic obstructive pulmonary disease): Status: Acute Qualifiers: COPD type: unspecified COPD Qualified Code(s): J44.9 - Chronic obstructive pulmonary disease, unspecified Category: Medical Code(s): J44.9 - Chronic obstructive pulmonary disease, unspecified (7) Hypotension: Status: Acute Category: Medical Code(s): I95.9 - Hypotension, unspecified (8) Anemia: Status: Acute Category: Medical Code(s): D64.9 - Anemia, unspecified (9) Vulvar lesion: Status: Acute Category: Medical Code(s): N90.89 - Other specified noninflammatory disorders of vulva and perineum (10) Weakness: Status: Acute Category: Medical Code(s): R53.1 - Weakness (11) Oral mucosal lesion: Status: Acute Category: Medical Code(s): K13.70 - Unspecified lesions of oral mucosa Plan CBC shows a viral pattern. Will get a full respiratory panel. Patient was started on antivirals yesterday. Sodium is better since fluids have been changed. CXR shows pneumonia vs pulmonary edema. Will give a dose of lasix today. [employer] did swab the vulvar lesion. Awaiting results. Will discuss further care with Dr. Quiroga. Dr. Quiroga entry - Saw patient, agree with above note. She seems a little better today, she is sitting in a chair, still does not have a lot of oral intake. She appears to have a viral process going on, will request URI panel, continue Acyclovir for now.
[2023-08-21] MEDS: POTASSIUM CHLORIDE 20MEQ TAB 20 MEQ PO (08:58)
[2023-08-21] MEDS: NYSTATIN SUSP 500,000 UNITS/5ML UDC 500000 UNIT PO ×4 (08:58→20:45)
[2023-08-21] MEDS: MIDODRINE HCL 5 MG TABLET 10 MG PO ×3 (08:58→20:45)
[2023-08-21] MEDS: ENOXAPARIN 40MG/0.4ML SYRINGE 40 MG SQ ×2 (08:59→20:45)
[2023-08-21] MEDS: CITALOPRAM 40MG TABLET 40 MG PO (08:59)
[2023-08-21 09:32] LABS: Adenovirus,PCR Not Detected (NotDetected); Coronavirus 19, PCR Not Detected (NotDetected); Coronavirus 229E Not Detected (NotDetected); Coronavirus NL63 Not Detected (NotDetected); Coronavirus OC43 Not Detected (NotDetected); Coronovirus HKU1,PCR Not Detected (NotDetected); Human Metapneumovirus Not Detected (NotDetected); Influenza A, PCR Not Detected (NotDetected); Influenza AH1, 2009 Not Detected (NotDetected); Influenza AH1, PCR Not Detected (NotDetected); Influenza AH3,PCR Not Detected (NotDetected); Influenza B, PCR Not Detected (NotDetected); Parainfluenza 1, PCR Not Detected (NotDetected); Parainfluenza 2, PCR Not Detected (NotDetected); Parainfluenza 3, PCR Not Detected (NotDetected); Parainfluenza 4, PCR Not Detected (NotDetected); Respiratory Syncytial Virus Not Detected (NotDetected); Rhinovirus/Enterovirus Not Detected (NotDetected)
[2023-08-21] MEDS: FUROSEMIDE 40MG/4ML VIAL 40 MG IV (10:03)
[2023-08-21 10:13] LABS: Rapid Plasma Reagin Ab Titer Non Reactive titer (NonRea<1:1)
[2023-08-21 11:02] LABS: Eosinophils % 2 % (0-3); Lymphocytes % 54 % (10-50); Monocytes % 6 % (2-9); Neutrophils % 38 % (42-76); RBC Morphology Normal; Total Cells Counted 50
[2023-08-21 11:03] LABS: Platelet Estimate Slight Decrease
[2023-08-21 11:36] LABS: POC Glucose,Bedside 72 (70-110)
[2023-08-21] MEDS: D5W/0.9% NaCl w/20mEq KCL 1,000 ML 75 ML IV (16:07)
--- NOTE | 2023-08-21 18:00 | PC.NURSE ---
PT IS RESTING IN BED. ALERT AND ORIENTED X2. PT TOLERATED SITTING UP IN THE CHAIR FOR SEVERAL HOURS THIS SHIFT. PT IS A 2 ASSIST TO TRANFER. PT REQUIRES ENCOURAGEMENT WITH ANY ACTIVITY. APPETITE CONTINUES TO BE POOR. PT STATES HER MOUTH IS VERY SORE. TOLERATED A FEW BITES OF ICE CREAM AND A FULL CONTAINER OF YOGURT. PT WAS UNABLE TO FEED SELF. REQUESTED PEACHES AND WAS UNABLE TO EAT. WITH ENCOURAGEMENT PT DID TAKE A FEW SIPS OF ENSURE AT DINNER. SPEECH CONTINUES TO BE SLURRED. SWELLING NOTED TO THE FACE/LIPS/BUE/BLE. RASH NOTED TO BLE. PT HAS BEEN INCONTINENT AND HAS VOIDED A FEW TIMES IN THE BSC. WILL CONTINUE TO MONITOR.
[2023-08-21 20:33] LABS: POC Glucose,Bedside 74 (70-110)
[2023-08-21] MEDS: PANTOPRAZOLE 40MG TABLET 40 MG PO (20:45)
[2023-08-22] VITALS (12 sets, daily range): BP systolic 84–164; BP diastolic 38–52; PULSE 56–89; RESP 16–24; TEMP 33.2–38.1; O2SAT 90–96; BMI 45.1
[2023-08-22] MEDS: SODIUM CHLORIDE 0.9% IV ×3 (01:17→17:08)
[2023-08-22] MEDS: ACYCLOVIR SODIUM IV ×3 (01:17→17:08)
[2023-08-22 05:11] LABS: POC Glucose,Bedside 78 (70-110)
[2023-08-22] MEDS: LEVOTHYROXINE 100MCG (0.1MG) TAB 100 MCG PO (06:00)
[2023-08-22] MEDS: IPRATROPIUM/ALBUTEROL 3 ML NEB IH ×4 (06:30→19:05)
--- NOTE | 2023-08-22 08:08 | P.PN_ITS ---
Subjective *Date: 08/22/23 *Time: 08:56 Interval history: Patient is about the same today. She is still lethargic but tries to answer questions. Denies any pain. Medical Exam Vital signs and Labs for Last 24 Hours: Vital Signs Temp Pulse Pulse Resp BP Pulse Ox O2 Del Method 08/22/23 06:30 67 08/22/23 06:30 64 08/22/23 06:30 92 L Nasal Cannula 08/22/23 06:29 Nasal Cannula 08/22/23 04:00 97.9 F 65 16 89/38 L 96 08/22/23 04:54 Nasal Cannula 08/22/23 03:00 Nasal Cannula 08/22/23 01:00 Nasal Cannula 08/22/23 00:00 97.9 F 56 L 17 84/41 L 92 L Nasal Cannula 08/21/23 23:00 Nasal Cannula 08/21/23 21:00 Nasal Cannula 08/21/23 20:00 96 Nasal Cannula 08/21/23 20:00 97.9 F 73 20 90/45 L 96 Nasal Cannula 08/21/23 18:53 70 08/21/23 18:53 70 08/21/23 18:53 91 L Nasal Cannula 08/21/23 18:12 Nasal Cannula 08/21/23 17:00 Nasal Cannula 08/21/23 16:00 97.7 F 77 20 136/86 99 Nasal Cannula 08/21/23 15:00 Nasal Cannula 08/21/23 16:00 Nasal Cannula 08/21/23 13:00 Nasal Cannula 08/21/23 13:09 86 08/21/23 13:09 89 08/21/23 11:50 98.2 F 73 18 112/64 96 Nasal Cannula 08/21/23 11:00 Nasal Cannula 08/21/23 09:00 Nasal Cannula 08/21/23 11:00 Nasal Cannula 08/21/23 09:00 Nasal Cannula 08/21/23 10:18 66 08/21/23 10:18 69 O2 Flow Rate 08/22/23 06:30 08/22/23 06:30 08/22/23 06:30 2 08/22/23 06:29 2 08/22/23 04:00 08/22/23 04:54 2 08/22/23 03:00 2 08/22/23 01:00 2 08/22/23 00:00 08/21/23 23:00 2 08/21/23 21:00 2 08/21/23 20:00 2 08/21/23 20:00 08/21/23 18:53 08/21/23 18:53 08/21/23 18:53 2 08/21/23 18:12 2 08/21/23 17:00 2 08/21/23 16:00 2 08/21/23 15:00 2 08/21/23 16:00 2 08/21/23 13:00 2 08/21/23 13:09 08/21/23 13:09 08/21/23 11:50 3 08/21/23 11:00 2 08/21/23 09:00 08/21/23 11:00 2 08/21/23 09:00 2 08/21/23 10:18 08/21/23 10:18 Intake and Output 08/21/23 08/22/23 08/22/23 19:59 03:59 11:59 Intake Total 1305 / 2586 773 / 2586 508 / 2586 Output Total 250 / 395 45 / 395 100 / 395 Balance 1055 / 2191 728 / 2191 408 / 2191 Intake: Intake, Oral Amount 340 / 460 120 / 460 Intake, Total IV Amount 965 / 2126 653 / 2126 508 / 2126 Acyclovir Sodium 400 mg In 0.9 250 / 250 % Sodium Chloride 250 ml @ 250 mls/hr IV Q8H [facility] Rx#:[id number] D5W/0.9% NaCl w/20mEq KCL 1,000 653 / 911 258 / 911 ml @ 75 mls/hr IV .[id number] [facility] Rx#:[id number] Dextrose 5 % and 0.9 % NaCl 1, 965 / 965 000 ml @ 75 mls/hr IV .[id number] [facility] Rx#:[id number] Output: Output, Urine Amount 250 / 395 45 / 395 100 / 395 Other: Number of Voids 1 Number of Unmeasured Voids 1 0 0 Weight 280 lb 9.6 oz Patient Weight 08/22/23 11:59 Weight 280 lb 9.6 oz Laboratory Results - last 24 hr 08/20/23 05:54: RPR Titer Non reactive 08/21/23 06:05: Total Counted 50, Neutrophils % (Manual) 38 L, Lymphocytes % (Manual) 54 H, Monocytes % (Manual) 6, Eosinophils % (Manual) 2, Platelet Estimate Slight decrease, RBC Morphology Normal 08/21/23 09:25: Chlamy pneumoniae PCR TNP, Adenovirus (PCR) Not detected, B. pertussis DNA (PCR) TNP, Coronavirus OC43 (PCR) Not detected, Coronavirus HKU1 (PCR) Not detected, Coronavirus 229E (PCR) Not detected, SARS-CoV-2 (PCR) Not detected, Coronavirus NL63 (PCR) Not detected, Human Metapneumovir PCR Not detected, Influenza A (H1) PCR Not detected, Influ A (H1N1/09) PCR Not detected, Influenza A (H3) PCR Not detected, Influenza Type A (PCR) Not detected, Influenza Type B (PCR) Not detected, M. pneumoniae (PCR) TNP, Parainfluenza 1 (PCR) Not detected, Parainfluenza 2 (PCR) Not detected, Parainfluenza 3 (PCR) Not detected, Parainfluenza 4 (PCR) Not detected, RSV (PCR) Not detected, Entero/Rhino (PCR) Not detected 08/21/23 11:19: POC Glucose 72 08/21/23 20:24: POC Glucose 74 08/22/23 05:03: POC Glucose 78 I & O for Labs for Last 24 Hours: Intake & Output 08/19/23 08/20/23 08/21/23 08/22/23 11:59 11:59 11:59 11:59 Intake Total 560 / 560 3194 / 3194 1526 / 1526 2586 / 2586 Output Total 0 / 0 450 / 450 1003 / 1003 395 / 395 Balance 560 / 560 2744 / 2744 523 / 523 2191 / 2191 Weight 280 lb 2 oz 281 lb 12.8 oz 278 lb 14.4 oz 280 lb 9.6 oz Constitutional: Present no acute distress Comment:: Speech is slow but she does answer questions. ENT: Present mucous membranes dry and other (Lips are swollen) Comment:: Poor dentition Respiratory: Present wheezes Cardiac: Present Reg Rate and Rhythm GI: Present soft, normal bowel sounds and other (Obese); Absent distention or tenderness Extremities: Present edema (Bilateral lower legs) Skin: Present rash (right lower leg) Neuro: Present Weakness, awake (tries to answer questions but difficult to understand) and moves all extremities (some jerking movements of arms and legs) Assessment and Plan *Assessment and plan (1) Nausea & vomiting: Status: Acute Qualifiers: Vomiting type: unspecified Qualified Code(s): R11.2 - Nausea with vomiting, unspecified Category: Medical Code(s): R11.2 - Nausea with vomiting, unspecified (2) Acute hyponatremia: Status: Acute Category: Medical Code(s): E87.1 - Hypo-osmolality and hyponatremia (3) Kidney dysfunction: Status: Acute Category: Medical Code(s): N28.9 - Disorder of kidney and ureter, unspecified (4) Hypothyroid: Status: Acute Qualifiers: Hypothyroidism type: unspecified Qualified Code(s): E03.9 - Hypothyroi dism, unspecified Category: Medical Code(s): E03.9 - Hypothyroidism, unspecified (5) GERD (gastroesophageal reflux disease): Status: Acute Qualifiers: Esophagitis presence: esophagitis presence not specified Qualified Code(s): K21.9 - Gastro-esophageal reflux disease without esophagitis Category: Medical Code(s): K21.9 - Gastro-esophageal reflux disease without esophagitis (6) COPD (chronic obstructive pulmonary disease): Status: Acute Qualifiers: COPD type: unspecified COPD Qualified Code(s): J44.9 - Chronic obstr uctive pulmonary disease, unspecified Category: Medical Code(s): J44.9 - Chronic obstructive pulmonary disease, unspecified (7) Hypotension: Status: Acute Category: Medical Code(s): I95.9 - Hypotension, unspecified (8) Anemia: Status: Acute Category: Medical Code(s): D64.9 - Anemia, unspecified (9) Vulvar lesion: Status: Acute Category: Medical Code(s): N90.89 - Other specified noninflammatory disorders of vulva and perineum (10) Weakness: Status: Acute Category: Medical Code(s): R53.1 - Weakness (11) Oral mucosal lesion: Status: Acute Category: Medical Code(s): K13.70 - Unspecified lesions of oral mucosa Plan Full respiratory panel is negative. Blood pressure remains low. Awaiting vulvar swab results. Will try to get her up in a chair as that seems to help her mental status. Will discuss further care with Dr. Quiroga. Dr. Quiroga entry - Saw patient, agree with above note. Temp is low now, warming measures ongoing, will check labs for an endocrine cause.
[2023-08-22 09:13] LABS: Basophils % 0.5 % (0.1-2.0); Eosinophils # 0.1 K/mm3 (0.0-0.4); Eosinophils % 6.6 % (0.1-12.0); Hematocrit 31.3 % (37.0-47.0); Hemoglobin 9.7 g/dL (12.2-16.2); Lymphocytes # 0.4 K/mm3 (0.7-4.5); Lymphocytes % 20.9 % (10-50); Mean Corpuscular Hemoglobin 30.8 pg (27.0-31.2); Mean Corpuscular Volume 99.5 fl (81-99); Mean Platelet Volume 9.1 fl (7.4-10.4); Monocytes # 0.2 K/mm3 (0.1-1.0); Monocytes % 9.2 % (1.7-9.3); Neutrophils # 1.1 K/mm3 (1.8-7.8); Neutrophils % 62.7 % (37.0-80.0); Red Blood Count 3.15 M/mm3 (4.20-5.40); Red Cell Distribution Width 16.6 % (11.5-17.5); White Blood Count 1.7 K/mm3 (4.8-10.8)
[2023-08-22 09:27] LABS: Alanine Aminotransferase 19 U/L (12-78); Albumin Level 2.1 g/dl (3.5-5.0); Albumin/Globulin Ratio 0.8 (1.1-1.8); Alkaline Phosphatase 114 U/L (38-126); Anion Gap 4.5 mEq/L (5-15); Aspartate Amino Transferase 57 U/L (14-36); Bilirubin,Total 0.7 mg/dl (0.2-1.3); Blood Urea Nitrogen 2 mg/dl (7-17); Calcium 8.6 mg/dl (8.4-10.2); Carbon Dioxide 25 mmol/L (22.0-30.0); Chloride 107 mmol/L (98-107); Creatinine Clearance Estimated 70 mL/min (50-200); Estimated Glomerular Filt Rate 73 ml/min (>60); GFR (African American) 89 ML/MIN (>60); Globulin 2.5 g/dL (1.3-3.2); Glucose 95 mg/dl (74-100); Potassium 3.5 mmoL/L (3.5-5.1); Sodium 133 mmol/L (136-145); Total Protein,Serum 4.6 g/dl (6.3-8.2)
[2023-08-22 09:32] LABS: C-Reactive Protein 76.5 mg/L (0-4)
[2023-08-22 09:36] LABS: Platelet Count 29 K/mm3 (142-424)
[2023-08-22 09:37] LABS: Erythrocyte Sedimentation Rate 22 mm/hr (0-30)
[2023-08-22] MEDS: HYDROCORTISONE SOD SUCCINATE 100MG VIAL 200 MG IV (09:52)
[2023-08-22] MEDS: ENOXAPARIN 40MG/0.4ML SYRINGE 40 MG SQ (09:56)
[2023-08-22] MEDS: ONDANSETRON 4MG/2ML VIAL 4 MG IV (09:57)
[2023-08-22 10:22] LABS: Vitamin B12 > 1000 pg/mL (239-931)
[2023-08-22 11:15] LABS: Free T4 (Free Thyroxine) 0.62 ng/dl (0.78-2.19)
--- NOTE | 2023-08-22 16:00 | DIET.NUTRFU ---
Pt PO intake remains poor. Pt with some reported pain while eating/drinking per RN note. Pt receiving vanilla Ensure TID to help supplement diet. NA remains low but has improved. Will continue to monitor.
[2023-08-22 16:22] LABS: POC Glucose,Bedside 81 (70-110)
[2023-08-22 20:22] LABS: POC Glucose,Bedside 104 (70-110)
[2023-08-22] MEDS: HYDROCORTISONE SOD SUCCINATE 100MG VIAL 100 MG IV (21:10)
[2023-08-22] MEDS: D5W/0.9% NaCl w/20mEq KCL 1,000 ML 75 ML IV (21:39)
[2023-08-23] VITALS (10 sets, daily range): BP systolic 95–137; BP diastolic 53–81; PULSE 71–84; RESP 16–22; TEMP 35.3–36.8; O2SAT 90–98; BMI 45.1
[2023-08-23] MEDS: ACYCLOVIR SODIUM IV ×3 (00:07→16:07)
[2023-08-23] MEDS: SODIUM CHLORIDE 0.9% IV ×3 (00:07→16:07)
[2023-08-23 05:41] LABS: POC Glucose,Bedside 125 (70-110)
[2023-08-23] MEDS: IPRATROPIUM/ALBUTEROL 3 ML NEB IH ×4 (06:05→19:57)
[2023-08-23 07:16] LABS: Basophils % 0.1 % (0.1-2.0); Eosinophils % 0.2 % (0.1-12.0); Hematocrit 31.5 % (37.0-47.0); Lymphocytes # 0.8 K/mm3 (0.7-4.5); Lymphocytes % 34.7 % (10-50); Mean Corpuscular HGB Conc 31.7 g/dL (31.8-35.4); Mean Corpuscular Hemoglobin 30.8 pg (27.0-31.2); Mean Corpuscular Volume 97.2 fl (81-99); Mean Platelet Volume 9.3 fl (7.4-10.4); Monocytes # 0.1 K/mm3 (0.1-1.0); Neutrophils # 1.4 K/mm3 (1.8-7.8); Red Blood Count 3.23 M/mm3 (4.20-5.40); Red Cell Distribution Width 16.5 % (11.5-17.5); White Blood Count 2.3 K/mm3 (4.8-10.8)
[2023-08-23 07:22] LABS: Chloride 107 mmol/L (98-107)
[2023-08-23 07:23] LABS: Potassium 4.7 mmoL/L (3.5-5.1); Sodium 136 mmol/L (136-145)
[2023-08-23 07:26] LABS: Anion Gap 12.7 mEq/L (5-15); Blood Urea Nitrogen 3 mg/dl (7-17); Calcium 8.1 mg/dl (8.4-10.2); Carbon Dioxide 21 mmol/L (22.0-30.0); Creatinine Clearance Estimated 62 mL/min (50-200); Estimated Glomerular Filt Rate 64 ml/min (>60); GFR (African American) 77 ML/MIN (>60); Glucose 123 mg/dl (74-100)
[2023-08-23 08:02] LABS: Platelet Count 34 K/mm3 (142-424)
--- NOTE | 2023-08-23 09:09 | EXP.ACUTE.PN ---
Subjective *Date: 08/23/23 *Time: 09:09 Interval history: Nurses report temps were not as low overnight. Patient still with minimal oral intake. High dose IV Hydrocortisone started yesterday. Medical Exam Vital signs and Labs for Last 24 Hours: Vital Signs Temp Pulse Pulse Resp BP Pulse Ox O2 Del Method 08/23/23 08:00 96.2 F L 77 22 121/58 L 98 Nasal Cannula 08/23/23 06:05 74 08/23/23 06:05 71 08/23/23 06:05 94 L Nasal Cannula 08/23/23 06:25 Nasal Cannula 08/23/23 04:00 95.5 F L 77 20 95/81 L 95 Nasal Cannula 08/23/23 05:00 Nasal Cannula 08/23/23 03:00 Nasal Cannula 08/23/23 00:00 96.2 F L 75 20 119/54 L 96 Nasal Cannula 08/23/23 01:00 Nasal Cannula 08/22/23 23:00 Nasal Cannula 08/22/23 21:00 Nasal Cannula 08/22/23 20:00 95 Nasal Cannula 08/22/23 20:00 98.1 F 81 20 164/51 H 95 Nasal Cannula 08/22/23 19:05 84 08/22/23 19:05 84 08/22/23 19:05 90 L Nasal Cannula 08/22/23 18:14 Nasal Cannula 08/22/23 17:00 Nasal Cannula 08/22/23 16:00 98.8 F 89 22 112/45 L 91 L Nasal Cannula 08/22/23 15:00 Nasal Cannula 08/22/23 13:00 Nasal Cannula 08/22/23 14:00 100.6 F H 08/22/23 13:04 81 08/22/23 13:04 83 08/22/23 11:00 Nasal Cannula 08/22/23 11:49 97.5 F L 78 20 97/43 L 90 L Nasal Cannula 08/22/23 10:30 71 08/22/23 10:30 74 08/22/23 10:19 93.9 F L O2 Flow Rate 08/23/23 08:00 08/23/23 06:05 08/23/23 06:05 08/23/23 06:05 2 08/23/23 06:25 2 08/23/23 04:00 3 08/23/23 05:00 2 08/23/23 03:00 3 08/23/23 00:00 08/23/23 01:00 3 08/22/23 23:00 3 08/22/23 21:00 2 08/22/23 20:00 3 08/22/23 20:00 3 08/22/23 19:05 08/22/23 19:05 08/22/23 19:05 2 08/22/23 18:14 2 08/22/23 17:00 2 08/22/23 16:00 2 08/22/23 15:00 2 08/22/23 13:00 2 08/22/23 14:00 08/22/23 13:04 08/22/23 13:04 08/22/23 11:00 2 08/22/23 11:49 2 08/22/23 10:30 08/22/23 10:30 08/22/23 10:19 Intake and Output 08/22/23 08/23/23 08/23/23 23:59 07:59 15:59 Intake Total 1214 / 3530 1122 / 1122 Output Total 0 / 145 0 / 0 0 / 0 Balance 1214 / 3385 1122 / 1122 0 / 1122 Intake: Intake, Total IV Amount 1122 / 1122 Acyclovir Sodium 400 mg In 0.9 250 / 250 % Sodium Chloride 250 ml @ 250 mls/hr IV Q8H [facility] Rx#:[id number] D5W/0.9% NaCl w/20mEq KCL 1,000 872 / 872 ml @ 75 mls/hr IV .[id number] [facility] Rx#:[id number] Infusion Intake 1214 / 1214 D5W/0.9% NaCl w/20mEq KCL 1,000 1214 / 1214 ml @ 75 mls/hr IV .[id number] [facility] Rx#:[id number] Output: Output, Urine Amount 0 / 145 0 / 0 0 / 0 Other: Number of Voids 0 Number of Unmeasured Voids 1 1 Weight 280 lb 8 oz Patient Weight 08/23/23 23:59 Weight 280 lb 8 oz Laboratory Results - last 24 hr 08/22/23 08:56: WBC 1.7 L*, RBC 3.15 L, Hgb 9.7 L, Hct 31.3 L, MCV 99.5 H, MCH 30.8, MCHC 31.0 L, RDW 16.6, Plt Count 29 L* D, MPV 9.1, Neut % (Auto) 62.7, Lymph % (Auto) 20.9, [place] % (Auto) 9.2, Eos % (Auto) 6.6, Baso % (Auto) 0.5, Neut # (Auto) 1.1 L, Lymph # (Auto) 0.4 L, [place] # (Auto) 0.2, Eos # (Auto) 0.1, Baso # (Auto) 0.0, ESR 22, Sodium 133 L, Potassium 3.5, Chloride 107, Carbon Dioxide 25, Anion Gap 4.5 L, BUN 2 L, Creatinine 0.80, Estimated Creat Clear 70, Estimated GFR 73, Est GFR ( Amer) 89, Glucose 95, Calcium 8.6, Total Bilirubin 0.7, AST 57 H, ALT 19, Alkaline Phosphatase 114, C-Reactive Protein 76.5 H, Total Protein 4.6 L, Albumin 2.1 L, Globulin 2.5, Albumin/Globulin Ratio 0.8 L, Vitamin B12 > 1000 H, TSH 25.70 H, Free T4 0.62 L, Cortisol 4.0 L 08/22/23 11:42: POC Glucose 81 08/22/23 20:11: POC Glucose 104 08/23/23 05:33: POC Glucose 125 H 08/23/23 06:37: WBC 2.3 L D, RBC 3.23 L, Hgb 10.0 L, Hct 31.5 L, MCV 97.2, MCH 30.8, MCHC 31.7 L, RDW 16.5, Plt Count 34 L*, MPV 9.3, Neut % (Auto) 63.0, Lymph % (Auto) 34.7, [place] % (Auto) 2.0, Eos % (Auto) 0.2, Baso % (Auto) 0.1, Neut # (Auto) 1.4 L, Lymph # (Auto) 0.8, [place] # (Auto) 0.1, Eos # (Auto) 0.0, Baso # (Auto) 0.0, Sodium 136, Potassium 4.7 D, Chloride 107, Carbon Dioxide 21 L, Anion Gap 12.7, BUN 3 L D, Creatinine 0.90, Estimated Creat Clear 62, Estimated GFR 64, Est GFR ( Amer) 77, Glucose 123 H D, Calcium 8.1 L I & O for Labs for Last 24 Hours: Intake & Output 08/20/23 08/21/23 08/22/23 08/23/23 23:59 23:59 23:59 23:59 Intake Total 3990 / 4240 1555 / 2328 2635 / 3530 1122 / 1122 Output Total 801 / 801 902 / 947 145 / 145 0 / 0 Balance 3189 / 3439 653 / 1381 2490 / 3385 1122 / 1122 Weight 281 lb 12.8 oz 278 lb 14.4 oz 280 lb 9.6 oz 280 lb 8 oz Constitutional: Present no acute distress Comment:: Speech is slow but she does answer questions. ENT: Present mucous membranes dry and other (Lips are swollen) Comment:: Poor dentition Respiratory: Present wheezes Cardiac: Present Reg Rate and Rhythm GI: Present soft, normal bowel sounds and other (Obese); Absent distention or tenderness Extremities: Present edema (Bilateral lower legs) Skin: Present rash (right lower leg) Neuro: Present Weakness, awake (tries to answer questions but difficult to understand) and moves all extremities Assessment and Plan *Assessment and plan (1) Nausea & vomiting: Status: Acute Qualifiers: Vomiting type: unspecified Qualified Code(s): R11.2 - Nausea with vomiting, unspecified Category: Medical Code(s): R11.2 - Nausea with vomiting, unspecified (2) Acute hyponatremia: Status: Acute Category: Medical Code(s): E87.1 - Hypo-osmolality and hyponatremia (3) Kidney dysfunction: Status: Acute Category: Medical Code(s): N28.9 - Disorder of kidney and ureter, unspecified (4) Hypothyroid: Status: Acute Qualifiers: Hypothyroidism type: unspecified Qualified Code(s): E03.9 - Hypothyroidism, unspecified Category: Medical Code(s): E03.9 - Hypothyroidism, unspecified (5) GERD (gastroesophageal reflux disease): Status: Acute Qualifiers: Esophagitis presence: esophagitis presence not specified Qualified Code(s): K21.9 - Gastro-esophageal reflux disease without esophagitis Category: Medical Code(s): K21.9 - Gastro-esophageal reflux disease without esophagitis (6) COPD (chronic obstructive pulmonary disease): Status: Acute Qualifiers: COPD type: unspecified COPD Qualified Code(s): J44.9 - Chronic obstructive pulmonary disease, unspecified Category: Medical Code(s): J44.9 - Chronic obstructive pulmonary disease, unspecified (7) Hypotension: Status: Acute Category: Medical Code(s): I95.9 - Hypotension, unspecified (8) Anemia: Status: Acute Category: Medical Code(s): D64.9 - Anemia, unspecified (9) Vulvar lesion: Status: Acute Category: Medical Code(s): N90.89 - Other specified noninflammatory disorders of vulva and perineum (10) Weakness: Status: Acute Category: Medical Code(s): R53.1 - Weakness (11) Oral mucosal lesion: Status: Acute Category: Medical Code(s): K13.70 - Unspecified lesions of oral mucosa (12) Hypothermia: Status: Acute Category: Medical Code(s): T68.XXXA - Hypothermia, initial encounter (13) Low serum cortisol level: Status: Acute Category: Medical Code(s): R79.89 - Other specified abnormal findings of blood chemistry (14) Pancytopenia: Status: Acute Category: Medical Code(s): D61.818 - Other pancytopenia Plan Patient seems to have stabilized after high dose hydrocortisone IV was started. Body temps are higher, Blood pressure and serum sodium are higher. Patient seems to be having an [place]'s crisis. [employer] testing was negative for syphilis. Spoke to [facility] about transfer of patient. They have listed patient for transfer as they do not have a bed at this time.
[2023-08-23] MEDS: HYDROCORTISONE SOD SUCCINATE 100MG VIAL 100 MG IV (09:40)
[2023-08-23 11:33] LABS: POC Glucose,Bedside 116 (70-110)
[2023-08-23] MEDS: D5W/0.9% NaCl w/20mEq KCL 1,000 ML 75 ML IV (15:11)
[2023-08-23 16:58] LABS: POC Glucose,Bedside 119 (70-110)
--- NOTE | 2023-08-23 17:46 | PC.NURSE ---
Patient responds only to voice when called by name. Patient does not follow commands. VS stable, patient remained on 2LNC. Turn q2.
[2023-08-23] MEDS: NYSTATIN SUSP 500,000 UNITS/5ML UDC 500000 UNIT PO (21:00)
[2023-08-23] MEDS: HYDROCORTISONE SOD SUCCINATE 100MG VIAL 50 MG IV (21:33)
[2023-08-24] VITALS (10 sets, daily range): BP systolic 123–156; BP diastolic 66–91; PULSE 71–89; RESP 17–21; TEMP 36.3–36.9; O2SAT 93–97; BMI 45.1
[2023-08-24 00:36] LABS: POC Glucose,Bedside 114 (70-110)
[2023-08-24] MEDS: ACYCLOVIR SODIUM IV ×3 (01:12→16:53)
[2023-08-24] MEDS: SODIUM CHLORIDE 0.9% IV ×3 (01:12→16:53)
[2023-08-24 05:43] LABS: POC Glucose,Bedside 106 (70-110)
[2023-08-24] MEDS: IPRATROPIUM/ALBUTEROL 3 ML NEB IH ×4 (06:20→19:43)
--- NOTE | 2023-08-24 09:16 | EXP.ACUTE.PN ---
Subjective *Date: 08/24/23 *Time: 09:16 Interval history: Patient still sleeping a lot, was up to chair yesterday. Medical Exam Vital signs and Labs for Last 24 Hours: Vital Signs Temp Pulse Pulse Resp BP Pulse Ox O2 Del Method 08/24/23 08:00 97.8 F 76 18 126/66 96 Nasal Cannula 08/24/23 07:00 Nasal Cannula 08/24/23 06:20 75 08/24/23 06:20 83 08/24/23 06:20 93 L Nasal Cannula 08/24/23 05:00 Nasal Cannula 08/24/23 04:00 98.2 F 75 20 145/84 H 93 L Nasal Cannula 08/24/23 03:00 Nasal Cannula 08/24/23 01:00 Nasal Cannula 08/23/23 23:00 Nasal Cannula 08/23/23 21:00 Nasal Cannula 08/23/23 22:00 Nasal Cannula 08/24/23 00:00 97.9 F 75 20 156/75 H 96 Nasal Cannula 08/23/23 20:00 98.2 F 81 22 137/70 97 Nasal Cannula 08/23/23 19:58 Nasal Cannula 08/23/23 19:57 80 08/23/23 19:57 82 08/23/23 18:30 Room Air 08/23/23 17:00 Nasal Cannula 08/23/23 16:00 97.5 F L 81 16 131/56 L 92 L Nasal Cannula 08/23/23 15:25 Nasal Cannula 08/23/23 14:25 82 08/23/23 14:25 76 08/23/23 14:25 92 L Nasal Cannula 08/23/23 13:00 Nasal Cannula 08/23/23 11:05 Nasal Cannula 08/23/23 12:00 98.1 F 84 19 128/53 L 90 L Nasal Cannula 08/23/23 10:12 75 08/23/23 10:12 72 08/23/23 10:12 94 L Nasal Cannula O2 Flow Rate FiO2 08/24/23 08:00 08/24/23 07:00 2 08/24/23 06:20 08/24/23 06:20 08/24/23 06:20 2 08/24/23 05:00 2 08/24/23 04:00 3 08/24/23 03:00 2 08/24/23 01:00 2 08/23/23 23:00 2 08/23/23 21:00 2 08/23/23 22:00 2 08/24/23 00:00 3 08/23/23 20:00 3 08/23/23 19:58 2 28 08/23/23 19:57 08/23/23 19:57 08/23/23 18:30 08/23/23 17:00 2 08/23/23 16:00 08/23/23 15:25 2 08/23/23 14:25 08/23/23 14:25 08/23/23 14:25 2 08/23/23 13:00 2 08/23/23 11:05 2 08/23/23 12:00 08/23/23 10:12 08/23/23 10:12 08/23/23 10:12 2 Intake and Output 08/23/23 08/24/23 08/24/23 23:59 07:59 15:59 Output Total 0 / 0 400 / 400 Balance 1887 -400 / -400 Output: Output, Urine Amount 0 / 0 400 / 400 Other: Number of Unmeasured Voids 1 0 Weight 280 lb 8.012 oz Patient Weight 08/24/23 23:59 Weight 280 lb 8.012 oz Laboratory Results - last 24 hr 08/23/23 11:25: POC Glucose 116 H 08/23/23 16:05: POC Glucose 119 H 08/23/23 22:29: POC Glucose 114 H 08/24/23 05:22: POC Glucose 106 I & O for Labs for Last 24 Hours: Intake & Output 08/21/23 08/22/23 08/23/23 08/24/23 23:59 23:59 23:59 23:59 Intake Total 1555 / 2328 2635 / 3530 1887 Output Total 902 / 947 145 / 145 0 / 0 400 / 400 Balance 653 / 1381 2490 / 3385 1887 -400 / -400 Weight 278 lb 14.4 oz 280 lb 9.6 oz 280 lb 8 oz 280 lb 8.012 oz Constitutional: Present no acute distress Comment:: Sleeping, will awaken to voice ENT: Present mucous membranes dry and other (Lips are swollen) Comment:: Poor dentition Respiratory: Present wheezes Cardiac: Present Reg Rate and Rhythm GI: Present soft, normal bowel sounds and other (Obese); Absent distention or tenderness Extremities: Present edema (Bilateral lower legs) Skin: Present rash (right lower leg) Neuro: Present Weakness, awake (tries to answer questions but difficult to understand) and moves all extremities Assessment and Plan *Assessment and plan (1) Nausea & vomiting: Status: Acute Qualifiers: Vomiting type: unspecified Qualified Code(s): R11.2 - Nausea with vomiting, unspecified Category: Medical Code(s): R11.2 - Nausea with vomiting, unspecified (2) Acute hyponatremia: Status: Acute Category: Medical Code(s): E87.1 - Hypo-osmolality and hyponatremia (3) Kidney dysfunction: Status: Acute Category: Medical Code(s): N28.9 - Disorder of kidney and ureter, unspecified (4) Hypothyroid: Status: Acute Qualifiers: Hypothyroidism type: unspecified Qualified Code(s): E03.9 - Hypothyroidism, unspecified Category: Medical Code(s): E03.9 - Hypothyroidism, unspecified (5) GERD (gastroesophageal reflux disease): Status: Acute Qualifiers: Esophagitis presence: esophagitis presence not specified Qualified Code(s): K21.9 - Gastro-esophageal reflux disease without esophagitis Category: Medical Code(s): K21.9 - Gastro-esophageal reflux disease without esophagitis (6) COPD (chronic obstructive pulmonary disease): Status: Acute Qualifiers: COPD type: unspecified COPD Qualified Code(s): J44.9 - Chronic obstructive pulmonary disease, unspecified Category: Medical Code(s): J44.9 - Chronic obstructive pulmonary disease, unspecified (7) Hypotension: Status: Acute Category: Medical Code(s): I95.9 - Hypotension, unspecified (8) Anemia: Status: Acute Category: Medical Code(s): D64.9 - Anemia, unspecified (9) Vulvar lesion: Status: Acute Category: Medical Code(s): N90.89 - Other specified noninflammatory disorders of vulva and perineum (10) Weakness: Status: Acute Category: Medical Code(s): R53.1 - Weakness (11) Oral mucosal lesion: Status: Acute Category: Medical Code(s): K13.70 - Unspecified lesions of oral mucosa (12) Hypothermia: Status: Acute Category: Medical Code(s): T68.XXXA - Hypothermia, initial encounter (13) Low serum cortisol level: Status: Acute Category: Medical Code(s): R79.89 - Other specified abnormal findings of blood chemistry (14) Pancytopenia: Status: Acute Category: Medical Code(s): D61.818 - Other pancytopenia Plan Change Hydrocortisone to 50 mg IV BID, continue current treatment, get OOB to chair today, still awaiting transfer.
[2023-08-24] MEDS: NYSTATIN SUSP 500,000 UNITS/5ML UDC 500000 UNIT PO (10:01)
[2023-08-24] MEDS: HYDROCORTISONE SOD SUCCINATE 100MG VIAL 50 MG IV (10:02)
[2023-08-24 10:05] LABS: Chloride 111 mmol/L (98-107); Potassium 4.5 mmoL/L (3.5-5.1); Sodium 137 mmol/L (136-145)
[2023-08-24 10:07] LABS: Basophils % 0.4 % (0.1-2.0); Eosinophils % 0.4 % (0.1-12.0); Hematocrit 32.7 % (37.0-47.0); Hemoglobin 10.3 g/dL (12.2-16.2); Lymphocytes # 0.7 K/mm3 (0.7-4.5); Lymphocytes % 34.9 % (10-50); Mean Corpuscular HGB Conc 31.5 g/dL (31.8-35.4); Mean Corpuscular Hemoglobin 30.9 pg (27.0-31.2); Mean Corpuscular Volume 98.3 fl (81-99); Mean Platelet Volume 9.9 fl (7.4-10.4); Monocytes # 0.1 K/mm3 (0.1-1.0); Monocytes % 3.6 % (1.7-9.3); Neutrophils # 1.2 K/mm3 (1.8-7.8); Neutrophils % 60.7 % (37.0-80.0); Red Blood Count 3.33 M/mm3 (4.20-5.40); Red Cell Distribution Width 16.7 % (11.5-17.5)
[2023-08-24 10:08] LABS: Blood Urea Nitrogen 10 mg/dl (7-17); Creatinine Clearance Estimated 51 mL/min (50-200); Estimated Glomerular Filt Rate 51 ml/min (>60); GFR (African American) 61 ML/MIN (>60)
[2023-08-24 10:09] LABS: Anion Gap 9.5 mEq/L (5-15); Calcium 7.8 mg/dl (8.4-10.2); Carbon Dioxide 21 mmol/L (22.0-30.0); Glucose 106 mg/dl (74-100); Platelet Count 24 K/mm3 (142-424)
--- NOTE | 2023-08-24 10:09 | PC.NURSE ---
pt is unable to follow commands or respond verbally this am. unable to tolerate po meds. MD assessed pt this am.
--- NOTE | 2023-08-24 10:26 | PC.NURSE ---
pts sister is @ bedside and has requested to speak to the physician. He will be in to speak with her
[2023-08-24 13:00] LABS: POC Glucose,Bedside 105 (70-110)
--- NOTE | 2023-08-24 16:18 | PC.NURSE ---
spoke with and [facility] regarding bed availability. still no beds but will keep checking
[2023-08-24 20:23] LABS: POC Glucose,Bedside 104 (70-110)
[2023-08-25] VITALS (12 sets, daily range): BP systolic 100–143; BP diastolic 50–95; PULSE 62–86; RESP 16–23; TEMP 36.4–37.3; O2SAT 90–100; BMI 46.0
[2023-08-25] MEDS: ACYCLOVIR SODIUM IV ×3 (00:24→17:37)
[2023-08-25] MEDS: D5W/0.9% NaCl w/20mEq KCL 1,000 ML 75 ML IV (00:24)
[2023-08-25] MEDS: NYSTATIN SUSP 500,000 UNITS/5ML UDC 500000 UNIT PO (00:24)
[2023-08-25] MEDS: SODIUM CHLORIDE 0.9% IV ×3 (00:24→17:37)
[2023-08-25] MEDS: ONDANSETRON 4MG/2ML VIAL 4 MG IV (02:11)
[2023-08-25] MEDS: IPRATROPIUM/ALBUTEROL 3 ML NEB IH ×3 (06:03→18:57)
[2023-08-25 06:07] LABS: POC Glucose,Bedside 102 (70-110)
--- NOTE | 2023-08-25 08:25 | EXP.ACUTE.PN ---
Subjective *Date: 08/25/23 *Time: 09:02 Interval history: Patient's vital signs have been stabilized. Patient is very difficult to arouse in the morning. She does better later on in the day. She is still not eating. They have been getting her out of bed with the lift. Medical Exam Vital signs and Labs for Last 24 Hours: Vital Signs Temp Pulse Pulse Resp BP Pulse Ox O2 Del Method 08/25/23 08:00 Nasal Cannula 08/25/23 07:00 Nasal Cannula 08/25/23 06:04 72 08/25/23 06:04 76 08/25/23 06:04 90 L Nasal Cannula 08/25/23 05:00 Nasal Cannula 08/25/23 04:00 97.5 F L 72 16 100/50 L 93 L Nasal Cannula 08/25/23 03:00 Nasal Cannula 08/24/23 23:00 Nasal Cannula 08/24/23 21:00 Nasal Cannula 08/25/23 00:00 99.2 F 78 20 135/73 91 L Nasal Cannula 08/24/23 20:00 Nasal Cannula 08/24/23 20:00 97.4 F L 78 20 145/91 H 96 Nasal Cannula 08/24/23 19:44 Nasal Cannula 08/24/23 19:44 89 08/24/23 19:44 71 08/24/23 19:00 Nasal Cannula 08/24/23 16:00 98.1 F 72 17 123/83 97 Nasal Cannula 08/24/23 12:00 98.5 F 77 21 133/74 96 Nasal Cannula 08/24/23 17:00 Nasal Cannula 08/24/23 16:00 Nasal Cannula 08/24/23 15:00 Nasal Cannula 08/24/23 13:00 Nasal Cannula 08/24/23 15:05 77 08/24/23 15:05 81 08/24/23 11:00 Nasal Cannula 08/24/23 09:00 Nasal Cannula 08/24/23 10:25 78 08/24/23 10:25 81 08/24/23 10:25 93 L Nasal Cannula 08/24/23 10:05 Nasal Cannula O2 Flow Rate FiO2 08/25/23 08:00 2 08/25/23 07:00 2 08/25/23 06:04 08/25/23 06:04 08/25/23 06:04 2 08/25/23 05:00 2 08/25/23 04:00 2 08/25/23 03:00 2 08/24/23 23:00 2 08/24/23 21:00 2 08/25/23 00:00 08/24/23 20:00 2 08/24/23 20:00 2 08/24/23 19:44 2 28 08/24/23 19:44 08/24/23 19:44 08/24/23 19:00 08/24/23 16:00 08/24/23 12:00 2 08/24/23 17:00 08/24/23 16:00 08/24/23 15:00 08/24/23 13:00 08/24/23 15:05 08/24/23 15:05 08/24/23 11:00 08/24/23 09:00 08/24/23 10:25 08/24/23 10:25 08/24/23 10:25 2 08/24/23 10:05 Intake and Output 08/24/23 08/25/23 08/25/23 19:59 03:59 11:59 Intake Total 1000 / 1000 Output Total 0 / 0 0 / 0 Balance 0 / 0 0 / 0 1000 / 1000 Intake: Intake, Total IV Amount 1000 / 1000 D5W/0.9% NaCl w/20mEq KCL 1,000 1000 / 1000 ml @ 75 mls/hr IV .[id number] [facility] Rx#:[id number] Output: Output, Urine Amount 0 / 0 0 / 0 Other: Number of Voids 1 Number of Unmeasured Voids 1 1 1 Weight 286 lb 8 oz Patient Weight 08/25/23 11:59 Weight 286 lb 8 oz Laboratory Results - last 24 hr 08/24/23 09:35: WBC 2.0 L, RBC 3.33 L, Hgb 10.3 L, Hct 32.7 L, MCV 98.3, MCH 30.9, MCHC 31.5 L, RDW 16.7, Plt Count 24 L* D, MPV 9.9, Neut % (Auto) 60.7, Lymph % (Auto) 34.9, [place] % (Auto) 3.6, Eos % (Auto) 0.4, Baso % (Auto) 0.4, Neut # (Auto) 1.2 L, Lymph # (Auto) 0.7, [place] # (Auto) 0.1, Eos # (Auto) 0.0, Baso # (Auto) 0.0, Sodium 137, Potassium 4.5, Chloride 111 H, Carbon Dioxide 21 L, Anion Gap 9.5, BUN 10 D, Creatinine 1.10 H D, Estimated Creat Clear 51, Estimated GFR 51 L, Est GFR ( Amer) 61 D, Glucose 106 H, Calcium 7.8 L 08/24/23 12:53: POC Glucose 105 08/24/23 20:15: POC Glucose 104 08/25/23 05:39: POC Glucose 102 I & O for Labs for Last 24 Hours: Intake & Output 08/22/23 08/23/23 08/24/23 08/25/23 11:59 11:59 11:59 11:59 Intake Total 2726 / 2726 2336 / 2336 766 / 766 1000 / 1000 Output Total 395 / 395 0 / 0 400 / 400 0 / 0 Balance 2331 / 2331 2336 / 2336 366 / 366 1000 / 1000 Weight 280 lb 9.6 oz 280 lb 8 oz 280 lb 8.012 oz 286 lb 8 oz Constitutional: Present no acute distress, obese and somnolent Comment:: Arouses in response to loud voice. Opens her eyes and tries to talk. Then sleeps on. Respiratory: Present rhonchi (Bilateral) Comment:: Snoring today Cardiac: Present Reg Rate and Rhythm GI: Present soft, normal bowel sounds and other (Obese); Absent distention, tenderness or guarding Extremities: Present edema (Bilateral lower extremities) Neuro: Present Other (Difficult to arouse. Patient is hard of hearing as well.) Assessment and Plan *Assessment and plan (1) Nausea & vomiting: Status: Acute Qualifiers: Vomiting type: unspecified Qualified Code(s): R11.2 - Nausea with vomiting, unspecified Category: Medical Code(s): R11.2 - Nausea with vomiting, unspecified (2) Acute hyponatremia: Status: Acute Category: Medical Code(s): E87.1 - Hypo-osmolality and hyponatremia (3) Kidney dysfunction: Status: Acute Category: Medical Code(s): N28.9 - Disorder of kidney and ureter, unspecified (4) Hypothyroid: Status: Acute Qualifiers: Hypothyroidism type: unspecified Qualified Code(s): E03.9 - Hypothyroidism, unspecified Category: Medical Code(s): E03.9 - Hypothyroidism, unspecified (5) GERD (gastroesophageal reflux disease): Status: Acute Qualifiers: Esophagitis presence: esophagitis presence not specified Qualified Code(s): K21.9 - Gastro-esophageal reflux disease without esophagitis Category: Medical Code(s): K21.9 - Gastro-esophageal reflux disease without esophagitis (6) COPD (chronic obstructive pulmonary disease): Status: Acute Qualifiers: COPD type: unspecified COPD Qualified Code(s): J44.9 - Chronic obstructive pulmonary disease, unspecified Category: Medical Code(s): J44.9 - Chronic obstructive pulmonary disease, unspecified (7) Hypotension: Status: Acute Category: Medical Code(s): I95.9 - Hypotension, unspecified (8) Anemia: Status: Acute Category: Medical Code(s): D64.9 - Anemia, unspecified (9) Vulvar lesion: Status: Acute Category: Medical Code(s): N90.89 - Other specified noninflammatory disorders of vulva and perineum (10) Weakness: Status: Acute Category: Medical Code(s): R53.1 - Weakness (11) Oral mucosal lesion: Status: Acute Category: Medical Code(s): K13.70 - Unspecified lesions of oral mucosa (12) Hypothermia: Status: Acute Category: Medical Code(s): T68.XXXA - Hypothermia, initial encounter (13) Low serum cortisol level: Status: Acute Category: Medical Code(s): R79.89 - Other specified abnormal findings of blood chemistry (14) Pancytopenia: Status: Acute Category: Medical Code(s): D61.818 - Other pancytopenia (15) Addisonian crisis: Status: Acute Category: Medical Code(s): E27.2 - Addisonian crisis Plan Continue with hydrocortisone. Continue with out of bed; plan is still for patient to be transferred in bed still not available at several tertiary facilities. Dr. Quiroga entry - Saw patient, agree with above note.
[2023-08-25 10:01] LABS: MANUAL DIFFERENTIAL MANUAL DIFFERENTIAL (MANUAL DIFF)
[2023-08-25 10:05] LABS: Basophils % 0.4 % (0.1-2.0); Eosinophils % 0.5 % (0.1-12.0); Hematocrit 30.9 % (37.0-47.0); Hemoglobin 9.6 g/dL (12.2-16.2); Lymphocytes # 1.3 K/mm3 (0.7-4.5); Lymphocytes % 45.8 % (10-50); Mean Corpuscular HGB Conc 31.2 g/dL (31.8-35.4); Mean Corpuscular Hemoglobin 30.8 pg (27.0-31.2); Mean Corpuscular Volume 98.7 fl (81-99); Mean Platelet Volume 11.2 fl (7.4-10.4); Monocytes % 1.3 % (1.7-9.3); Neutrophils # 1.5 K/mm3 (1.8-7.8); Red Blood Count 3.13 M/mm3 (4.20-5.40); Red Cell Distribution Width 16.8 % (11.5-17.5); White Blood Count 2.9 K/mm3 (4.8-10.8)
[2023-08-25 10:10] LABS: Platelet Count 19 K/mm3 (142-424)
[2023-08-25 10:27] LABS: Chloride 112 mmol/L (98-107)
[2023-08-25 10:28] LABS: Potassium 4.8 mmoL/L (3.5-5.1); Sodium 139 mmol/L (136-145)
[2023-08-25 10:30] LABS: Alanine Aminotransferase 22 U/L (12-78); Alkaline Phosphatase 125 U/L (38-126); Aspartate Amino Transferase 60 U/L (14-36); Bilirubin,Total 0.5 mg/dl (0.2-1.3); Blood Urea Nitrogen 19 mg/dl (7-17); Creatinine Clearance Estimated 56 mL/min (50-200); Estimated Glomerular Filt Rate 57 ml/min (>60); GFR (African American) 68 ML/MIN (>60)
[2023-08-25 10:31] LABS: Albumin Level 2.5 g/dl (3.5-5.0); Albumin/Globulin Ratio 0.9 (1.1-1.8); Anion Gap 7.8 mEq/L (5-15); Calcium 7.4 mg/dl (8.4-10.2); Carbon Dioxide 24 mmol/L (22.0-30.0); Globulin 2.9 g/dL (1.3-3.2); Glucose 104 mg/dl (74-100); Total Protein,Serum 5.4 g/dl (6.3-8.2)
[2023-08-25 12:02] LABS: POC Glucose,Bedside 86 (70-110)
--- NOTE | 2023-08-25 12:59 | PC.NURSE ---
PT IS LYING IN BED AND UNABLE TO FOLLOW COMMANDS. WILL OPEN EYES BUT WILL NOT GIVE DIRECT EYE CONTACT. O2 SATURATION WAS 85% ON 2 L NC. O2 INCREASED TO 4 L TO KEEP O2 SATURATION > 90%. LUNG SOUNDS HAVE RHONCHI T/O (UPPER AIRWAY) ATTEMPTED TO SUCTION PT AND WAS UNSUCCESSFUL. NOTIFIED FOR ORDER TO DEEP SUCTION. RT ATTEMPTED TO DEEP SUCTION THICK SECRETIONS NOTED AND UNABLE TO OBTAIN. PT DESATTED TO 87%. O2 INCREASED TO 5 L. NOTIFIED AND HE STATED HE WOULD BE OVER TO SEE PT. PT ASSESSED AT BEDSIDE. AGREED THAT PT IS LESS RESPONSIVE. ABG ORDERED.
[2023-08-25 13:30] LABS: ABG Base Excess -4.5 mmol/L (-2.4-2.3); ABG HCO3 23.4 mmhg (22.0-26.0); ABG Oxygen Saturation 88 % (90-100); ABG PH 7.21 mmol/L (7.35-7.45); ABG PO2 62.7 mmhg (80-100); ABG TCO2 25.3 mmhg (23-27)
[2023-08-25 13:31] LABS: Allen's Test ACCEPTABLE; Oxygen 4 LPM %; Source Right Radial
[2023-08-25 13:32] LABS: ABG PCO2 60.2 mmhg (35.0-45.0)
--- NOTE | 2023-08-25 13:35 | EXP.ACUTE.PN ---
Subjective *Date: 08/25/23 *Time: 13:35 Interval history: Nurse called due to patient's increased sedation level and hypoxia, deep suction remove some mucous. Medical Exam Vital signs and Labs for Last 24 Hours: Vital Signs Temp Pulse Pulse Resp BP Pulse Ox O2 Del Method 08/25/23 12:00 98.2 F 70 18 131/54 L 96 Nasal Cannula 08/25/23 11:00 Nasal Cannula 08/25/23 09:00 Nasal Cannula 08/25/23 09:08 83 08/25/23 09:08 86 08/25/23 08:00 98.1 F 75 19 104/63 L 95 Nasal Cannula 08/25/23 08:00 Nasal Cannula 08/25/23 07:00 Nasal Cannula 08/25/23 06:04 72 08/25/23 06:04 76 08/25/23 06:04 90 L Nasal Cannula 08/25/23 05:00 Nasal Cannula 08/25/23 04:00 97.5 F L 72 16 100/50 L 93 L Nasal Cannula 08/25/23 03:00 Nasal Cannula 08/24/23 23:00 Nasal Cannula 08/24/23 21:00 Nasal Cannula 08/25/23 00:00 99.2 F 78 20 135/73 91 L Nasal Cannula 08/24/23 20:00 Nasal Cannula 08/24/23 20:00 97.4 F L 78 20 145/91 H 96 Nasal Cannula 08/24/23 19:44 Nasal Cannula 08/24/23 19:44 89 08/24/23 19:44 71 08/24/23 19:00 Nasal Cannula 08/24/23 16:00 98.1 F 72 17 123/83 97 Nasal Cannula 08/24/23 17:00 Nasal Cannula 08/24/23 16:00 Nasal Cannula 08/24/23 15:00 Nasal Cannula 08/24/23 15:05 77 08/24/23 15:05 81 O2 Flow Rate FiO2 08/25/23 12:00 08/25/23 11:00 2 08/25/23 09:00 2 08/25/23 09:08 08/25/23 09:08 08/25/23 08:00 08/25/23 08:00 2 08/25/23 07:00 2 08/25/23 06:04 08/25/23 06:04 08/25/23 06:04 2 08/25/23 05:00 2 08/25/23 04:00 2 08/25/23 03:00 2 08/24/23 23:00 2 08/24/23 21:00 2 08/25/23 00:00 08/24/23 20:00 2 08/24/23 20:00 2 08/24/23 19:44 2 28 08/24/23 19:44 08/24/23 19:44 08/24/23 19:00 08/24/23 16:00 08/24/23 17:00 08/24/23 16:00 08/24/23 15:00 08/24/23 15:05 08/24/23 15:05 Intake and Output 08/24/23 08/25/23 08/25/23 23:59 07:59 15:59 Intake Total 1000 / 1000 Output Total 0 / 400 0 / 0 Balance 0 / -400 1000 / 1000 Intake: Intake, Total IV Amount 1000 / 1000 D5W/0.9% NaCl w/20mEq KCL 1,000 1000 / 1000 ml @ 75 mls/hr IV .[id number] [facility] Rx#:[id number] Output: Output, Urine Amount 0 / 400 0 / 0 Other: Number of Voids 1 Number of Unmeasured Voids 1 1 Weight 286 lb 8 oz Patient Weight 08/25/23 23:59 Weight 286 lb 8 oz Laboratory Results - last 24 hr 08/24/23 20:15: POC Glucose 104 08/25/23 05:39: POC Glucose 102 08/25/23 09:40: WBC 2.9 L D, RBC 3.13 L, Hgb 9.6 L, Hct 30.9 L, MCV 98.7, MCH 30.8, MCHC 31.2 L, RDW 16.8, Plt Count 19 L*, MPV 11.2 H, Neut % (Auto) 52.0, Lymph % (Auto) 45.8, [place] % (Auto) 1.3 L, Eos % (Auto) 0.5, Baso % (Auto) 0.4, Neut # (Auto) 1.5 L, Lymph # (Auto) 1.3, [place] # (Auto) 0.0 L, Eos # (Auto) 0.0, Baso # (Auto) 0.0, Sodium 139, Potassium 4.8, Chloride 112 H, Carbon Dioxide 24, Anion Gap 7.8, BUN 19 H D, Creatinine 1.00, Estimated Creat Clear 56, Estimated GFR 57 L, Est GFR ( Amer) 68, Glucose 104 H, Calcium 7.4 L, Total Bilirubin 0.5, AST 60 H, ALT 22, Alkaline Phosphatase 125, Total Protein 5.4 L, Albumin 2.5 L, Globulin 2.9, Albumin/Globulin Ratio 0.9 L 08/25/23 11:45: POC Glucose 86 08/25/23 13:18: Specimen Source Right radial, O2 % 4 lpm, ABG pH 7.21 L*, ABG pCO2 60.2 H, ABG pO2 62.7 L, ABG HCO3 23.4, ABG Total CO2 25.3, ABG O2 Saturation 88 L, ABG Base Excess -4.5 L, [place] Test Acceptable I & O for Labs for Last 24 Hours: Intake & Output 08/22/23 08/23/23 08/24/23 08/25/23 23:59 23:59 23:59 23:59 Intake Total 2635 / 3530 1887 1000 / 1000 Output Total 145 / 145 0 / 0 400 / 400 0 / 0 Balance 2490 / 3385 1887 -400 / -400 1000 / 1000 Weight 280 lb 9.6 oz 280 lb 8 oz 280 lb 8.012 oz 286 lb 8 oz Comment:: Will open eyes briefly to painful stimuli and will retract from pain. Respiratory: Present rhonchi; Absent wheezes Cardiac: Present Reg Rate and Rhythm Assessment and Plan *Assessment and plan (1) Nausea & vomiting: Status: Acute Qualifiers: Vomiting type: unspecified Qualified Code(s): R11.2 - Nausea with vomiting, unspecified Category: Medical Code(s): R11.2 - Nausea with vomiting, unspecified (2) Acute hyponatremia: Status: Acute Category: Medical Code(s): E87.1 - Hypo-osmolality and hyponatremia (3) Kidney dysfunction: Status: Acute Category: Medical Code(s): N28.9 - Disorder of kidney and ureter, unspecified (4) Hypothyroid: Status: Acute Qualifiers: Hypothyroidism type: unspecified Qualified Code(s): E03.9 - Hypothyroidism, unspecified Category: Medical Code(s): E03.9 - Hypothyroidism, unspecified (5) GERD (gastroesophageal reflux disease): Status: Acute Qualifiers: Esophagitis presence: esophagitis presence not specified Qualified Code(s): K21.9 - Gastro-esophageal reflux disease without esophagitis Category: Medical Code(s): K21.9 - Gastro-esophageal reflux disease without esophagitis (6) COPD (chronic obstructive pulmonary disease): Status: Acute Qualifiers: COPD type: unspecified COPD Qualified Code(s): J44.9 - Chronic obstructive pulmonary disease, unspecified Category: Medical Code(s): J44.9 - Chronic obstructive pulmonary disease, unspecified (7) Hypotension: Status: Acute Category: Medical Code(s): I95.9 - Hypotension, unspecified (8) Anemia: Status: Acute Category: Medical Code(s): D64.9 - Anemia, unspecified (9) Vulvar lesion: Status: Acute Category: Medical Code(s): N90.89 - Other specified noninflammatory disorders of vulva and perineum (10) Weakness: Status: Acute Category: Medical Code(s): R53.1 - Weakness (11) Oral mucosal lesion: Status: Acute Category: Medical Code(s): K13.70 - Unspecified lesions of oral mucosa (12) Hypothermia: Status: Acute Category: Medical Code(s): T68.XXXA - Hypothermia, initial encounter (13) Low serum cortisol level: Status: Acute Category: Medical Code(s): R79.89 - Other specified abnormal findings of blood chemistry (14) Pancytopenia: Status: Acute Category: Medical Code(s): D61.818 - Other pancytopenia (15) Addisonian crisis: Status: Acute Category: Medical Code(s): E27.2 - Addisonian crisis Plan ABG ordered, shows acidosis with elevated CO2, will start BiPAP now.
[2023-08-25] MEDS: HYDROCORTISONE SOD SUCCINATE 100MG VIAL 100 MG IV (14:34)
--- NOTE | 2023-08-25 14:47 | PC.NURSE ---
RESP CARE NOTE: Spoke with Dr Arias at bedside, and he agreed with settings of 18/6 cmH2O rate of 20 bpm and FIO2 of 40%. We will continuously monitor patient while on BIPAP.
--- NOTE | 2023-08-25 15:01 | P.CONS_ITS ---
History of Present Illness History of present illness: Ms. Juárez is a 62-year-old female with history of lung cancer s/p resection and chemotherapy 1 year ago, GI symptoms status post HIDA scan negative presented to the hospital with complaints of intractable nausea vomiting and hyponatremia. Pulmonary was called today as concerning for worsening altered mentation and hypercarbic respiratory failure. [facility] Disclaimer: The information contained in this section may have been updated after the patient was seen, as this information can be updated by other users. Medical History (Updated 08/25/23 @ 16:20 by Jennifer Chavez MD) Acute hypercapnic respiratory failure Acute hypotension CAP (community acquired pneumonia) COPD (chronic obstructive pulmonary disease) COPD exacerbation Fibromyalgia GERD (gastroesophageal reflux disease) Hypothyroid Knee fracture Lung cancer Osteoarthritis PNA (pneumonia) Shingles Urinary incontinence Vulvar lesion Wrist fracture, right Surgical History History of carpal tunnel surgery History of section History of colonoscopy History of hysterectomy History of lobectomy of lung Family History Family history of cancer Social History Smoking Status: Current every day smoker tobacco type: cigarettes packs per day: 1 alcohol intake: never substance use type: denies use current occupational status: disabled and other Travel in the last 8 weeks: None housing: house Review of Systems Review of Systems Review of systems:: unable to obtain Review of systems (narrative): Patient altered Pulmonology Exam Inpatient Vital signs and Labs for Last 24 Hours: Temp Pulse Resp BP Pulse Ox O2 Del Method O2 Flow Rate 98.2 F 70 18 131/54 L 96 Nasal Cannula 5 08/25/23 12:00 08/25/23 12:00 08/25/23 12:00 08/25/23 12:00 08/25/23 12:00 08/25/23 13:00 08/25/23 13:00 FiO2 28 08/24/23 19:44 Laboratory Results - last 24 hr 08/24/23 20:15: POC Glucose 104 08/25/23 05:39: POC Glucose 102 08/25/23 09:40: WBC 2.9 L D, RBC 3.13 L, Hgb 9.6 L, Hct 30.9 L, MCV 98.7, MCH 30.8, MCHC 31.2 L, RDW 16.8, Plt Count 19 L*, MPV 11.2 H, Neut % (Auto) 52.0, Lymph % (Auto) 45.8, Mcdonald % (Auto) 1.3 L, Eos % (Auto) 0.5, Baso % (Auto) 0.4, Neut # (Auto) 1.5 L, Lymph # (Auto) 1.3, Mcdonald # (Auto) 0.0 L, Eos # (Auto) 0.0, Baso # (Auto) 0.0, Sodium 139, Potassium 4.8, Chloride 112 H, Carbon Dioxide 24, Anion Gap 7.8, BUN 19 H D, Creatinine 1.00, Estimated Creat Clear 56, Estimated GFR 57 L, Est GFR ( Amer) 68, Glucose 104 H, Calcium 7.4 L, Total Bilirubin 0.5, AST 60 H, ALT 22, Alkaline Phosphatase 125, Total Protein 5.4 L, Albumin 2.5 L, Globulin 2.9, Albumin/Globulin Ratio 0.9 L 08/25/23 11:45: POC Glucose 86 08/25/23 13:18: Specimen Source Right radial, O2 % 4 lpm, ABG pH 7.21 L*, ABG pC O2 60.2 H, ABG pO2 62.7 L, ABG HCO3 23.4, ABG Total CO2 25.3, ABG O2 Saturation 88 L, ABG Base Excess -4.5 L, Gabo Test Acceptable I & O for Labs for Last 24 Hours: Intake & Output 08/22/23 08/23/23 08/24/23 08/25/23 23:59 23:59 23:59 23:59 Intake Total 2635 / 3530 1887 1000 / 1000 Output Total 145 / 145 0 / 0 400 / 400 0 / 0 Balance 2490 / 3385 1887 -400 / -400 1000 / 1000 Weight 280 lb 9.6 oz 280 lb 8 oz 280 lb 8.012 oz 286 lb 8 oz Constitutional: Present severe distress Head: Present normocephalic and atraumatic ENT: Present normal exam, normal oropharynx and mucous membranes moist Neck: Present normal inspection and full ROM Respiratory: Present respiratory distress and diminished air movement; Absent able to speak in complete sentences Cardiac: Present S1/S2, Tachycardia and radial pulses present GI: Present soft and distention; Absent tenderness or guarding Rectal (female): Present deferred (female): Present deferred Skin: Present intact; Absent cyanosis or jaundice Neuro: Absent alert, awake or oriented x 3 Extremities: Present normal inspection; Absent clubbing or cyanosis Psychiatric: Present normal affect and cooperative Meds Home Medications and Allergies Home Medications Medication Instructions Recorded Confirmed Type citalopram 40 mg tablet 40 mg PO DAILY MOOD 07/25/17 08/09/23 History gabapentin 400 mg capsule 400 mg PO BID NEUROPATHY 05/28/23 08/09/23 History ipratropium 0.5 mg-albuterol 3 mg 3 ml inhalation Q6HP PRN Shortness 05/28/23 08/09/23 History (2.5 mg base)/3 mL nebulization Of Breath Or Wheezing soln midodrine 10 mg tablet 10 mg PO TID LOW BLOOD PRESSURE 05/28/23 08/09/23 History levothyroxine 100 mcg tablet 100 mcg PO DAILYDM THYROID 07/04/23 08/09/23 History omeprazole 20 mg capsule,delayed 20 mg PO DAILY GERD 08/09/23 08/09/23 History release New Prescriptions to Start Prescriptions: Allergies Allergy/AdvReac Type Severity Reaction Status Date / Time penicillin G [PENICILLIN G] Allergy Mild Verified 05/28/23 08:57 Results Laboratory Findings 08/25/23 09:40 08/25/23 09:40 ABG ABG pH 7.21 mmol/L (7.35-7.45) L* 08/25/23 13:18 ABG pCO2 60.2 mmhg (35.0-45.0) H 08/25/23 13:18 ABG pO2 62.7 mmhg (80-100) L 08/25/23 13:18 ABG O2 Saturation 88 % (90-100) L 08/25/23 13:18 Abnormal lab findings: Abnormal Labs 08/09/23 08/09/23 08/11/23 11:14 11:25 05:24 WBC 2.9 L D RBC Hgb Hct 48.7 H MCV MCHC Plt Count MPV Neut % (Auto) Lymph % (Auto) Mcdonald % (Auto) 10.6 H 13.9 H Eos % (Auto) 12.2 H Neut # (Auto) 1.3 L Lymph # (Auto) Mcdonald # (Auto) Eos # (Auto) 0.6 H Neutrophils % (Manual) Lymphocytes % (Manual) ABG pH ABG pCO2 ABG pO2 ABG HCO3 ABG Total CO2 ABG O2 Saturation ABG Base Excess Sodium 126 L 134 L Potassium Chloride 86 L Carbon Dioxide Anion Gap 20.5 H BUN 5 L 3 L D Creatinine 1.30 H Estimated GFR 42 L 57 L Est GFR ( Amer) 51 L Glucose 70 L 101 H POC Glucose Calcium 10.4 H AST 48 H Troponin I 0.04 H C-Reactive Protein Total Protein Albumin Globulin 3.3 H Albumin/Globulin Ratio Vitamin B12 TSH Free T4 Cortisol Urine Bilirubin 2+ A 08/11/23 08/11/23 08/12/23 15:36 19:00 05:30 WBC 3.4 L RBC 3.92 L Hgb 10.0 L D 12.1 L D 12.1 L Hct 30.9 L 36.4 L MCV MCHC Plt Count MPV Neut % (Auto) Lymph % (Auto) Mcdonald % (Auto) 11.0 H Eos % (Auto) Neut # (Auto) 1.7 L Lymph # (Auto) Mcdonald # (Auto) Eos # (Auto) Neutrophils % (Manual) Lymphocytes % (Manual) ABG pH ABG pCO2 ABG pO2 ABG HCO3 ABG Total CO2 ABG O2 Saturation ABG Base Excess Sodium 133 L Potassium Chloride 108 H Carbon Dioxide Anion Gap BUN 2 L D Creatinine Estimated GFR 57 L Est GFR ( Amer) Glucose 111 H POC Glucose Calcium 8.1 L AST Troponin I C-Reactive Protein Total Protein Albumin Globulin Albumin/Globulin Ratio Vitamin B12 TSH Free T4 Cortisol Urine Bilirubin 08/14/23 08/15/23 08/18/23 06:43 09:28 05:40 WBC 4.2 L 4.6 L 3.6 L RBC 3.81 L 3.75 L 3.53 L Hgb 11.8 L 11.5 L 11.0 L Hct 36.5 L 34.0 L MCV MCHC 31.7 L 31.4 L Plt Count MPV Neut % (Auto) Lymph % (Auto) Mcdonald % (Auto) 11.4 H 10.1 H Eos % (Auto) Neut # (Auto) Lymph # (Auto) Mcdonald # (Auto) Eos # (Auto) Neutrophils % (Manual) Lymphocytes % (Manual) ABG pH ABG pCO2 ABG pO2 ABG HCO3 ABG Total CO2 ABG O2 Saturation ABG Base Excess Sodium 130 L 129 L 129 L Potassium 3.4 L Chloride Carbon Dioxide 18 L 18 L Anion Gap BUN < 2 L < 2 L < 2 L Creatinine Estimated GFR 57 L 57 L Est GFR ( Amer) Glucose 50 L POC Glucose Calcium 8.3 L AST 78 H Troponin I C-Reactive Protein Total Protein 5.0 L D Albumin 2.5 L Globulin Albumin/Globulin Ratio 1.0 L Vitamin B12 TSH Free T4 Cortisol Urine Bilirubin 08/18/23 08/18/23 08/19/23 09:49 23:14 00:11 WBC RBC Hgb Hct MCV MCHC Plt Count MPV Neut % (Auto) Lymph % (Auto) Mcdonald % (Auto) Eos % (Auto) Neut # (Auto) Lymph # (Auto) Mcdonald # (Auto) Eos # (Auto) Neutrophils % (Manual) Lymphocytes % (Manual) ABG pH 7.26 L ABG pCO2 ABG pO2 79.0 L ABG HCO3 19.0 L ABG Total CO2 20.3 L ABG O2 Saturation ABG Base Excess -8.0 L Sodium Potassium Chloride Carbon Dioxide Anion Gap BUN Creatinine Estimated GFR Est GFR ( Amer) Glucose POC Glucose 116 H 55 L Calcium AST Troponin I C-Reactive Protein Total Protein Albumin Globulin Albumin/Globulin Ratio Vitamin B12 TSH Free T4 Cortisol Urine Bilirubin 08/19/23 08/20/23 08/21/23 00:54 05:59 06:05 WBC 2.3 L D 2.2 L RBC 3.18 L 3.13 L Hgb 9.8 L 9.4 L Hct 30.7 L 30.5 L MCV MCHC 30.7 L Plt Count 118 L D 73 L D MPV Neut % (Auto) 36.8 L Lymph % (Auto) 53.9 H Mcdonald % (Auto) Eos % (Auto) Neut # (Auto) 1.0 L 0.8 L* Lymph # (Auto) Mcdonald # (Auto) Eos # (Auto) Neutrophils % (Manual) 38 L Lymphocytes % (Manual) 54 H ABG pH ABG pCO2 ABG pO2 ABG HCO3 ABG Total CO2 ABG O2 Saturation ABG Base Excess Sodium 128 L 131 L Potassium 3.4 L 3.4 L Chloride Carbon Dioxide Anion Gap BUN 3 L D 2 L D Creatinine Estimated GFR Est GFR ( Amer) Glucose 73 L POC Glucose 56 L Calcium 8.2 L 8.2 L AST Troponin I C-Reactive Protein Total Protein Albumin Globulin Albumin/Globulin Ratio Vitamin B12 TSH Free T4 Cortisol Urine Bilirubin 08/22/23 08/23/23 08/23/23 08:56 05:33 06:37 WBC 1.7 L* 2.3 L D RBC 3.15 L 3.23 L Hgb 9.7 L 10.0 L Hct 31.3 L 31.5 L MCV 99.5 H MCHC 31.0 L 31.7 L Plt Count 29 L* D 34 L* MPV Neut % (Auto) Lymph % (Auto) Mcdonald % (Auto) Eos % (Auto) Neut # (Auto) 1.1 L 1.4 L Lymph # (Auto) 0.4 L Mcdonald # (Auto) Eos # (Auto) Neutrophils % (Manual) Lymphocytes % (Manual) ABG pH ABG pCO2 ABG pO2 ABG HCO3 ABG Total CO2 ABG O2 Saturation ABG Base Excess Sodium 133 L Potassium Chloride Carbon Dioxide 21 L Anion Gap 4.5 L BUN 2 L 3 L D Creatinine Estimated GFR Est GFR ( Amer) Glucose 123 H D POC Glucose 125 H Calcium 8.1 L AST 57 H Troponin I C-Reactive Protein 76.5 H Total Protein 4.6 L Albumin 2.1 L Globulin Albumin/Globulin Ratio 0.8 L Vitamin B12 > 1000 H TSH 25.70 H Free T4 0.62 L Cortisol 4.0 L Urine Bilirubin 08/23/23 08/23/23 08/23/23 11:25 16:05 22:29 WBC RBC Hgb Hct MCV MCHC Plt Count MPV Neut % (Auto) Lymph % (Auto) Mcdonald % (Auto) Eos % (Auto) Neut # (Auto) Lymph # (Auto) Mcdonald # (Auto) Eos # (Auto) Neutrophils % (Manual) Lymphocytes % (Manual) ABG pH ABG pCO2 ABG pO2 ABG HCO3 ABG Total CO2 ABG O2 Saturation ABG Base Excess Sodium Potassium Chloride Carbon Dioxide Anion Gap BUN Creatinine Estimated GFR Est GFR ( Amer) Glucose POC Glucose 116 H 119 H 114 H Calcium AST Troponin I C-Reactive Protein Total Protein Albumin Globulin Albumin/Globulin Ratio Vitamin B12 TSH Free T4 Cortisol Urine Bilirubin 08/24/23 08/25/2308/25/24 09:35 09:40 13:18 WBC 2.0 L 2.9 L D RBC 3.33 L 3.13 L Hgb 10.3 L 9.6 L Hct 32.7 L 30.9 L MCV MCHC 31.5 L 31.2 L Plt Count 24 L* D 19 L* MPV 11.2 H Neut % (Auto) Lymph % (Auto) Mcdonald % (Auto) 1.3 L Eos % (Auto) Neut # (Auto) 1.2 L 1.5 L Lymph # (Auto) Mcdonald # (Auto) 0.0 L Eos # (Auto) Neutrophils % (Manual) Lymphocytes % (Manual) ABG pH 7.21 L* ABG pCO2 60.2 H ABG pO2 62.7 L ABG HCO3 ABG Total CO2 ABG O2 Saturation 88 L ABG Base Excess -4.5 L Sodium Potassium Chloride 111 H 112 H Carbon Dioxide 21 L Anion Gap BUN 19 H D Creatinine 1.10 H D Estimated GFR 51 L 57 L Est GFR ( Amer) Glucose 106 H 104 H POC Glucose Calcium 7.8 L 7.4 L AST 60 H Troponin I C-Reactive Protein Total Protein 5.4 L Albumin 2.5 L Globulin Albumin/Globulin Ratio 0.9 L Vitamin B12 TSH Free T4 Cortisol Urine Bilirubin Assessment and Plan *Assessment and plan (1) Acute hypercapnic respiratory failure: Status: Acute Category: Medical Code(s): J96.02 - Acute respiratory failure with hypercapnia Plan Patient altered on BiPAP therapy. Not responding appropriately verbal commands. Much of the history is obtained from chart review. Ms. Juárez is a 62-year-old female with history of lung cancer s/p resection and chemotherapy 1 year ago, presented to the hospital with complaints of intractable nausea vomiting and hyponatremia. Pulmonary was called today as concerning for worsening altered mentation and hypercarbic respiratory failure. As per noted, GI symptoms status post HIDA scan negative. at [facility]. Status post EGD on this admission no mechanical obstructive lesions noted. CT abdomen on this admission pancreatic calcifications with numerous splenic granulomas likely from prior granulomatous disease. No splenomegaly noted. Renal cortical lesions likely cysts. No evidence/concern for adrenal hemorrhage mention. Fatty liver noted. MRI brain on this admission largely unremarkable. No evidence of in farction/hemorrhage/edema/mass lesions noted. Patient mentation was normal up until Friday where she noted to have worsening mentation and recent event patient platelets started declining. Adrenal insufficiency with random serum cortisol less at 4. TSH also elevated. Initiated on hydrocortisone 50 twice daily. Also receiving levothyroxine 100 mcg p.o. daily. Leukopenia since admission with absolute neutrophil count at one point low at 800. Platelets relatively normal untill, recently started declining, current platelet count less than 30. Has been receiving Lovenox as a DVT prophylaxis recently discontinued. Plan: -ABG reviewed, pH is 7.26 with a pCO2 of 49. Lactate at 1.4. Change BiPAP settings to 18/10 with an FiO2 of 30% and rate of 22. Follow with repeat ABG and lactate. -Agree with continuing hydrocortisone 50 twice daily for patient's adrenal insufficiency. -Change levothyroxine to IV 100 mcg daily -Follow with repeat blood cultures -CT head without contrast stat -Recommend to consider discontinuing acyclovir given chronological association of thrombocytopenia secondary on vaginal swab resulted negative for genital herpes -Given her new onset thrombocytopenia persistent leukopenia, would benefit from bone marrow biopsy.
--- NOTE | 2023-08-25 15:25 | CT_ITS ---
PROCEDURE INFORMATION: Exam: CT Head Without Contrast Exam date and time: 08/25/2023 5:04 PM Age: 62 years old Clinical indication: Altered mental status/memory loss; Additional info: AMS TECHNIQUE: Imaging protocol: Computed tomography of the head without contrast. Radiation optimization: All CT scans at this facility use at least one of these dose optimization techniques: automated exposure control; mA and/or kV adjustment per patient size (includes targeted exams where dose is matched to clinical indication); or iterative reconstruction. COMPARISON: MR HEAD/BRAIN WO/W CON 08/14/2023 10:27 AM FINDINGS: Brain: No intracranial hemorrhage. Mild atrophic changes of the ventricles and subarachnoid spaces. Mild chronic small-vessel ischemic changes noted. No mass, mass effect or midline shift. Intracranial atherosclerotic changes are noted. Cerebral ventricles: See Brain finding. Pituitary gland and sella: There is enlargement of the sella containing CSF density compatible with empty sella similar to previous. Paranasal sinuses: Visualized sinuses are unremarkable. No fluid levels. Mastoid air cells: See Bones/joints finding. Bones/joints: Incidental mild mucosal thickening of the sphenoids and some of the ethmoids. No fluid levels. Opacification of several of the mastoids noted [id number] suggesting mastoiditis may have progressed in the interval since MR of 08/14/2023. Soft tissues: Unremarkable. IMPRESSION: 1. Bilateral mastoid sinus opacification suggesting mastoiditis with potential interval worsening since prior MR of 08/14/2023. 2. Empty sella redemonstrated. 3. Otherwise stable noncontrast CT brain with chronic changes. No acute intracranial abnormality.
--- NOTE | 2023-08-25 15:39 | HMH.ITSTN ---
Nurse to call when patient is ready for scan.
[2023-08-25 15:45] LABS: Eosinophils % 1 % (0-3); Lymphocytes % 47 % (10-50); Monocytes % 3 % (2-9); Neutrophils % 49 % (42-76); Platelet Estimate Moderate Decrease; Total Cells Counted 100
[2023-08-25 15:46] LABS: Anisocytosis 1+; Hypochromasia 3+; Microcytosis 2+
[2023-08-25] MEDS: LEVOTHYROXINE SODIUM 100 MCG VIAL IV (15:58)
[2023-08-25 16:06] LABS: ABG Base Excess -5.3 mmol/L (-2.4-2.3); ABG HCO3 21.7 mmhg (22.0-26.0); ABG Oxygen Saturation 93 % (90-100); ABG PH 7.26 mmol/L (7.35-7.45); ABG PO2 73.7 mmhg (80-100); ABG TCO2 23.2 mmhg (23-27)
[2023-08-25 16:07] LABS: Oxygen 40% %
[2023-08-25 16:08] LABS: Allen's Test ACCEPTABLE; PEEP BIPAP 18/6; Source Right Radial; Vent Rate 20
--- NOTE | 2023-08-25 16:37 | P.DS_ITS ---
General Admission date:: 08/09/23 Discharge date: 08/25/23 HPI HPI HPI: Ms Susana Juárez is a 62 yo female with history of GERD, COPD, tobacco abuse, hypothyroidism. She has had several recent hospitalizations at [facility] as well as [facility]. She had an admission 07/03/2023 at which time she had presented with a 10-day history of nausea and vomiting. Prior to that she had an admission at [facility] and was reportedly told she had an abnormal gallbladder. Patient has had gallbladder ultrasound and HIDA scan done recently which were unremarkable. Her symptoms have been refractory to Protonix. Of note, the patient was diagnosed with lung cancer about a year ago and has had lobectomy and chemotherapy. Patient had presented to the emergency department at this facility on 07/19/2020 for stating that she had nausea and vomiting ongoing since March 2023. Of note, she did have pneumonia and required intubation at [facility] during hospitalization in March. She was managed as an outpatient since that time. She presented to the emergency department a couple of days ago once again complaining of intermittent nausea and vomiting for several weeks. No evidence of any diarrhea. At that time she had mild hyponatremia. She was admitted for inpatient management. She has continued to have nausea and vomiting. Surgical history significant for hysterectomy. She denies vulvar and vaginal pain. Upon questioning she did not answer many questions. She made eye contact but did not offer much verbal interaction. Per nursing staff she has declined since admission. She was ambulating on admission but now needs assistance with ambulation and transition from bed to chair and back. Last night nursing staff performed straigh cath and noticed a lesion on right labia majora. Hospital Course Hospital Course Hospital Course: Patient was admitted with hyponatremia with a sodium of 126. Renal function on admission was stable. Plan was for an EGD and to continue monitoring of her electrolytes. She was seen by Dr. Zee, surgeon, who performed an EGD on 08/11/2023 with findings suggestive of mild esophageal dysmotility, small 3 to 4 cm sliding hiatal herni, mild diffuse nonerosive gastropathic/gastritis, mild to moderate nonerosive duodenitis within the duodenum and duodenal bulb with recommendations of no findings on endoscopy that would suggest mechanical etiology for ongoing nausea. Suggestion was for clear liquid diet. Blood pressure was low after procedure and continued to be low throughout her stay. She had been on Midodrine at home for several days and this was restarted. Sodium did improve to 134. She was given IV bolus fluids with improvement of blood pressure periodically. To note she initially had no vomiting and had no diarrhea. TSH was found to be high and levothyroxine was started at 100 mcg daily. She continued with ongoing IV fluids and periodically required fluid boluses. She was also given antiemetics to include Compazine which seemed to help. Patient had no appetite and did not eat much throughout her stay. It was felt that she would need a thorough GI evaluation at discharge. Patient did not have any pain. Physical therapy was consulted due to ongoing progressive weakness. She was un able to walk and bear weight without 2 or 3 people assistance. She did sit up in a chair periodically. She initially remained alert although her cognition was slow and speech became slurred. Stool sample was negative. She did have an MRI of the brain which showed no acute findings. She did begin to wheeze and was started on DuoNebs treatments routinely. She had some days when she felt better than others. Sodium remained low. She began to have some edema in her legs. Disposition was of concern. It was felt that she would need short-term placement due to her her weakness and difficulty with ambulating. Care management was consulted. She continue with scheduled Zofran every 8 hours. She began to note some sore throat and oral discomfort. She was started on IV spray as well as nystatin. She was felt to be slowly improving. On 08/17/2023 she was not eating and drinking very little. Potassium was low. Renal function remained stable. She then began to run low blood sugars and required D50 W. She also became hypothermic and required the heating blanket. She was seen by [employer] who noted herpetic lesion on the labia. She was started on acyclovir. Culture of this returned negative. Speech was more slurred and difficult to understand. It was felt that she had a viral process. URI panel was negative. She continued with IV fluids at 75 an hour. Blood sugars remained low. Cortisol level was low and she was started on IV hydrocortisone. Platelet count was also low and this was felt to be possibly due to her acyclovir and this was discontinued; at this time white blood cell count was 2300 with a hemoglobin of 10 hematocrit of 31.5 on 08/23/2023. On 08/23/2023 vital signs did seem to stabilize with a better blood pressure and body temps were normal. Serum sodium also increased. She was felt to be having a Lemhi's crisis. At this time Dr. Quiroga discussed case with physicians at [facility] and [facility] for transfer. Patient was accepted but neither had a bed at this time. Patient continued to sleep a lot, eat very poorly if anything, and get up in a chair with the lift on a daily basis. She was continued with hydrocortisone 50 mg IV twice daily. On 08/25/2023 patient was more sedated. She was found to be hypoxic. ABG showed a pH of 7.21 pCO2 of 60.2 pO2 of 62.7 and a bicarb of 23.4. White blood cell count was 2900 with a hemoglobin of 9.6 and hematocrit of 30.9. Platelet count was 19. BUN was 19 with a creatinine of 1. AST was a little elevated at 60. Pulmonology, Dr. Chavez, was consulted. See consult note. Patient was placed on BiPAP. Bed became available at [facility] and patient was transferred there for ongoing care. Exam Data for Last 24 hours Vital signs and Labs for Last 24 Hours: Temp Pulse Resp BP Pulse Ox O2 Del Method O2 Flow Rate 98.1 F 66 18 126/81 93 L BiPAP 5 08/25/23 15:52 08/25/23 15:52 08/25/23 15:52 08/25/23 15:52 08/25/23 15:52 08/25/23 15:52 08/25/23 13:00 FiO2 28 08/24/23 19:44 Laboratory Results - last 24 hr 08/24/23 20:15: POC Glucose 104 08/25/23 05:39: POC Glucose 102 08/25/23 09:40: WBC 2.9 L D, RBC 3.13 L, Hgb 9.6 L, Hct 30.9 L, MCV 98.7, MCH 30.8, MCHC 31.2 L, RDW 16.8, Plt Count 19 L*, MPV 11.2 H, Neut % (Auto) 52.0, Lymph % (Auto) 45.8, [facility] % (Auto) 1.3 L, Eos % (Auto) 0.5, Baso % (Auto) 0.4, Neut # (Auto) 1.5 L, Lymph # (Auto) 1.3, [facility] [place] [facility] # (Auto) 0.0 L, Eos # (Auto) 0.0, Baso # (Auto) 0.0, Total Counted 100, Neutrophils % (Manual) 49, Lymphocytes % (Manual) 47, Monocytes % (Manual) 3, Eosinophils % (Manual) 1, Platelet Estimate Moderate decrease, Hypochromasia 3+, Anisocytosis 1+, Microcytosis 2+, Sodium 139, Potassium 4.8, Chloride 112 H, Carbon Dioxide 24, Anion Gap 7.8, BUN 19 H D , Creatinine 1.00, Estimated Creat Clear 56, Estimated GFR 57 L, Est GFR ( Amer) 68, Glucose 104 H, Calcium 7.4 L, Total Bilirubin 0.5, AST 60 H, ALT 22, Alkaline Phosphatase 125, Total Protein 5.4 L, Albumin 2.5 L, Globulin 2.9, Albumin/Globulin Ratio 0.9 L 08/25/23 11:45: POC Glucose 86 08/25/23 13:18: Specimen Source Right radial, O2 % 4 lpm, ABG pH 7.21 L*, ABG pCO2 60.2 H, ABG pO2 62.7 L, ABG HCO3 23.4, ABG Total CO2 25.3, ABG O2 Saturation 88 L, ABG Base Excess -4.5 L, Gabo Test Acceptable 08/25/23 15:27: Specimen Source Right radial, O2 % 40%, ABG pH 7.26 L, ABG pCO2 49.0 H, ABG pO2 73.7 L, ABG HCO3 21.7 L, ABG Total CO2 23.2, ABG O2 Saturation 93, ABG Base Excess -5.3 L, Gabo Test Acceptable, Vent Rate 20, PEEP Bipap 18/6 I & O for Last 24 hours: Intake & Output 08/23/23 08/24/23 08/25/23 08/26/23 11:59 11:59 11:59 11:59 Intake Total 2335 766 / 766 1000 / 1000 722 / 722 Output Total 0 / 0 400 / 400 0 / 0 Balance 2335 366 / 366 1000 / 1000 722 / 722 Weight 280 lb 8 oz 280 lb 8.012 oz 286 lb 8 oz Narrative: Vital signs and Labs for Last 24 Hours: Temp Pulse Resp BP Pulse Ox O2 Del Method O2 Flow Rate 98.2 F 70 18 131/54 L 96 Nasal Cannula 5 08/25/23 12:00 08/25/23 12:00 08/25/23 12:00 08/25/23 12:00 08/25/23 12:00 08/25/23 13:00 08/25/23 13:00 FiO2 28 08/24/23 19:44 Laboratory Results - last 24 hr 08/24/23 20:15: POC Glucose 104 08/25/23 05:39: POC Glucose 102 08/25/23 09:40: WBC 2.9 L D, RBC 3.13 L, Hgb 9.6 L, Hct 30.9 L, MCV 98.7, MCH 30.8, MCHC 31.2 L, RDW 16.8, Plt Count 19 L*, MPV 11.2 H, Neut % (Auto) 52.0, Lymph % (Auto) 45.8, [facility] [place] [facility] % (Auto) 1.3 L, Eos % (Auto) 0.5, Baso % (Auto) 0.4, Neut # (Auto) 1.5 L, Lymph # (Auto) 1.3, [facility] # (Auto) 0.0 L, Eos # (Auto) 0.0, Baso # (Auto) 0.0, Sodium 139, Potassium 4.8, Chloride 112 H, Carbon Dioxide 24, Anion Gap 7.8, BUN 19 H D, Creatinine 1.00, Estimated Creat Clear 56, Estimated GFR 57 L, Est GFR ( Amer) 68, Glucose 104 H, Calcium 7.4 L, Total Bilirubin 0.5, AST 60 H, ALT 22, Alkaline Phosphatase 125, Total Protein 5.4 L, Albumin 2.5 L, Globulin 2.9, Albumin/Globulin Ratio 0.9 L 08/25/23 11:45: POC Glucose 86 08/25/23 13:18: Specimen Source Right radial, O2 % 4 lpm, ABG pH 7.21 L*, ABG pCO2 60.2 H, ABG pO2 62.7 L, ABG HCO3 23.4, ABG Total CO2 25.3, ABG O2 Saturation 88 L, ABG Base Excess -4.5 L, Gabo Test Acceptable I & O for Labs for Last 24 Hours: Intake & Output 08/22/23 08/23/23 08/24/23 08/25/23 23:59 23:59 23:59 23:59 Intake Total 2635 / 3530 1887 1000 / 1000 Output Total 145 / 145 0 / 0 400 / 400 0 / 0 Balance 2490 / 3385 1887 -400 / -400 1000 / 1000 Weight 280 lb 9.6 oz 280 lb 8 oz 280 lb 8.012 oz 286 lb 8 oz Constitutional: Present severe distress Head: Present normocephalic and atraumatic ENT: Present normal exam, normal oropharynx and mucous membranes moist Neck: Present normal inspection and full ROM Respiratory: Present respiratory distress and diminished air movement; Absent able to speak in complete sentences Cardiac: Present S1/S2, Tachycardia and radial pulses present GI: Present soft and distention; Absent tenderness or guarding Rectal (female): Present deferred (female): Present deferred Skin: Present intact; Absent cyanosis or jaundice Neuro: Absent alert, awake or oriented x 3 Extremities: Present normal inspection; Absent clubbing or cyanosis Psychiatric: Present normal affect and cooperative Results Data Completed and Pending Completed studies during hospitalization [Text1]: 08/20/23 CXR IMPRESSION: Bilateral pneumonia versus edema. 08/14/2023 MRI Brani FINDINGS: Moderate motion artifact is noted. Diffusion sequences show no signal abnormality to indicate acute infarct. No mass, hemorrhage or edema is seen. Ventricles are normal. Major vascular flow voids are intact. Following contrast administration, no mass or abnormal enhancement is seen. IMPRESSION: Grossly unremarkable MR evaluation of the brain. 08/09/2023 Abd/pelvis CT FINDINGS: Lungs: Subpleural atelectasis or fibrosis is noted along the right lower lobe convexity. Diaphragm: There is a tiny hiatal hernia. Liver: The liver is diffusely low in density compatible with fatty infiltration. Innumerable calcified granulomas are noted throughout the liver. Gallbladder and bile ducts: The gallbladder is moderately distended. Pancreas: Pancreatic calcifications are noted which may be due to chronic pancreatitis or prior granulomatous disease. Spleen: Numerous calcific granulomas are noted in the spleen. Adrenal glands: Normal. No mass. Kidneys and ureters: The kidneys enhance symmetrically and there is no hydronephrosis. Renal cortical hypodense lesions statistically most likely represent cysts, largest in the lateral right lower midportion measuring 19 x 17 mm. Stomach and bowel: There is no evidence of small bowel obstruction. Scattered colonic diverticula are noted. Appendix: No evidence of appendicitis. Intraperitoneal space: Unremarkable. No free air. No significant fluid collection. Vasculature: The abdominal aorta is normal in course and caliber with atheromatous plaque and calcification. Lymph nodes: Unremarkable. No enlarged lymph nodes. Urinary bladder: The urinary bladder is contracted. Reproductive: The patient appears to be post hysterectomy. Bones/joints: Degenerative changes are noted of the bones. There is a chronic fracture of the right 7th and 8th ribs. Soft tissues: Unremarkable. IMPRESSION: Fatty liver. Granulomatous disease. Query chronic pancreatitis. Tiny hiatal hernia. Diverticulosis. Renal cysts for which no further imaging follow-up is necessary. Constitutional: Present severe distress Head: Present normocephalic and atraumatic ENT: Present normal exam, normal oropharynx and mucous membranes moist Neck: Present normal inspection and full ROM Respiratory: Present respiratory distress and diminished air movement; Absent able to speak in complete sentences Cardiac: Present S1/S2, Tachycardia and radial pulses present GI: Present soft and distention; Absent tenderness or guarding Rectal (female): Present deferred (female): Present deferred Skin: Present intact; Absent cyanosis or jaundice Neuro: Absent alert, awake or oriented x 3 Extremities: Present normal inspection; Absent clubbing or cyanosis Psychiatric: Present normal affect and cooperative Labs on day of discharge: Labs from last 24 hours 08/25/23 08/25/23 08/25/23 15:27 13:18 11:45 WBC RBC Hgb Hct MCV MCH MCHC RDW Plt Count MPV Neut % (Auto) Lymph % (Auto) [facility] [place] [facility] % (Auto) Eos % (Auto) Baso % (Auto) Neut # (Auto) Lymph # (Auto) [facility] # (Auto) Eos # (Auto) Baso # (Auto) Total Counted Neutrophils % (Manual) Lymphocytes % (Manual) Monocytes % (Manual) Eosinophils % (Manual) Platelet Estimate Hypochromasia Anisocytosis Microcytosis Specimen Source Right radial Right radial O2 % 40% 4 lpm ABG pH 7.26 L 7.21 L* ABG pCO2 49.0 H 60.2 H ABG pO2 73.7 L 62.7 L ABG HCO3 21.7 L 23.4 ABG Total CO2 23.2 25.3 ABG O2 Saturation 93 88 L ABG Base Excess -5.3 L -4.5 L Gabo Test Acceptable Acceptable Vent Rate 20 PEEP Bipap 18/6 Sodium Potassium Chloride Carbon Dioxide Anion Gap BUN Creatinine Estimated Creat Clear Estimated GFR Est GFR ( Amer) Glucose POC Glucose 86 Calcium Total Bilirubin AST ALT Alkaline Phosphatase Total Protein Albumin Globulin Albumin/Globulin Ratio 08/25/23 08/25/23 08/24/23 09:40 05:39 20:15 WBC 2.9 L D RBC 3.13 L Hgb 9.6 L Hct 30.9 L MCV 98.7 MCH 30.8 MCHC 31.2 L RDW 16.8 Plt Count 19 L* MPV 11.2 H Neut % (Auto) 52.0 Lymph % (Auto) 45.8 [facility] [place] [facility] % (Auto) 1.3 L Eos % (Auto) 0.5 Baso % (Auto) 0.4 Neut # (Auto) 1.5 L Lymph # (Auto) 1.3 [facility] # (Auto) 0.0 L Eos # (Auto) 0.0 Baso # (Auto) 0.0 Total Counted 100 Neutrophils % (Manual) 49 Lymphocytes % (Manual) 47 Monocytes % (Manual) 3 Eosinophils % (Manual) 1 Platelet Estimate Moderate decrease Hypochromasia 3+ Anisocytosis 1+ Microcytosis 2+ Specimen Source O2 % ABG pH ABG pCO2 ABG pO2 ABG HCO3 ABG Total CO2 ABG O2 Saturation ABG Base Excess Gabo Test Vent Rate PEEP Sodium 139 Potassium 4.8 Chloride 112 H Carbon Dioxide 24 Anion Gap 7.8 BUN 19 H D Creatinine 1.00 Estimated Creat Clear 56 Estimated GFR 57 L Est GFR ( Amer) 68 Glucose 104 H POC Glucose 102 104 Calcium 7.4 L Total Bilirubin 0.5 AST 60 H ALT 22 Alkaline Phosphatase 125 Total Protein 5.4 L Albumin 2.5 L Globulin 2.9 Albumin/Globulin Ratio 0.9 L DS: Diagnosis Discharge Diagnosis (1) Acute hypercapnic respiratory failure: Status: Acute Code(s): J96.02 - Acute respiratory failure with hypercapnia (2) Addisonian crisis: Status: Acute Code(s): E27.2 - Addisonian crisis (3) Pancytopenia: Status: Acute Code(s): D61.818 - Other pancytopenia (4) Low serum cortisol level: Status: Acute Code(s): R79.89 - Other specified abnormal findings of blood chemistry (5) Hypothermia: Status: Acute Code(s): T68.XXXA - Hypothermia, initial encounter (6) Oral mucosal lesion: Status: Acute Code(s): K13.70 - Unspecified lesions of oral mucosa (7) Weakness: Status: Acute Code(s): R53.1 - Weakness (8) Vulvar lesion: Status: Acute Code(s): N90.89 - Other specified noninflammatory disorders of vulva and perineum (9) Anemia: Status: Acute Code(s): D64.9 - Anemia, unspecified (10) Hypotension: Status: Acute Code(s): I95.9 - Hypotension, unspecified (11) Hypothyroid: Status: Acute Code(s): E03.9 - Hypothyroidism, unspecified Qualifiers: Hypothyroidism type: unspecified Qualified Code(s): E03.9 - Hypothyroidism, unspecified (12) GERD (gastroesophageal reflux disease): Status: Acute Code(s): K21.9 - Gastro-esophageal reflux disease without esophagitis Qualifiers: Esophagitis presence: esophagitis presence not specified Qualified Code(s): K21.9 - Gastro-esophageal reflux disease without esophagitis (13) COPD (chronic obstructive pulmonary disease): Status: Acute Code(s): J44.9 - Chronic obstructive pulmonary disease, unspecified Qualifiers: COPD type: unspecified COPD Qualified Code(s): J44.9 - Chronic obstructive pulmonary disease, unspecified (14) Nausea & vomiting: Status: Acute Code(s): R11.2 - Nausea with vomiting, unspecified Qualifiers: Vomiting type: unspecified Qualified Code(s): R11.2 - Nausea with vomiting, unspecified (15) Acute hyponatremia: Status: Acute Code(s): E87.1 - Hypo-osmolality and hyponatremia (16) Kidney dysfunction: Status: Acute Code(s): N28.9 - Disorder of kidney and ureter, unspecified (17) Abdominal pain: Status: Inactive Code(s): R10.9 - Unspecified abdominal pain Meds Home Medications and Allergies Home Medications Medication Instructions Recorded Confirmed Type citalopram 40 mg tablet 40 mg PO DAILY MOOD 07/25/17 08/09/23 History gabapentin 400 mg capsule 400 mg PO BID NEUROPATHY 05/28/23 08/09/23 History ipratropium 0.5 mg-albuterol 3 mg 3 ml inhalation Q6HP PRN Shortness 05/28/23 08/09/23 History (2.5 mg base)/3 mL nebulization Of Breath Or Wheezing soln midodrine 10 mg tablet 10 mg PO TID LOW BLOOD PRESSURE 05/28/23 08/09/23 History levothyroxine 100 mcg tablet 100 mcg PO DAILYDM THYROID 07/04/23 08/09/23 History omeprazole 20 mg capsule,delayed 20 mg PO DAILY GERD 08/09/23 08/09/23 History release New Prescriptions to Start Prescriptions: Allergies Allergy/AdvReac Type Severity Reaction Status Date / Time penicillin G [PENICILLIN G] Allergy Mild Verified 05/28/23 08:57 Discharge Plan Disposition Patient Disposition: Xfer Short-Term Hosp Condition: Serious Discharge Order Discharge Orders: Discharge Order (Routine); Ordered 08/25/23 Ordered By: Julian Quiroga Follow up Plan Prescriptions/Medication Reconciliation: Continued citalopram 40 mg tablet 40 mg PO DAILY ipratropium-albuterol 0.5 mg-3 mg(2.5 mg base)/3 mL solution for nebulization 3 ml inhalation Q6HP PRN (Reason: Shortness Of Breath Or Wheezing) gabapentin 400 mg capsule 400 mg PO BID midodrine 10 mg tablet 10 mg PO TID levothyroxine 100 mcg tablet 100 mcg PO DAILYDM omeprazole 20 mg capsule,delayed release(DR/EC) 20 mg PO DAILY Problem Reconciliation Problems Reviewed?: Yes Patient Discharge Instructions ACTIVITY: Continue current activity DIET: continue same diet Stand Alone Forms: Transfer Record Patient Instructions: DI for Chronic Obstructive Pulmonary Disease, How to Prevent Falls, DI for Nausea -- Adult, DI for Muscle Weakness Providers Primary Care Provider: Julian Quiroga Admit Provider: Julian Quiroga Attending Provider: Julian Quiroga
--- NOTE | 2023-08-25 18:47 | PC.NURSE ---
PT IS GOING TO BE TRANSFERRED TO . REPORT HAS BEEN CALLED. PT HAS BEEN ON BIPAP FOR SEVERAL HOURS THIS SHIFT AND HAS TOLERATED WELL. PT DID GIVE DIRECT EYE CONTACT WITH STAFF WHILE TRANSPORTING OFF THE FLOOR TO CT. RESPONSIVE TO PAIN. AMBULANCE HAS BEEN CALLED.
[2023-08-25 20:21] LABS: POC Glucose,Bedside 92 (70-110)
--- NOTE | 2023-08-25 20:54 | PC.NURSE ---
Patient left with EMS at 20:54.
[2023-09-01 13:34] LABS: Vitamin B1 34.4 nmol/L (66.5-200.0)
== END 2023-08-25 20:55 | disposition short-term general hospital (02) | DRG 643 ==
LOC: ER 12:12 → 2ND 13:25
PROVIDERS: Internal Medicine Pulmonary Disease; Nurse Practitioner Family; Obstetrics & Gynecology; Physician Assistant; Surgery; Admitting Provider Family Medicine; Emergency Provider Emergency Medicine; PCP Family Medicine; Visit Provider Family Medicine
PROC: 0DJ08ZZ Inspection of Upper Intestinal Tract, Via Natural or Artificial Opening Endoscopic (ICD-10-PCS; CPT 43235; principal; 2023-08-11 12:00)
DX: E27.2 Addisonian crisis (principal); J96.02 Acute respiratory failure with hypercapnia; E87.1 Hypo-osmolality and hyponatremia; D61.818 Other pancytopenia; E27.1 Primary adrenocortical insufficiency; F17.210 Nicotine dependence, cigarettes, uncomplicated; J44.9 Chronic obstructive pulmonary disease, unspecified; E03.9 Hypothyroidism, unspecified; Z85.118 Personal history of other malignant neoplasm of bronchus and lung; M19.90 Unspecified osteoarthritis, unspecified site; K21.9 Gastro-esophageal reflux disease without esophagitis; N90.89 Other specified noninflammatory disorders of vulva and perineum; K13.70 Unspecified lesions of oral mucosa; R68.0 Hypothermia, not associated with low environmental temperature; K29.80 Duodenitis without bleeding; E87.6 Hypokalemia
CPT/HCPCS: 43239; 36415; 70450; 70553; 71045; 74177; 80048; 80053; 80307; 81001; 82533; 82607; 82803; 82962; 83605; 83690; 84425; 84439; 84443; 84484; 85007; 85014; 85018; 85025; 85048; 85049; 85651; 86140; 86593; 87040; 87086; 87507; 87632; 87635; 93005; 94640; 94660; 94761; 97110; 97163; 97166; 97530; 97535; 99285; A9576; J2405; Q9967

== ENCOUNTER 2023-12-02 15:00 | Outpatient (RCR) | payer BC, MEDICARE, SELFPAY ==
--- NOTE | 2023-11-13 10:54 | HMH.PTOPEV ---
PT Outpatient Evaluation Rehab PT Outpatient Evaluation Start: 11/13/23 10:41 Freq: Status: Active Protocol: Document 11/13/23 10:41 NANDA (Rec: 11/13/23 10:54 NANDA [id number]) E-signed By Layo Harp, PT Outpatient Therapy Subjective History Subjective History Pt reports functional decline over the last ~6 months d/t adverse reaction from lung cx. chemotherapy medicine. Pt reports extensize hospitalization 'back in July where I was in bed for what seemed like months.' Pt reports 40% overall recovery of previous functional level since hospitalization. Pt reports chronic bilateral knee , feet, hip and LBP 'for years , which makes it hard to do stuff around the house too.' Pt also reports possible PMH of COPD, 'I'd say I have it, I smoked forever.' New diagnosis of cancer in past 12 Yes: lung months? Chief Complaint Pain,Stiff,Weakness Symptom Type Ache,Dull Symptoms Relieved By Rest/Positioning Symptoms Aggravated By Standing,Physical Activity, Walking Prior Functional Limitations Lifting,Housework,Standing, Walking Current Functional Limitations Lifting,Housework,Standing, Walking Symptom Description Constant but Variable Level of pain today (0-10) 7 Pain scale - at its best (0-10) 7 Pain scale - at its worst (0-10) 7 Hip/Knee Eval Gait Observation General Gait Pattern Observation Antalgic Gait,Wide Based Gait Assistive Device Assistive Devices None / NA MMT bilateral Hip Flexion Strength Grade 4 Good Hip Abduction Strength Grade 4- Good- Hip Adduction Strength Grade 4 Good Hip Extension Strength Grade 4- Good- Knee Extension Strength Grade 4 Good Knee Flexion Strength Grade 4 Good Ankle/Foot Eval MMT Ankle Dorsiflexion Strength Grade 4 Good Tinetti Sitting Balance Sitting Balance Steady, safe Arising from Chair Ability to Arise Able, w/o using arms Attempts to Arise Arises on 1st attempt Standing Balance Immediate Standing Balance Steady w/o support Standing Balance Steady, wide stance Nudged Response Staggers, catches self Standing with Eyes Closed Unsteady Turning Step Pattern Turning 360 Degrees Continuous steps Stability Turning 360 Degrees Steady Sitting Down Sitting Down Uses arms or unsteady Gait and Step Initiation of Gait No hesitancy Right Foot Step Length Does pass stance foot Right Foot Step Height Completely clears floor Left Foot Step Length Does pass stance foot Left Foot Step Height Completely clears floor Step Description Step Symmetry Step length appears equal Step Continuity Steps appear continuous Gait Description Path Description Straight Trunk Description No sway Walking Stance Heels apart Scoring and Interpretation Tinetti Composite Score (points) 23 Outpatient Therapy Assessment Impairments Problems/Impairmments Impaired Strength,Impaired Gait Pattern,Impaired Walking, Impaired Standing,Impaired Household Care,Impaired Tinnetti Score,Subjective C/O Pain,Impaired Self Care/Self Management Prognosis Rehab Potential Good Clinical Impression Consistent with Diagnosis Yes Short Term Goals Number of Weeks 4 Increase Strength Yes: 4/5 B/L LE'S Increase Ability to Walk Yes: 10MIN Increase Ability to Stand Yes: 10MIN Improve Ability For Household Care Yes: 10MIN Decrease TUG Time Yes: 15-18 SEC Decrease Subjective C/O Pain Yes: 4/10 W/ABOVE ACTIVITIES Patient to be Ind w/ HEP Yes [employer] Goals Number of Weeks 10-12 Increase Strength Yes: 4+-5/5 B/L LE'S Increase Ability to Walk Yes: 30MIN Increase Ability to Stand Yes: 30MIN Improve Ability For Household Care Yes: 30MIN Increase Tinnetti Score Yes: 25+ Decrease TUG Time Yes: 12-14 Decrease Subjective C/O Pain Yes: 0-2/10 W/ABOVE ACTIVITIES Patient to be Ind w/ Advanced HEP Yes Outpatient Therapy Plan of Care Treatment Plan May Include Therapeutic Exercise Including Home Yes Exercise Program Manual Therapy Techniques Yes Neuromuscular Re-education Yes Therapeutic Activities to Return to Yes Previous Functional/Work Level Gait Training Yes ADL/Self Care Education Yes Dry Needling Yes Thermal Modalities Yes Electrical Stimulation Yes Ultrasound/Phonophoresis Yes Iontophoresis Yes Eval/Re-Eval Yes Frequency Times per week 2-3 Duration Number of Weeks 10-12 Addendums This patient is a candidate for social No or vocational rehab? Patient/Guardian verbally acknowledges Yes understanding of treatment program and consents to further treatment? Patient/Guardian verbally acknowledges Yes understanding of diagnosis, prognosis and goals for treatment? Eval Complexity PT Charges 12379 - Moderate Complexity Shoulder/Elbow Eval Shoulder Objective Measurements Elbow Objective Measurements PHYSICIAN CERTIFICATION: I certify the specified therapy services for Susana Susan Juárez are required, authorized, and reviewed every 30 days.
== END 2023-12-02 16:30 | disposition home or self-care (01) ==
LOC: PT 15:00
PROVIDERS: Visit Provider Family Medicine
DX: M62.81 Muscle weakness (generalized) (principal)
CPT/HCPCS: 97010; 97014; 97110; 97163; 97530; G0283

== ENCOUNTER 2024-01-05 17:39 | Inpatient (IN) | payer BC, MEDICARE, SELFPAY ==
[2024-01-05 17:42] VITALS: BP 106/71; PULSE 58; RESP 18; O2SAT 96; BMI 45.1
--- NOTE | 2024-01-05 17:54 | XR_ITS ---
PROCEDURE INFORMATION: Exam: XR Chest Exam date and time: 01/05/2024 6:02 PM Age: 63 years old Clinical indication: Cough and shortness of breath; Additional info: Cough, SOA TECHNIQUE: Imaging protocol: Radiologic exam of the chest. Views: 1 view. COMPARISON: CR XR CHEST PORTABLE 08/20/2023 9:27 AM FINDINGS: Tubes, catheters and devices: Left-sided chest port with tip terminating at the SVC. Lungs: Bibasilar opacities partially silhouette the diaphragm are favored to represent combination of atelectasis/pleural effusion/consolidation. Pleural spaces: See Lungs finding. Heart/Mediastinum: Unremarkable. No cardiomegaly. Bones/joints: Unremarkable. IMPRESSION: Bibasilar opacities partially silhouette the diaphragm are favored to represent combination of atelectasis/pleural effusion/consolidation.
[2024-01-05 18:00] VITALS: BP 114/71; PULSE 80; O2SAT 96
--- NOTE | 2024-01-05 18:03 | ECG_ITS ---
APPROVED REPORT Exam: Resting ECG HR:80 bpm ECG Measurements Heart Rate 80 AXES IN 133 P 55 QRSd 91 QRS 44 QT 395 T 67 QTc 431 Conclusion SINUS RHYTHM LOW QRS VOLTAGE IN PRECORDIAL LEADS [QRS DEFLECTION < 1.0 mV IN CHEST LEADS] SEPTAL MYOCARDIAL INFARCTION , OF INDETERMINATE AGE [40+ ms Q WAVE IN V1/V2] ABNORMAL ECG Electronically signed by : GERALDO DIAMOND, 01/06/2024 00:23:18
[2024-01-05 18:31] VITALS: BP 117/54; PULSE 74; O2SAT 96
[2024-01-05 18:41] LABS: Coronavirus 19, PCR Not Detected (NotDetected); Influenza A, PCR Not Detected (NotDetected); Influenza B, PCR Not Detected (NotDetected)
[2024-01-05] MEDS: MORPHINE 4MG/ML SYRINGE 4 MG IV (18:47)
[2024-01-05] MEDS: ONDANSETRON 4MG/2ML VIAL 4 MG IV (18:48)
[2024-01-05 19:00] VITALS: BP 106/55; PULSE 80; O2SAT 99
[2024-01-05 19:00] LABS: Basophils # 0.1 K/mm3 (0-0.2); Eosinophils # 0.4 K/mm3 (0.0-0.4); Eosinophils % 7.8 % (0.1-12.0); Hematocrit 32.4 % (37.0-47.0); Hemoglobin 10.8 g/dL (12.2-16.2); Lymphocytes # 1.1 K/mm3 (0.7-4.5); Lymphocytes % 20.1 % (10-50); Mean Corpuscular HGB Conc 33.3 g/dL (31.8-35.4); Mean Corpuscular Volume 98.9 fl (81-99); Mean Platelet Volume 7.8 fl (7.4-10.4); Monocytes # 0.6 K/mm3 (0.1-1.0); Neutrophils # 3.1 K/mm3 (1.8-7.8); Neutrophils % 60.1 % (37.0-80.0); Platelet Count 348 K/mm3 (142-424); Red Blood Count 3.28 M/mm3 (4.20-5.40); Red Cell Distribution Width 15.9 % (11.5-17.5); White Blood Count 5.2 K/mm3 (4.8-10.8)
[2024-01-05 19:05] LABS: Chloride 90 mmol/L (98-107); Sodium 124 mmol/L (136-145)
[2024-01-05 19:06] LABS: Activated Partial Thrombo Time 32.8 seconds (22.8-30.6); INR 1.05 (0.9-1.1); Potassium 3.6 mmoL/L (3.5-5.1); Prothrombin Time 11.3 seconds (10.1-12.5)
[2024-01-05 19:08] LABS: Alanine Aminotransferase 21 U/L (12-78); Albumin Level 3.7 g/dl (3.5-5.0); Albumin/Globulin Ratio 1.3 (1.1-1.8); Alkaline Phosphatase 48 U/L (38-126); Anion Gap 9.6 mEq/L (5-15); Aspartate Amino Transferase 41 U/L (14-36); Bilirubin,Total 0.5 mg/dl (0.2-1.3); Blood Urea Nitrogen 5 mg/dl (7-17); Calcium 9.5 mg/dl (8.4-10.2); Carbon Dioxide 28 mmol/L (22.0-30.0); Creatinine Clearance Estimated 55 mL/min (50-200); Estimated Glomerular Filt Rate 85 ml/min (>60); GFR (African American) 103 ML/MIN (>60); Globulin 2.8 g/dL (1.3-3.2); Glucose 88 mg/dl (74-100); Total Protein,Serum 6.5 g/dl (6.3-8.2)
[2024-01-05 19:15] LABS: C-Reactive Protein 10.7 mg/L (0-4)
--- NOTE | 2024-01-05 19:20 | CT_ITS ---
PROCEDURE INFORMATION: Exam: CT Abdomen And Pelvis With Contrast Exam date and time: 01/05/2024 7:27 PM Age: 63 years old Clinical indication: Abdominal pain; Additional info: Pain, nausea TECHNIQUE: Imaging protocol: Computed tomography of the abdomen and pelvis with contrast. Radiation optimization: All CT scans at this facility use at least one of these dose optimization techniques: automated exposure control; mA and/or kV adjustment per patient size (includes targeted exams where dose is matched to clinical indication); or iterative reconstruction. Contrast material: ISOVUE; Contrast volume: 70 ml; Contrast route: IV; COMPARISON: CT ABDOMEN PELVIS W CON 08/09/2023 12:24 PM FINDINGS: Lungs: Dependent bilateral lung base opacities favor atelectasis. Multiple calcific densities of the liver are likely related to prior granulomatous process. Liver: There is diffuse hypoattenuation of the liver compatible with moderate hepatic steatosis. Gallbladder and biliary ducts: Normal. No calcified stones. No ductal dilation. Pancreas: Normal. No ductal dilation. Spleen: Multiple benign-appearing calcific densities of the spleen. Adrenal glands: Normal. No mass. Kidneys and ureters: Left renal Bosniak 1 cystic lesion that is homogeneous and fluid density (-9-20 HU), no septations or calcifications, having schwartz smooth and thin. Measurement is 21 mm. No follow-up recommended. Left renal Bosniak 1 cystic lesion that is homogeneous and fluid density (-9-20 HU), no septations or calcifications, having schwartz smooth and thin. Measurement is 11 mm. No follow-up recommended. Stomach and bowel: Unremarkable. No obstruction. No mucosal thickening. Appendix: The appendix is not definitely identified, but there are no primary or secondary CT findings to suggest a diagnosis of acute appendicitis. Intraperitoneal space: Unremarkable. No free air. No significant fluid collection. Vasculature: Mild calcific atherosclerotic disease is scattered throughout the abdominal aorta without aneurysmal dilatation. Lymph nodes: Unremarkable. No enlarged lymph nodes. Urinary bladder: Unremarkable as visualized. Reproductive: Unremarkable as visualized. Bones/joints: Moderate loss of intervertebral disc space with degenerative changes at L5-S1 Soft tissues: Normal. IMPRESSION: No acute findings. COMMENTS: Consistent with the [employer]'s Incidental Findings Committee white paper (J Am Elías Radiol 2018): Any incidental renal lesion less than 1 cm or classified as too small to characterize, or any incidental cystic renal lesion characterized as simple-appearing, is likely benign. No follow-up imaging is recommended for these lesions per consensus recommendations based on imaging criteria.
--- NOTE | 2024-01-05 19:20 | CT_ITS ---
PROCEDURE INFORMATION: Exam: CTA Chest With Contrast Exam date and time: 01/05/2024 7:27 PM Age: 63 years old Clinical indication: Cough and shortness of breath; Additional info: Cough, SOA TECHNIQUE: Imaging protocol: Computed tomographic angiography of the chest with contrast. Exam focused on the arteries. 3D rendering (Not supervised by radiologist): MIP and/or 3D reconstructed images were created by the technologist. Radiation optimization: All CT scans at this facility use at least one of these dose optimization techniques: automated exposure control; mA and/or kV adjustment per patient size (includes targeted exams where dose is matched to clinical indication); or iterative reconstruction. Contrast material: ISOVUE; Contrast volume: 70 ml; Contrast route: INTRAVENOUS (IV); COMPARISON: CR XR CHEST PORTABLE 01/05/2024 6:02 PM FINDINGS: Pulmonary arteries: Postsurgical changes compatible with right upper lobe pneumonectomy with chain suture anastomosis of the bronchus and pulmonary artery. Aorta: Unremarkable. No aortic aneurysm. No aortic dissection. Lungs: Interstitial thickening with ground-glass opacities, and low volume bibasilar pleural effusions with compressive atelectasis may represent mild pulmonary edema versus atypical pneumonia in the clinical setting of infection. Pleural spaces: See Lungs finding. Heart: Unremarkable. No cardiomegaly. No pericardial effusion. Coronary arteries: Moderate three-vessel calcific atherosclerotic disease of the coronary arteries.Multiple calcific densities of the liver are likely related to prior granulomatous process. Lymph nodes: Prominent mediastinal and hilar lymph nodes are likely reactive. Spleen: Multiple benign-appearing calcific densities of the spleen. Bones/joints: Multiple healed/healing right-sided rib fractures likely related to partial pneumonectomy. Soft tissues: Unremarkable. IMPRESSION: Interstitial thickening with ground-glass opacities, and low volume bibasilar pleural effusions with compressive atelectasis may represent mild pulmonary edema versus atypical pneumonia in the clinical setting of infection.
[2024-01-05 19:22] LABS: NT Pro Brain Natriuretic Pep. 634 pg/mL (0-125)
[2024-01-05 19:29] LABS: Procalcitonin 0.095 ng/mL (0.0-2.0)
[2024-01-05 19:30] LABS: T4 (Thyroxine) 8.2 ug/dl (5.53-11.0)
--- NOTE | 2024-01-05 19:30 | ED_ITS ---
Discharge Plan Disposition Patient Disposition: Admitted Clinical Impressions Clinical Impression: Hyponatremia, Hypothyroid, Adrenal insufficiency Discharge ED Provider: Libertad Beaulieu General Adult HPI General Chief complaint: PAIN Stated complaint: Edema in Lower Extremities Time Seen by Provider: 01/05/24 17:47 Mode of Arrival: EMS Source of Information: Patient and EMS Limitations: No Limitations Description of Symptoms (Recalled from ER Triage Doc. by RN): Patient reports bilateral leg pain from her hips to her feet. Patient reports she has had the pain for a while but it has intensified over the last couple days. Patient reports she has an appt in January to see a specialist for the possibility of Addisons disease. History of Present Illness HPI narrative: This patient is a 63-year-old female with a history of lung cancer status post lobectomy and immunotherapy, chronic respiratory failure on supplemental oxygen, hypothyroidism, GERD, COPD, and previous admission with suspected addisonian crisis as well as severe hypothyroidism in the setting of pneumonia. She was admitted to [facility] back in September for this and required intubation in the ICU. She was pancytopenic and had spontaneous subarachnoid hemorrhage as well as other sources of bleeding requiring platelet transfusions. She notes that for the last couple of days, she has had significant pain in her bilateral lower legs extending from her hips all the way down to her feet. She has a pain is been going on for a while but has been worse over the last couple days. She also states that she feels short of breath and has had worsening cough. She notes last time this happened before she ended up in the hospital admitted for all of these issues, including addisonian crisis and hypothyroidism. She notes that they suspect that immunotherapy which was given for lung cancer in the past damage her adrenal glands. No other concerns noted at this time. Related Data Home Medications Medication Instructions Recorded Confirmed gabapentin 400 mg capsule 400 mg PO BID NEUROPATHY 05/28/23 01/05/24 levothyroxine 100 mcg tablet 100 mcg PO DAILYDM THYROID 07/04/23 01/05/24 Allergies Allergy/AdvReac Type Severity Reaction Status Date / Time penicillin G [PENICILLIN G] Allergy Mild Verified 05/28/23 08:57 [facility] Disclaimer: The information contained in this section may have been updated after the patient was seen, as this information can be updated by other users. Medical History Acute hypercapnic respiratory failure Vulvar lesion Travelers' diarrhea Gallbladder sludge Urinary incontinence Osteoarthritis Fibromyalgia GERD (gastroesophageal reflux disease) CAP (community acquired pneumonia) Abdominal pain Knee fracture Wrist fracture, right COPD (chronic obstructive pulmonary disease) Hypothyroid Lung cancer Acute hypotension Bilateral lower abdominal pain PNA (pneumonia) Shingles Tobacco abuse COPD exacerbation Smoking trying to quit Surgical History History of colonoscopy History of section History of carpal tunnel surgery History of hysterectomy History of lobectomy of lung Family History Other Family history of cancer Social History Smoking Status: Current every day smoker tobacco type: cigarettes packs per day: 1 alcohol intake: never substance use type: denies use current occupational status: disabled and other Travel in the last 8 weeks: None housing: house ROS Obtained: Yes All systems reviewed & no additional complaints except as documented Physical Exam General General appearance: alert, in no apparent distress and obese Head Head exam: atraumatic and normocephalic Eye Eye exam: Present normal appearance, PERRL and EOMI ENT ENT exam: Present normal exam, normal oropharynx, mucous membranes moist and normal external ear exam Neck Neck exam: Present normal inspection, full ROM and trachea midline; Absent tenderness Chest Chest inspection: Present normal inspection and symmetric chest wall rise; Absent tenderness Respiratory Respiratory exam: Present normal lung sounds bilaterally; Absent respiratory distress, wheezes, stridor or accessory muscle use Cardiovascular Cardiovascular exam: Present regular rate and normal rhythm Abdominal Exam Abdominal exam: Present soft; Absent distention, tenderness or guarding Extremities Exam Extremities exam: Present full ROM, normal capillary refill and edema (Bilateral lower extremity edema); Absent tenderness Back Exam Back exam: Present normal inspection and full ROM; Absent tenderness Neurological Exam Neurological exam: Present alert, oriented X3, CN II-XII intact and normal gait; Absent motor sensory deficit Psychiatric Psychiatric exam: Present normal affect and normal mood Skin Skin exam: Present warm and dry Medical Decision Making Medical Records Medical records reviewed: Yes I reviewed the patient's medical records. Janes Inquiry Pt receiving controlled substance: No Vital Signs: 01/05/24 17:42 01/05/24 18:00 01/05/24 18:31 Temperature Pulse Rate 80 74 Pulse Rate [Right Brachial] 58 L Respiratory Rate 18 Blood Pressure 114/71 117/54 L Blood Pressure [Right Arm] 106/71 L Blood Pressure Mean [Right Arm] 82 Blood Pressure Source [Right Arm] Automatic Cuff Blood Pressure Position [Right Arm] Sitting 02 Sat by Pulse Oximetry 96 96 96 Oxygen Delivery Method Nasal Cannula Room Air Oxygen Flow Rate (LPM) 2 01/05/24 19:00 01/05/24 21:10 Temperature 97.9 F Pulse Rate 80 84 Pulse Rate [Right Brachial] Respiratory Rate 20 Blood Pressure 106/55 L 110/58 L Blood Pressure [Right Arm] Blood Pressure Mean [Right Arm] Blood Pressure Source [Right Arm] Blood Pressure Position [Right Arm] 02 Sat by Pulse Oximetry 99 Oxygen Delivery Method Room Air Oxygen Flow Rate (LPM) Lab Data Lab results reviewed: Yes I reviewed the patient's lab results. Lab Results 01/05/24 18:40: SARS-CoV-2 (PCR) Not detected, Influenza A Untype (PCR) Not detected, Influenza Type B (PCR) Not detected 01/05/24 18:45: WBC 5.2, RBC 3.28 L, Hgb 10.8 L, Hct 32.4 L, MCV 98.9, MCH 33.0 H, MCHC 33.3, RDW 15.9, Plt Count 348, MPV 7.8, Neut % (Auto) 60.1, Lymph % (Auto) 20.1, [place] % (Auto) 11.0 H, Eos % (Auto) 7.8, Baso % (Auto) 1.0, Neut # (Auto) 3.1, Lymph # (Auto) 1.1, [place] # (Auto) 0.6, Eos # (Auto) 0.4, Baso # (Auto) 0.1, PT 11.3, INR 1.05, APTT 32.8 H, Sodium 124 L, Potassium 3.6, C hloride 90 L, Carbon Dioxide 28, Anion Gap 9.6, BUN 5 L, Creatinine 0.70, Estimated Creat Clear 55, Estimated GFR 85, Est GFR ( Amer) 103, Glucose 88, Calcium 9.5, Total Bilirubin 0.5, AST 41 H, ALT 21, Alkaline Phosphatase 48, Troponin I < 0.01, C-Reactive Protein 10.7 H, NT-Pro-B Natriuret Pep 634 H, Total Protein 6.5, Albumin 3.7, Globulin 2.8, Albumin/Globulin Ratio 1.3, Procalcitonin 0.095, TSH 18.50 H, Thyroxine (T4) 8.2 01/05/24 20:15: Urine Color Yellow, Urine Appearance Clear, Urine pH 6.0, Ur Specific Sawyer 1.010, Urine Protein Negative, Urine Glucose (UA) Negative, Urine Ketones Negative, Urine Blood Negative, Urine Nitrate Negative, Urine Bilirubin Negative, Urine Urobilinogen 1.0, Ur Leukocyte Esterase Trace, Urine RBC None, Urine WBC Occasional, Ur Squamous Epith Cells Occasional, Urine Bacteria None 01/05/24 18:45 01/05/24 18:45 Orders (Tests/Meds): ED MEDICATIONS Generic Name Dose Route Start Last Admin Trade Name Freq PRN Reason Stop Dose Admin Acetaminophen 650 mg 01/05/24 20:47 Acetaminophen 325mg Tab PO 02/04/24 20:46 Q6HP PRN Fever or Mild Pain (1-3) Gabapentin 400 mg 01/05/24 22:30 01/05/24 22:43 Gabapentin 400mg Capsule PO 02/04/24 22:29 400 mg BID LEENA Administration Sodium Chloride 1,000 mls @ 50 mls/hr 01/05/24 21:00 01/05/24 21:38 Sod Chlor 0.9% 1000ml Bag IV 02/04/24 20:59 50 mls/hr .Q20H LEENA Administration Ibuprofen 600 mg 01/05/24 20:47 01/05/24 22:08 Ibuprofen 600 Mg Tablet PO 02/04/24 20:46 600 mg Q6HP PRN Administration Fever or Mild Pain (1-3) Levothyroxine Sodium 100 mcg 01/06/24 07:00 Levothyroxine 100mcg (0.1mg) Tab PO 02/05/24 06:59 DAILYDM LEENA Nicotine 21 mg 01/05/24 22:30 01/05/24 22:43 Nicotine 21mg/24hr Patch TD 02/04/24 22:29 21 mg HS LEENA Administration Discontinued Medications Generic Name Dose Route Start Last Admin Trade Name Freq PRN Reason Stop Dose Admin Hydrocortisone Sodium Succinate 125 mg 01/05/24 19:55 01/05/24 20:04 Hydrocortisone Sod Succinate 100mg Vial IV 01/05/24 19:56 125 mg ONCE ONE Administration Dextrose/Sodium Chloride 1,000 mls @ 999 mls/hr 01/05/24 20:00 01/05/24 22:09 Dextrose 5%-0.9% Nacl Iv Soln IV 02/04/24 19:59 Not Given .Q1H1M LEENA Iopamidol 70 ml 01/05/24 19:33 01/05/24 19:35 Iopamidol-370 (76%);100ml Bottle IV 01/05/24 19:34 70 ml ONCE ONE Administration Morphine Sulfate 4 mg 01/05/24 18:07 01/05/24 18:47 Morphine 4mg/Ml Syringe IV 01/05/24 18:08 4 mg ONCE ONE Administration Ondansetron HCl 4 mg 01/05/24 18:07 01/05/24 18:48 Ondansetron 4mg/2ml Vial IV 01/05/24 18:08 4 mg ONCE ONE Administration Sodium Chloride 10 ml 01/05/24 19:33 01/05/24 19:34 Sodium Chloride 0.9% 10ml Syr (Rad Only) IV 01/05/24 19:34 10 ml ONCE ONE Administration Sodium Chloride 50 ml 01/05/24 19:33 01/05/24 19:34 0.9 % Sodium Chloride 50 Ml Vial IV 01/05/24 19:34 50 ml ONCE ONE Administration ORDERS Category Date Time Status CT abdomen pelvis w con Stat Cat Scan 01/05/24 19:20 Completed CTA Chest [CT angio chest PE protocol] Stat Cat Scan 01/05/24 19:20 Completed CXR --portable [XR chest portable] Stat Exams 01/05/24 17:54 Completed Activated Partial Thrombo Time Stat Lab 01/05/24 18:45 Completed Adrenocorticotropic Hormone Stat Lab 01/05/24 20:12 Received CBC w/Auto Diff [Complete Blood Count Auto Diff] AMLAB Lab 01/06/24 06:00 Ordered CMP [Comprehensive Metabolic Panel] AMLAB Lab 01/06/24 06:00 Ordered CRP [C-Reactive Protein] Stat Lab 01/05/24 18:45 Completed Complete Blood Count Auto Diff Stat Lab 01/05/24 18:45 Completed Comprehensive Metabolic Panel Stat Lab 01/05/24 18:45 Completed Cortisol Stat Lab 01/05/24 18:43 Received NT Pro Brain Natriuretic Pep. Stat Lab 01/05/24 18:45 Completed Procalcitonin Stat Lab 01/05/24 18:45 Completed Prothrombin Time INR Stat Lab 01/05/24 18:45 Completed Rapid PCR Covid and Flu A/B Stat Lab 01/05/24 18:40 Completed Renin Stat Lab 01/05/24 20:12 Received T4 (Thyroxine) Stat Lab 01/05/24 18:45 Completed TSH [Thyroid Stimulating Hormone] Stat Lab 01/05/24 18:45 Completed Troponin I Q3H Lab 01/05/24 22:03 Completed Troponin I Q3H Lab 01/06/24 00:00 Ordered Troponin I Stat Lab 01/05/24 18:45 Completed UA [Urinalysis and Microscopic] Stat Lab 01/05/24 20:15 Completed ECG Data Tracing #1: I reviewed this ECG and interpreted as documented below: Normal sinus rhythm with a ventricular rate of [address] changes concerning for ischemia. Normal axis and intervals. ECG initial impression date: 01/05/24 ECG initial impression time: 18:06 Medical Decision Narrative: In summary, this patient is a 63-year-old female presenting to the Emergency Department for evaluation of shortness of breath and aching in her bilateral lower legs. Differential diagnoses considered include but are not limited to ACS, STEMI, dysrhythmia, PE, pneumonia, viral syndrome, electrolyte derangements, CHF exacerbation, addisonian crisis, hypothyroidism. Ruling out the most morbid conditions drove assessment. It should be noted patient's history includes lung cancer status postresection and immunotherapy, chronic respiratory failure, adrenal insufficiency, and hypothyroidism which are likely not at goal therapy. This complicates all aspects of care by increasing patient's risk for morbidity. I reviewed patient's past medical records and noted her previous admission here and transferred to with concern for addisonian crisis, shock, pancytopenia, and severe hypothyroidism as per HPI. On exam, the patient is lying in bed on her home oxygen with reassuring vital signs on cardiac telemetry. She is tired appearing but is in no acute distress. She has mild bilateral lower extremity edema. Workup included lab evaluation to evaluate for infectious/metabolic/cardiac cause of the patient's issues as well as chest x-ray and EKG. EKG obtained is reassuring without significant changes noted from prior EKG. I independently interpreted x-ray prior to the radiologist read and noted concerning for bilateral consolidation. Please see their read for final interpretation. To further assess, I ordered CT scans of the chest, abdomen, and pelvis. Labs were obtained that demonstrated hyponatremia, which is new. Patient also has elevated TSH with normal T4. She notes that she is taking her thyroid medication at home as prescribed. She has mild stable anemia, but no significant pancytopenia. No thrombocytopenia as previously noted during her last admission. BNP is very mildly elevated. CT scans demonstrated bilateral infiltrates concerning for edema versus pneumonia. I favor edema based on clinical exam. For the patient's hyponatremia with suspected adrenal insufficiency, I did give her 1 L bolus of D5 normal saline. I also gave her IV hydrocortisone. I considered administering IV levothyroxine, however given normal T4 and the fact that she has been taking her thyroid medication at home, I feel this can wait at this time. She has a very complicated history and presentation with hyponatremia, which would require some correction, as well as signs concerning for potential volume overload. Given this, feel she would benefit from admission for monitoring, especially given her history. I called and had an interactive discussion with Dr. Valentino who advised he wanted the patient maintained on maintenance fluids overnight at about 50/h. Normal saline was ordered. He also advised he wanted a.m. labs ordered, which was ordered. Patient was admitted in stable condition for further evaluation and management on behalf of Dr. Quiroga. Critical Care Critical Care Time Critical Care Time: No
[2024-01-05] MEDS: SODIUM CHLORIDE 0.9% 10ML SYR (RAD ONLY) 10 ML IV (19:34)
[2024-01-05] MEDS: 0.9 % SODIUM CHLORIDE 50 ML VIAL IV (19:34)
[2024-01-05] MEDS: IOPAMIDOL-370 (76%);100ML BOTTLE 70 ML IV (19:35)
[2024-01-05 19:50] LABS: Troponin I < 0.01 ng/ml (0.00-0.034)
[2024-01-05] MEDS: Dextrose 5 % and 0.9 % NaCl 1,000 ML 999 ML IV (20:04)
[2024-01-05] MEDS: HYDROCORTISONE SOD SUCCINATE 100MG VIAL 125 MG IV (20:04)
[2024-01-05 20:25] LABS: Microscopic, Urine URINE MICROSCOPIC (MICROSCOPIC)
[2024-01-05 20:32] LABS: Appearance,Urine CLEAR (Clear); Bilirubin,Urine Negative (Negative); Blood, Urine Negative (Negative); Color,Urine YELLOW (Yellow); Glucose,Urine (UA) Negative (Negative); Ketones,Urine Negative (Negative); Leukocyte Esterase,Urine TRACE (Negative); Nitrate,Urine Negative (Negative); Protein,Urine Negative (Negative)
[2024-01-05 20:44] LABS: Squamous Epithelial Cell,Urine Occasional #/hpf (0-5); WBC,Urine Occasional #/hpf (0-3)
--- NOTE | 2024-01-05 20:44 | PC.NURSE ---
Dr. Chicho house
--- NOTE | 2024-01-05 20:44 | PC.NURSE ---
Dr. Beaulieu on phone with Dr. Valentino
--- NOTE | 2024-01-05 20:52 | PC.NURSE ---
notified house supervisors of admission
--- NOTE | 2024-01-05 21:06 | PC.NURSE ---
Addendum entered by Vanesa Valle RN 01/05/24 22:30: [id number]: My phone wasn't working [phone] but was able to get in contact directly after attempted call via charge nurse. Original Note: attempted to call report to second floor nurse
[2024-01-05 21:10] VITALS: BP 110/58; PULSE 84; RESP 20; TEMP 36.6; O2SAT 98
[2024-01-05] MEDS: 0.9 % SODIUM CHLORIDE 1000ML 1,000 ML 50 ML IV (21:38)
[2024-01-05 21:48] VITALS: BP 110/58; PULSE 90; RESP 20; TEMP 36.7; O2SAT 98; BMI 46.0
--- NOTE | 2024-01-05 21:48 | PC.NURSE ---
clarified home med with patient - deleted several bc patient states she no longer takes but doesn't know why. Arrived to floor on 4L NC. placed home meds in pharm bin in storekeeper steward office to be packaged by pharm (levothyroxine).
[2024-01-05] MEDS: IBUPROFEN 600 MG TABLET PO (22:08)
--- NOTE | 2024-01-05 22:28 | PC.NURSE ---
increased patient from 4L NC to 5L NC r/t dropping to upper 70's / low 80's while sleeping. Assessing patient NC was in nose and patient wasn't mouth breathing, with a good pleth on monitor. RT notified with no further instruction at this time.
[2024-01-05] MEDS: NICOTINE 21MG/24HR PATCH 21 MG TD (22:43)
[2024-01-05] MEDS: GABAPENTIN 400MG CAPSULE 400 MG PO (22:43)
[2024-01-05 23:11] LABS: Troponin I < 0.01 ng/ml (0.00-0.034)
--- NOTE | 2024-01-05 23:16 | PC.NURSE ---
patient dropped to mid/hi 60's on 5L NC - Notified RT, No venti mask on floor at all so RT had to run to office. This RN bumped patient to 7L NC in the meantime and monitored. RT came back and placed patient on Venti @ 50%. Contacted Dr. Valentino to get orders for baseline ABG to monitor CO2 - approved ordered and stated we can place on vapo if it comes to that point.
[2024-01-05 23:38] LABS: ABG HCO3 24.8 mmhg (22.0-26.0); ABG Oxygen Saturation 98 % (90-100); ABG PH 7.28 mmol/L (7.35-7.45); ABG PO2 136.5 mmhg (80-100); ABG TCO2 26.5 mmhg (23-27)
[2024-01-05 23:40] LABS: Allen's Test Acceptable; Oxygen 50 %; Source Left Radial
[2024-01-05 23:43] LABS: ABG PCO2 54.5 mmhg (35.0-45.0)
[2024-01-06] VITALS: BP 116/63; PULSE 82; PULSE 95; RESP 16; TEMP 37.3; O2SAT 98
[2024-01-06] MEDS: ACETAMINOPHEN 325MG TAB 650 MG PO ×2 (00:28→21:42)
[2024-01-06 00:57] LABS: Troponin I < 0.01 ng/ml (0.00-0.034)
[2024-01-06 04:00] VITALS: BP 156/87; PULSE 88; PULSE 98; RESP 18; TEMP 37; O2SAT 100; BMI 46.0
[2024-01-06] MEDS: IBUPROFEN 600 MG TABLET PO ×3 (04:23→15:54)
--- NOTE | 2024-01-06 06:15 | PC.NURSE ---
0700 synthyroid dose not available due to after hours admission - waiting on pharm to deliver
[2024-01-06 06:32] LABS: POC Glucose,Bedside 135 (70-110)
[2024-01-06 07:05] LABS: Chloride 96 mmol/L (98-107); Potassium 4.9 mmoL/L (3.5-5.1); Sodium 131 mmol/L (136-145)
[2024-01-06 07:08] LABS: Alanine Aminotransferase 21 U/L (12-78); Albumin Level 3.6 g/dl (3.5-5.0); Albumin/Globulin Ratio 1.2 (1.1-1.8); Alkaline Phosphatase 46 U/L (38-126); Anion Gap 9.9 mEq/L (5-15); Aspartate Amino Transferase 38 U/L (14-36); Bilirubin,Total 0.4 mg/dl (0.2-1.3); Blood Urea Nitrogen 4 mg/dl (7-17); Carbon Dioxide 30 mmol/L (22.0-30.0); Creatinine Clearance Estimated 55 mL/min (50-200); Estimated Glomerular Filt Rate 73 ml/min (>60); GFR (African American) 88 ML/MIN (>60); Globulin 2.9 g/dL (1.3-3.2); Total Protein,Serum 6.5 g/dl (6.3-8.2)
[2024-01-06 07:09] LABS: Calcium 9.2 mg/dl (8.4-10.2); Glucose 122 mg/dl (74-100)
[2024-01-06 07:15] LABS: Basophils % 0.6 % (0.1-2.0); Eosinophils # 0.1 K/mm3 (0.0-0.4); Eosinophils % 1.5 % (0.1-12.0); Hematocrit 34.5 % (37.0-47.0); Lymphocytes # 0.7 K/mm3 (0.7-4.5); Lymphocytes % 10.7 % (10-50); Mean Corpuscular HGB Conc 31.7 g/dL (31.8-35.4); Mean Corpuscular Hemoglobin 32.5 pg (27.0-31.2); Mean Corpuscular Volume 102.3 fl (81-99); Mean Platelet Volume 7.5 fl (7.4-10.4); Monocytes # 0.6 K/mm3 (0.1-1.0); Monocytes % 8.6 % (1.7-9.3); Neutrophils # 5.2 K/mm3 (1.8-7.8); Neutrophils % 78.7 % (37.0-80.0); Platelet Count 364 K/mm3 (142-424); Red Blood Count 3.37 M/mm3 (4.20-5.40); Red Cell Distribution Width 15.6 % (11.5-17.5); White Blood Count 6.6 K/mm3 (4.8-10.8)
[2024-01-06 08:00] VITALS: BP 108/49; PULSE 81; PULSE 90; RESP 20; TEMP 36.6; O2SAT 100
--- NOTE | 2024-01-06 08:03 | EXP.HP ---
History of Present Illness *Admission Date: 01/05/24 *History of present illness: Ms. Juárez is a 63-year-old female with a history of hypothyroidism, fibromyalgia, lung cancer status post right upper lobe lobectomy and chemotherapy, tobacco use disorder, pneumonia in 2022 at [place] requiring intubation for 4 days, COPD, osteoarthritis, heartburn, adrenal crisis in 2023 and subarachnoid hemorrhage 2023 treated at with follow-up rehab posthospital discharge who presented to [facility] emergency room for evaluation after progressive pain in lower extremities. She also notes nausea which started yesterday. She did vomit 1 time. She has not been eating or drinking very well for the past 3 days. These are symptoms that she had with her adrenal crisis which made her present to the ER. She also describes increasing shortness of breath requiring her to wear her oxygen on a continuous basis. She does continue to smoke about a pack of cigarettes per day. She was seen in the office on December 05, 2023 at which time TSH was noted to be 71.6. At which time her levothyroxine was increased. Gabapentin teen was also increased to 400 mg twice a day for low back pain. She was started on Lexapro as well for her anxiety. She states she was not taking hydrocortisone or bumetanide daily. ER documentation as follows: Medical Decision Narrative: In summary, this patient is a 63-year-old female presenting to the Emergency Department at [facility] for evaluation of shortness of breath and aching in her bilateral legs. Differential diagnoses considered include but are not limited to ACS, STEMI, dysrhythmia, PE, pneumonia, viral syndrome, electrolyte derangements, CHF exacerbation, addisonian crisis, hypothyroidism. Ruling out the most morbid conditions drove assessment. It should be noted patient's history includes lung cancer status postresection and immunotherapy, chronic respiratory failure, adrenal insufficiency, and hypothyroidism which are likely not at goal therapy. This complicates all aspects of care by increasing patient's risk for morbidity. I reviewed patient's past medical records and noted her previous admission here and transferred to with concern for addisonian crisis, shock, pancytopenia, and severe hypothyroidism as per HPI. On exam, the patient is lying in bed on her home oxygen with reassuring vital signs on cardiac telemetry. She is tired appearing but is in no acute distress. She has mild bilateral lower extremity edema. Workup included lab evaluation to evaluate for infectious/metabolic/cardiac cause of the patient's issues as well as chest x-ray and EKG. EKG obtained is reassuring without significant changes noted from prior EKG. I independently interpreted x-ray prior to the radiologist read and noted concerning for bilateral consolidation. Please see their read for final interpretation. To further assess, I ordered CT scans of the chest, abdomen, and pelvis. Labs were obtained that demonstrated hyponatremia, which is new. Patient also has elevated TSH with normal T4. She notes that she is taking her thyroid medication at home as prescribed. She has mild stable anemia, but no significant pancytopenia. No thrombocytopenia as previously noted during her last admission. BNP is very mildly elevated. CT scans demonstrated bilateral infiltrates concerning for edema versus pneumonia. I favor edema based on clinical exam. For the patient's hyponatremia with suspected adrenal insufficiency, I did give her 1 L bolus of D5 normal saline. I also gave her IV hydrocortisone. I considered administering IV levothyroxine, however given normal T4 and the fact that she has been taking her thyroid medication at home, I feel this can wait at this time. She has a very complicated history and presentation with hyponatremia, which would require some correction, as well as signs concerning for potential volume overload. Given this, feel she would benefit from admission for monitoring, especially given her history. I called and had an interactive discussion with Dr. Valentino who advised he wanted the patient maintained on maintenance fluids overnight at about 50/h. Normal saline was ordered. He also advised he wanted a.m. labs ordered, which was ordered. Patient was admitted in stable condition for further evaluation and management on behalf of Dr. Quiroga. The above as per ER documentation This a.m. patient is sitting on the bedside and has completed her breakfast. She ate everything on her tray without any nausea. She has walked to the bathroom with assistance without difficulty. Around 11 PM last night O2 sats were in the 60's. She ended up on O2 at 7 L/min with O2 sats increasing to 100%. ABGs completed at this time showed a pH of 7.28 pCO2 of 54.5 with a pO2 of 136 and bicarb of 24. Laboratory data this morning shows white blood cell count of 6600 with a hemoglobin of 11 and hematocrit of 34.5. Blood chemistry shows sodium of 131 and potassium of 4.9. BUN is 41 and creatinine is 0.8. TSH on admission was 18.5. COVID test was negative. Chest CTA revealed the following: IMPRESSION: Interstitial thickening with ground-glass opacities, and low volume bibasilar pleural effusions with compressive atelectasis may represent mild pulmonary edema versus atypical pneumonia in the clinical setting of infection. Abdomen/pelvis CT revealed no acute findings. [facility] Disclaimer: The information contained in this section may have been updated after the patient was seen, as this information can be updated by other users. Medical History (Updated 01/06/24 @ 09:03 by Alka Golden APRN) Acute hypercapnic respiratory failure Vulvar lesion Travelers' diarrhea Gallbladder sludge Urinary incontinence Osteoarthritis Fibromyalgia GERD (gastroesophageal reflux disease) CAP (community acquired pneumonia) Abdominal pain Knee fracture Wrist fracture, right COPD (chronic obstructive pulmonary disease) Hypothyroid Lung cancer Acute hypotension Bilateral lower abdominal pain Shingles Tobacco abuse COPD exacerbation Smoking trying to quit Surgical History History of colonoscopy History of section History of carpal tunnel surgery History of hysterectomy History of lobectomy of lung Family History (Updated 01/06/24 @ 08:22 by Alka Golden APRN) Other Family history of cancer Hypertension Social History Smoking Status: Current every day smoker tobacco type: cigarettes packs per day: 1 alcohol intake: never substance use type: denies use current occupational status: disabled and other Travel in the last 8 weeks: None housing: house Review of Systems Constitutional Constitutional: Denies body ache(s), Denies fever(s), Denies frequent falls, Denies headache(s) and Reports poor appetite Eyes Eyes: Denies change in vision ENT Ears, Nose, Mouth, and Throat: Denies dizziness, Denies otalgia, Denies headache(s), Reports nasal congestion, Denies post nasal drip and Denies sore throat *Cardiovascular Cardiovascular: Denies chest pain and Reports dyspnea *Respiratory Respiratory: Reports cough, Reports dyspnea and Denies hemoptysis *Gastrointestinal Gastrointestinal: Denies constipation, Denies diarrhea, Denies heartburn, Denies hematemesis, Reports nausea and Reports vomiting *Genitourinary Genitourinary: Denies difficulty voiding *Musculoskeletal Musculoskeletal: Reports arthralgias (Bilateral from the hips down) *Neurologic Neurologic: Denies confusion, Denies dizziness, Denies frequent falls and Denies headache(s) Psychiatric Psychiatric: Denies confusion Meds Home Medications and Allergies Home Medications Medication Instructions Recorded Confirmed Type gabapentin 400 mg capsule 400 mg PO BID 05/28/23 01/06/24 History levothyroxine 200 mcg tablet 200 mcg PO DAILY 01/06/24 01/06/24 History New Prescriptions to Start Prescriptions: Allergies Allergy/AdvReac Type Severity Reaction Status Date / Time penicillin G [PENICILLIN G] Allergy Mild Verified 05/28/23 08:57 Exam Data for Last 24 hours Vital signs and Labs for Last 24 Hours: Temp Pulse Resp BP Pulse Ox O2 Del Method O2 Flow Rate 98.6 F 88 18 156/87 H 100 Nasal Cannula 7 01/06/24 04:00 01/06/24 04:00 01/06/24 04:00 01/06/24 04:00 01/06/24 04:00 01/06/24 06:26 01/06/24 06:26 Laboratory Results - last 24 hr 01/05/24 18:40: SARS-CoV-2 (PCR) Not detected, Influenza A Untype (PCR) Not detected, Influenza Type B (PCR) Not detected 01/05/24 18:45: WBC 5.2, RBC 3.28 L, Hgb 10.8 L, Hct 32.4 L, MCV 98.9, MCH 33.0 H, MCHC 33.3, RDW 15.9, Plt Count 348, MPV 7.8, Neut % (Auto) 60.1, Lymph % (Auto) 20.1, [place] % (Auto) 11.0 H, Eos % (Auto) 7.8, Baso % (Auto) 1.0, Neut # (Auto) 3.1, Lymph # (Auto) 1.1, [place] # (Auto) 0.6, Eos # (Auto) 0.4, Baso # (Auto) 0.1, PT 11.3, INR 1.05, APTT 32.8 H, Sodium 124 L, Potassium 3.6, Chloride 90 L, Carbon Dioxide 28, Anion Gap 9.6, BUN 5 L, Creatinine 0.70, Estimated Creat Clear 55, Estimated GFR 85, Est GFR ( Amer) 103, Glucose 88, Calcium 9.5, Total Bilirubin 0.5, AST 41 H, ALT 21, Alkaline Phosphatase 48, Troponin I < 0.01, C-Reactive Protein 10.7 H, NT-Pro-B Natriuret Pep 634 H, Total Protein 6.5, Albumin 3.7, Globulin 2.8, Albumin/Globulin Ratio 1.3, Procalcitonin 0.095, TSH 18.50 H, Thyroxine (T4) 8.2 01/05/24 20:15: Urine Color Yellow, Urine Appearance Clear, Urine pH 6.0, Ur Specific [place] 1.010, Urine Protein Negative, Urine Glucose (UA) Negative, Urine Ketones Negative, Urine Blood Negative, Urine Nitrate Negative, Urine Bilirubin Negative, Urine Urobilinogen 1.0, Ur Leukocyte Esterase Trace, Urine RBC None, Urine WBC Occasional, Ur Squamous Epith Cells Occasional, Urine Bacteria None 01/05/24 22:03: Troponin I < 0.01 01/05/24 23:14: Specimen Source Left radial, O2 % 50, ABG pH 7.28 L, ABG pCO2 54.5 H, ABG pO2 136.5 H, ABG HCO3 24.8, ABG Total CO2 26.5, ABG O2 Saturation 98, ABG Base Excess -2.0, Gabo Test Acceptable 01/06/24 00:11: Troponin I < 0.01 01/06/24 06:24: POC Glucose 135 H 01/06/24 06:35: WBC 6.6 D, RBC 3.37 L, Hgb 11.0 L, Hct 34.5 L, MCV 102.3 H, MCH 32.5 H, MCHC 31.7 L, RDW 15.6, Plt Count 364, MPV 7.5, Neut % (Auto) 78.7, Lymph % (Auto) 10.7, [place] % (Auto) 8.6, Eos % (Auto) 1.5, Baso % (Auto) 0.6, Neut # (Auto) 5.2, Lymph # (Auto) 0.7, [place] # (Auto) 0.6, Eos # (Auto) 0.1, Baso # (Auto) 0.0, Sodium 131 L, Potassium 4.9 D, Chloride 96 L, Carbon Dioxide 30, Anion Gap 9.9, BUN 4 L, Creatinine 0.80, Estimated Creat Clear 55, Estimated GFR 73, Est GFR ( Amer) 88, Glucose 122 H D, Calcium 9.2, Total Bilirubin 0.4, AST 38 H, ALT 21, Alkaline Phosphatase 46, Total Protein 6.5, Albumin 3.6, Globulin 2.9, Albumin/Globulin Ratio 1.2 I & O for Last 24 hours: Intake & Output 01/03/24 01/04/24 01/05/24 01/06/24 11:59 11:59 11:59 11:59 Intake Total 1574 / 1574 Output Total 0 / 0 Balance 1574 / 1574 Weight 286 lb 6.405 oz Constitutional Constitutional: no acute distress Comments: Sitting on the bedside and has completed all of her breakfast *Routine HEENT Exam Head: Present normocephalic and atraumatic Eye: Present PERRL; Absent conjunctival icterus, scleral injection or conjunctivae pink ENT: Present mucous membranes moist and oropharynx clear *Routine Neck Exam Neck: Present supple; Absent carotid bruit, lymphadenopathy, thyromegaly or tenderness *Routine Respiratory Exam Respiratory: Present decreased breath sounds (Posteriorly) *Routine Cardiovascular Exam Cardiovascular: Present RRR *Routine Abdominal Exam Abdominal: Present normoactive bowel sounds and obese; Absent tenderness *Routine Rectal Exam Rectal:: deferred *Routine Genitalia Exam Genitalia:: deferred *Routine Extremities Exam Extremities: Present edema (Trace bilaterally); Absent calf tenderness *Routine Neurological Exam Neurological: Present alert, oriented X3 and moving all extremities Assessment and Plan *Assessment and plan (1) Adrenal insufficiency: Status: Acute Category: Medical Code(s): E27.40 - Unspecified adrenocortical insufficiency (2) Respiratory failure with hypoxia: Status: Acute Category: Medical Code(s): J96.91 - Respiratory failure, unspecified with hypoxia (3) Hypothyroid: Status: Acute Category: Medical Code(s): E03.9 - Hypothyroidism, unspecified (4) Hyponatremia: Status: Acute Category: Medical Code(s): E87.1 - Hypo-osmolality and hyponatremia (5) GERD (gastroesophageal reflux disease): Status: Acute Qualifiers: Esophagitis presence: esophagitis presence not specified Qualified Code(s): K21.9 - Gastro-esophageal reflux disease without esophagitis Category: Medical Code(s): K21.9 - Gastro-esophageal reflux disease without esophagitis (6) COPD (chronic obstructive pulmonary disease): Status: Acute Qualifiers: COPD type: unspecified COPD Qualified Code(s): J44.9 - Chronic obstructive pulmonary disease, unspecified Category: Medical Code(s): J44.9 - Chronic obstructive pulmonary disease, unspecified (7) Tobacco use disorder: Status: Acute Category: Medical Code(s): F17.200 - Nicotine dependence, unspecified, uncomplicated (8) Pneumonia: Status: Acute Category: Medical Code(s): J18.9 - Pneumonia, unspecified organism (9) Noncompliance: Status: Acute Category: Medical Code(s): Z91.199 - Patient's noncompliance with other medical treatment and regimen due to unspecified reason Plan Start antibiotics for probable pneumonia. Will continue with steroids for adrenal insufficiency. Physical therapy consulted. Saline lock. Wean oxygen as tolerated. Dr. Quiroga entry - Saw patient, agree with above note.
--- NOTE | 2024-01-06 08:38 | HMH.PHAINT1 ---
Pharmacy Intervention Comments: MEDICATION RECONCILIATION COMPLETED ON PATIENT USING EXTERNAL FILL HISTORY FROM PHARMACY AND PATIENT INTERVIEW. -EMILIE CHRISTINE, SINAD
[2024-01-06] MEDS: GABAPENTIN 400MG CAPSULE 400 MG PO ×2 (09:10→21:22)
[2024-01-06] MEDS: CITALOPRAM 20MG TABLET 20 MG PO (09:41)
[2024-01-06] MEDS: AZITHROMYCIN 500 MG in 0.9 % SODIUM CHLORIDE 250 ML 250 MG IV (09:41)
[2024-01-06] MEDS: METHYLPREDNISOLONE SOD SUCC 125MG VIAL 125 MG IV ×2 (09:47→16:00)
[2024-01-06] MEDS: LEVOTHYROXINE 100MCG (0.1MG) TAB 200 MCG PO (09:47)
--- NOTE | 2024-01-06 10:23 | HMH.PTEV ---
Physical Therapy Evaluation Rehab PT IP Evaluation Start: 01/06/24 08:47 Freq: ONCE Status: Active Protocol: Document 01/06/24 10:12 RC (Rec: 01/06/24 10:23 PHORNE [id number]) Subjective/History History History 63 yowf adm to [facility] with hyponatremia, PNA, adrenal insufficiency. She reports she lives with her son, but he works during the day, and she is generally independent with all mobility at baseline. She does report having a RW at home if needed for mobility. She has PMH of hypothyroidism, fibromyalgia, lung cancer status post right upper lobe lobectomy and chemotherapy, tobacco use disorder, pneumonia in 2022 at [place] requiring intubation for 4 days, COPD, osteoarthritis, heartburn, adrenal crisis in 2023 and subarachnoid hemorrhage 2023 treated at with follow-up rehab posthospital discharge. Subjective Subjective Pt reports, I feel a LOT better this morning. She agrees to mobility assessment. New diagnosis of cancer in past 12 Yes months? Rehab PT IP Eval Objective Appearance Patient Behavior Appropriate Patient Orientation Person,Place,Time Difficulty following instructions none Speech Pattern Clear Ambulation Patient Able to Ambulate Yes Ambulation Observation IP General Gait Pattern Observation Wide Based Gait Ambulation Distance (feet) 20 Ambulation Assistive Device None Ambulation Ability Supervision/Stand by Balance Ability to Arise Able, uses arms to help Sitting Balance Steady, safe Standing Balance Steady, wide stance Dynamic Sitting Balance Ability Good Dynamic Standing Balance Ability Fair Transfers Bed Transfer Ability Supervision/Stand by Chair Transfer Ability Supervision/Stand by Sit to Stand Bed Transfer Ability Supervision/Stand by Sit to Stand Chair Transfer Ability Supervision/Stand by Rehab PT IP prob,goals,plan Problems Date of Evaluation: 01/06/24 PT IP Problems Bed Mobility,Transfers,Gait Rehab Potential Rehab Potential Good Plan PT Intervention Plan Bed Mobility,Transfers,Gait, Therapeutic Exercise PT Plan Frequency Daily Duration LOS Discharge Goals Bed Transfer Ability Independent Sit to Stand Chair Transfer Ability Independent Ambulation Assistive Device Rolling Walker Ambulation Distance (feet) 30 Discharge Plan PT Discharge Plan Pt is appropriate to return home once medically stable for d/c. Skilled therapy services are necessary to aid pt return to PLOF and reduce risk of falls, injury, or debility . Eval Complexity Eval Charge Codes 10108 - High Complexity PHYSICIAN CERTIFICATION: I certify the specified therapy services for Susana S Juárez are required, authorized, and reviewed every 30 days.
[2024-01-06 12:00] VITALS: BP 136/82; PULSE 77; PULSE 80; RESP 19; TEMP 36.5; O2SAT 93
[2024-01-06] MEDS: CEFUROXIME SODIUM IV ×2 (13:01→17:59)
[2024-01-06] MEDS: SODIUM CHLORIDE 0.9% IV ×2 (13:01→17:59)
[2024-01-06 13:23] LABS: POC Glucose,Bedside 157 (70-110)
[2024-01-06 14:34] VITALS: BMI 45.7
[2024-01-06 16:00] VITALS: BP 165/77; PULSE 84; PULSE 90; RESP 19; TEMP 36.5; O2SAT 97
[2024-01-06 18:10] LABS: POC Glucose,Bedside 231 (70-110)
[2024-01-06 20:00] VITALS: BP 134/92; PULSE 84; PULSE 89; RESP 20; TEMP 36.9; O2SAT 94
[2024-01-06] MEDS: NICOTINE 21MG/24HR PATCH 21 MG TD (21:22)
[2024-01-06] MEDS: SODIUM CHLORIDE 0.9% 10ML FLUSH SYRINGE 10 ML IV (21:43)
[2024-01-06 21:44] LABS: POC Glucose,Bedside 280 (70-110)
[2024-01-07] VITALS (11 sets, daily range): BP systolic 114–152; BP diastolic 66–93; PULSE 76–90; RESP 17–20; TEMP 36.4–37.1; O2SAT 90–98; BMI 47.3
[2024-01-07] MEDS: METHYLPREDNISOLONE SOD SUCC 125MG VIAL 125 MG IV ×3 (00:23→16:56)
[2024-01-07] MEDS: IBUPROFEN 600 MG TABLET PO (00:23)
[2024-01-07] MEDS: CEFUROXIME SODIUM IV (02:01)
[2024-01-07] MEDS: SODIUM CHLORIDE 0.9% IV (02:01)
--- NOTE | 2024-01-07 05:34 | PC.NURSE ---
pt sats drop to 74-80% on room air, pt currently on 2l/nc sats 91-94%
[2024-01-07] MEDS: LEVOTHYROXINE 100MCG (0.1MG) TAB 200 MCG PO (06:35)
[2024-01-07 06:44] LABS: POC Glucose,Bedside 223 (70-110)
--- NOTE | 2024-01-07 08:08 | EXP.ACUTE.PN ---
Subjective *Date: 01/07/24 *Time: 08:53 Interval history: Patient is feeling better today. She states she had trouble sleeping due to weird dreams. She denies any pain this am. She worked well with PT yesterday. She is eating her breakfast and denies any nausea. Medical Exam Vital signs and Labs for Last 24 Hours: Vital Signs Temp Pulse Pulse Resp BP Pulse Ox O2 Del Method 01/07/24 07:17 98.7 F 76 17 147/70 H 91 L Nasal Cannula 01/07/24 07:00 Nasal Cannula 01/07/24 05:00 Nasal Cannula 01/07/24 04:22 83 01/07/24 04:00 98.2 F 86 20 140/68 90 L Nasal Cannula 01/07/24 03:00 Room Air 01/07/24 01:00 Nasal Cannula 01/07/24 00:00 98 F 89 20 152/70 H 92 L Nasal Cannula 01/06/24 23:00 Nasal Cannula 01/06/24 21:00 Nasal Cannula 01/06/24 20:00 Nasal Cannula 01/06/24 20:00 89 01/06/24 20:00 98.4 F 84 20 134/92 H 94 L Nasal Cannula 01/06/24 19:00 Nasal Cannula 01/06/24 17:00 Nasal Cannula 01/06/24 16:00 90 01/06/24 16:00 97.7 F 84 19 165/77 H 97 Nasal Cannula 01/06/24 15:00 Nasal Cannula 01/06/24 13:00 Nasal Cannula 01/06/24 12:00 80 01/06/24 12:00 97.7 F 77 19 136/82 93 L Nasal Cannula 01/06/24 11:00 Nasal Cannula 01/06/24 09:00 Nasal Cannula O2 Flow Rate 01/07/24 07:17 2 01/07/24 07:00 2 01/07/24 05:00 2 01/07/24 04:22 01/07/24 04:00 2 01/07/24 03:00 01/07/24 01:00 2 01/07/24 00:00 2 01/06/24 23:00 2 01/06/24 21:00 2 01/06/24 20:00 2 01/06/24 20:00 01/06/24 20:00 2 01/06/24 19:00 01/06/24 17:00 2 01/06/24 16:00 01/06/24 16:00 2 01/06/24 15:00 2 01/06/24 13:00 2 01/06/24 12:00 01/06/24 12:00 2 01/06/24 11:00 2 01/06/24 09:00 2 Intake and Output 01/06/24 01/07/24 01/07/24 19:59 03:59 11:59 Intake Total 720 / 720 Output Total 0 / 0 0 / 0 0 / 0 Balance 720 / 720 0 / 720 0 / 720 Intake: Intake, Oral Amount 720 / 720 Output: Output, Urine Amount 0 / 0 0 / 0 0 / 0 Other: Number of Voids 2 1 0 Number of Unmeasured Voids 2 1 1 Weight 284 lb 6.341 oz 293 lb 9 oz Patient Weight 01/07/24 11:59 Weight 293 lb 9 oz Laboratory Results - last 24 hr 01/06/24 13:06: POC Glucose 157 H 01/06/24 17:57: POC Glucose 231 H 01/06/24 21:20: POC Glucose 280 H 01/07/24 06:30: POC Glucose 223 H I & O for Labs for Last 24 Hours: Intake & Output 01/04/24 01/05/24 01/06/24 01/07/24 11:59 11:59 11:59 11:59 Intake Total 1933 720 / 720 Output Total 0 / 0 0 / 0 Balance 1933 720 / 720 Weight 286 lb 6.405 oz 293 lb 9 oz Constitutional: Present no acute distress Respiratory: Present rales (faint bibasilar) Cardiac: Present Reg Rate and Rhythm GI: Present soft and normal bowel sounds; Absent distention or tenderness Extremities: Absent edema Skin: Present intact Neuro: Present alert, awake and oriented x 3 Assessment and Plan *Assessment and plan (1) Adrenal insufficiency: Status: Acute Category: Medical Code(s): E27.40 - Unspecified adrenocortical insufficiency (2) Respiratory failure with hypoxia: Status: Acute Category: Medical Code(s): J96.91 - Respiratory failure, unspecified with hypoxia (3) Hypothyroid: Status: Acute Category: Medical Code(s): E03.9 - Hypothyroidism, unspecified (4) Hyponatremia: Status: Acute Category: Medical Code(s): E87.1 - Hypo-osmolality and hyponatremia (5) GERD (gastroesophageal reflux disease): Status: Acute Qualifiers: Esophagitis presence: esophagitis presence not specified Qualified Code(s): K21.9 - Gastro-esophageal reflux disease without esophagitis Category: Medical Code(s): K21.9 - Gastro-esophageal reflux disease without esophagitis (6) COPD (chronic obstructive pulmonary disease): Status: Acute Qualifiers: COPD type: unspecified COPD Qualified Code(s): J44.9 - Chronic obstructive pulmonary disease, unspecified Category: Medical Code(s): J44.9 - Chronic obstructive pulmonary disease, unspecified (7) Tobacco use disorder: Status: Acute Category: Medical Code(s): F17.200 - Nicotine dependence, unspecified, uncomplicated (8) Pneumonia: Status: Acute Category: Medical Code(s): J18.9 - Pneumonia, unspecified organism (9) Noncompliance: Status: Acute Category: Medical Code(s): Z91.199 - Patient's noncompliance with other medical treatment and regimen due to unspecified reason Plan Will continue antibiotics and steroids. Patient is improving. May need am labs. Will discuss with Dr. Quirgoa. Dr. Quiroga entry - Saw patient, agree with above note. Patient has improved, will continue current treatment, compliance issues reviewed, may be ready for discharge tomorrow.
[2024-01-07] MEDS: GABAPENTIN 400MG CAPSULE 400 MG PO ×2 (09:14→20:33)
[2024-01-07] MEDS: AZITHROMYCIN 500 MG in 0.9 % SODIUM CHLORIDE 250 ML 250 MG IV (09:14)
[2024-01-07] MEDS: CITALOPRAM 20MG TABLET 20 MG PO (09:14)
[2024-01-07] MEDS: CEFTRIAXONE 1 GM 1 GM in 0.9 % SODIUM CHLORIDE 50 ML IV (10:25)
[2024-01-07 11:23] LABS: POC Glucose,Bedside 242 (70-110)
[2024-01-07] MEDS: SODIUM CHLORIDE 3% 15ML NEB 3 ML IH (11:35)
[2024-01-07] MEDS: humaLOG 100 UNITS/ML 10ML VIAL (SSI) SQ ×3 (11:59→20:31)
[2024-01-07 15:22] LABS: Adrenocorticotropic Hormone <1.5 pg/mL (7.2-63.3)
[2024-01-07 16:48] LABS: POC Glucose,Bedside 218 (70-110)
--- NOTE | 2024-01-07 17:22 | PC.NURSE ---
Pt has done well this shift. has ambulated with standby assist in room today and was able to shower. Pt is on 2L nasal cannula which is her baseline at home. VSS.
[2024-01-07 20:30] LABS: POC Glucose,Bedside 317 (70-110)
[2024-01-07] MEDS: NICOTINE 21MG/24HR PATCH 21 MG TD (20:33)
[2024-01-08] VITALS: BP 160/87; PULSE 85; PULSE 87; RESP 16; TEMP 36.7; O2SAT 94
[2024-01-08] MEDS: IBUPROFEN 600 MG TABLET PO (00:32)
[2024-01-08] MEDS: METHYLPREDNISOLONE SOD SUCC 125MG VIAL 125 MG IV ×2 (00:32→08:16)
[2024-01-08 04:00] VITALS: BP 152/91; PULSE 101; PULSE 90; RESP 16; TEMP 36.6; O2SAT 90; BMI 47.2
--- NOTE | 2024-01-08 04:59 | PC.NURSE ---
PATIENT A/O X 4. HAS DRY COUGH. BREATH SOUNDS DIMINISHED. HR REGULAR. NSR ON TELEMETRY. RECEIVED MOTRIN 600 MG PO AT 0032 FOR GENERALIZED ACHES/JOINT PAIN. FSBS ELEVATED DUE TO SOLUMEDROL, TREATED WITH S/S HUMALOG.
[2024-01-08] MEDS: humaLOG 100 UNITS/ML 10ML VIAL (SSI) SQ (05:33)
[2024-01-08 05:38] LABS: POC Glucose,Bedside 269 (70-110)
[2024-01-08] MEDS: LEVOTHYROXINE 100MCG (0.1MG) TAB 200 MCG PO (06:24)
[2024-01-08 06:37] LABS: Basophils % 0.2 % (0.1-2.0); Eosinophils # 0.1 K/mm3 (0.0-0.4); Eosinophils % 0.4 % (0.1-12.0); Hemoglobin 11.1 g/dL (12.2-16.2); Lymphocytes % 6.4 % (10-50); Mean Corpuscular HGB Conc 32.7 g/dL (31.8-35.4); Mean Corpuscular Hemoglobin 33.1 pg (27.0-31.2); Mean Corpuscular Volume 101.4 fl (81-99); Mean Platelet Volume 6.7 fl (7.4-10.4); Monocytes # 0.9 K/mm3 (0.1-1.0); Monocytes % 6.1 % (1.7-9.3); Platelet Count 412 K/mm3 (142-424); Red Blood Count 3.35 M/mm3 (4.20-5.40); Red Cell Distribution Width 15.2 % (11.5-17.5); White Blood Count 14.9 K/mm3 (4.8-10.8)
[2024-01-08 07:00] LABS: Chloride 101 mmol/L (98-107); Potassium 4.6 mmoL/L (3.5-5.1); Sodium 138 mmol/L (136-145)
[2024-01-08 07:03] LABS: Blood Urea Nitrogen 18 mg/dl (7-17); Creatinine Clearance Estimated 55 mL/min (50-200); Estimated Glomerular Filt Rate 73 ml/min (>60); GFR (African American) 88 ML/MIN (>60); MANUAL DIFFERENTIAL MANUAL DIFFERENTIAL (MANUAL DIFF)
[2024-01-08 07:04] LABS: Anion Gap 8.6 mEq/L (5-15); Calcium 8.9 mg/dl (8.4-10.2); Carbon Dioxide 33 mmol/L (22.0-30.0); Glucose 229 mg/dl (74-100)
[2024-01-08 08:00] VITALS: BP 147/85; PULSE 81; PULSE 90; RESP 20; TEMP 36.6; O2SAT 92
--- NOTE | 2024-01-08 08:03 | EXP.ACUTE.PN ---
Subjective *Date: 01/08/24 *Time: 08:41 Interval history: Patient is sleeping this am. She wakes for exam and states she slept well and denies any pain. Has not eaten breakfast yet. Medical Exam Vital signs and Labs for Last 24 Hours: Vital Signs Temp Pulse Pulse Resp BP Pulse Ox O2 Del Method 01/08/24 06:30 Nasal Cannula 01/08/24 05:00 Nasal Cannula 01/08/24 04:00 97.9 F 90 16 152/91 H 90 L Nasal Cannula 01/08/24 04:00 101 H 01/08/24 02:39 Nasal Cannula 01/08/24 01:00 Nasal Cannula 01/08/24 00:00 85 01/08/24 00:00 98.1 F 87 16 160/87 H 94 L Nasal Cannula 01/07/24 23:00 Nasal Cannula 01/07/24 21:00 Nasal Cannula 01/07/24 20:00 94 L Nasal Cannula 01/07/24 20:00 79 01/07/24 20:00 98.6 F 81 17 146/93 H 94 L Nasal Cannula 01/07/24 18:45 Nasal Cannula 01/07/24 17:00 Nasal Cannula 01/07/24 16:00 85 01/07/24 15:52 97.6 F 76 18 145/70 H 98 Nasal Cannula 01/07/24 15:00 Room Air 01/07/24 13:00 Nasal Cannula 01/07/24 12:00 80 01/07/24 11:57 97.6 F 79 17 114/66 91 L Nasal Cannula 01/07/24 11:37 80 18 01/07/24 11:00 Nasal Cannula 01/07/24 09:13 Nasal Cannula 01/07/24 09:00 Nasal Cannula O2 Flow Rate 01/08/24 06:30 2 01/08/24 05:00 2 01/08/24 04:00 2 01/08/24 04:00 01/08/24 02:39 2 01/08/24 01:00 2 01/08/24 00:00 01/08/24 00:00 2 01/07/24 23:00 2 01/07/24 21:00 2 01/07/24 20:00 2 01/07/24 20:00 01/07/24 20:00 2 01/07/24 18:45 2 01/07/24 17:00 2 01/07/24 16:00 01/07/24 15:52 2 01/07/24 15:00 01/07/24 13:00 2 01/07/24 12:00 01/07/24 11:57 2 01/07/24 11:37 01/07/24 11:00 2 01/07/24 09:13 2 01/07/24 09:00 2 Intake and Output 01/07/24 01/08/24 01/08/24 19:59 03:59 11:59 Intake Total 900 / 1140 240 / 1140 Output Total 0 / 0 0 / 0 0 / 0 Balance 900 / 1140 240 / 1140 0 / 1140 Intake: Intake, Oral Amount 900 / 1140 240 / 1140 Output: Output, Urine Amount 0 / 0 0 / 0 0 / 0 Other: Number of Voids 1 Number of Unmeasured Voids 2 1 1 Weight 293 lb 9.01 oz Patient Weight 01/08/24 11:59 Weight 293 lb 9.01 oz Laboratory Results - last 24 hr 01/05/24 18:43: Cortisol 0.4 L 01/05/24 20:12: ACTH <1.5 L 01/07/24 11:16: POC Glucose 242 H 01/07/24 16:23: POC Glucose 218 H 01/07/24 20:21: POC Glucose 317 H* 01/08/24 05:27: POC Glucose 269 H 01/08/24 06:17: WBC 14.9 H D, RBC 3.35 L, Hgb 11.1 L, Hct 34.0 L, MCV 101.4 H, MCH 33.1 H, MCHC 32.7, RDW 15.2, Plt Count 412, MPV 6.7 L, Neut % (Auto) 87.0 H, Lymph % (Auto) 6.4 L, Hamlin % (Auto) 6.1, Eos % (Auto) 0.4, Baso % (Auto) 0.2, Neut # (Auto) 13.0 H, Lymph # (Auto) 1.0, Hamlin # (Auto) 0.9, Eos # (Auto) 0.1, Baso # (Auto) 0.0, Sodium 138, Potassium 4.6, Chloride 101, Carbon Dioxide 33 H, Anion Gap 8.6, BUN 18 H D, Creatinine 0.80, Estimated Creat Clear 55, Estimated GFR 73, Est GFR ( Amer) 88, Glucose 229 H, Calcium 8.9 I & O for Labs for Last 24 Hours: Intake & Output 01/05/24 01/06/24 01/07/24 01/08/24 11:59 11:59 11:59 11:59 Intake Total 1933 / 1079 1140 / 1140 Output Total 0 / 0 0 / 0 0 / 0 Balance 1933 / 1079 1140 / 1140 Weight 286 lb 6.405 oz 293 lb 9 oz 293 lb 9.01 oz Constitutional: Present no acute distress Respiratory: Present decreased breath sounds; Absent rhonchi or wheezes Cardiac: Present Reg Rate and Rhythm GI: Present soft; Absent distention or tenderness Extremities: Absent edema Skin: Present intact Neuro: Present alert and awake Assessment and Plan *Assessment and plan (1) Adrenal insufficiency: Status: Acute Category: Medical Code(s): E27.40 - Unspecified adrenocortical insufficiency (2) Respiratory failure with hypoxia: Status: Acute Category: Medical Code(s): J96.91 - Respiratory failure, unspecified with hypoxia (3) Hypothyroid: Status: Acute Category: Medical Code(s): E03.9 - Hypothyroidism, unspecified (4) Hyponatremia: Status: Acute Category: Medical Code(s): E87.1 - Hypo-osmolality and hyponatremia (5) GERD (gastroesophageal reflux disease): Status: Acute Qualifiers: Esophagitis presence: esophagitis presence not specified Qualified Code(s): K21.9 - Gastro-esophageal reflux disease without esophagitis Category: Medical Code(s): K21.9 - Gastro-esophageal reflux disease without esophagitis (6) COPD (chronic obstructive pulmonary disease): Status: Acute Qualifiers: COPD type: unspecified COPD Qualified Code(s): J44.9 - Chronic obstructive pulmonary disease, unspecified Category: Medical Code(s): J44.9 - Chronic obstructive pulmonary disease, unspecified (7) Tobacco use disorder: Status: Acute Category: Medical Code(s): F17.200 - Nicotine dependence, unspecified, uncomplicated (8) Pneumonia: Status: Acute Category: Medical Code(s): J18.9 - Pneumonia, unspecified organism (9) Noncompliance: Status: Acute Category: Medical Code(s): Z91.199 - Patient's noncompliance with other medical treatment and regimen due to unspecified reason Plan Patient continues to improve. Sodium has normalized. Glucose and WBC are elevated but patient has been receiving steroids. Will discuss further care with Dr. Quiroga. Dr. Quiroga entry - Saw patient, agree with above note. She has definitely improved. OK for discharge home today, with oral antibiotics and daily hydrocortisone.
[2024-01-08 08:11] LABS: Anisocytosis 1+; Lymphocytes % 7 % (10-50); Macrocytosis 1+; Monocytes % 4 % (2-9); Neutrophils % 89 % (42-76); Platelet Estimate Slight Increase; Total Cells Counted 100
[2024-01-08] MEDS: CEFTRIAXONE 1 GM 1 GM in 0.9 % SODIUM CHLORIDE 50 ML IV (08:16)
[2024-01-08] MEDS: GABAPENTIN 400MG CAPSULE 400 MG PO (08:16)
[2024-01-08] MEDS: CITALOPRAM 20MG TABLET 20 MG PO (08:16)
[2024-01-08] MEDS: AZITHROMYCIN 500 MG in 0.9 % SODIUM CHLORIDE 250 ML 250 MG IV (09:22)
[2024-01-08 09:55] VITALS: O2SAT 86
--- NOTE | 2024-01-08 09:55 | PC.NURSE ---
Room air sat 86-87% at rest
--- NOTE | 2024-01-08 09:56 | PC.NURSE ---
pt O2 stat was 86 Room Air. Pt was resting in bed at this time.
--- NOTE | 2024-01-09 12:10 | CARE MANAGER ---
Contacted patient related to hospital discharge. She states she is doing well. She has her new medications and is aware of follow up appointment. KENY Omer
--- NOTE | 2024-01-12 23:23 | P.DS_ITS ---
General Admission date:: 01/05/24 Discharge date: 01/08/24 HPI HPI HPI: Ms. Juárez is a 63-year-old female with a history of hypothyroidism, fibromyalgia, lung cancer status post right upper lobe lobectomy and chem otherapy, tobacco use disorder, pneumonia in 2022 at [place] requiring intubation for 4 days, COPD, osteoarthritis, heartburn, adrenal crisis in 2023 and subarachnoid hemorrhage 2023 treated at with follow-up rehab posthospital discharge who presented to [facility] emergency room for evaluation after progressive pain in lower extremities. She also notes nausea which started yesterday. She did vomit 1 time. She has not been eating or drinking very well for the past 3 days. These are symptoms that she had with her adrenal crisis which made her present to the ER. She also describes increasing shortness of breath requiring her to wear her oxygen on a continuous basis. She does continue to smoke about a pack of cigarettes per day. She was seen in the office on December 05, 2023 at which time TSH was noted to be 71.6. At which time her levothyroxine was increased. Gabapentin teen was also increased to 400 mg twice a day for low back pain. She was started on Lexapro as well for her anxiety. She states she was not taking hydrocortisone or bumetanide daily. ER documentation as follows: Medical Decision Narrative: In summary, this patient is a 63-year-old female presenting to the Emergency Department at [facility] for evaluation of shortness of breath and aching in her bilateral legs. Differential diagnoses considered include but are not limited to ACS, STEMI, dysrhythmia, PE, pneumonia, viral syndrome, electrolyte derangements, CHF exacerbation, addisonian crisis, hypothyroidism. Ruling out the most morbid conditions drove assessment. It should be noted patient's history includes lung cancer status postresection and immunotherapy, chronic respiratory failure, adrenal insufficiency, and hypothyroidism which are likely not at goal therapy. This complicates all aspects of care by increasing patient's risk for morbidity. I reviewed patient's past medical records and noted her previous admission here and transferred to with concern for addisonian crisis, shock, pancytopenia, and severe hypothyroidism as per HPI. On exam, the patient is lying in bed on her home oxygen with reassuring vital signs on cardiac telemetry. She is tired appearing but is in no acute distress. She has mild bilateral lower extremity edema. Workup included lab evaluation to evaluate for infectious/metabolic/cardiac cause of the patient's issues as well as chest x-ray and EKG. EKG obtained is reassuring without significant changes noted from prior EKG. I independently interpreted x-ray prior to the radiologist read and noted concerning for bilateral consolidation. Please see their read for final interpretation. To further assess, I ordered CT scans of the chest, abdomen, and pelvis. Labs were obtained that demonstrated hyponatre andrew, which is new. Patient also has elevated TSH with normal T4. She notes that she is taking her thyroid medication at home as prescribed. She has mild stable anemia, but no significant pancytopenia. No thrombocytopenia as previously noted during her last admission. BNP is very mildly elevated. CT scans demonstrated bilateral infiltrates concerning for edema versus pneumonia. I favor edema based on clinical exam. For the patient's hyponatremia with suspected adrenal insufficiency, I did give her 1 L bolus of D5 normal saline. I also gave her IV hydrocortisone. I considered administering IV levothyroxine, however given normal T4 and the fact that she has been taking her thyroid medication at home, I feel this can wait at this time. She has a very complicated history and presentation with hyponatremia, which would require some correction, as well as signs concerning for potential volume overload. Given this, feel she would benefit from admission for monitoring, especially given her history. I called and had an interactive discussion with Dr. Valentino who advised he wanted the patient maintained on maintenance fluids overnight at about 50/h. Normal saline was ordered. He also advised he wanted a.m. labs ordered, which was ordered. Patient was admitted in stable condition for further evaluation and management on behalf of Dr. Quiroga. The above as per ER documentation This a.m. patient is sitting on the bedside and has completed her breakfast. She ate everything on her tray without any nausea. She has walked to the bathroom with assistance without difficulty. Around 11 PM last night O2 sats were in the 60's. She ended up on O2 at 7 L/min with O2 sats increasing to 100%. ABGs completed at this time showed a pH of 7.28 pCO2 of 54.5 with a pO2 of 136 and bicarb of 24. Laboratory data this morning shows white blood cell count of 6600 with a hemoglobin of 11 and hematocrit of 34.5. Blood chemistry shows sodium of 131 and potassium of 4.9. BUN is 41 and creatinine is 0.8. TSH on admission was 18.5. COVID test was negative. Chest CTA revealed the following: IMPRESSION: Interstitial thickening with ground-glass opacities, and low volume bibasilar pleural effusions with compressive atelectasis may represent mild pulmonary edema versus atypical pneumonia in the clinical setting of infection. Abdomen/pelvis CT revealed no acute findings. Hospital Course Hospital Course Hospital Course: The patient was started on antibiotics for probable pneumonia. She was started on steroids for adrenal insufficiency. Physical therapy was consulted. She did begin feeling better and worked well with physical therapy. She was able to eat. By 01/08/2024 her sodium normalized and symptomatically she had improved. She was stable to be discharged home with oral antibiotics and daily hydrocortisone. Exam Data for Last 24 hours Vital signs and Labs for Last 24 Hours: Temp Pulse Resp BP Pulse Ox O2 Del Method O2 Flow Rate 98 F 81 20 147/85 H 86 L Room Air 2 01/08/24 08:00 01/08/24 08:00 01/08/24 08:00 01/08/24 08:00 01/08/24 09:55 01/08/24 09:55 01/08/24 09:00 Narrative: Constitutional Constitutional: no acute distress Comments: Sitting on the bedside and has completed all of her breakfast *Routine HEENT Exam Head: Present normocephalic and atraumatic Eye: Present PERRL; Absent conjunctival icterus, scleral injection or conjunctivae pink ENT: Present mucous membranes moist and oropharynx clear *Routine Neck Exam Neck: Present supple; Absent carotid bruit, lymphadenopathy, thyromegaly or tenderness *Routine Respiratory Exam Respiratory: Present decreased breath sounds (Posteriorly) *Routine Cardiovascular Exam Cardiovascular: Present RRR *Routine Abdominal Exam Abdominal: Present normoactive bowel sounds and obese; Absent tenderness *Routine Rectal Exam Rectal:: deferred *Routine Genitalia Exam Genitalia:: deferred *Routine Extremities Exam Extremities: Present edema (Trace bilaterally); Absent calf tenderness *Routine Neurological Exam Neurological: Present alert, oriented X3 and moving all extremities DS: Diagnosis Discharge Diagnosis (1) Adrenal insufficiency: Status: Acute Code(s): E27.40 - Unspecified adrenocortical insufficiency (2) Respiratory failure with hypoxia: Status: Acute Code(s): J96.91 - Respiratory failure, unspecified with hypoxia (3) Hypothyroid: Status: Acute Code(s): E03.9 - Hypothyroidism, unspecified (4) Hyponatremia: Status: Acute Code(s): E87.1 - Hypo-osmolality and hyponatremia (5) GERD (gastroesophageal reflux disease): Status: Acute Code(s): K21.9 - Gastro-esophageal reflux disease without esophagitis Qualifiers: Esophagitis presence: esophagitis presence not specified Qualified Code(s): K21.9 - Gastro-esophageal reflux disease without esophagitis (6) COPD (chronic obstructive pulmonary disease): Status: Acute Code(s): J44.9 - Chronic obstructive pulmonary disease, unspecified Qualifiers: COPD type: unspecified COPD Qualified Code(s): J44.9 - Chronic obstructive pulmonary disease, unspecified (7) Tobacco use disorder: Status: Acute Code(s): F17.200 - Nicotine dependence, unspecified, uncomplicated (8) Pneumonia: Status: Acute Code(s): J18.9 - Pneumonia, unspecified organism (9) Noncompliance: Status: Acute Code(s): Z91.199 - Patient's noncompliance with other medical treatment and regimen due to unspecified reason Meds Home Medications and Allergies Home Medications Medication Instructions Recorded Confirmed Type gabapentin 400 mg capsule 400 mg PO BID 05/28/23 01/06/24 History levothyroxine 200 mcg tablet 200 mcg PO DAILY 01/06/24 01/06/24 History azithromycin 500 mg tablet 500 mg PO DAILY 3 days #3 tabs 01/08/24 Rx (Zithromax TRI-VIJAY) hydrocortisone 10 mg tablet 10 mg PO BID #90 tabs 01/08/24 Rx (Cortef) New Prescriptions to Start Prescriptions: azithromycin [Zithromax TRI-VIJAY] Julian Quiroga hydrocortisone [Cortef] Julian Quiroga Allergies Allergy/AdvReac Type Severity Reaction Status Date / Time penicillin G [PENICILLIN G] Allergy Mild Verified 05/28/23 08:57 Discharge Plan Disposition Patient Disposition: Home, Self-Care Condition: Fair Discharge Order Discharge Orders: Discharge Order (Routine); Ordered 01/08/24 Ordered By: Julian Quiroga Follow up Plan Follow up with: Julian Quiroga MD [Primary Care Provider] - 01/16/24 9:30 am Prescriptions/Medication Reconciliation: New azithromycin [Zithromax TRI-VIJAY] 500 mg tablet 500 mg PO DAILY 3 Days Qty: 3 0RF hydrocortisone [Cortef] 10 mg tablet 10 mg PO BID Qty: 90 5RF Rx Instructions: 2 tabs in the AM, 1 tab in the PM Continued gabapentin 400 mg capsule 400 mg PO BID levothyroxine 200 mcg tablet 200 mcg PO DAILY Problem Reconciliation Problems Reviewed?: Yes Patient Discharge Instructions ACTIVITY: Continue current activity DIET: continue same diet Additional Instructions: Continue supplemental oxygen Patient Instructions: DI for Hyponatremia, DI for Hypothyroidism Providers Primary Care Provider: uJlian Quiroga Admit Provider: Pedrito Valentino Attending Provider: Julian Quiroga
== END 2024-01-08 11:17 | disposition home or self-care (01) | DRG 643 ==
LOC: ER 20:49 → 2ND 20:56
PROVIDERS: Admitting Provider Family Medicine; Emergency Provider Emergency Medicine; PCP Family Medicine; Visit Provider Family Medicine
DX: E27.40 Unspecified adrenocortical insufficiency (principal); J18.9 Pneumonia, unspecified organism; J96.01 Acute respiratory failure with hypoxia; E87.1 Hypo-osmolality and hyponatremia; J96.10 Chronic respiratory failure, unspecified whether with hypoxia or hypercapnia; J44.0 Chronic obstructive pulmonary disease with (acute) lower respiratory infection; E03.9 Hypothyroidism, unspecified; Z85.118 Personal history of other malignant neoplasm of bronchus and lung; K21.9 Gastro-esophageal reflux disease without esophagitis; F17.210 Nicotine dependence, cigarettes, uncomplicated; Z91.199 Patient's noncompliance with other medical treatment and regimen due to unspecified reason; Z99.81 Dependence on supplemental oxygen
CPT/HCPCS: 36415; 71045; 71275; 74177; 80048; 80053; 81001; 82024; 82533; 82803; 82962; 83880; 84145; 84244; 84436; 84443; 84484; 85007; 85025; 85610; 85730; 86140; 87636; 93005; 97163; 97530; 99285; J0456; J0696; J2270; J2405; J2930; J7030; J7042; Q9967

== ENCOUNTER 2024-04-12 18:35 | Emergency (ER) | payer BC, MEDICARE, SELFPAY ==
[2024-04-12 18:35] VITALS: BP 151/74; PULSE 56; RESP 20; TEMP 36.7; O2SAT 96; BMI 45.1
--- NOTE | 2024-04-12 18:48 | ED_ITS ---
Discharge Plan Disposition Patient Disposition: Home, Self-Care Condition: Good Prescriptions Prescriptions: No Action gabapentin 400 mg capsule 400 mg PO BID levothyroxine 200 mcg tablet 200 mcg PO DAILY azithromycin [Zithromax TRI-IVJAY] 500 mg tablet 500 mg PO DAILY 3 Days Qty: 3 0RF hydrocortisone [Cortef] 10 mg tablet 10 mg PO BID Qty: 90 5RF Rx Instructions: 2 tabs in the AM, 1 tab in the PM Referrals Follow up/Referrals: Julian Quiroga MD [Primary Care Provider] - See instructions Delgado Garcia DO [Staff Physician] - See instructions (Right third metatarsal fracture) Activity Restrictions/Add. Instructions Additional Instructions/Restrictions: I referred you to orthopedics. Please call in the morning to make your appointment. Please utilize your crutches and weightbearing as tolerated. Return to your PCP for any worsening or changing symptoms or return to ER as needed. Clinical Impressions Clinical Impression: Metatarsal fracture Qualifiers: Encounter type: initial encounter Metatarsal bone: third Fracture type: closed Fracture alignment: nondisplaced Laterality: right Qualified Code(s): S92.334A - Nondisplaced fracture of third metatarsal bone, right foot, initial encounter for closed fracture Print Language Print Language: Bengali Discharge ED Provider: Vinay aCin General Adult HPI <ZENIA Vaz - Last Filed: 04/12/24 23:20> General Chief complaint: Extremity Injury, Lower Stated complaint: Pain in foot Time Seen by Provider: 04/12/24 18:38 Mode of Arrival: EMS Source of Information: Patient and EMS Limitations: No Limitations Description of Symptoms (Recalled from ER Triage Doc. by RN): pt fell taking grandson to school bus this morning @0730, she got tripped up going down 3 steps and now has right foot pain. pt took tylnol today but it has not helped patient states its currently 3 out of 10 but is worse when weight bearing History of Present Illness HPI narrative: Patient presents for evaluation of a fall. Patient states that she tripped falling down stairs outside in her house. She injured her both feet but right she could not bear weight. She suffered no other injury and has no other complaints. She did not lose consciousness or strike her head. Related Data Home Medications ?Medication ?Instructions ?Recorded ?Confirmed gabapentin 400 mg capsule 400 mg PO BID 05/28/23 01/06/24 levothyroxine 200 mcg tablet 200 mcg PO DAILY 01/06/24 01/06/24 Previous Rx's ?Medication ?Instructions ?Recorded azithromycin 500 mg tablet 500 mg PO DAILY 3 days #3 tabs 01/08/24 (Zithromax TRI-VIJAY) hydrocortisone 10 mg tablet 10 mg PO BID #90 tabs 01/08/24 (Cortef) Allergies Allergy/AdvReac Type Severity Reaction Status Date / Time penicillin G [PENICILLIN G] Allergy Mild Verified 05/28/23 08:57 <ZENIA Vaz - Last Filed: 04/12/24 23:20> ROS Obtained: Yes Systems reviewed as appropriate & no additional complaints except as documented Physical Exam <ZENIA Vaz - Last Filed: 04/12/24 23:20> General General appearance: alert and in no apparent distress Respiratory Respiratory exam: Present normal lung sounds bilaterally Cardiovascular Cardiovascular exam: Present regular rate Neurological Exam Neurological exam: Present alert and oriented X3 Medical Decision Making <ZENIA Vaz - Last Filed: 04/12/24 23:20> Medical Records Medical records reviewed: Yes I reviewed the patient's medical records. Screening: Per USPSTF and CDC recommendations, given the prevalence of disease in our region, it is our hospital?s policy to screen for HIV and viral Hepatitis for all patients aged 18 and over and those with ongoing risk factors. Janes Inquiry Pt receiving controlled substance: No Vital Signs: 04/12/24 18:35 04/12/24 20:53 Temperature 98.0 F 97.9 F Temperature Source Oral Oral Pulse Rate 56 L Pulse Rate [Right Radial] 56 L Respiratory Rate 20 16 Blood Pressure 149/99 H Blood Pressure [Right Arm] 151/74 H Blood Pressure Mean [Right Arm] 99 02 Sat by Pulse Oximetry 96 Oxygen Delivery Method Room Air Room Air Lab Data Lab results reviewed: Yes I reviewed the patient's lab results. Orders (Tests/Meds): ED MEDICATIONS Discontinued Medications Generic Name Dose Route Start Last Admin Trade Name Freq PRN Reason Stop Dose Admin Acetaminophen 1,000 mg 04/12/24 18:52 04/12/24 19:09 Acetaminophen 500mg Tab PO 04/12/24 18:53 1,000 mg ONCE ONE Administration Ibuprofen 800 mg 04/12/24 18:52 04/12/24 19:09 Ibuprofen 400 Mg Tablet PO 04/12/24 18:53 800 mg ONCE ONE Administration ORDERS Category Date Time Status Ankle XR - Left minimum 3 Views [XR ankle LT min 3V] Exams 04/12/24 18:52 Completed Stat Ankle XR -Right minimum 3 Views [XR ankle RT min 3V] Exams 04/12/24 18:52 Completed Stat Foot XR right minimum 3 views [XR foot RT min 3V] Stat Exams 04/12/24 18:52 Completed XR foot LT min 3V Stat Exams 04/12/24 18:52 Completed Medical Decision Narrative: In summary patient is a 63-year-old female who presents to the emergency department for evaluation of bilateral feet injury from a fall. Patient is hemodynamically stable upon arrival, afebrile. Physical exam is remarkable for forefoot tenderness in the right and medial aspects with no palpable bony deformity. There is some swelling but no visible ecchymosis. The left foot is tender to palpation along the lateral aspect as well again with no bony deformity. She is neurovascular intact distally in both feet.. Differential diagnosis includes fracture versus sprain. Initial workup will be conducted with plain film x-ray. Initial interventions include p.o. Tylenol and ibuprofen. Initial workup reviewed by me shows a right third metatarsal fracture prior to radiology read via my informal interpretation. Given this I had interactive discussion with orthopedics who recommended hard soled shoe and weightbearing as tolerated with crutches and follow-up in clinic. On repeat evaluation patient is agreeable and able to ambulate with crutches and [place] shoe thus is appropriate for discharge with follow-up with orthopedics. <Vinay aCin MD - Last Filed: 04/13/24 16:50> Vital Signs: 04/12/24 18:35 04/12/24 20:53 Temperature 98.0 F 97.9 F Temperature Source Oral Oral Pulse Rate 56 L Pulse Rate [Right Radial] 56 L Respiratory Rate 20 16 Blood Pressure 149/99 H Blood Pressure [Right Arm] 151/74 H Blood Pressure Mean [Right Arm] 99 02 Sat by Pulse Oximetry 96 Oxygen Delivery Method Room Air Room Air Orders (Tests/Meds): ED MEDICATIONS Discontinued Medications Generic Name Dose Route Start Last Admin Trade Name Freq PRN Reason Stop Dose Admin Acetaminophen 1,000 mg 04/12/24 18:52 04/12/24 19:09 Acetaminophen 500mg Tab PO 04/12/24 18:53 1,000 mg ONCE ONE Administration Ibuprofen 800 mg 04/12/24 18:52 04/12/24 19:09 Ibuprofen 400 Mg Tablet PO 04/12/24 18:53 800 mg ONCE ONE Administration ORDERS Category Date Time Status Ankle XR - Left minimum 3 Views [XR ankle LT min 3V] Exams 04/12/24 18:52 Completed Stat Ankle XR -Right minimum 3 Views [XR ankle RT min 3V] Exams 04/12/24 18:52 Completed Stat Foot XR right minimum 3 views [XR foot RT min 3V] Stat Exams 04/12/24 18:52 Completed XR foot LT min 3V Stat Exams 04/12/24 18:52 Completed Medical Decision Narrative: In summary patient is a 63-year-old female who presents to the emergency department for evaluation of bilateral feet injury from a fall. Patient is hemodynamically stable upon arrival, afebrile. Physical exam is remarkable for forefoot tenderness in the right and medial aspects with no palpable bony deformity. There is some swelling but no visible ecchymosis. The left foot is tender to palpation along the lateral aspect as well again with no bony deformity. She is neurovascular intact distally in both feet.. Differential diagnosis includes fracture versus sprain. Initial workup will be conducted with plain film x-ray. Initial interventions include p.o. Tylenol and ibuprofen. Initial workup reviewed by me shows a right third metatarsal fracture prior to radiology read via my informal interpretation. Given this I had interactive discussion with orthopedics who recommended hard soled shoe and weightbearing as tolerated with crutches and follow-up in clinic. On repeat evaluation patient is agreeable and able to ambulate with crutches and [place] shoe thus is appropriate for discharge with follow-up with orthopedics. I was consulted by the [facility], and we discussed the complexity of the problems being addressed. I approved the treatment and management plan for this patient's care in the Emergency Department, thus performing a substantive portion of the medical decision making. Vinay Cain MD Critical Care <ZENIA Vaz - Last Filed: 04/12/24 23:20> Critical Care Time Critical Care Time: No
--- NOTE | 2024-04-12 18:52 | XR_ITS ---
PROCEDURE INFORMATION: Exam: XR Right Ankle Exam date and time: 04/12/2024 6:53 PM Age: 63 years old Clinical indication: Pain; Ankle; Right; Additional info: Fall down steps TECHNIQUE: Imaging protocol: Radiologic exam of the right ankle. Views: 3 or more views. COMPARISON: CR ANKR3 ANKLE-RT-3 VIEWS 27/04/2017 11:54 FINDINGS: Bones/joints: Calcaneus enthesophytes. No acute fracture or dislocation. Soft tissues: Normal. IMPRESSION: No acute fracture or dislocation.
--- NOTE | 2024-04-12 18:52 | XR_ITS ---
PROCEDURE INFORMATION: Exam: XR Right Foot Exam date and time: 04/12/2024 6:53 PM Age: 63 years old Clinical indication: Pain; Foot; Right; Additional info: Fall down steps TECHNIQUE: Imaging protocol: Radiologic exam of the right foot. Views: 3 or more views. COMPARISON: CR XR FOOT RT MIN 3V 12/04/2024 18:53 FINDINGS: Bones/joints: Age-indeterminate fracture of the 3rd metatarsal distal metaphysis. Calcaneus enthesophytes. Soft tissues: Normal. IMPRESSION: Age-indeterminate fracture of the 3rd metatarsal distal metaphysis. Please correlate with point tenderness.
--- NOTE | 2024-04-12 18:52 | XR_ITS ---
PROCEDURE INFORMATION: Exam: XR Left Ankle Exam date and time: 04/12/2024 6:53 PM Age: 63 years old Clinical indication: Pain; Ankle; Left; Additional info: Fall down steps TECHNIQUE: Imaging protocol: Radiologic exam of the left ankle. Views: 3 or more views. COMPARISON: CR XR ANKLE LT MIN 3V 12/04/2024 18:53 FINDINGS: Bones/joints: No acute fracture or dislocation. Soft tissues: Normal. IMPRESSION: No acute fracture or dislocation.
--- NOTE | 2024-04-12 18:52 | XR_ITS ---
PROCEDURE INFORMATION: Exam: XR Left Foot Exam date and time: 04/12/2024 6:53 PM Age: 63 years old Clinical indication: Pain; Foot; Left; Additional info: Fall down steps TECHNIQUE: Imaging protocol: Radiologic exam of the left foot. Views: 3 or more views. COMPARISON: CR XR ANKLE LT MIN 3V 12/04/2024 18:53 FINDINGS: Bones/joints: Calcaneus enthesophytes. No acute fracture or dislocation. Soft tissues: Normal. IMPRESSION: No acute fracture or dislocation.
[2024-04-12] MEDS: ACETAMINOPHEN 500MG TAB 1000 MG PO (19:09)
[2024-04-12] MEDS: IBUPROFEN 400 MG TABLET 800 MG PO (19:09)
[2024-04-12 20:53] VITALS: BP 149/99; PULSE 56; RESP 16; TEMP 36.6; O2SAT 95
== END 2024-04-12 21:36 | disposition home or self-care (01) ==
PROVIDERS: Emergency Provider Emergency Medicine; PCP Family Medicine
DX: S92.334A Nondisplaced fracture of third metatarsal bone, right foot, initial encounter for closed fracture (principal); M79.671 Pain in right foot; M79.672 Pain in left foot; W10.8XXA Fall (on) (from) other stairs and steps, initial encounter
CPT/HCPCS: 73610; 73630; 99283

== ENCOUNTER 2024-10-07 17:03 | Emergency (ER) | payer BC, SELFPAY ==
[2024-10-07] VITALS (31 sets, daily range): BP systolic 000–158; BP diastolic 00–135; PULSE 0–85; RESP 0–32; TEMP -17.7–37; O2SAT 0–100; BMI 53.1; BMI 54.8
--- NOTE | 2024-10-07 17:05 | PC.NURSE ---
pt brought in by EMS minimal history available @ this time. pt was mark approx 2 days per EMS report. she is currently unresponsive and saturation is in the 40s despite nasal trumpet and cpap. fsbs 134. unable to obtain a bp @ this time. ER MD @ bedside immediately. interventions initiated.
--- NOTE | 2024-10-07 17:07 | ECG_ITS ---
APPROVED REPORT Exam: Resting ECG HR:78 bpm ECG Measurements Heart Rate 78 AXES MI 145 P 69 QRSd 85 QRS 52 QT 397 T 60 QTc 430 Conclusion Sinus rhythm Low voltage Electronically signed by : EMMA LAWRENCE, 10/09/2024 12:21:08
[2024-10-07] MEDS: ROCURONIUM BROMIDE 50MG/5ML VIAL 120 MG IV (17:20)
[2024-10-07] MEDS: ETOMIDATE 40MG/20ML VIAL 30 MG IV (17:20)
[2024-10-07] MEDS: NOREPINEPHRINE BITARTRATE/D5W 8 MG/250 ML PLAST..BAG 15 MG IV (17:29)
[2024-10-07] MEDS: propofoL 100 ML 8.17 MG IV (17:36)
--- NOTE | 2024-10-07 18:21 | PC.NURSE ---
1720- luz and etomidate given 172-intubation 172- cuff inflated 172-levophed started 8mcg 172- orders for propofol given 173-81/53 1734- increased levophed to 12 mcg 173- 18g to right upper arm 173- propofol started 173 levophed decreased to 10mcg b/p 149/79 1820- central line placed.
[2024-10-07 18:23] LABS: Microscopic, Urine URINE MICROSCOPIC (MICROSCOPIC)
[2024-10-07 18:24] LABS: Basophils # 0.1 K/mm3 (0-0.2); Basophils % 0.3 % (0.1-2.0); Eosinophils % 0.3 % (0.1-12.0); Hematocrit 39.9 % (37.0-47.0); Hemoglobin 12.6 g/dL (12.2-16.2); Lymphocytes # 1.1 K/mm3 (0.7-4.5); Lymphocytes % 6.9 % (10-50); Mean Corpuscular HGB Conc 31.6 g/dL (31.8-35.4); Mean Corpuscular Hemoglobin 29.9 pg (27.0-31.2); Mean Corpuscular Volume 94.5 fl (81-99); Mean Platelet Volume 9.9 fl (7.4-10.4); Monocytes # 0.7 K/mm3 (0.1-1.0); Monocytes % 4.3 % (1.7-9.3); Neutrophils # 13.3 K/mm3 (1.8-7.8); Neutrophils % 87.6 % (37.0-80.0); Platelet Count 379 K/mm3 (142-424); Red Blood Count 4.22 M/mm3 (4.20-5.40); Red Cell Distribution Width 15.7 % (11.5-17.5); White Blood Count 15.2 K/mm3 (4.8-10.8)
[2024-10-07 18:29] LABS: MANUAL DIFFERENTIAL MANUAL DIFFERENTIAL (MANUAL DIFF)
--- NOTE | 2024-10-07 18:32 | XR_ITS ---
PROCEDURE INFORMATION: Exam: XR Chest Exam date and time: 10/07/2024 6:35 PM Age: 64 years old Clinical indication: Device placement; Other: Confirm central line TECHNIQUE: Imaging protocol: Radiologic exam of the chest. Views: 1 view. COMPARISON: CT ANGIO CHEST PE PROTOCOL 01/05/2024 7:27 PM FINDINGS: Tubes, catheters and devices: Endotracheal tube tip at the level of the thoracic inlet.. Recommended advancement by approximately 7 cm. Left internal jugular central venous catheter tip SVC RA junction. Tip in good position. Left-sided MediPort catheter has its tip within the superior vena cava. Tip is in good position. Lungs: Moderate bilateral perihilar and interstitial prominence most consistent with pulmonary edema. Pleural spaces: Unremarkable. No pleural effusion. No pneumothorax. Heart/Mediastinum: Moderate enlargement of the cardiac silhouette noted. Bones/joints: Unremarkable. IMPRESSION: 1. Moderate bilateral perihilar and interstitial prominence most consistent with pulmonary edema. 2. Endotracheal tube tip at the level of the thoracic inlet.. Recommended advancement by approximately 7 cm. 3. Moderate enlargement of the cardiac silhouette noted.
[2024-10-07 18:38] LABS: Activated Partial Thrombo Time 35.4 seconds (22.8-30.6); Fibrinogen 706 mg/dL (229.9-363.5); INR 1.15 (0.9-1.1); Prothrombin Time 12.7 seconds (10.1-12.5)
--- NOTE | 2024-10-07 18:42 | XR_ITS ---
PROCEDURE INFORMATION: Exam: XR Chest Exam date and time: 10/07/2024 6:44 PM Age: 64 years old Clinical indication: Device placement; Other: Tube placement TECHNIQUE: Imaging protocol: Radiologic exam of the chest. Views: 1 view. COMPARISON: CR XR CHEST PORTABLE 10/07/2024 6:35 PM FINDINGS: Tubes, catheters and devices: Left-sided MediPort catheter has its tip within the superior vena cava. Tip is in good position. Left internal jugular central venous catheter tip SVC RA junction. Tip in good position. Endotracheal tube terminates 4 cm above the gurpreet. Lungs: Moderate bilateral perihilar and interstitial prominence most consistent with pulmonary edema. Pleural spaces: Unremarkable. No pleural effusion. No pneumothorax. Heart/Mediastinum: Moderate enlargement of the cardiac silhouette noted. Bones/joints: Old right sided rib fracture deformities. IMPRESSION: 1. Moderate bilateral perihilar and interstitial prominence most consistent with pulmonary edema. 2. Moderate enlargement of the cardiac silhouette noted.
[2024-10-07 18:44] LABS: Albumin/Globulin Ratio 1.3 (1.1-1.8); Alkaline Phosphatase 79 U/L (38-126); Anion Gap 19.3 mEq/L (5-15); Blood Urea Nitrogen 38 mg/dl (7-17); Calcium 8.2 mg/dl (8.4-10.2); Carbon Dioxide 26 mmol/L (22.0-30.0); Chloride 91 mmol/L (98-107); Creatinine Clearance Estimated 9 mL/min (50-200); Estimated Glomerular Filt Rate 8 ml/min (>60); GFR (African American) 10 ML/MIN (>60); Glucose 95 mg/dl (74-100); Potassium 5.3 mmoL/L (3.5-5.1); Sodium 131 mmol/L (136-145)
[2024-10-07 18:50] LABS: Alanine Aminotransferase 874 U/L (12-78); Lactic Acid 3.1 mmol/L (0.7-2.1)
--- NOTE | 2024-10-07 18:55 | CT_ITS ---
PROCEDURE INFORMATION: Exam: CT Thoracic Spine Without Contrast Exam date and time: 10/07/2024 8:12 PM Age: 64 years old Clinical indication: Injury or trauma; Additional info: Found down, AMS, intubated TECHNIQUE: Imaging protocol: Computed tomography of the thoracic spine without contrast. Radiation optimization: All CT scans at this facility use at least one of these dose optimization techniques: automated exposure control; mA and/or kV adjustment per patient size (includes targeted exams where dose is matched to clinical indication); or iterative reconstruction. COMPARISON: CT THORACIC SPINE WO CON 10/07/2024 8:12 PM FINDINGS: Limitations: Study is technically limited due to motion artifact. Bones/joints: Thoracic curvature and alignment is unremarkable. There are mild multilevel degenerative changes throughout the mid lower thoracic spine with anterior endplate osteophytic lipping. No evidence of fracture, spondylolysis or spondylolisthesis. Disc heights are fairly well-maintained. No severe spinal or foraminal stenosis. Soft tissues: Unremarkable. IMPRESSION: No acute bony abnormalities.
--- NOTE | 2024-10-07 18:55 | CT_ITS ---
PROCEDURE INFORMATION: Exam: CTA Chest With Contrast Exam date and time: 10/07/2024 8:49 PM Age: 64 years old Clinical indication: Found down, AMS, intubated TECHNIQUE: Imaging protocol: Computed tomographic angiography of the chest with contrast. Exam focused on the arteries. 3D rendering (Not supervised by radiologist): MIP and/or 3D reconstructed images were created by the technologist. Radiation optimization: All CT scans at this facility use at least one of these dose optimization techniques: automated exposure control; mA and/or kV adjustment per patient size (includes targeted exams where dose is matched to clinical indication); or iterative reconstruction. Contrast material: ISOVUE; Contrast volume: 50 ml; Contrast route: INTRAVENOUS (IV); COMPARISON: CT ANGIO CHEST PE PROTOCOL 01/05/2024 7:27 PM FINDINGS: Limitations: Study is technically limited due to motion artifact and body habitus. Tubes, catheters and devices: There is a left-sided chest port terminates the cavoatrial junction unchanged. Heart is mildly enlarged. Mild calcification of coronary arteries. No significant pericardial effusion. There is an ET tube terminating 4 cm above the gurpreet. Pulmonary arteries: Right and left main pulmonary arteries are patent however more distal branches can not be adequately assessed due to technical limitations of the study. Aorta: Scattered atherosclerotic changes of the thoracic aorta. No aortic aneurysm. Lungs: Lung volumes are decreased likely part due to body habitus. There is bibasilar subsegmental atelectasis progressed from previous examination. There are scattered hypoventilatory lung changes redemonstrated. Pleural spaces: Unremarkable. No pneumothorax. No pleural effusion. Heart: See Tubes, catheters and devices finding. Esophagus: There is diffuse esophageal thickening which just above the gurpreet has progressed from previous exam of uncertain etiology. Lymph nodes: Mild lymphadenopathy within the mediastinum and lower neck that appears to have mildly progressed from previous exam. Bones/joints: There is a chronic deformity of the right lateral ribcage secondary to old ununited fractures. No acute bony abnormality is detected. Soft tissues: Unremarkable. IMPRESSION: 1. No evidence of intrathoracic injury. 2. Technically limited CTA of the chest. 3. Decreased lung volumes with bibasilar subsegmental atelectasis progressed from previous exam. 4. Nonspecific thickening of the esophageal wall which has progressed from previous exam. 5. Mild lymphadenopathy within the lower neck and mediastinum also appears to be progressive previous exam and should be correlated with history. 6. Multiple ununited fractures right rib cage.
--- NOTE | 2024-10-07 18:55 | CT_ITS ---
PROCEDURE INFORMATION: Exam: CTA Abdomen and Pelvis With Contrast Exam date and time: 10/07/2024 8:53 PM Age: 64 years old Clinical indication: Injury or trauma; Additional info: Found down, AMS, intubated TECHNIQUE: Imaging protocol: Computed tomographic angiography of the abdomen and pelvis with contrast. Exam focused on the arteries. 3D rendering (Not supervised by radiologist): MIP and/or 3D reconstructed images were created by the technologist. Radiation optimization: All CT scans at this facility use at least one of these dose optimization techniques: automated exposure control; mA and/or kV adjustment per patient size (includes targeted exams where dose is matched to clinical indication); or iterative reconstruction. Contrast material: ISOVUE; Contrast volume: 50 ml; Contrast route: INTRAVENOUS (IV); COMPARISON: CT ABDOMEN PELVIS W CON 01/05/2024 7:27 PM FINDINGS: Limitations: Study is technically limited due to motion artifact. Lungs: Please refer to discussion of CT chest exam. Aorta: Scattered atherosclerotic changes of the abdominal aorta and iliac vessels. No aortic aneurysm. Celiac trunk and mesenteric arteries: No occlusion or significant stenosis. Renal arteries: No occlusion or significant stenosis. Right iliac arteries: No occlusion or significant stenosis. Left iliac arteries: No occlusion or significant stenosis. Liver: Liver is enlarged with diffuse fatty infiltration. Gallbladder and biliary ducts: Gallbladder is mildly distended, otherwise unremarkable. Bile ducts not dilated. Pancreas: Unremarkable. Main pancreatic duct is not significantly dilated. Spleen: Spleen is mildly enlarged with scattered granulomatous calcifications. Adrenal glands: Unremarkable. No mass. Kidneys and ureters: Unremarkable. No solid mass. No hydronephrosis. Stomach and bowel: Scattered diverticuli large bowel without evidence of diverticulitis. Appendix: No evidence of appendicitis. Intraperitoneal space: Unremarkable. No free air. No significant fluid collection. Lymph nodes: Unremarkable. No enlarged lymph nodes. Urinary bladder: There is a Mendoza catheter balloon within the urinary bladder which is collapsed and difficult to further assess. Reproductive: Uterus has been removed. Bones/joints: Moderate degenerative changes L5-S1. No acute bony abnormalities detected. Soft tissues: Unremarkable. IMPRESSION: 1. No evidence of abdominal or pelvic injury. 2. Hepatomegaly with diffuse fatty infiltration. 3. Mild splenomegaly. 4. Mild gallbladder distension attributed to phone fasting.
--- NOTE | 2024-10-07 18:55 | CT_ITS ---
PROCEDURE INFORMATION: Exam: CT Cervical Spine Without Contrast Exam date and time: 10/07/2024 8:07 PM Age: 64 years old Clinical indication: Injury or trauma; Additional info: Found down, AMS, intubated TECHNIQUE: Imaging protocol: Computed tomography of the cervical spine without contrast. Radiation optimization: All CT scans at this facility use at least one of these dose optimization techniques: automated exposure control; mA and/or kV adjustment per patient size (includes targeted exams where dose is matched to clinical indication); or iterative reconstruction. COMPARISON: CT HEAD/BRAIN WO CON 10/07/2024 8:03 PM FINDINGS: Bones: No acute fracture. Normal alignment. No significant disc bulge or herniation. No severe spinal canal stenosis. No significant neural foraminal narrowing. Lungs: Lung apices are normal. Soft tissues: Unremarkable. IMPRESSION: No acute findings.
--- NOTE | 2024-10-07 18:55 | CT_ITS ---
PROCEDURE INFORMATION: Exam: CT Head Without Contrast Exam date and time: 10/07/2024 8:03 PM Age: 64 years old Clinical indication: Altered mental status/memory loss; Additional info: Found down, AMS, intubated TECHNIQUE: Imaging protocol: Computed tomography of the head without contrast. Radiation optimization: All CT scans at this facility use at least one of these dose optimization techniques: automated exposure control; mA and/or kV adjustment per patient size (includes targeted exams where dose is matched to clinical indication); or iterative reconstruction. COMPARISON: CT HEAD/BRAIN WO CON 08/25/2023 5:04 PM FINDINGS: Brain: Normal. No hemorrhage. Unremarkable white matter. No mass effect. Cerebral ventricles: No ventriculomegaly. Paranasal sinuses: Moderate bilateral ethmoidal sinus disease. Mastoid air cells: Visualized mastoid air cells are well aerated. Bones: Unremarkable. No acute fracture. Soft tissues: Unremarkable. IMPRESSION: 1. Moderate bilateral ethmoidal sinus disease. 2. No acute intracranial process is identified.
--- NOTE | 2024-10-07 18:55 | CT_ITS ---
PROCEDURE INFORMATION: Exam: CTA Head With Contrast, Arteriography Exam date and time: 10/07/2024 8:30 PM Age: 64 years old Clinical indication: Injury or trauma; Additional info: Found down, AMS, intubated TECHNIQUE: Imaging protocol: Computed tomographic angiography of the head with contrast. Exam focused on the arteries. 3D rendering (Not supervised by radiologist): MIP and/or 3D reconstructed images were created by the technologist. Radiation optimization: All CT scans at this facility use at least one of these dose optimization techniques: automated exposure control; mA and/or kV adjustment per patient size (includes targeted exams where dose is matched to clinical indication); or iterative reconstruction. Contrast material: ISOVUE; Contrast volume: 80 ml; Contrast route: INTRAVENOUS (IV); COMPARISON: CT HEAD/BRAIN WO CON 10/07/2024 8:03 PM FINDINGS: ANTERIOR CIRCULATION: Right internal carotid artery: Intracranial segment is patent with no significant stenosis. No aneurysm. Right middle cerebral artery: No occlusion or significant stenosis. No aneurysm. Right anterior cerebral artery: No occlusion or significant stenosis. No aneurysm. Left internal carotid artery: Intracranial segment is patent with no significant stenosis. No aneurysm. Left middle cerebral artery: No occlusion or significant stenosis. No aneurysm. Left anterior cerebral artery: No occlusion or significant stenosis. No aneurysm. POSTERIOR CIRCULATION: Right vertebral artery: No occlusion or significant stenosis. No aneurysm. Left vertebral artery: No occlusion or significant stenosis. No aneurysm. Basilar artery: No occlusion or significant stenosis. No aneurysm. Right posterior cerebral artery: No occlusion or significant stenosis. No aneurysm. Left posterior cerebral artery: No occlusion or significant stenosis. No aneurysm. Brain: No definite mass, mass effect, or midline shift. Cerebral ventricles: No ventriculomegaly. Paranasal sinuses: Moderate bilateral ethmoid sinus disease with retained secretions in the nasal cavity. Bones/joints: Unremarkable. No acute fracture. Soft tissues: Unremarkable. IMPRESSION: 1. No stenosis or occlusion. 2. Moderate bilateral ethmoid sinus disease with retained secretions in the nasal cavity.
--- NOTE | 2024-10-07 18:55 | CT_ITS ---
PROCEDURE INFORMATION: Exam: CTA Neck With Contrast Exam date and time: 10/07/2024 8:30 PM Age: 64 years old Clinical indication: Injury or trauma; Additional info: Found down, AMS, intubated TECHNIQUE: Imaging protocol: Computed tomographic angiography of the neck with contrast. Exam focused on the cervical segments of the vasculature. 3D rendering (Not supervised by radiologist): MIP and/or 3D reconstructed images were created by the technologist. Radiation optimization: All CT scans at this facility use at least one of these dose optimization techniques: automated exposure control; mA and/or kV adjustment per patient size (includes targeted exams where dose is matched to clinical indication); or iterative reconstruction. Contrast material: ISOVUE; Contrast volume: 80 ml; Contrast route: INTRAVENOUS (IV); COMPARISON: CT CERVICAL SPINE WO CON 10/07/2024 8:07 PM FINDINGS: Right common carotid artery: No stenosis. No dissection or occlusion. Right internal carotid artery: No stenosis of the extracranial segment. No dissection or occlusion. Right external carotid artery: No occlusion or stenosis of the origin. Left common carotid artery: No stenosis. No dissection or occlusion. Left internal carotid artery: No stenosis of the extracranial segment. No dissection or occlusion. Left external carotid artery: No occlusion or stenosis of the origin. Right vertebral artery: No stenosis. No dissection or occlusion. Left vertebral artery: No stenosis. No dissection or occlusion. Soft tissues: Normal. No significant soft tissue swelling. Bones/joints: No acute fracture. IMPRESSION: No stenosis or occlusion. REFERENCES: NASCET CRITERIA. The degree of stenosis in the cervical segment of the internal carotid artery is based on NASCET criteria. Normal is no stenosis. Mild is less than 50% stenosis. Moderate is 50-69% stenosis. Severe is 70% to 99% stenosis. Total occlusion is no detectable patent lumen.
--- NOTE | 2024-10-07 18:55 | CT_ITS ---
PROCEDURE INFORMATION: Exam: CT Lumbar Spine Without Contrast Exam date and time: 10/07/2024 8:22 PM Age: 64 years old Clinical indication: Found down, AMS, intubated TECHNIQUE: Imaging protocol: Computed tomography of the lumbar spine without contrast. Radiation optimization: All CT scans at this facility use at least one of these dose optimization techniques: automated exposure control; mA and/or kV adjustment per patient size (includes targeted exams where dose is matched to clinical indication); or iterative reconstruction. COMPARISON: CT THORACIC SPINE WO CON 10/07/2024 8:12 PM FINDINGS: Bones/joints: No acute fracture. Normal alignment. Disc heights are maintained however the L5-S1 disc level was not included within the field of view.. No significant disc bulge or herniation detected. No severe spinal canal stenosis. No significant neural foraminal narrowing. Soft tissues: Unremarkable. IMPRESSION: No acute findings.
[2024-10-07 18:56] LABS: Appearance,Urine CLEAR (Clear); Blood, Urine MODERATE (Negative); Color,Urine YELLOW (Yellow); Glucose,Urine (UA) Negative (Negative); Ketones,Urine Negative (Negative); Leukocyte Esterase,Urine Negative (Negative); Nitrate,Urine Negative (Negative); PH,Urine 5.5 (5.0-8.5); Protein,Urine 30 (Negative); Specific Gravity, Urine >= 1.030 (1.005-1.030); Urobilinogen,Urine 0.2 EU/dl (0.2)
[2024-10-07 19:02] LABS: Aspartate Amino Transferase 1465 U/L (14-36)
[2024-10-07 19:03] LABS: C-Reactive Protein 368.2 mg/L (0-4)
--- NOTE | 2024-10-07 19:08 | ED_ITS ---
Discharge Plan Disposition Patient Disposition: Still a Patient Prescriptions Prescriptions: No Action escitalopram oxalate 10 mg tablet 10 mg PO DAILY gabapentin 400 mg capsule 400 mg PO BID levothyroxine 200 mcg tablet 200 mcg PO DAILY hydrocortisone [Cortef] 10 mg tablet 10 mg PO BID Qty: 90 5RF Rx Instructions: 2 tabs in the AM, 1 tab in the PM Referrals Follow up/Referrals: Julian Quiroga MD [Primary Care Provider] - See instructions Clinical Impressions Clinical Impression: Acute hypoxemic respiratory failure, Acute hepatic failure, Acute kidney failure, Rhabdomyolysis, Acute hyponatremia, Acute metabolic encephalopathy Instructions Patient Instructions: DI for Altered Mental Status Print Language Print Language: Setswana Discharge ED Provider: Vinay Cain General Adult HPI General Chief complaint: Altered Mental Status Stated complaint: Fall Time Seen by Provider: 10/07/24 17:19 Mode of Arrival: EMS Source of Information: EMS Description of Symptoms (Recalled from ER Triage Doc. by RN): ems was called by pt dorothy who states pt has been down for 2 days. pt is unresponxive with a nasal trumpet and cpap in place. saturation upon arrival was 78% pt minimally responsive to pain. no verbal communication at all. no medical history available @ this time. History of Present Illness HPI narrative: Please note that above description of symptoms, in this electronic medical record under categorization of recalled from ER triage doctor by RN are reflective of an initial nursing assessment, however, is not reflective of my full history and physical exam that was personally taken and clarified. Consequentially, this preceding description of symptoms, which may include the patient's categorized chief complaint in the EMR, do not reflect my personal clinical impression, and the ultimate description of history of present illness and patient stated complaints should be deferred to this section of the note. Unless stated otherwise or congruent with this section of the note, additional signs, symptoms, or incongruence should be interpreted as inaccurate with my clinical impression. Related Data Home Medications ?Medication ?Instructions ?Recorded ?Confirmed gabapentin 400 mg capsule 400 mg PO BID 05/28/23 01/06/24 levothyroxine 200 mcg tablet 200 mcg PO DAILY 01/06/24 01/06/24 escitalopram oxalate 10 mg tablet 10 mg PO DAILY 04/15/24 04/15/24 Previous Rx's ?Medication ?Instructions ?Recorded hydrocortisone 10 mg tablet 10 mg PO BID #90 tabs 01/08/24 (Cortef) Allergies Allergy/AdvReac Type Severity Reaction Status Date / Time penicillin G (PENICILLIN G) Allergy Mild Verified 04/15/24 13:43 [facility] Disclaimer: The information contained in this section may have been updated after the patient was seen, as this information can be updated by other users. Medical History Acute hypercapnic respiratory failure Vulvar lesion Travelers' diarrhea Gallbladder sludge Urinary incontinence Osteoarthritis Fibromyalgia GERD (gastroesophageal reflux disease) CAP (community acquired pneumonia) Abdominal pain Knee fracture Wrist fracture, right COPD (chronic obstructive pulmonary disease) Hypothyroid Lung cancer Acute hypotension Bilateral lower abdominal pain Shingles Tobacco abuse COPD exacerbation Smoking trying to quit Surgical History History of colonoscopy History of section History of carpal tunnel surgery History of hysterectomy History of lobectomy of lung Family History (Updated 04/15/24 @ 13:46 by PAIGE Allison) Father Kidney disease Other Family history of cancer Hypertension Social History Smoking Status: Unknown if ever smoked alcohol intake: never substance use type: denies use current occupational status: disabled and other Travel in the last 8 weeks: None housing: house Have you lived/traveled outside [place] in past 30 days?: No Contact w/someone who lives/traveled outside US past 30 days?: No Exposure to someone with infectious disease in past 14 days?: No Do you have a fever (greater than 100.4 F or 38 C)?: No Have you tested positive for COVID-19: No Exposed to someone with COVID-19 in past 14 days?: No Do you have a sore throat?: No Do you have a cough?: No Do you have any weakness?: No Do you have any diarrhea?: No Are you experiencing any unusual bleeding?: No Do you have any muscle aches/pain?: No Do you have any abdominal pain?: No Are you experiencing loss of taste or smell?: No Other Medical History Have you received the Flu Vaccine for this season: No Have you received the Pneumonia Vaccine: No ROS Obtained: Yes unobtainable due to mental status and Yes unobtainable due to endotracheal tube Physical Exam General General appearance: obtunded and obese Head Head exam: atraumatic Eye Eye exam: Present PERRL ENT ENT exam: Present normal exam and normal oropharynx Chest Chest inspection: Present normal inspection and symmetric chest wall rise Respiratory Respiratory exam: Present other (Minimal breath sounds heard bilaterally. Patient with sonorous respirations with nasopharyngeal airway in place) Cardiovascular Cardiovascular exam: Present normal rhythm and tachycardia Abdominal Exam Abdominal exam: Present soft; Absent distention Neurological Exam Neurological exam: Present other (GCS 3, not intubated) Skin Skin exam: Present pallor and mottled Medical Decision Making Medical Records Medical records reviewed: Yes I reviewed the patient's medical records. Screening: Per USPSTF and CDC recommendations, given the prevalence of disease in our region, it is our hospital?s policy to screen for HIV and viral Hepatitis for all patients aged 18 and over and those with ongoing risk factors. Janes Inquiry Pt receiving controlled substance: No Janes was queried for this patient: No Vital Signs: 10/07/24 17:03 10/07/24 17:33 10/07/24 17:36 Temperature 95 F L Temperature Source Rectal Pulse Rate 83 85 Pulse Rate [Right] 48 L Respiratory Rate 6 L 18 12 Blood Pressure 81/53 L 147/79 H Blood Pressure [Right Arm] 36/18 L Blood Pressure Mean [Right Arm] 24 02 Sat by Pulse Oximetry 63 L 98 99 Oxygen Delivery Method CPAP Mechanical Ventilation Mechanical Ventilation Fraction of Inspired Oxygen 10/07/24 17:40 10/07/24 17:45 10/07/24 17:47 Temperature Temperature Source Pulse Rate 83 84 83 Pulse Rate [Right] Respiratory Rate 28 H 31 H 22 Blood Pressure 153/86 H 131/77 120/56 L Blood Pressure [Right Arm] Blood Pressure Mean [Right Arm] 02 Sat by Pulse Oximetry 98 94 L 92 L Oxygen Delivery Method Mechanical Ventilation Mechanical Ventilation Mechanical Ventilation Fraction of Inspired Oxygen 10/07/24 17:50 10/07/24 17:59 10/07/24 18:00 Temperature 96.3 F L 97.9 F 97.9 F Temperature Source Pulse Rate 83 84 84 Pulse Rate [Right] Respiratory Rate 18 22 29 H Blood Pressure 129/75 131/75 110/71 Blood Pressure [Right Arm] Blood Pressure Mean [Right Arm] 02 Sat by Pulse Oximetry 98 91 L 90 L Oxygen Delivery Method Mechanical Ventilation Fraction of Inspired Oxygen 10/07/24 18:10 10/07/24 18:15 10/07/24 18:20 Temperature 98.2 F 98.4 F 98.4 F Temperature Source Pulse Rate 81 82 82 Pulse Rate [Right] Respiratory Rate 25 H 24 32 H Blood Pressure 112/60 113/57 L 115/71 Blood Pressure [Right Arm] Blood Pressure Mean [Right Arm] 02 Sat by Pulse Oximetry 94 L 91 L 91 L Oxygen Delivery Method Fraction of Inspired Oxygen 10/07/24 18:54 10/07/24 19:00 10/07/24 19:04 Temperature 98.6 F 98.6 F Temperature Source Pulse Rate 79 79 Pulse Rate [Right] Respiratory Rate 18 18 18 Blood Pressure 57/41 L 93/50 L Blood Pressure [Right Arm] Blood Pressure Mean [Right Arm] 02 Sat by Pulse Oximetry 99 97 100 Oxygen Delivery Method Fraction of Inspired Oxygen 100 10/07/24 19:05 10/07/24 19:10 10/07/24 19:15 Temperature 98.6 F 98.6 F 98.6 F Temperature Source Pulse Rate 80 78 79 Pulse Rate [Right] Respiratory Rate 18 18 18 Blood Pressure 96/54 L 100/58 L 118/52 L Blood Pressure [Right Arm] Blood Pressure Mean [Right Arm] 02 Sat by Pulse Oximetry 99 100 100 Oxygen Delivery Method Fraction of Inspired Oxygen 10/07/24 19:16 10/07/24 19:20 10/07/24 21:52 Temperature 98.6 F 98.4 F 0 F L Temperature Source Pulse Rate 79 79 0 L Pulse Rate [Right] Respiratory Rate 19 19 0 L Blood Pressure 118/52 L 108/60 L 000/00 L Blood Pressure [Right Arm] Blood Pressure Mean [Right Arm] 02 Sat by Pulse Oximetry 100 100 Oxygen Delivery Method Fraction of Inspired Oxygen 10/07/24 22:09 Temperature Temperature Source Pulse Rate Pulse Rate [Right] Respiratory Rate 18 Blood Pressure Blood Pressure [Right Arm] Blood Pressure Mean [Right Arm] 02 Sat by Pulse Oximetry 92 L Oxygen Delivery Method Fraction of Inspired Oxygen 45 Lab Data Lab Results 10/07/24 17:18: WBC 15.2 H, RBC 4.22, Hgb 12.6, Hct 39.9, MCV 94.5, MCH 29.9, M CHC 31.6 L, RDW 15.7, Plt Count 379, MPV 9.9, Neut % (Auto) 87.6 H, Lymph % (Auto) 6.9 L, [place] % (Auto) 4.3, Eos % (Auto) 0.3, Baso % (Auto) 0.3, Neut # (Auto) 13.3 H, Lymph # (Auto) 1.1, [place] # (Auto) 0.7, Eos # (Auto) 0.0, Baso # (Auto) 0.1, Total Counted 100, Neutrophils % (Manual) 86 H, Band Neutrophils % 2.0, Lymphocytes % (Manual) 7 L, Monocytes % (Manual) 4, Eosinophils % (Manual) 1, Platelet Estimate Normal, RBC Morphology Normal, PT 12.7 H, INR 1.15 H, APTT 35.4 H, Fibrinogen 706 H, Sodium 131 L, Potassium 5.3 H, Chloride 91 L, Carbon Dioxide 26, Anion Gap 19.3 H, BUN 38 H, Creatinine 5.20 H, Estimated Creat Clear 9, Estimated GFR 8 L*, Est GFR ( Amer) 10 L*, Glucose 95, Lactate 3.1 H, Calcium 8.2 L, Total Bilirubin 1.0, AST 1465 H*, ALT 874 H*, Alkaline Phosphatase 79, Total Creatine Kinase 42495 H*, C-Reactive Protein 368.2 H, Total Protein 7.0, Albumin 4.0, Globulin 3.0, Albumin/Globulin Ratio 1.3, TSH 40.10 H 10/07/24 17:18: TSH 42.10 H, HCV Ab MIKHAIL w/Rflx PCR Qn Negative, HIV Ag/Ab Combo Qual Positive 10/07/24 17:50: Urine Color Yellow, Urine Appearance Clear, Urine pH 5.5, Ur Specific Priddy >= 1.030, Urine Protein 30, Urine Glucose (UA) Negative, Urine Ketones Negative, Urine Blood Moderate, Urine Nitrate Negative, Urine Bilirubin 1+ A, Urine Urobilinogen 0.2, Ur Leukocyte Esterase Negative, Urine RBC None, Urine WBC None, Ur Squamous Epith Cells Occasional, Amorphous Sediment 3+, Urine Bacteria 1+ 10/07/24 20:30: HIV (1&2) Ag & Ab Conf Positive 10/07/24 22:25: Specimen Source Right brachial, O2 % 45, ABG pH 7.31 L, ABG pCO2 46.0 H, ABG pO2 61.4 L, ABG HCO3 22.8, ABG Total CO2 24.2, ABG O2 Saturation 88 L, ABG Base Excess -3.4 L, Gabo Test Non applicable, Vent Rate 18, Tidal Volume 450, PEEP 5 10/07/24 17:18 10/07/24 17:18 Orders (Tests/Meds): ED MEDICATIONS Generic Name Dose Route Start Last Admin Trade Name Freq PRN Reason Stop Dose Admin Norepinephrine/Dextrose 8 mg in 250 mls @ 15 mls/hr 10/07/24 18:26 10/07/24 17:29 Levophed 8mg/250ml-D5w Premix IV 11/06/24 18:25 8 mcg/min .[id number] LEENA 15 mls/hr Administration Protocol 8 MCG/MIN Propofol 100 mls @ 8.165 mls/hr 10/07/24 18:26 10/07/24 22:30 Diprivan 10mg/Ml 100ml Bottle IV 11/06/24 18:25 26 mcg/kg/min .[id number] LEENA 21.23 mls/hr Titration Protocol 10 MCG/KG/MIN Miscellaneous 1 each 10/07/24 18:45 10/07/24 19:35 Vancomycin Consult Request NOTAPPLIC 11/06/24 18:44 1 each CONSULT PHARMACY LEENA Administration Sodium Chloride 3 ml 10/07/24 22:38 Sodium Chloride 3% 15ml Neb IH 11/06/24 22:37 ONCE PRN INDUCE SPUTUM COLLECTION Discontinued Medications Generic Name Dose Route Start Last Admin Trade Name Baltaq PRN Reason Stop Dose Admin Etomidate 30 mg 10/07/24 18:27 10/07/24 17:20 Etomidate 40mg/20ml Vial IV 10/07/24 18:28 30 mg ONCE ONE Administration Cefepime HCl 2 gm/ Sodium 100 mls @ 200 mls/hr 10/07/24 18:33 10/07/24 19:34 Chloride IV 10/07/24 19:02 200 mls/hr ONCE ONE Administration Metronidazole 500 mg in 100 mls @ 100 mls/hr 10/07/24 18:33 10/07/24 19:27 Flagyl 500mg/100ml Ivpb IV 10/07/24 19:32 100 mls/hr ONCE ONE Administration Sodium Chloride 1,500 mls @ 750 mls/hr 10/07/24 18:33 10/07/24 19:27 Sod Chlor 0.9% 1000ml Bag 30 ml/kg infuse over 2 hr (1500 ml) 10/07/24 20:32 750 mls/hr IV Administration .Q2H ONE Vancomycin HCl 2,000 mg/ 250 mls @ 125 mls/hr 10/07/24 18:45 10/07/24 19:34 Sodium Chloride IV 10/07/24 20:44 125 mls/hr ONCE ONE Administration Iopamidol 180 ml 10/07/24 21:07 10/07/24 21:08 Iopamidol-370 (76%);100ml Bottle IV 10/07/24 21:08 180 ml ONCE ONE Administration Rocuronium Peetz 120 mg 10/07/24 18:24 10/07/24 17:20 Rocuronium Peetz 50mg/5ml Vial IV 10/07/24 18:25 120 mg ONCE ONE Administration Sodium Chloride 50 ml 10/07/24 21:07 10/07/24 21:08 0.9 % Sodium Chloride 50 Ml Vial IV 10/07/24 21:08 50 ml ONCE ONE Administration Sodium Chloride 10 ml 10/07/24 21:07 10/07/24 21:08 Sodium Chloride 0.9% 10ml Syr (Rad Only) IV 10/07/24 21:08 10 ml ONCE ONE Administration ORDERS Category Date Time Status CT angio abd/pel - TRAUMA Stat Cat Scan 10/07/24 18:[address] angio chest - dissection Stat Cat Scan 10/07/24 18:[address] angio head Stat Cat Scan 10/07/24 18:[address] angio neck Stat Cat Scan 10/07/24 18:[address] cervical spine wo con Stat Cat Scan 10/07/24 18:[address] head/brain wo con Stat Cat Scan 10/07/24 18:[address] lumbar spine wo con Stat Cat Scan 10/07/24 18:[address] thoracic spine wo con Stat Cat Scan 10/07/24 18:55 Completed Chest XR -- portable [XR chest portable] Stat Exams 10/07/24 18:32 Completed Chest XR -- portable [XR chest portable] Stat Exams 10/07/24 18:42 Completed C-Reactive Protein Stat Lab 10/07/24 17:18 Completed CK [Creatine Kinase] Stat Lab 10/07/24 17:18 Completed Complete Blood Count Auto Diff Stat Lab 10/07/24 17:18 Completed Comprehensive Metabolic Panel Stat Lab 10/07/24 17:18 Completed Fibrinogen Stat Lab 10/07/24 17:18 Completed HIV Combo Retest Routine Lab 10/07/24 20:30 Completed HIV Combo Stat Lab 10/07/24 17:18 Completed Hepatitis C Ab Qual. W/ RFX Stat Lab 10/07/24 17:18 Completed Lactic Acid Follow Up (RFLX 1) Stat Lab 10/07/24 22:12 Ordered Lactic Acid Stat Lab 10/07/24 17:18 Completed PT/PTT Stat Lab 10/07/24 17:18 Completed TSH [Thyroid Stimulating Hormone] Routine Lab 10/07/24 17:18 Completed TSH [Thyroid Stimulating Hormone] Stat Lab 10/07/24 17:18 Completed Urinalysis and Microscopic Stat Lab 10/07/24 17:50 Completed Blood Culture Stat Micro 10/07/24 17:18 Received Sputum Culture & Gram Stain Stat Micro 10/07/24 18:00 Ordered ABG [Arterial Blood Gas] Stat RT 10/07/24 22:25 Completed Medical Decision Narrative: This is a 64-year-old female presenting with altered mental status being found down. Allegedly she has been on the ground at home for approximately 2 days. Family aware, but did not think to call EMS. Grandson called EMS today. Upon EMS arrival, patient obtunded, hypoxemic. Respiratory support was placed and patient was brought emergently to the emergency department. History was obtained via conversation with EMS. On arrival, patient hemodynamically unstable, intermittently bradycardic, intermittently tachycardic, hypoxemic in the 60s. CPAP in place. Minimal breath sounds bilaterally, cardiac exam without obvious murmurs gallops rubs, patient is extremely obese and difficult to appreciate good cardiac and lung sounds with CPAP. GCS 3. Nasopharyngeal airway in place patient resuscitated with IV fluids, I feel the blood pressure cuff is not adequately obtaining pressures, but patient's carotid and femoral pulses are bounding. Patient placed on continuous cardiac monitoring and pulse oximetry reading 36/18 initially, heart rate of 48, O2 sat 63%. Independent interpretation of EKG shows sinus rhythm [address] 145, QRS 85, QTc 430. Low voltage QRS. No acute ischemic change. Patient was intubated for airway protection using Catrachita 3, video-assisted laryngoscope and 7.5 ET tube. Tolerated procedure well, placed on ventilator. Empiric antibiotics were started, fluid bolus for sepsis also started. Difficult access after numerous pokes, able to get 1 ultrasound-guided line in the left upper extremity. Due to critical illness, numerous unsuccessful pokes otherwise, left IJ central line was placed. See procedure note. On independent interpretation of workup, patient has leukocytosis with neutrophilia. Patient's coags with mildly elevated INR 1.15 and fibrinogen elevated at 700. Sodium low at 131, potassium 5.3, acute renal failure with creatinine 5.2, BUN 38. Lactate 3.1. Patient in acute liver failure as well with AST 1465, ALT 874, normal alk phos. CK elevated at 20,000 with elevated CRP at 370. Patient's urinalysis with blood, otherwise no acute infectious findings. I independently interpreted patient's CT imaging workup. No intracranial hemorrhage, but it does seem that she has some cerebral edema given slit ventricles and loss of good differentiation between brainstem and posterior structures. [facility] was contacted and case was discussed at length, graciously accepted for transfer. Because patient high risk for clinical decompensation if discharged, deemed appropriate for transfer and inpatient admission. Results were relayed to patient who voiced understanding and patient was agreeable to transfer, inpatient admission, and management. Patient was graciously accepted and transferred to [facility] for further definitive management, under Dr. Zuleta Quartz [employer] disclaimer Much of this encounter note is an electronic juice bar team member spoken language to printed text. Electronic juice bar team member of the spoken language may permit errors. Although I have reviewed the note, some errors may still exist. Procedures Intubation Mallampati Score:: Class IV Time out performed: No sedative: Etomidate Mg Given: 30 paralytic: Rocuronium Mg Given: 120 Laryngoscope: Catrachita ET Tube Size: 7.5 ET Tube Uncuffed: Yes Tube Secured Depth (cm): 20 Tube Placement Confirmation: visualized tube passing through cords, equal breath sounds bilaterally and confirmation by capnometry Patient Tolerated Procedure: well Intubation Complications: none Central Line Placement Left IJ: Time Out Performed: No Patient Placed on Monitor/Pulse Ox: Yes MD Prep: mask, gown and gloves Central Line Prep: Chlorhexidine scrub Ultrasound Used for Placement: Yes Central Line Lumen Inserted: triple Post Procedure: sutured in place, good blood return, all ports aspirated, flushed, capped and sterile dressing applied Post Procedure X-Ray: tip of catheter in good position and no pneumothorax seen Patient Tolerated Procedure: well Complications: none Limited Ultrasound Indication:: Ultrasound-guided line placement Indication: -Difficult IV access, critical illness Identified structures: -Left upper extremity vein Location/access site: -Left upper extremity median vein Vessel patency: -Patent Direct visualization? -Yes Impression: Successful placement of 20-gauge catheter in the left upper extremity median vein Images were not saved to permanent archive The study was technically adequate CPT Codes: Venipuncture: 38543-62 Age <3 yo: 62876-19 Age >3yo: 50770-99 Central line <5 yo: 06129-91 Central line >5 yo: 48579-99 This study was performed by me, and I personally interpreted all images/videos. Based on my clinical judgement, these images were adequate and did not necessitate further imaging Views:: Ultrasound-guided line placement Indication: -Difficult IV access, numerous unsuccessful pokes Identified structures: -Left neck veins Location/access site: -Left IJ Vessel patency: -Patent Direct visualization? -Yes Impression: Successful placement of left IJ triple-lumen catheter Images were saved to permanent archive The study was not technically adequate CPT Codes: Venipuncture: 43648-55 Age <3 yo: 80036-76 Age >3yo: 04979-63 Central line <5 yo: 91098-74 Central line >5 yo: 10100-62 This study was performed by nc, and I personally interpreted all images/videos. Based on my clinical judgement, these images were adequate and did not necessitate further imaging Critical Care Critical Care Time Critical Care Time: Yes (respiratory, ID, cardiac, renal, hepatic) Attestation: On 10/07/24, the high probability of a clinically significant, sudden or life threatening deterioration of the following system(s) required my full and direct attention, intervention and personal management. The time I documented below is in addition to time spent performing reported procedures but includes the following listed in this critical care notation. Total Time Total Critical Care Time: 300
[2024-10-07 19:11] LABS: Bilirubin,Urine 1+ (Negative)
[2024-10-07 19:19] LABS: Eosinophils % 1 % (0-3); Lymphocytes % 7 % (10-50); Monocytes % 4 % (2-9); Neutrophils % 86 % (42-76); Platelet Estimate Normal; RBC Morphology Normal; Total Cells Counted 100
[2024-10-07] MEDS: 0.9 % SODIUM CHLORIDE 1000ML 1,500 ML 750 ML IV (19:27)
[2024-10-07] MEDS: METRONIDAZ/SOD CHL 500 MG/100 ML PIGGYBACK 100 MG IV (19:27)
[2024-10-07] MEDS: VANCOMYCIN HCL 2,000 MG in 0.9 % SODIUM CHLORIDE 250 ML 125 MG IV (19:34)
[2024-10-07] MEDS: CEFEPIME HCL 2 GM in 0.9 % SODIUM CHLORIDE 100 ML IV (19:34)
[2024-10-07] MEDS: VANCOMYCIN CONSULT REQUEST 1 EACH NOTAPPLIC (19:35)
[2024-10-07 20:16] LABS: Creatine Kinase 19774 U/L (30-135); HIV Combo POSITIVE (Negative)
[2024-10-07 20:23] LABS: Hepatitis C Ab Qual. W/ RFX NEGATIVE (Negative)
[2024-10-07] MEDS: IOPAMIDOL-370 (76%);100ML BOTTLE 180 ML IV (21:08)
[2024-10-07] MEDS: 0.9 % SODIUM CHLORIDE 50 ML VIAL IV (21:08)
[2024-10-07] MEDS: SODIUM CHLORIDE 0.9% 10ML SYR (RAD ONLY) 10 ML IV (21:08)
--- NOTE | 2024-10-07 21:26 | PC.NURSE ---
Called [facility] per Dr. Cain for poss transfer for acute renal and acute kidney failure. stated that they would give us a call back.
[2024-10-07 21:29] LABS: Amorphous Sediment,Urine 3+ /lpf; Bacteria,Urine 1+ /lpf; Squamous Epithelial Cell,Urine Occasional #/hpf (0-5)
[2024-10-07 21:35] LABS: HIV Combo Retest POSITIVE (Negative)
[2024-10-07 21:38] LABS: HIV 1 Ab ND; HIV 2 Ab ND
[2024-10-07 22:12] LABS: Reflex Lactic Add Lactic Reflex
[2024-10-07 22:36] LABS: ABG Base Excess -3.4 mmol/L (-2.4-2.3); ABG HCO3 22.8 mmhg (22.0-26.0); ABG Oxygen Saturation 88 % (90-100); ABG PH 7.31 mmol/L (7.35-7.45); ABG PO2 61.4 mmhg (80-100); ABG TCO2 24.2 mmhg (23-27)
[2024-10-07 22:37] LABS: Allen's Test Non Applicable; Oxygen 45 %; PEEP 5; Source Right Brachial; Tidal Volume 450; Vent Rate 18
[2024-10-07] MEDS: propofoL 100 ML 21.23 MG IV (22:49)
[2024-10-09 08:45] LABS: HIV Screen 4th Generation wRfx Non Reactive (Non Reactive)
== END 2024-10-07 23:54 | disposition short-term general hospital (02) ==
PROVIDERS: Emergency Provider Emergency Medicine; PCP Family Medicine
DX: G93.41 Metabolic encephalopathy (principal); E87.1 Hypo-osmolality and hyponatremia; M62.82 Rhabdomyolysis; N17.9 Acute kidney failure, unspecified; K72.00 Acute and subacute hepatic failure without coma; J96.01 Acute respiratory failure with hypoxia; E66.9 Obesity, unspecified; R41.82 Altered mental status, unspecified; W19.XXXA Unspecified fall, initial encounter; Y93.9 Activity, unspecified; Y92.009 Unspecified place in unspecified non-institutional (private) residence as the place of occurrence of the external cause
CPT/HCPCS: 70450; 70496; 70498; 71045; 71275; 72125; 72128; 72131; 74174; 80053; 81001; 82550; 82803; 83605; 84443; 85007; 85025; 85027; 85384; 85610; 85730; 86140; 86703; 86803; 87040; 87070; 87205; 87389; 93005; 96361; 96365; 96366; 99291; 99292; C1751; G0432; J2704; J3370; J7030; Q9967